=== PATIENT | male | born 1945 | race Caucasian/White ===

== ENCOUNTER → 2020-06-26 | Outpatient (CLI) | payer OTHER ==
--- NOTE | 2020-06-26 16:33 | CTL ---
EXAMINATION TYPE: CT Low Dose Lung DATE OF EXAM ORDERED: 06/26/2020 HISTORY: . Lung cancer screening CT DLP: 92.[address] CTDI: 2.7 mGy Automated exposure control for dose reduction was used. SCREENING VISIT: Initial COMPARISON: None TECHNIQUE: Low dose computed tomography scan was performed through the chest at 1 mm thick sections a nd reconstructed images in the coronal plane at [address] DIAGNOSTIC QUALITY: Satisfactory FINDINGS: LUNG NODULES: None. LUNGS: COPD: Severity: Moderately advanced Fibrosis: Severity: Mild Lymph nodes: Scattered small pretracheal lymph nodes Other findings: None RIGHT PLEURAL SPACE: Effusion: None Calcification: None Thickening: None Pneumothorax: None LEFT PLEURAL SPACE: Effusion: None Calcification: None Thickening: None Pneumothorax: None HEART: Heart Size: Normal Coronary calcification: Mild Pericardial effusion: None OTHER FINDINGS: Upper abdomen: Normal Bony thorax: Normal Supraclavicular region: Normal Other: Ascending thoracic aorta at the level the main pulmonary artery measures 3.4 cm. The main pul monary artery at the bifurcation measures 2.3 cm. IMPRESSION: 1. No suspicious changes to suggest neoplasm 2. COPD FOLLOW UP CT CHEST RECOMMENDATION: Follow-up low-dose CT chest one year CT LUNG RAD: 1
== END ==
LOC: RADCTMAIN 07:07
DX: Z12.2 Encounter for screening for malignant neoplasm of respiratory organs (principal); J44.9 Chronic obstructive pulmonary disease, unspecified
CPT/HCPCS: 71271

== ENCOUNTER 2022-07-02 10:08 | Emergency (ER) | payer MEDICARE, OTHER ==
[2022-07-02 10:24] VITALS: RESP 20
--- NOTE | 2022-07-02 11:33 | XR ---
EXAMINATION TYPE: XR chest 2V DATE OF EXAM: 07/02/2022 COMPARISON: None INDICATION: Dysrhythmia cough short of breath TECHNIQUE: Frontal and lateral views of the chest are obtained. FINDINGS: The heart size is normal. The pulmonary vasculature is normal. The lungs are clear. There is hyperinflation and flattening the diaphragms compatible with COPD. IMPRESSION: 1. No acute pulmonary process. 2. Clinical correlation recommended for COPD.
[2022-07-02 11:37] LABS: Partial Thromboplastin Time 24.8 sec (22.0-30.0); Prothrombin Time 10.7 sec (9.0-12.0)
[2022-07-02 11:39] LABS: Basophils % (A) 0 %; Eosinophils # (A) 0.1 k/uL (0-0.7); Eosinophils % (A) 1 %; HCT 45.8 % (39.0-53.0); HGB 15.3 gm/dL (13.0-17.5); Lymphocytes # (A) 0.9 k/uL (1.0-4.8); Lymphocytes % (A) 15 %; MCH 31.7 pg (25.0-35.0); MCHC 33.4 g/dL (31.0-37.0); MCV 95.1 fL (80.0-100.0); Monocytes # (A) 0.8 k/uL (0-1.0); Monocytes % (A) 13 %; Neutrophils # (A) 4.1 k/uL (1.3-7.7); Neutrophils % (A) 68 %; Platelet Count 107 k/uL (150-450); RBC 4.82 m/uL (4.30-5.90); RDW 13.6 % (11.5-15.5)
[2022-07-02 12:10] LABS: ALT 33 U/L (4-49); African American GFR (CKD) 77 (>60 ml/min/1.73 sqM); Anion Gap 8 mmol/L; Blood Urea Nitrogen 19 mg/dL (9-20); Calcium 8.4 mg/dL (8.4-10.2); Carbon Dioxide 26 mmol/L (22-30); Chloride 104 mmol/L (98-107); Glucose 97 mg/dL (74-99); Non-African American GFR(CKD) 67 (>60 ml/min/1.73 sqM); Potassium 4.6 mmol/L (3.5-5.1); Sodium 138 mmol/L (137-145); Total Bilirubin 0.8 mg/dL (0.2-1.3); Total Protein 6.6 g/dL (6.3-8.2)
[2022-07-02 12:11] LABS: AST 36 U/L (17-59); Alkaline Phosphatase 32 U/L (38-126)
--- NOTE | 2022-07-02 13:16 | ED ---
Arrhythmia/Palpitations HPI - General Chief Complaint: Arrhythmia/Palpitations Stated Complaint: Covid+,Bradycardia Time Seen by Provider: 07/02/22 10:15 Source: patient, EMS Mode of arrival: EMS Limitations: no limitations - History of Present Illness Initial Comments: 77-year-old male presents to the emergency department from [facility] urgent care. States that he went into the urgent care because he has been having cold- like symptoms for the past 2 days. Admits to a cough, nasal congestion, body aches. At the facility they did check his pulse and it was noted to be low. They swabbed him for Covid which was positive. Due to his bradycardia they recommended transfer over to the hospital for further evaluation. Patient admits that he has previously seen cardiology. He had a heart monitor for 2 years for abnormal heart rhythm however as he did not have any symptoms during the 2 years they removed it. He does not follow up with a clinical mental health counselor any longer. He denies any chest pain. No shortness of breath. Admits to some nausea with diarrhea. No other alleviating, precipitating or modifying factors - Related Data Previous Rx's Medication Instructions Recorded Nirmatrelvir/Ritonavir [Paxlovid 1 each PO BID #1 pack 07/02/22 2X150 mg-100 mg (Eua)] Allergies Allergy/AdvReac Type Severity Reaction Status Date / Time No Known Allergies Allergy Verified 07/02/22 10:28 Review of Systems ROS Statement: Those systems with pertinent positive or pertinent negative responses have been documented in the HPI. ROS Other: All systems not noted in ROS Statement are negative. Past Medical History Past Medical History: Hyperlipidemia, Prostate Disorder Past Surgical History: Hernia Repair, Orthopedic Surgery Past Psychological History: No Psychological Hx Reported Smoking Status: Former smoker Past Alcohol Use History: None Reported Past Drug Use History: None Reported General Exam Limitations: no limitations General appearance: alert, in no apparent distress Head exam: Present: atraumatic, normocephalic, normal inspection Eye exam: Present: normal appearance, PERRL, EOMI. Absent: scleral icterus, conjunctival injection, periorbital swelling ENT exam: Present: normal exam, mucous membranes moist Neck exam: Present: normal inspection. Absent: tenderness, meningismus, lymphadenopathy Respiratory exam: Present: normal lung sounds bilaterally. Absent: respiratory distress, wheezes, rales, rhonchi, stridor Cardiovascular Exam: Present: regular rate, normal rhythm, normal heart sounds. Absent: systolic murmur, diastolic murmur, rubs, gallop, clicks GI/Abdominal exam: Present: soft, normal bowel sounds. Absent: distended, tenderness, guarding, rebound, rigid Extremities exam: Present: normal inspection, full ROM, normal capillary refill. Absent: tenderness, pedal edema, joint swelling, calf tenderness Back exam: Present: normal inspection Neurological exam: Present: alert, oriented X3, CN II-XII intact Psychiatric exam: Present: normal affect, normal mood Skin exam: Present: warm, dry, intact, normal color. Absent: rash Course Vital Signs 07/02/22 07/02/22 07/02/22 10:11 10:32 11:21 Temperature 97.9 F Pulse Rate 61 62 Respiratory 20 20 20 Rate Blood Pressure 124/92 128/88 O2 Sat by Pulse 96 95 Oximetry 07/02/22 13:26 Temperature 98.2 F Pulse Rate 63 Respiratory 20 Rate Blood Pressure 110/55 O2 Sat by Pulse 98 Oximetry EKG Findings - EKG Comments: EKG Findings:: EKG demonstrates sinus rhythm with frequent PVCs. Rate of 60. MT interval 182. QRS 112. QTC of 424. No acute ST segment elevations or depressions. No signs of high degree block. Every third beat is a PVC Medical Decision Making - Medical Decision Making Was pt. sent in by a medical professional or institution (JESSICA Moss, BROADCAST SYSTEMS ENGINEER, urgent care, hospital, or shelter...) When possible be specific @ -Urgent care Did you speak to anyone other than the patient for history (EMS, parent, family, police, friend...)? What history was obtained from this source @ -EMS Did you review nursing and triage notes (agree or disagree)? Why? @ -I reviewed and agree with nursing and triage notes Were old charts reviewed (outside hosp., previous admission, EMS record, old EKG, old radiological studies, urgent care reports/EKG's, shelter records)? Report findings @ -No old charts were reviewed Differential Diagnosis (chest pain, altered mental status, abdominal pain women, abdominal pain men, vaginal bleeding, weakness, fever, dyspnea, syncope, headache, dizziness, GI bleed, back pain, seizure, CVA, palpatations, mental health, musculoskeletal)? @ -bradycardia, heart block, sick sinus syndrome, pvc EKG interpreted by me (3pts min.). @ -As above X-rays interpreted by me (1pt min.). @ -Yes CT interpreted by me (1pt min.). @ -None done U/S interpreted by me (1pt. min.). @ -None done What testing was considered but not performed or refused? (CT, X-rays, U/S, labs)? Why? @ -None What meds were considered but not given or refused? Why? @ -None Did you discuss the management of the patient with other professionals (professionals i.e. , PA, BROADCAST SYSTEMS ENGINEER, lab, RT, psych nurse, social science instructor, central sterile technician, t eacher, school services officer, family caseworker)? Give summary @ -No Was smoking cessation discussed for >3mins.? @ -No Was critical care preformed (if so, how long)? @ -No Were there social determinants of health that impacted care today? How? (Homelessness, low income, unemployed, alcoholism, drug addiction, transportation, low edu. Level, literacy, decrease access to med. care, halfway, rehab)? @ -No Was there de-escalation of care discussed even if they declined (Discuss DNR or withdrawal of care, Hospice)? DNR status @ -No What co-morbidities impacted this encounter? (DM, HTN, Smoking, COPD, CAD, Cancer, CVA, ARF, Chemo, Hep., AIDS, mental health diagnosis, sleep apnea, morbid obesity)? @ -htn Was patient admitted / discharged? Hospital course, mention meds given and rou te, prescriptions, significant lab abnormalities, going to OR and other pertinent info. @ -Arrival patient placed into room 11. A thorough history and physical exam is performed. Palpable pulse is low however when the patient is hooked up to the monitor it demonstrates multiple PVCs. Laboratory studies are conducted. Patient remains relatively asymptomatic throughout his stay in the emergency department. I did discuss results with the patient. He will be placed on Paxlo vid. Instructed to stop his statin. He does take metoprolol. Instructed that he needs to follow up with cardiology to see if this should be decreased. He does maintain a heart rate of 60 or greater while in the ED. I did recommend that he follow-up with cardiology and return for any new or worsening symptoms. Patient agreeable to treatment plan is discharge home in stable condition Undiagnosed new problem with uncertain prognosis? @ -No Drug Therapy requiring intensive monitoring for toxicity (Heparin, Nitro, Insulin, Cardizem)? @ -No Were any procedures done? @ -No Diagnosis/symptom? @ -acute covid infection, pvcs Acute, or Chronic, or Acute on Chronic? @ -acute - covid, chronic - pvc Uncomplicated (without systemic symptoms) or Complicated (systemic symptoms)? @ -complicated Side effects of treatment? @ -No Exacerbation, Progression, or Severe Exacerbation? @ -No Poses a threat to life or bodily function? How? (Chest pain, [place], PR, pneumonia, PE, COPD, DKA, ARF, appy, cholecystitis, CVA, Diverticulitis, Homicidal, Suicidal, threat to staff... and all critical care pts) @ -yes - Lab Data Result diagrams: 07/02/22 11:11 07/02/22 11:40 Lab Results 07/02/22 07/02/22 07/02/22 Range/Units 11:11 11:11 11:40 WBC 6.0 (3.8-10.6) k/uL RBC 4.82 (4.30-5.90) m/uL Hgb 15.3 (13.0-17.5) gm/dL Hct 45.8 (39.0-53.0) % MCV 95.1 (80.0-100.0) fL MCH 31.7 (25.0-35.0) pg MCHC 33.4 (31.0-37.0) g/dL RDW 13.6 (11.5-15.5) % Plt Count 107 L (150-450) k/uL MPV 9.0 Neutrophils % 68 % Lymphocytes % 15 % Monocytes % 13 % Eosinophils % 1 % Basophils % 0 % Neutrophils # 4.1 (1.3-7.7) k/uL Lymphocytes # 0.9 L (1.0-4.8) k/uL Monocytes # 0.8 (0-1.0) k/uL Eosinophils # 0.1 (0-0.7) k/uL Basophils # 0.0 (0-0.2) k/uL PT 10.7 (9.0-12.0) sec INR 1.0 (<1.2) APTT 24.8 (22.0-30.0) sec Sodium (137-145) mmol/L Potassium (3.5-5.1) mmol/L Chloride (98-107) mmol/L Carbon Dioxide (22-30) mmol/L Anion Gap mmol/L BUN (9-20) mg/dL Creatinine (0.66-1.25) mg/dL Est GFR (CKD-EPI)AfAm (>60 ml/min/1.73 sqM) Est GFR (CKD-EPI)NonAf (>60 ml/min/1.73 sqM) Glucose (74-99) mg/dL Calcium (8.4-10.2) mg/dL Magnesium (1.6-2.3) mg/dL Total Bilirubin (0.2-1.3) mg/dL AST (17-59) U/L ALT (4-49) U/L Alkaline Phosphatase (38-126) U/L Troponin I <0.012 (0.000-0.034) ng/mL Total Protein (6.3-8.2) g/dL Albumin (3.5-5.0) g/dL TSH (0.465-4.680) mIU/L 07/02/22 Range/Units 11:40 WBC (3.8-10.6) k/uL RBC (4.30-5.90) m/uL Hgb (13.0-17.5) gm/dL Hct (39.0-53.0) % MCV (80.0-100.0) fL MCH (25.0-35.0) pg MCHC (31.0-37.0) g/dL RDW (11.5-15.5) % Plt Count (150-450) k/uL MPV Neutrophils % % Lymphocytes % % Monocytes % % Eosinophils % % Basophils % % Neutrophils # (1.3-7.7) k/uL Lymphocytes # (1.0-4.8) k/uL Monocytes # (0-1.0) k/uL Eosinophils # (0-0.7) k/uL Basophils # (0-0.2) k/uL PT (9.0-12.0) sec INR (<1.2) APTT (22.0-30.0) sec Sodium 138 (137-145) mmol/L Potassium 4.6 (3.5-5.1) mmol/L Chloride 104 (98-107) mmol/L Carbon Dioxide 26 (22-30) mmol/L Anion Gap 8 mmol/L BUN 19 (9-20) mg/dL Creatinine 1.08 (0.66-1.25) mg/dL Est GFR (CKD-EPI)AfAm 77 (>60 ml/min/1.73 sqM) Est GFR (CKD-EPI)NonAf 67 (>60 ml/min/1.73 sqM) Glucose 97 (74-99) mg/dL Calcium 8.4 (8.4-10.2) mg/dL Magnesium 2.0 (1.6-2.3) mg/dL Total Bilirubin 0.8 (0.2-1.3) mg/dL AST 36 (17-59) U/L ALT 33 (4-49) U/L Alkaline Phosphatase 32 L (38-126) U/L Troponin I (0.000-0.034) ng/mL Total Protein 6.6 (6.3-8.2) g/dL Albumin 4.0 (3.5-5.0) g/dL TSH 1.170 (0.465-4.680) mIU/L Disposition Clinical Impression: PVC (premature ventricular contraction), COVID-19 Disposition: HOME SELF-CARE Condition: Stable Instructions (If sedation given, give patient instructions): Coronavirus Disease 2019 (COVID-19) Additional Instructions: Stop taking the Rosuvastatin while you are on the Paxlovid. Take Motrin and Tylenol every 4 hours as needed for fever. Follow-up with the clinical mental health counselor in regards to your heart rate and return for any new or worsening symptoms Prescriptions: Nirmatrelvir/Ritonavir [Paxlovid 2X150 mg-100 mg (Eua)] 1 each PO BID #1 pack Is patient prescribed a controlled substance at d/c from ED?: No Referrals: [facility],Clinic [Primary Care Provider] - 1-2 days [facility] [Provider Group] - 1-2 days Time of Disposition: 13:16
[2022-07-02 13:27] VITALS: BP 110/55; PULSE 63; TEMP 98.2
== END 2022-07-02 13:27 | disposition home or self-care (01) ==
LOC: EC 10:08
DX: U07.1 COVID-19 (principal); I49.3 Ventricular premature depolarization; Z87.891 Personal history of nicotine dependence
CPT/HCPCS: 36415; 71046; 80053; 83735; 84443; 84484; 85025; 85610; 85730; 93005; 99285

== ENCOUNTER → 2022-08-04 | Outpatient (CLI) | payer MEDICARE ==
--- NOTE | 2022-08-05 06:56 | CTL ---
EXAMINATION TYPE: CT Low Dose Lung DATE OF EXAM ORDERED: 08/04/2022 HISTORY: Long-term tobacco use. Lung cancer screening CT DLP: 127.[address] CTDI: 3.3 mGy Automated exposure control for dose reduction was used. SCREENING VISIT: Second after baseline COMPARISON: Prior studies 2021 and 2020 TECHNIQUE: Low dose computed tomography scan was performed through the chest at 1 mm thick sections a nd reconstructed images in multiple planes at 1 mm and [address] DIAGNOSTIC QUALITY: Satisfactory FINDINGS: LUNG NODULES: None. LUNGS: COPD: Severity: Mild Fibrosis: Severity: Mild Lymph nodes: None Other findings: None RIGHT PLEURAL SPACE: Effusion: None Calcification: None Thickening: None Pneumothorax: None LEFT PLEURAL SPACE: Effusion: None Calcification: None Thickening: None Pneumothorax: None HEART: Heart Size: Normal Coronary Calcification: Mild to moderate Pericardial Effusion: None OTHER FINDINGS: Upper abdomen: None Bony thorax: None Supraclavicular region: Slight scoliotic curvature Other: None IMPRESSION: Mild emphysematous and pulmonary fibrotic change. No new or enlarging significant pulmona ry nodules. CT LUNG RAD AND CT CHEST RECOMMENDATION: Lung-Rad 1 Negative: Continue annual screening with LDCT in 12 months. S Modifier (other clinically significant findings): None
== END | disposition home or self-care (01) ==
LOC: RADCTMAIN 18:05
DX: Z12.2 Encounter for screening for malignant neoplasm of respiratory organs (principal); J43.9 Emphysema, unspecified; J84.10 Pulmonary fibrosis, unspecified; Z87.891 Personal history of nicotine dependence
CPT/HCPCS: 71271

== ENCOUNTER → 2022-10-20 | Day surgery (SDC) | payer MEDICARE, OTHER ==
[2022-10-18 09:26] VITALS: BMI 25.7
[~2022-10-20] MED LIST: ALPRAZolam 0.25 MG TAB PO PRN; ALPRAZolam 0.5 MG TAB PO PRN; ASPIRIN 325 MG TAB PO STA; NITROGLYCERIN SL TABS 0.4 MG TAB SUBLINGUAL PRN; SODIUM CHLORIDE 0.9% 1,000 ML in EMPTY BAG 1 BAG IV SCH
== END ==
LOC: CATHCVL 08:50
PROVIDERS: ATTEND Internal Medicine Cardiovascular Disease
DX: I34.0 Nonrheumatic mitral (valve) insufficiency (principal)

== ENCOUNTER 2022-11-28 07:11 | Day surgery (SDC) | payer OTHER ==
[~2022-11-28 07:11] MED LIST changes: +ASPIRIN 325 MG TAB PO ONE; -ASPIRIN 325 MG TAB PO STA; +ATORVASTATIN 80 MG TAB PO ONE; +HEPARIN SODIUM,PORCINE (1 ML) 2,500 UNIT in SODIUM CHLORIDE 0.9% 250 ML IRRIGATION PRN; +HEPARIN SODIUM,PORCINE 10,000 UNIT in SODIUM CHLORIDE 0.9% 1,000 ML IRRIGATION PRN
[2022-11-28 07:56] LABS: Basophils % (A) 0 %; Eosinophils # (A) 0.1 k/uL (0-0.7); Eosinophils % (A) 3 %; HCT 45.8 % (39.0-53.0); HGB 15.4 gm/dL (13.0-17.5); Lymphocytes # (A) 1.1 k/uL (1.0-4.8); Lymphocytes % (A) 24 %; MCHC 33.6 g/dL (31.0-37.0); MCV 95.2 fL (80.0-100.0); Mean Platelet Volume 7.8; Monocytes # (A) 0.4 k/uL (0-1.0); Monocytes % (A) 9 %; Neutrophils % (A) 62 %; Platelet Count 113 k/uL (150-450); RBC 4.82 m/uL (4.30-5.90); RDW 13.5 % (11.5-15.5); WBC 4.8 k/uL (3.8-10.6)
[2022-11-28 08:08] LABS: African American GFR (CKD) 82 (>60 ml/min/1.73 sqM); Blood Urea Nitrogen 19 mg/dL (9-20); Carbon Dioxide 26 mmol/L (22-30); Glucose 94 mg/dL (74-99); Non-African American GFR(CKD) 71 (>60 ml/min/1.73 sqM)
[2022-11-28 08:13] VITALS: TEMP 97.1
[2022-11-28 08:19] LABS: Anion Gap 4 mmol/L; Chloride 105 mmol/L (98-107); Potassium 4.2 mmol/L (3.5-5.1); Sodium 135 mmol/L (137-145)
[2022-11-28] MEDS ORDERED: IV FLUID CONTINUATION 1,000 ML IV ONE (08:29)
[2022-11-28] MEDS ORDERED: BENZOCAINE SPRAY 1 CAN MUCOUS MEM ONE (08:35)
[2022-11-28] MEDS ORDERED: HEPARIN SODIUM 1,000 UN/ML (10ML VL) ONE (08:36)
[2022-11-28] MEDS ORDERED: fentaNYL (PF) 50 MCG/ML 2 ML AMP ONE (08:37)
[2022-11-28] MEDS ORDERED: fentaNYL (PF) 50 MCG/ML 2 ML AMP IVP ONE (08:39)
[2022-11-28] MEDS ORDERED: MIDAZOLAM 2 MG/2 ML VIAL IVP ONE ×2 (08:39→08:42)
[2022-11-28] MEDS ORDERED: LIDOCAINE 2% (PF) 20 MG/ML 5 ML VIAL SQ ONE (08:52)
[2022-11-28] MEDS ORDERED: HEPARIN SODIUM 1,000 UN/ML (10ML VL) IV ONE (08:58)
[2022-11-28] MEDS ORDERED: IOPAMIDOL-370 100ML BTL INJ ONE (09:08)
--- NOTE | 2022-11-28 11:53 | CC ---
CARDIAC CATHETERIZATION REPORT INDICATION: Cardiomyopathy with moderate LV systolic dysfunction with evidence of prior inferior wall myocardial infarction. PROCEDURE NOTE: After obtaining informed consent, left heart catheterization and coronary angiogram were performed via the right radial artery using standard Brock catheters. The patient tolerated the procedure well without any obvious immediate complications. The patient received moderate conscious sedation. Total sedation time was 18 minutes. I obtained right radial artery access using Seldinger technique. A 6-Danish sheath was placed. Catheters and wires were floated into the ascending aorta under fluoroscopic guidance. The patient received verapamil and heparin per protocol. FINDINGS: HEMODYNAMICS: 1. Left ventricular end-diastolic pressure is 16 mm. There is no significant gradient across the aortic valve. 2. Left ventriculogram: Left ventriculogram is not performed. ANGIOGRAPHIC DATA: Left main coronary artery: Left main coronary artery is a normal-sized vessel and is free of stenosis. Divides into left anterior descending coronary artery and circumflex coronary artery. Circumflex coronary artery shows mild nonobstructive disease. LAD and its branches are free of significant disease. Right coronary artery is a large dominant vessel that shows mild nonobstructive disease involving the PDA. CONCLUSION: Mild nonobstructive coronary artery disease. PLAN: 1. I reviewed angiographic data with the patient and told him that his cardiomyopathy is nonischemic in etiology. 2. I could not perform a transesophageal echo on him because of difficulty in intubating him. I am going to bring him back and do the procedure with the help of anesthesia. 3. The patient has significant ventricular ectopy after we initially entered into his LV. I am going to add a beta-carissa to the aspirin, statin, and the losartan that he is currently on. MMODL / IJN: [id number] /
[2022-11-28 19:28] VITALS: PULSE 62
[2022-11-28 19:29] VITALS: BP 111/73; RESP 14
== END 2022-11-28 12:56 | disposition home or self-care (01) ==
LOC: CATHCVL 07:11
PROVIDERS: ATTEND Internal Medicine Cardiovascular Disease
DX: I25.10 Atherosclerotic heart disease of native coronary artery without angina pectoris (principal); I21.9 Acute myocardial infarction, unspecified; I42.9 Cardiomyopathy, unspecified; I49.3 Ventricular premature depolarization; E78.5 Hyperlipidemia, unspecified; F17.210 Nicotine dependence, cigarettes, uncomplicated; Z79.899 Other long term (current) drug therapy
CPT/HCPCS: 93458; 80048; 85025; C1769; C1894; J2250; J3010; J1644; Q9967; J2001

== ENCOUNTER 2022-12-27 08:55 | Day surgery (SDC) | payer OTHER ==
[2022-12-27] MEDS ORDERED: SODIUM CHLORIDE 0.9% 500 ML 500 ML IV ONE (09:19)
[2022-12-27 09:31] VITALS: RESP 16; TEMP 98
[2022-12-27] MEDS ORDERED: BENZOCAINE SPRAY 1 CAN TOPICAL ONE (12:15)
[2022-12-27] MEDS ORDERED: PROPOFOL 10 MG/ML 20 ML VIAL IV ONE (12:21)
[2022-12-27 18:10] VITALS: BP 119/67; PULSE 72
--- NOTE | 2022-12-27 22:31 | ECHOT ---
TRANSESOPHAGEAL ECHOCARDIOGRAM INDICATION: Mitral regurgitation. PROCEDURE NOTE: After obtaining informed consent, transesophageal echocardiogram was performed in left lateral position using an Omniplane probe. Local and IV sedation were obtained by the Care Worker. I could not do a NISA on him last time and so I have taken Anesthesia's help. FINDINGS: 1. Mitral valve appears thickened with partial flail of the posterior mitral leaflet with severe anteriorly directed mitral regurgitation. There is systolic flow reversal into the pulmonary vein. Left atrium appears moderately enlarged. Right atrium and right ventricle seen within normal limits. 2. Left ventricle has normal size and ejection fraction of 55% to 60%. 3. Aortic valve is a 3-leaflet valve. There is mild aortic regurgitation noted. Tricuspid valve shows mild to moderate tricuspid regurgitation. There are no intracardiac thrombus within the left atrium, right atrium, right ventricle, and left ventricle. 4. Aorta shows mild atherosclerotic changes. 5. Interatrial septum, there is no evidence of [id number] shunt by color-flow Doppler or [id number] shunt by agitated saline contrast study. CONCLUSION: 1. Severe anteriorly directed mitral regurgitation secondary to partial flail of the posterior mitral leaflet. 2. Ejection fraction 55% to 60%. PLAN: I am going to refer the patient to Dr. Wing, Cardiothoracic Surgeon for mitral valve repair. The patient already had a cardiac cath that did not reveal significant obstructive CAD. MMODL / IJN: [id number] /
--- NOTE | 2022-12-28 09:13 | LTR ---
Dear Isabela: I performed transesophageal echo on Manpreet Alexis. The detailed NISA report is enclosed for your records. In brief, his evaluation so far reveals severe mitral regurgitation without significant CAD. The patient will need and would benefit from mitral valve repair and I am referring him to Dr. Wing, Cardiothoracic Surgeon. Thank you for giving me the privilege to participate in the care of this pleasant gentleman. Sincerely, MICHELLE / IJN: [id number] /
== END 2022-12-27 14:02 | disposition home or self-care (01) ==
LOC: CATHCVL 08:55
PROVIDERS: ATTEND Internal Medicine Cardiovascular Disease
DX: I08.3 Combined rheumatic disorders of mitral, aortic and tricuspid valves (principal); E78.5 Hyperlipidemia, unspecified; F17.210 Nicotine dependence, cigarettes, uncomplicated; I25.5 Ischemic cardiomyopathy; Z79.899 Other long term (current) drug therapy
CPT/HCPCS: 93312; 93320; 93325; J2704

== ENCOUNTER → 2023-03-16 | Outpatient (CLI) | payer OTHER ==
[2023-03-16 10:03] LABS: Appearance,Urine Clear (Clear); Color,Urine Light Orange
[2023-03-16 10:05] LABS: Bilirubin,Urine Negative (Negative); Blood,Urine Negative (Negative); Glucose,Urine (UA) Negative (Negative); Ketones,Urine Negative (Negative); Leukocyte Esterase,Urine Negative (Negative); Nitrite,Urine Negative (Negative); PH, Urine 6.5 (5.0-8.0); Protein,Urine Negative (Negative); Specific Gravity,Urine 1.025 (1.001-1.035); Urobilinogen,Urine 0.2 mg/dL (<2.0)
[2023-03-16 10:06] LABS: Partial Thromboplastin Time 24.1 sec (22.0-30.0); Prothrombin Time 10.9 sec (10.0-12.5)
--- NOTE | 2023-03-16 10:39 | XR ---
EXAMINATION TYPE: XR chest 2V DATE OF EXAM: 03/16/2023 COMPARISON: 07/02/2022 HISTORY: Shortness of breath TECHNIQUE: Frontal and lateral views of the chest are obtained. FINDINGS: Scattered senescent parenchymal changes noted. Hyperinflation compatible with COPD. No evidence for infiltrate. No evidence for atelectasis. Heart size is stable. Mediastinal structures are stable and grossly unremarkable. No evidence for hilar prominence. Degenerative changes dorsal spine. IMPRESSION: 1. No evidence for acute pulmonary disease.
[2023-03-16 15:38] LABS: HCT 45.2 % (39.6-50.0); HGB 14.5 g/dL (13.0-17.0); MCH 31.2 pg (27.0-32.0); MCHC 32.1 g/dL (32.0-37.0); MCV 97.2 FL (80.0-97.0); Mean Platelet Volume 9.5 FL (9.5-12.2); NRBC Per 100 WBC 0 X 10*3/uL (0.00-0.01); Platelet Count 140 X 10*3/uL (140-440); RBC 4.65 X 10*6/uL (4.40-5.60); RDW 12.9 % (11.5-14.5); WBC 4.68 X 10*3/uL (4.50-10.00)
[2023-03-16 16:15] LABS: ALT 29 U/L (10-49); AST 22 U/L (14-35); Albumin 4.2 g/dL (3.8-4.9); Alkaline Phosphatase 48 U/L (41-126); BUN/Creat Ratio 15.36 Ratio (12.00-20.00); Blood Urea Nitrogen 16.9 mg/dL (9.0-27.0); Calcium 9.3 mg/dL (8.7-10.3); Carbon Dioxide 27.4 mmol/L (21.6-31.8); Chloride 105 mmol/L (96-109); Chol/HDL Ratio 4.16 Ratio; Glucose 102 mg/dL (70-110); Magnesium 1.9 mg/dL (1.5-2.4); Potassium 4.6 mmol/L (3.5-5.5); Sodium 142 mmol/L (135-145); Total Bilirubin 0.4 mg/dL (0.3-1.2); Total Protein 6.2 g/dL (6.2-8.2)
[2023-03-16 16:37] LABS: Hepatitis A Antibody IgM Nonreactive; Hepatitis B Core IgM Nonreactive; Hepatitis B Surface Antigen Nonreactive; Hepatitis C IgG Antibody Nonreactive
== END | disposition home or self-care (01) ==
LOC: LABWHC1 08:54
PROVIDERS: ATTEND Surgery
DX: Z01.818 Encounter for other preprocedural examination (principal); I45.10 Unspecified right bundle-branch block; I44.4 Left anterior fascicular block; R94.31 Abnormal electrocardiogram [ECG] [EKG]
CPT/HCPCS: 36415; 71046; 80053; 80061; 80074; 81003; 83036; 83735; 84443; 85027; 85610; 85730; 86850; 86900; 86901; 86920; 87070; 87086; 93005; 94150

== ENCOUNTER → 2023-04-06 | Outpatient (CLI) | payer OTHER, MEDICARE ==
[2023-04-06 09:23] LABS: Partial Thromboplastin Time 24.1 sec (22.0-30.0); Prothrombin Time 10.5 sec (10.0-12.5)
[2023-04-06 15:03] LABS: HCT 47.4 % (39.6-50.0); HGB 15.3 g/dL (13.0-17.0); MCH 30.8 pg (27.0-32.0); MCHC 32.3 g/dL (32.0-37.0); MCV 95.4 FL (80.0-97.0); Mean Platelet Volume 9.2 FL (9.5-12.2); NRBC Per 100 WBC 0 X 10*3/uL (0.00-0.01); Platelet Count 152 X 10*3/uL (140-440); RBC 4.97 X 10*6/uL (4.40-5.60); RDW 13.1 % (11.5-14.5); WBC 5.18 X 10*3/uL (4.50-10.00)
[2023-04-06 15:27] LABS: ALT 28 U/L (10-49); AST 19 U/L (14-35); Albumin 4.4 g/dL (3.8-4.9); Albumin/Globulin Ratio 1.91 Ratio (1.60-3.17); Alkaline Phosphatase 48 U/L (41-126); BUN/Creat Ratio 13.64 Ratio (12.00-20.00); Calcium 9.7 mg/dL (8.7-10.3); Carbon Dioxide 26.7 mmol/L (21.6-31.8); Chloride 102 mmol/L (96-109); Globulin 2.3 g/dL (1.6-3.3); Glucose 95 mg/dL (70-110); Potassium 4.8 mmol/L (3.5-5.5); Sodium 139 mmol/L (135-145); Total Bilirubin 0.4 mg/dL (0.3-1.2); Total Protein 6.7 g/dL (6.2-8.2)
== END | disposition home or self-care (01) ==
LOC: LABWHC1 07:52
PROVIDERS: ATTEND Surgery
DX: I34.0 Nonrheumatic mitral (valve) insufficiency (principal)
CPT/HCPCS: 36415; 80053; 85027; 85610; 85730; 86850; 86900; 86901; 86920

== ENCOUNTER 2023-04-14 08:00 | Inpatient (IN) | payer OTHER ==
[2023-04-17] MEDS ORDERED: MUPIROCIN 2% OINT 22 GM TUBE NASAL ONE (00:30)
[2023-04-17] MEDS ORDERED: NITROGLYCERIN-D5W PMX 25 MG/250 ML BTL IV ONE (05:00)
[2023-04-17] MEDS ORDERED: CALCIUM CHLORIDE 100 MG/ML 10 ML SYRINGE IV ONE (05:00)
[2023-04-17] MEDS ORDERED: PROTAMINE SULFATE 250 MG in EMPTY BAG 1 BAG IV ONE (05:00)
[2023-04-17] MEDS ORDERED: ALBUMIN HUMAN 5% 500 ML IVPB ONE (05:00)
[2023-04-17] MEDS ORDERED: ELECTROLYTE-A SOLUTION 1,000 ML with POTASSIUM CHLORIDE 40 MEQ, MAGNESIUM SULFATE 16 ME... IV ONE ×5 (05:00)
[2023-04-17] MEDS ORDERED: MAGNESIUM SULFATE 16.24 MEQ in EMPTY SYRINGE 1 SYR IV ONE (05:00)
[2023-04-17] MEDS ORDERED: CLEVIDIPINE BUTYRATE 25 MG in EMPTY BAG 1 BAG IV ONE (05:00)
[2023-04-17] MEDS ORDERED: INSULIN REGULAR 100 UNIT in SODIUM CHLORIDE 0.9% 100 ML IV ONE (05:00)
[2023-04-17] MEDS ORDERED: CHLORHEXIDINE GLUCONATE 15 ML CUP MUCOUS MEM ONE (05:00)
[2023-04-17] MEDS ORDERED: LACTATED RINGERS 1,000 ML IV ONE (05:00)
[2023-04-17] MEDS ORDERED: ELECTROLYTE-A SOLUTION 1,000 ML with POTASSIUM CHLORIDE 100 MEQ, MAGNESIUM SULFATE 16 M... IV ONE ×5 (05:00)
[2023-04-17] MEDS ORDERED: ceFAZolin 1,000 MG in SODIUM CHLORIDE 0.9% IRRIGATIO 1,000 ML IRRIGATION ONE (05:00)
[2023-04-17] MEDS ORDERED: NITROGLYCERIN SL TABS 0.4 MG TAB SUBLINGUAL ONE (05:00)
[2023-04-17] MEDS ORDERED: MANNITOL 25% 12.5 GM/50 ML VIAL IV ONE (05:00)
[2023-04-17] MEDS ORDERED: METOPROLOL TARTRATE 12.5 MG TAB PO ONE (05:00)
[2023-04-17] MEDS ORDERED: NITROGLYCERIN-D5W PMX 50 MG in DEXTROSE/WATER 1 250ML.BAG IV ONE (05:00)
[2023-04-17] MEDS ORDERED: NOREPINEPHRINE 4 MG in SODIUM CHLORIDE 0.9% 250 ML IV ONE (05:00)
[2023-04-17] MEDS ORDERED: ATORVASTATIN 10 MG TAB PO ONE (05:00)
[2023-04-17] MEDS ORDERED: ASPIRIN 325 MG TAB PO ONE (05:00)
[2023-04-17] MEDS ORDERED: ALBUMIN HUMAN 25% 50 ML IV ONE (05:00)
[2023-04-17] MEDS ORDERED: PHENYLEPHRINE 10 MG/ML VIAL IV ONE (05:00)
[2023-04-17] MEDS ORDERED: HEPARIN SODIUM,PORCINE (1 ML) 5,000 UNIT in SODIUM CHLORIDE 0.9% 500 ML 500 ML IV ONE (05:00)
[2023-04-17] MEDS ORDERED: HEPARIN SODIUM 1,000 UN/ML (10ML VL) IV ONE (05:00)
[2023-04-17] MEDS ORDERED: propofoL 1,000 MG/100 ML VIAL IV ONE (05:00)
[2023-04-17] MEDS ORDERED: TRANEXAMIC ACID 2,000 MG in SODIUM CHLORIDE 0.9% 80 ML IV ONE (05:00)
[2023-04-17] MEDS ORDERED: SODIUM CHLORIDE 0.9% 1,000 ML IV ONE (05:00)
[2023-04-17] MEDS ORDERED: PHENYLEPHRINE 40 MG in SODIUM CHLORIDE 0.9% 250 ML IV ONE (05:00)
[2023-04-17] MEDS ORDERED: PROTAMINE SULFATE 10 MG/ML 25 ML VIAL IV ONE ×2 (05:00→07:34)
[2023-04-17] MEDS ORDERED: SODIUM BICARB 8.4% 50 ML SYR (1 MEQ/ML) IV ONE (05:00)
[2023-04-17] MEDS ORDERED: LIDOCAINE 1% (10MG/ML) FOR IV START INTRADERMA PRN (05:46)
[2023-04-17] MEDS ORDERED: MIDAZOLAM 2 MG/2 ML VIAL IV PRN (05:46)
[2023-04-17] MEDS ORDERED: LACTATED RINGERS 1,000 ML IV SCH (05:46)
[2023-04-17] MEDS ORDERED: fentaNYL (PF) 50 MCG/ML 2 ML AMP IVP PRN (05:46)
[2023-04-17 06:29] LABS: Glucose,Whole Blood 93 mg/dL (70-110)
[2023-04-17] MEDS ORDERED: VECURONIUM 10 MG VIAL IV ONE (07:34)
[2023-04-17] MEDS ORDERED: TRANEXAMIC 1,000 MG/100ML-NACL PREMIX BAG ONE (07:34)
[2023-04-17] MEDS ORDERED: ePHEDrine 50 MG/ML 1 ML VIAL ONE (07:34)
[2023-04-17] MEDS ORDERED: HEPARIN SODIUM,PORCINE 5,000 UNIT/ML 1 ML VIAL ONE (07:34)
[2023-04-17] MEDS ORDERED: HEPARIN SODIUM,PORCINE 10,000 UNIT/ML 1 ML VIAL ONE (07:34)
[2023-04-17] MEDS ORDERED: SUCCINYLCHOLINE CHLORIDE 200 MG/10 ML VIAL IV ONE (07:34)
[2023-04-17] MEDS ORDERED: MIDAZOLAM HCL 10 MG/10 ML VIAL ONE (07:34)
[2023-04-17] MEDS ORDERED: fentaNYL (PF) 50 MCG/ML 50 ML VIAL ONE (07:34)
[2023-04-17 12:23] LABS: ABG Glucose Whole Blood 138 mg/dL (75-99); ABG HCO3 24 mmol/L (21-25); ABG Hematocrit 33 % (34.0-46.0); ABG Ionized Calcium 4.2 mg/dL (4.5-5.3); ABG Oxygen Saturation 99.9 % (94-97); ABG PCO2 46 mmHg (35-45); ABG PH 7.33 (7.35-7.45); ABG Potassium Whole Blood 4.2 mmol/L (3.4-4.5); ABG Sodium Whole Blood 141 mmol/L (135-146); ABG TCO2 26 mmol/L (19-24); Allen Test Performed? Yes
[2023-04-17 12:35] LABS: ABG Lactic Acid Whole Blood 2.3 mmol/L (0.5-1.6); ABG PO2 >420 mmHg (83-108)
[2023-04-17] MEDS ORDERED: CALCIUM GLUCONATE IN NACL 2 GM in SALINE 1 100ML.BAG IVPB PRN (12:52)
[2023-04-17] MEDS ORDERED: DEXTROSE 50% SYRINGE 50 ML IVP PRN ×2 (12:52)
[2023-04-17] MEDS ORDERED: BENZOCAINE/MENTHOL LOZENG 1 EACH LOZENGE MUCOUS MEM PRN (12:52)
[2023-04-17] MEDS ORDERED: DEXMEDETOMIDINE/0.9% NACL(PMX) 400 MCG in EMPTY BAG 1 BAG IV SCH (12:52)
[2023-04-17] MEDS ORDERED: Magnesium Replacement Protocol 1 EACH MISC MISCELLANE PRN (12:52)
[2023-04-17] MEDS ORDERED: ONDANSETRON 4 MG/2 ML VIAL IVP PRN (12:52)
[2023-04-17] MEDS ORDERED: DEXTROSE 5% IN WATER 100 ML with AMIODARONE 150 MG IV PRN (12:52)
[2023-04-17] MEDS ORDERED: AMIODARONE 450 MG in DEXTROSE 5% IN WATER 250 ML IV PRN ×2 (12:52)
[2023-04-17] MEDS ORDERED: IPRATROPIUM-ALBUTEROL 3 ML NEB INHALATION PRN (12:52)
[2023-04-17] MEDS ORDERED: Phosphorus Replacement Protoco 1 EACH MISC MISCELLANE PRN (12:52)
[2023-04-17] MEDS ORDERED: Potassium Replacement Protocol 1 EACH MISC MISCELLANE PRN (12:52)
[2023-04-17] MEDS ORDERED: AMIODARONE 360 MG in DEXTROSE 5% IN WATER 200 ML IV PRN ×2 (12:52)
[2023-04-17] MEDS: LACTATED RINGERS 1,000 ML IV SCH (13:10)
[2023-04-17 13:11] LABS: Glucose,Whole Blood 129 mg/dL (70-110)
[2023-04-17] MEDS ORDERED: INSULIN REGULAR 100 UNIT in SODIUM CHLORIDE 0.9% 100 ML IV SCH (13:15)
[2023-04-17] MEDS ORDERED: NOREPINEPHRINE 4 MG in SODIUM CHLORIDE 0.9% 250 ML IV SCH (13:15)
[2023-04-17 13:23] LABS: Basophils % (A) 0 %; Eosinophils % (A) 0 %; HCT 37.5 % (39.0-53.0); HGB 12.4 gm/dL (13.0-17.5); Lymphocytes # (A) 0.9 k/uL (1.0-4.8); Lymphocytes % (A) 7 %; MCH 31.8 pg (25.0-35.0); MCHC 33.2 g/dL (31.0-37.0); Mean Platelet Volume 8.1; Monocytes # (A) 0.7 k/uL (0-1.0); Monocytes % (A) 6 %; Neutrophils # (A) 10.5 k/uL (1.3-7.7); Neutrophils % (A) 86 %; Platelet Count 100 k/uL (150-450); RDW 13.4 % (11.5-15.5); WBC 12.3 k/uL (3.8-10.6)
[2023-04-17] MEDS: IPRATROPIUM-ALBUTEROL 3 ML NEB INHALATION SCH ×3 (13:28→20:16)
--- NOTE | 2023-04-17 13:32 | XR ---
EXAMINATION TYPE: XR chest 1V portable DATE OF EXAM: 04/17/2023 COMPARISON: 03/16/2023 INDICATION: Postcardiac surgery TECHNIQUE: Single frontal view of the chest is obtained. FINDINGS: The heart size is normal. The pulmonary vasculature is normal. Perihilar infiltrates are present more so on the left. Correlate for atelectasis. Endotracheal tube tip is 4.5 cm above the dennis. Nasogastric tube transverses the thorax tip in the proximal left upper quadrant of the abdomen. Left-sided chest tube is present. No new thorax is ident ified. Right-sided chest tube is present. Mediastinal tube is present. [place]-Aime catheter enters on t he right with the tip in the main pulmonary artery region. Correlate with wave forms. IMPRESSION: 1. Perihilar infiltrates likely atelectasis greater in the left hilum. Follow-up recommended. 2. Multiple lines and catheters discussed above.
[2023-04-17 13:33] LABS: Ionized Calcium 4.4 mg/dL (4.5-5.3)
[2023-04-17 13:40] LABS: INR 1.1 (<1.2); Partial Thromboplastin Time 27.3 sec (22.0-30.0); Prothrombin Time 12.2 sec (10.0-12.5)
[2023-04-17 13:41] LABS: ABG Base Excess -0.9 mmol/L; ABG HCO3 24 mmol/L (21-25); ABG Oxygen Saturation 99.8 % (94-97); ABG PCO2 42 mmHg (35-45); ABG PH 7.37 (7.35-7.45); ABG PO2 259 mmHg (83-108); ABG TCO2 26 mmol/L (19-24)
[2023-04-17 13:42] LABS: Allen Test Performed? no
[2023-04-17 13:49] LABS: ALT 20 U/L (4-49); AST 43 U/L (17-59); African American GFR (CKD) >90 (>60 ml/min/1.73 sqM); Albumin 3.3 g/dL (3.5-5.0); Alkaline Phosphatase 36 U/L (38-126); Anion Gap 9 mmol/L; Blood Urea Nitrogen 16 mg/dL (9-20); Calcium 7.4 mg/dL (8.4-10.2); Carbon Dioxide 22 mmol/L (22-30); Chloride 107 mmol/L (98-107); Glucose 134 mg/dL (74-99); Magnesium 2.5 mg/dL (1.6-2.3); Non-African American GFR(CKD) 84 (>60 ml/min/1.73 sqM); Potassium 4.5 mmol/L (3.5-5.1); Sodium 138 mmol/L (137-145); Total Bilirubin 0.8 mg/dL (0.2-1.3); Total Protein 5.3 g/dL (6.3-8.2)
[2023-04-17 14:12] LABS: Glucose,Whole Blood 144 mg/dL (70-110)
[2023-04-17] MEDS: ALBUMIN HUMAN 5% 250 ML in EMPTY BAG 1 BAG IVPB PRN ×2 (14:34→15:15)
[2023-04-17] MEDS: ACETAMINOPHEN IV (For NPO) 1,000 MG in EMPTY BAG 1 BAG IVPB SCH ×2 (14:54→20:17)
[2023-04-17 15:05] LABS: Glucose,Whole Blood 146 mg/dL (70-110)
--- NOTE | 2023-04-17 15:43 | P.CNPUL ---
History of Present Illness Consult date: 04/17/23 Requesting physician: Siddhartha Wing Reason for consult: other Chief complaint: Mitral Valve repair. History of present illness: Pulmonary consult dated 04/17/2023. 78-year-old male, seen in the intensive care unit, room 266. The patient is postop day #0, status post mitral valve for pain or, performed by Dr. Wing. The patient is on the mechanical ventilator, with settings of volume assist co ntrol, rate of 14, tidal volume 600, FiO2 50%, and PEEP of 5. Blood gases on 100% showed a pO2 of 259, pCO2 of 42, and pH is 7.37. The patient is currently on propofol at 35 mcg/kg/m, norepinephrine at 2 mcg/m, insulin at 1.5 units an hour, and lactated Ringer's at 50 mL an hour. The patient's cardiac output is 5.9, cardiac index 2.7. The patient had pre-surgical PFTs, showing a FEV1 that was 2.91 L, and an FVC that was 3.83 L. The MVV was 109 L/m. The patient was initially seen in consultation back in December 2022. The patient was found to have bradycardia, and irregular heartbeat. The patient had a transesophageal echocardiogram which revealed a severe mitral regurgitation, secondary to a flail leaflet. The patient was having mild shortness of breath at that time. Current labs include a white count of 12.3, hemoglobin 12.4, hematocrit 37.5, and a platelet count of 1000. Sodium 138, potassium 4.5, chlorides 107, CO2 22, BUN 16, creatinine 0.86. Glucose was 146. Albumin 3.3. The patient showed postsurgical changes, some diffuse infiltrates, and an endotracheal tube about 4 cm above the tracheal dennis. Review of Systems REVIEW OF SYSTEMS: CONSTITUTIONAL: [Negative.] NEUROLOGIC: [ Negative.] HEENT: [ Negative.] CARDIAC: [Negative.] PULMONARY: Shortness of breath. GI: [Negative.] : [Negative.] RHEUMATOLOGIC: [ Negative.] IMMUNOLOGIC: [ Negative.] ENDOCRINE: [Negative. ] DERMATOLOGIC: [Negative.] Past Medical History Past Medical History: Hyperlipidemia, Hypertension, Prostate Disorder Additional Past Medical History / Comment(s): COVID 06/2022, heart valve problem per pt., SOB w/exertion @times History of Any Multi-Drug Resistant Organisms: None Reported Past Surgical History: Heart Catheterization, Hernia Repair, Orthopedic Surgery Additional Past Surgical History / Comment(s): ORIF RT WRIST SX, COLONOSCOPY, BILAT CATARACTS REMOVED WITH LENS IMPLANTS Past Anesthesia/Blood Transfusion Reactions: No Reported Reaction Smoking Status: Former smoker - Past Family History Father Family Medical History: Cancer Medications and Allergies Home Medications Medication Instructions Recorded Confirmed Type Magnesium 500 mg PO DAILY 10/18/22 04/13/23 History [place]-3/Dha/Epa/Fish Oil [Fish Oil 1 each PO Q48H 10/18/22 04/13/23 History 1,000 mg Softgel] Rosuvastatin Calcium 10 mg PO HS 10/18/22 04/13/23 History Tamsulosin [Flomax] 0.4 mg PO HS 10/18/22 04/13/23 History Losartan [Cozaar] 25 mg PO HS 11/23/22 04/13/23 History Aspirin 81 mg PO DAILY 12/23/22 04/13/23 History Cholecalciferol (Vitamin D3) 125 mcg PO DAILY 03/16/23 04/13/23 History [Vitamin D3 (125 MCG = 5,000 IU)] Cyanocobalamin (Vitamin B-12) 1,000 mcg PO DAILY 03/16/23 04/13/23 History [Vitamin B-12] Cyclobenzaprine [Flexeril] 5 mg PO HS 03/16/23 04/13/23 History Sleep Aid 1 tab PO HS 03/16/23 04/13/23 History Allergies Allergy/AdvReac Type Severity Reaction Status Date / Time No Known Allergies Allergy Verified 04/17/23 05:59 Physical Exam Osteopathic Statement: *. No significant issues noted on an osteopathic structural exam other than those noted in the History and Physical/Consult. Vitals: Vital Signs Temp Pulse Pulse Resp BP BP Pulse Ox 04/17/23 15:00 97.3 F L 90 17 97 04/17/23 14:58 04/17/23 14:45 89 17 100 04/17/23 14:30 89 17 99 04/17/23 14:15 87 16 98 04/17/23 14:00 96.3 F L 85 15 97 04/17/23 13:45 82 14 97 04/17/23 13:43 04/17/23 13:30 83 14 98 04/17/23 13:15 95.7 F L 85 14 98 04/17/23 13:06 04/17/23 12:53 04/17/23 06:15 97.1 F L 73 16 144/90 162/94 98 FiO2 04/17/23 15:00 04/17/23 14:58 50 04/17/23 14:45 04/17/23 14:30 04/17/23 14:15 04/17/23 14:00 04/17/23 13:45 04/17/23 13:43 60 04/17/23 13:30 04/17/23 13:15 04/17/23 13:06 100 04/17/23 12:53 100 04/17/23 06:15 Intake and Output 04/17/23 04/17/23 04/17/23 06:59 14:59 22:59 Intake Total 100 367.754 158.3 Output Total 1290 135 Balance 100 -922.246 23.3 Intake: IV 100 51 Intake, IV Titration 316.754 158.3 Amount ACETAMINOPHEN IV (For NPO 100 ) 1,000 mg In Empty Bag 1 bag @ 400 mls/hr IVPB Q6H TARA Rx#:[id number] Albumin Human 5% 250 ml 250 In Empty Bag 1 bag @ 250 mls/hr IVPB Q1HR PRN Rx#: [id number] Insulin Regular 100 unit 1.5 In Sodium Chloride 0.9% 100 ml @ Per Protocol IV .Q0M TARA Rx#:[id number] Lactated Ringers 1,000 ml 50 50 @ 50 mls/hr IV .Q20H TARA Rx#:[id number] Norepinephrine 4 mg In 13.6 6.8 Sodium Chloride 0.9% 250 ml @ 0.02 MCG/KG/MIN 6. 866 mls/hr IV .Q24H TARA Rx#:[id number] propofoL 1,000 mg In 3.154 Empty Bag 1 bag @ Titrate IV .Q0M TARA Rx#: [id number] Output: Chest Tube Drainage 220 35 Mediastinal 140 20 Rt & LT Pleural CT 80 15 Urine 470 100 Estimated Blood Loss 600 Other: Weight 90.1 kg ABP, PAP, CO, CI - Last 8 Hours Arterial Blood Pressure 86/57 Arterial Blood Pressure 105/63 Arterial Blood Pressure 97/60 Arterial Blood Pressure 103/61 Arterial Blood Pressure 103/61 Arterial Blood Pressure 111/64 Arterial Blood Pressure 124/70 Arterial Blood Pressure 128/72 Pulmonary Artery Pressure 40/22 Pulmonary Artery Pressure 37/21 Pulmonary Artery Pressure 36/20 Pulmonary Artery Pressure 37/21 Pulmonary Artery Pressure 36/21 Pulmonary Artery Pressure 36/19 Pulmonary Artery Pressure 38/11 Pulmonary Artery Pressure 43/11 Cardiac Output 5.9 Cardiac Output 5.6 Cardiac Output 5.2 Cardiac Index 2.7 Cardiac Index 2.6 Cardiac Index 2.4 No acute distress, with an orally placed endotracheal tube and NG tube. HEENT examination is grossly unremarkable. Neck supple. Full range of motion. No adenopathy thyromegaly or neck vein distention. Cardiovascular examination reveals regular rhythm rate. S1-S2 normal. No S3 or S4. No discernible murmur noted. Heart rate 90 bpm. Lungs reveal clear breath sounds. Breath sounds are equal bilaterally. No adventitious lung sounds including wheezes rhonchi or crackles. Saturations are 97%. Abdomen soft without bowel sounds. No masses or tenderness. Extremities are intact. No cyanosis clubbing or edema. Skin is without rash or lesion. Neurologic examination not be assessed at this time. Results - Laboratory Findings CBC and BMP: 04/17/23 13:11 04/17/23 13:11 ABG ABG pH 7.37 (7.35-7.45) 04/17/23 13:39 ABG pCO2 42 mmHg (35-45) 04/17/23 13:39 ABG pO2 259 mmHg (83-108) H 04/17/23 13:39 ABG O2 Saturation 99.8 % (94-97) H 04/17/23 13:39 PT/INR, D-dimer PT 12.2 sec (10.0-12.5) 04/17/23 13:11 INR 1.1 (<1.2) 04/17/23 13:11 Abnormal lab findings: Abnormal Labs 04/06/23 04/17/23 04/17/23 08:25 13:09 13:11 WBC 12.3 H RBC 3.90 L Hgb 12.4 L Hct 37.5 L Plt Count 100 L Neutrophils # 10.5 H Lymphocytes # 0.9 L ABG pO2 ABG Total CO2 ABG O2 Saturation Glucose POC Glucose (mg/dL) 129 H Calcium Ionized Calcium Karli Magnesium Alkaline Phosphatase Total Protein Albumin Crossmatch See Detail 04/17/23 04/17/23 04/17/23 13:11 13:39 14:10 WBC RBC Hgb Hct Plt Count Neutrophils # Lymphocytes # ABG pO2 259 H ABG Total CO2 26 H ABG O2 Saturation 99.8 H Glucose 134 H POC Glucose (mg/dL) 144 H Calcium 7.4 L Ionized Calcium Karli 4.4 L Magnesium 2.5 H Alkaline Phosphatase 36 L Total Protein 5.3 L Albumin 3.3 L Crossmatch 04/17/23 15:03 WBC RBC Hgb Hct Plt Count Neutrophils # Lymphocytes # ABG pO2 ABG Total CO2 ABG O2 Saturation Glucose POC Glucose (mg/dL) 146 H Calcium Ionized Calcium Karli Magnesium Alkaline Phosphatase Total Protein Albumin Crossmatch - Diagnostic Findings Chest x-ray: image reviewed Assessment and Plan Assessment: Postop day # 0, status post mitral valve repair, secondary to a flailed mitral valve leaflet. Routine postoperative ventilator management. History of hypertension. History of hyperlipidemia. History of BPH. Plan: Plan dated 04/17/2023. The patient is seen in the intensive care unit, room 266. He is currently on the ventilator. FiO2 has been weaned down to 50%. His initial blood gases are excellent with a pO2 of 259, pCO2 of 42, and pH is 7.37. The patient is currently on propofol at 35 mcg/kg/m, norepinephrine at 2 mcg/m, insulin at 1.5 units an hour, and lactated Ringer's at 50 mL an hour. The patient's cardiac output is 5.9 L/m. The index is 2.7. Labs, x-rays, and medications are reviewed. We will continue to follow, and hopefully get the patient quickly extubated. His presurgical PFTs were excellent. Time with Patient: Greater than 30
[2023-04-17 16:07] LABS: Glucose,Whole Blood 145 mg/dL (70-110)
[2023-04-17 16:17] LABS: Basophils % (A) 0 %; Eosinophils % (A) 0 %; HCT 35.3 % (39.0-53.0); HGB 11.8 gm/dL (13.0-17.5); Lymphocytes # (A) 0.5 k/uL (1.0-4.8); Lymphocytes % (A) 4 %; MCH 31.8 pg (25.0-35.0); MCHC 33.3 g/dL (31.0-37.0); MCV 95.6 fL (80.0-100.0); Mean Platelet Volume 8.4; Monocytes # (A) 0.8 k/uL (0-1.0); Monocytes % (A) 7 %; Neutrophils # (A) 9.7 k/uL (1.3-7.7); Neutrophils % (A) 88 %; Platelet Count 100 k/uL (150-450); RDW 13.4 % (11.5-15.5); WBC 11.1 k/uL (3.8-10.6)
[2023-04-17] MEDS ORDERED: CALCIUM GLUCONATE IN NACL 1 GM in SALINE 1 100ML.BAG IVPB ONE (16:47)
[2023-04-17 17:05] LABS: Glucose,Whole Blood 140 mg/dL (70-110)
[2023-04-17] MEDS: HEPARIN SODIUM,PORCINE 5,000 UNIT/ML 1 ML VIAL SQ SCH ×2 (17:27→23:20)
[2023-04-17 18:16] LABS: Glucose,Whole Blood 125 mg/dL (70-110)
[2023-04-17 19:03] LABS: Glucose,Whole Blood 128 mg/dL (70-110)
[2023-04-17 19:13] LABS: Basophils % (A) 0 %; Eosinophils % (A) 0 %; HCT 36.3 % (39.0-53.0); Lymphocytes # (A) 0.4 k/uL (1.0-4.8); Lymphocytes % (A) 4 %; MCH 31.5 pg (25.0-35.0); MCHC 32.9 g/dL (31.0-37.0); MCV 95.8 fL (80.0-100.0); Mean Platelet Volume 8.4; Monocytes # (A) 0.6 k/uL (0-1.0); Monocytes % (A) 6 %; Neutrophils # (A) 8.6 k/uL (1.3-7.7); Neutrophils % (A) 88 %; Platelet Count 101 k/uL (150-450); RBC 3.79 m/uL (4.30-5.90); RDW 13.4 % (11.5-15.5); WBC 9.8 k/uL (3.8-10.6)
[2023-04-17 20:07] LABS: Glucose,Whole Blood 145 mg/dL (70-110)
--- NOTE | 2023-04-17 20:32 | OP ---
OPERATIVE REPORT DATE OF SERVICE : 04/17/2023 PREOPERATIVE DIAGNOSIS: Severe mitral regurgitation. POSTOPERATIVE DIAGNOSIS: Severe mitral regurgitation. PROCEDURES: 1. Mitral valve repair using triangular resection of P2 leaflet and 36 mm AnnuloFlex ring annuloplasty. 2. Ligation of left atrial appendage using 35 mm AtriClip. 3. Transesophageal echocardiogram. 4. Epiaortic ultrasound. SURGEON: Siddhartha Wing M.D. ROR ENGINEER: 1. Anita Smith MD. 2. HECTOR Berry. ANESTHESIA: General. SPECIMEN: Mitral leaflet. COMPLICATIONS: None. INDICATIONS: The patient is a 78-year-old male with a past medical history significant for hypertension, hypercholesterolemia, and a remote history of tobacco use, who was found to have severe mitral regurgitation during workup for a bradycardic episode after COVID. This study suggested a flail P2 leaflet. His cardiac catheterization was normal. A mitral valve repair/possible replacement was recommended. The risks, benefits, and alternatives to this procedure were discussed with the patient. All of his questions were answered. Consent was obtained. FINDINGS: There was a ruptured cord resulting in flail P2 segment of the posterior leaflet of the mitral valve. DESCRIPTION OF PROCEDURE: The patient was taken to the operating room and placed supine on the operating table. After the induction of general anesthesia, he was prepped and draped in the usual sterile fashion. Preoperative transesophageal echocardiogram confirmed a flail leaflet involving the P2 segment of the mitral valve resulting in severe eccentric mitral regurgitation. There was also mild aortic insufficiency. His ejection fraction was preserved. He had trace to mild tricuspid regurgitation and his right atrial annulus measured 3.0 cm. A median sternotomy was performed. Both pleural spaces were opened. Intravenous heparin was administered. A pericardial cradle was created. The ascending aorta was palpated. There was no significant calcific plaque noted. Epiaortic ultrasound was then performed on the ascending aorta. Again, no calcific plaque or atheromatous disease was identified. An arterial cannula was placed in the distal ascending aorta. Bicaval venous cannulation was achieved. A right angled cannula was placed directly into the SVC. A straight cannula was placed via the right atrial appendage and directed into the IVC. Both antegrade and retrograde catheters were placed as well. The patient was then placed on cardiopulmonary bypass with good decompression of the heart. Umbilical tapes were passed around both the SVC and the IVC. The aortic cross-clamp was applied. Cold blood potassium cardioplegia was given in both antegrade and retrograde fashion to achieve arrest of the heart. Of note, cardioplegia was delivered every 15 to 20 minutes while the patient remained under crossclamp. I began by identifying the left atrial appendage. A 35 mm AtriClip was placed across its base to ensure ligation. CO2 was delivered across the operative field. Dissection was carried out along Sondergaard's groove. A left atriotomy was performed. Visualization was good. Upon initial inspection, both anterior and posterior leaflets were somewhat thickened. There was a torn chord resulting in a flail P2 segment of the posterior leaflet. Both P1 and P3 appeared to be intact. The anterior leaflet and corresponding subvalvular apparatus were also inspected and appeared to be normal. Interrupted sutures were placed from trigone to trigone along the posterior annulus. A triangular was resection was then performed involving the P2 segment of the posterior leaflet, encompassing the torn cord and accompanying flail mitral leaflet. The 2 edges were then reapproximated using a running 5-0 Prolene suture in 2 layers. A 36 mm Annuloflex annuloplasty ring was chosen. The sutures were passed through the sewing ring. The ring was lowered into position. The sutures were tied using Cor knots. The ring appeared to seat nicely. The atriotomy was then closed in 2 layers using a running 4-0 Prolene suture. One liter of warm blood was delivered in retrograde fashion. Both lidocaine and magnesium were administered as well. Standard de-airing maneuvers were performed. The aortic cross-clamp was removed. Temporary atrial and ventricular pacing wires were placed and brought through the skin. There was no evidence of intracardiac air. The patient was then weaned off cardiopulmonary bypass. He without difficulty. Followup transesophageal echocardiogram revealed no evidence of mitral regurgitation. There was no evidence of LEBRON either. Protamine was administered. There were no adverse reactions. The remaining cannulas were removed. The mediastinum was copiously irrigated with warm saline solution. Again, all surgical sites were inspected and appeared to be hemostatic. Soft tissue was reapproximated over the ascending aorta. Trevor drains were placed in both the left and right pleural spaces. A chest tube was placed into the mediastinum. These were all secured to the skin using sutures. The sternum was then reapproximated using the [place] cable system. The cables were placed in a [id number] fashion. At the completion of the closure, the sternum was well aligned. The remainder of the wound was closed in layers. A sterile dressing was applied. The patient appeared to tolerate the procedure well. There were no immediate complications. He was in sinus rhythm. He did not receive any blood products. He returned to the ICU in critical, but stable condition. MMODL / IJN: [id number] / [id number]
[2023-04-17 21:14] LABS: Glucose,Whole Blood 308 mg/dL (70-110)
[2023-04-17 21:14] LABS: Glucose,Whole Blood 149 mg/dL (70-110)
[2023-04-17 21:59] LABS: Glucose,Whole Blood 146 mg/dL (70-110)
[2023-04-17 22:58] LABS: Glucose,Whole Blood 129 mg/dL (70-110)
[2023-04-17 23:11] LABS: Ionized Calcium 4.6 mg/dL (4.5-5.3)
[2023-04-17 23:19] LABS: African American GFR (CKD) >90 (>60 ml/min/1.73 sqM); Anion Gap 11 mmol/L; Blood Urea Nitrogen 17 mg/dL (9-20); Calcium 8.1 mg/dL (8.4-10.2); Carbon Dioxide 22 mmol/L (22-30); Chloride 104 mmol/L (98-107); Glucose 128 mg/dL (74-99); Magnesium 2.1 mg/dL (1.6-2.3); Non-African American GFR(CKD) 86 (>60 ml/min/1.73 sqM); Potassium 4.3 mmol/L (3.5-5.1); Sodium 137 mmol/L (137-145)
[2023-04-17] MEDS: KETOROLAC 15 MG/ML 1 ML VIAL IVP SCH (23:20)
[2023-04-18 00:03] LABS: Glucose,Whole Blood 131 mg/dL (70-110)
[2023-04-18 01:17] LABS: Glucose,Whole Blood 139 mg/dL (70-110)
[2023-04-18] MEDS: ALBUMIN HUMAN 5% 250 ML in EMPTY BAG 1 BAG IVPB ONE ×2 (01:49→02:08)
[2023-04-18 01:59] LABS: Glucose,Whole Blood 130 mg/dL (70-110)
[2023-04-18 03:56] LABS: Glucose,Whole Blood 132 mg/dL (70-110)
[2023-04-18 05:08] LABS: Glucose,Whole Blood 139 mg/dL (70-110)
[2023-04-18 05:18] LABS: Ionized Calcium 4.6 mg/dL (4.5-5.3)
[2023-04-18 05:22] LABS: Basophils % (A) 0 %; Eosinophils % (A) 0 %; HCT 33.5 % (39.0-53.0); HGB 11.3 gm/dL (13.0-17.5); Lymphocytes # (A) 0.5 k/uL (1.0-4.8); Lymphocytes % (A) 5 %; MCH 32.2 pg (25.0-35.0); MCHC 33.8 g/dL (31.0-37.0); MCV 95.3 fL (80.0-100.0); Mean Platelet Volume 8.4; Monocytes # (A) 0.7 k/uL (0-1.0); Monocytes % (A) 7 %; Neutrophils # (A) 8.9 k/uL (1.3-7.7); Neutrophils % (A) 86 %; RBC 3.52 m/uL (4.30-5.90); RDW 13.9 % (11.5-15.5); WBC 10.4 k/uL (3.8-10.6)
[2023-04-18 05:26] LABS: ALT 18 U/L (4-49); AST 43 U/L (17-59); African American GFR (CKD) >90 (>60 ml/min/1.73 sqM); Albumin 3.4 g/dL (3.5-5.0); Alkaline Phosphatase 30 U/L (38-126); Anion Gap 7 mmol/L; Blood Urea Nitrogen 18 mg/dL (9-20); Carbon Dioxide 24 mmol/L (22-30); Chloride 104 mmol/L (98-107); Glucose 134 mg/dL (74-99); Magnesium 2.1 mg/dL (1.6-2.3); Non-African American GFR(CKD) 87 (>60 ml/min/1.73 sqM); Sodium 135 mmol/L (137-145); Total Bilirubin 0.9 mg/dL (0.2-1.3); Total Protein 5.3 g/dL (6.3-8.2)
[2023-04-18] MEDS: KETOROLAC 15 MG/ML 1 ML VIAL IVP SCH (05:53)
[2023-04-18 06:47] LABS: Glucose,Whole Blood 134 mg/dL (70-110)
[2023-04-18] MEDS: IPRATROPIUM-ALBUTEROL 3 ML NEB INHALATION SCH ×4 (07:51→20:53)
[2023-04-18] MEDS: PANTOPRAZOLE 40 MG/10 ML VIAL IVP SCH (08:04)
[2023-04-18] MEDS: ASPIRIN 325 MG TAB PO SCH (08:06)
[2023-04-18] MEDS: CLOPIDOGREL 75 MG TAB PO SCH (08:06)
[2023-04-18] MEDS: CYANOCOBALAMIN 500 MCG TAB PO SCH (08:06)
[2023-04-18] MEDS: CHOLECALCIFEROL 125 MCG (5000 IU) TABLET PO SCH (08:07)
[2023-04-18] MEDS: ATORVASTATIN 40 MG TAB PO SCH (08:07)
--- NOTE | 2023-04-18 08:07 | P.CRDCN ---
History of Present Illness Consult date: 04/18/23 Chief complaint: Status post mitral valve repair History of present illness: The patient is a pleasant 78-year-old gentleman who sees Dr. Land regular basis with a past medical history significant for cutf-ev-qtsljuxs nonobstructive coronary artery disease on recent heart catheterization was diagnosed with severe mitral regurgitation. He underwent yesterday successful mitral valve repair. This is postoperative patient day #1. Overall the patient seems to be stable hemodynamically and not any vasopressors or inotropic. He is maintaining normal sinus mechanism. The chest x-ray was reviewed as well as morning. His hemoglobin is stable. Platelet count still pending at this point. Urine output has been stable as well. The patient overall seems to be doing good from a cardiovascular standpoint of view. He is on dual antiplatelet therapy using aspirin and Plavix and also he is on statin. The examination is remarkable for stable vital signs as described above with distant heart sounds and diminished breathing sounds bilaterally. Assessment Status post mitral valve repair Dimv-ke-kxfaxpvl nonobstructive coronary artery disease Plan Continue the current medical regimen Continue monitor the patient's rhythm. He did have an episode of nonsustained V. tach yesterday Monitor the electrolytes Monitor the platelet Follow-up with the patient Past Medical History Past Medical History: Hyperlipidemia, Hypertension, Prostate Disorder Additional Past Medical History / Comment(s): COVID 06/2022, heart valve problem per pt., SOB w/exertion @times History of Any Multi-Drug Resistant Organisms: None Reported Past Surgical History: Heart Catheterization, Hernia Repair, Orthopedic Surgery Additional Past Surgical History / Comment(s): ORIF RT WRIST SX, COLONOSCOPY, BILAT CATARACTS REMOVED WITH LENS IMPLANTS Past Anesthesia/Blood Transfusion Reactions: No Reported Reaction Smoking Status: Former smoker - Past Family History Father Family Medical History: Cancer Medications and Allergies Home Medications Medication Instructions Recorded Confirmed Type Magnesium 500 mg PO DAILY 10/18/22 04/13/23 History [place]-3/Dha/Epa/Fish Oil [Fish Oil 1 each PO Q48H 10/18/22 04/13/23 History 1,000 mg Softgel] Rosuvastatin Calcium 10 mg PO HS 10/18/22 04/13/23 History Tamsulosin [Flomax] 0.4 mg PO HS 10/18/22 04/13/23 History Losartan [Cozaar] 25 mg PO HS 11/23/22 04/13/23 History Aspirin 81 mg PO DAILY 12/23/22 04/13/23 History Cholecalciferol (Vitamin D3) 125 mcg PO DAILY 03/16/23 04/13/23 History [Vitamin D3 (125 MCG = 5,000 IU)] Cyanocobalamin (Vitamin B-12) 1,000 mcg PO DAILY 03/16/23 04/13/23 History [Vitamin B-12] Cyclobenzaprine [Flexeril] 5 mg PO HS 03/16/23 04/13/23 History Sleep Aid 1 tab PO HS 03/16/23 04/13/23 History Allergies Allergy/AdvReac Type Severity Reaction Status Date / Time No Known Allergies Allergy Verified 04/17/23 05:59 Physical Exam Vitals: Vital Signs Temp Pulse Resp BP Pulse Ox FiO2 04/18/23 08:00 98.2 F 72 21 115/67 96 04/18/23 07:51 70 96 04/18/23 07:30 69 23 97 04/18/23 07:00 67 20 97 04/18/23 06:45 69 16 113/66 96 04/18/23 06:30 69 16 125/73 96 04/18/23 06:15 68 20 115/67 97 04/18/23 06:00 68 22 115/79 97 04/18/23 05:45 68 15 107/76 97 04/18/23 05:30 69 26 H 106/67 94 L 04/18/23 05:15 67 24 97 04/18/23 05:00 66 11 L 110/65 96 04/18/23 04:45 67 17 97 04/18/23 04:30 67 15 97 04/18/23 04:15 64 14 104/62 97 04/18/23 04:00 66 10 L 102/64 97 04/18/23 03:45 67 19 96 04/18/23 03:30 65 21 96 04/18/23 03:15 67 16 97 04/18/23 03:00 68 14 97 04/18/23 02:45 70 18 97 04/18/23 02:30 71 17 98 04/18/23 02:15 70 17 97 04/18/23 02:00 70 16 97 04/18/23 01:45 72 16 97 04/18/23 01:30 69 15 97 04/18/23 01:15 68 12 97 04/18/23 01:00 68 17 97 04/18/23 00:45 70 15 97 04/18/23 00:30 74 15 97 04/18/23 00:15 70 17 107/66 96 04/18/23 00:00 73 14 97 04/17/23 23:45 72 24 97 04/17/23 23:30 73 20 96 04/17/23 23:15 75 22 95 04/17/23 23:05 73 11 L 97 04/17/23 23:00 76 23 97 04/17/23 22:45 77 19 97 04/17/23 22:30 79 17 97 04/17/23 22:15 78 13 98 04/17/23 22:00 80 21 97 04/17/23 21:45 81 19 97 04/17/23 21:30 81 20 97 04/17/23 21:15 82 16 97 04/17/23 21:00 85 18 97 04/17/23 20:45 83 14 98 04/17/23 20:30 83 18 99 04/17/23 20:29 80 04/17/23 20:19 80 04/17/23 20:15 81 26 H 98 04/17/23 20:00 82 20 103/73 97 04/17/23 19:45 84 21 96 04/17/23 19:30 84 22 96 04/17/23 19:15 85 18 96 04/17/23 19:00 86 21 96 04/17/23 18:45 90 20 97 04/17/23 18:30 85 15 96 04/17/23 18:15 82 16 99 04/17/23 18:00 98.4 F 80 14 98 04/17/23 17:45 79 18 98 04/17/23 17:35 50 04/17/23 17:30 81 24 99 04/17/23 17:15 80 25 H 98 04/17/23 17:00 98.1 F 81 16 98 04/17/23 16:45 82 16 98 04/17/23 16:30 82 16 97 04/17/23 16:15 84 16 97 04/17/23 16:00 97.7 F 85 16 98 50 04/17/23 15:45 87 17 98 04/17/23 15:30 87 15 98 04/17/23 15:15 90 16 98 04/17/23 15:00 97.3 F L 90 17 97 04/17/23 14:58 50 04/17/23 14:45 89 17 100 04/17/23 14:30 89 17 99 04/17/23 14:15 87 16 98 04/17/23 14:00 96.3 F L 85 15 97 04/17/23 13:45 82 14 97 04/17/23 13:43 60 04/17/23 13:30 83 14 98 04/17/23 13:15 95.7 F L 85 14 98 04/17/23 13:06 100 04/17/23 12:53 100 Intake and Output 04/17/23 04/18/23 04/18/23 22:59 06:59 14:59 Intake Total 6239.968 5335 188 Output Total 795 905 255 Balance 405.456 317 -67 Intake: IV 283 972 188 ACETAMINOPHEN IV (For NPO 100 ) 1,000 mg In Empty Bag 1 bag @ 400 mls/hr IVPB Q6H [facility] Rx#:[id number] Albumin Human 5% 250 ml 250 In Empty Bag 1 bag @ 250 mls/hr IVPB ONCE ONE Rx#: [id number] Lactated Ringers 1,000 ml 500 100 @ 50 mls/hr IV .Q20H [facility]ARA Rx#:[id number] ceFAZolin 2 gm In Sodium 50 50 Chloride 0.9% 50 ml @ 100 mls/hr IVPB Q8HR [facility] Rx# :[id number] ns for cardiac output 120 100 20 ns for pressure bags 63 72 18 Intake, IV Titration 917.456 Amount ACETAMINOPHEN IV (For NPO 100 ) 1,000 mg In Empty Bag 1 bag @ 400 mls/hr IVPB Q6H [facility]ARA Rx#:[id number] Albumin Human 5% 250 ml 250 In Empty Bag 1 bag @ 250 mls/hr IVPB Q1HR PRN Rx#: [id number] Calcium Gluconate in NaCl 100 1 gm In Saline 1 100ml. bag @ 100 mls/hr IVPB ONCE ONE Rx#:[id number] Dexmedetomidine/0.9% NaCl 23.614 (Pmx) 400 mcg In Empty Bag 1 bag @ Titrate IV . Q0M [facility]ARA Rx#:[id number] Insulin Regular 100 unit 18.032 In Sodium Chloride 0.9% 100 ml @ Per Protocol IV .Q0M TARA Rx#:[id number] Lactated Ringers 1,000 ml 250 @ 50 mls/hr IV .Q20H [facility]ARA Rx#:[id number] Norepinephrine 4 mg In 70.398 Sodium Chloride 0.9% 250 ml @ 0.02 MCG/KG/MIN 6. 866 mls/hr IV .Q24H TARA Rx#:[id number] ceFAZolin 2 gm In Sodium 50 Chloride 0.9% 50 ml @ 100 mls/hr IVPB Q8HR [facility] Rx# :[id number] propofoL 1,000 mg In 55.412 Empty Bag 1 bag @ Titrate IV .Q0M [facility]ARA Rx#: [id number] Oral 250 Output: Chest Tube Drainage 420 370 120 Mediastinal 330 210 40 Rt & LT Pleural CT 90 160 80 Urine 375 535 135 Other: Voiding Method Indwelling Catheter Indwelling Catheter Weight 92.5 kg ABP, PAP, CO, CI - Last 8 Hours Arterial Blood Pressure 119/53 Arterial Blood Pressure 104/44 Arterial Blood Pressure 106/46 Arterial Blood Pressure 95/45 Arterial Blood Pressure 109/41 Arterial Blood Pressure 94/41 Arterial Blood Pressure 109/54 Arterial Blood Pressure 104/47 Arterial Blood Pressure 103/49 Arterial Blood Pressure 111/44 Arterial Blood Pressure 104/48 Arterial Blood Pressure 99/42 Arterial Blood Pressure 105/46 Arterial Blood Pressure 102/40 Arterial Blood Pressure 101/46 Arterial Blood Pressure 104/44 Arterial Blood Pressure 106/41 Arterial Blood Pressure 104/46 Arterial Blood Pressure 107/47 Arterial Blood Pressure 101/44 Arterial Blood Pressure 112/50 Arterial Blood Pressure 102/47 Arterial Blood Pressure 103/49 Arterial Blood Pressure 107/49 Arterial Blood Pressure 109/51 Arterial Blood Pressure 107/51 Arterial Blood Pressure 108/49 Arterial Blood Pressure 100/47 Arterial Blood Pressure 104/43 Pulmonary Artery Pressure 27/11 Pulmonary Artery Pressure 19/4 Pulmonary Artery Pressure 25/5 Pulmonary Artery Pressure 28/8 Pulmonary Artery Pressure 25/7 Pulmonary Artery Pressure 25/5 Pulmonary Artery Pressure 29/13 Pulmonary Artery Pressure 39/15 Pulmonary Artery Pressure 44/19 Pulmonary Artery Pressure 29/9 Pulmonary Artery Pressure 28/9 Pulmonary Artery Pressure 25/8 Pulmonary Artery Pressure 29/8 Pulmonary Artery Pressure 25/7 Pulmonary Artery Pressure 27/6 Pulmonary Artery Pressure 25/6 Pulmonary Artery Pressure 28/6 Pulmonary Artery Pressure 28/6 Pulmonary Artery Pressure 30/6 Pulmonary Artery Pressure 30/8 Pulmonary Artery Pressure 31/8 Pulmonary Artery Pressure 28/9 Pulmonary Artery Pressure 24/9 Pulmonary Artery Pressure 28/8 Pulmonary Artery Pressure 28/7 Pulmonary Artery Pressure 27/7 Pulmonary Artery Pressure 30/9 Pulmonary Artery Pressure 28/9 Pulmonary Artery Pressure 28/9 Pulmonary Artery Pressure 28/8 Cardiac Output 4.9 Cardiac Output 4.7 Cardiac Output 4.7 Cardiac Output 5.7 Cardiac Output 5.7 Cardiac Output 5.7 Cardiac Index 2.3 Cardiac Index 2.2 Cardiac Index 2.2 Cardiac Index 2.6 Cardiac Index 2.6 Cardiac Index 2.6 Results 04/18/23 05:05 04/18/23 05:05 Cardiac Enzymes 04/17/23 04/18/23 Range/Units 13:11 05:05 AST 43 43 (17-59) U/L Coagulation 04/17/23 Range/Units 13:11 PT 12.2 (10.0-12.5) sec APTT 27.3 (22.0-30.0) sec CBC 04/17/23 04/17/23 04/17/23 Range/Units 13:11 16:01 19:00 WBC 12.3 H 11.1 H 9.8 (3.8-10.6) k/uL RBC 3.90 L 3.70 L 3.79 L (4.30-5.90) m/uL Hgb 12.4 L 11.8 L 12.0 L (13.0-17.5) gm/dL Hct 37.5 L 35.3 L 36.3 L (39.0-53.0) % Plt Count 100 L 100 L 101 L (150-450) k/uL 04/18/23 Range/Units 05:05 WBC 10.4 (3.8-10.6) k/uL RBC 3.52 L (4.30-5.90) m/uL Hgb 11.3 L (13.0-17.5) gm/dL Hct 33.5 L (39.0-53.0) % Plt Count (150-450) k/uL Comprehensive Metabolic Panel 04/17/23 04/17/23 04/18/23 Range/Units 13:11 22:54 05:05 Sodium 138 137 135 L (137-145) mmol/L Potassium 4.5 4.3 4.0 (3.5-5.1) mmol/L Chloride 107 104 104 (98-107) mmol/L Carbon Dioxide 22 22 24 (22-30) mmol/L BUN 16 17 18 (9-20) mg/dL Creatinine 0.86 0.81 0.80 (0.66-1.25) mg/dL Glucose 134 H 128 H 134 H (74-99) mg/dL Calcium 7.4 L 8.1 L 8.0 L (8.4-10.2) mg/dL AST 43 43 (17-59) U/L ALT 20 18 (4-49) U/L Alkaline Phosphatase 36 L 30 L (38-126) U/L Total Protein 5.3 L 5.3 L (6.3-8.2) g/dL Albumin 3.3 L 3.4 L (3.5-5.0) g/dL Current Medications Generic Name Dose Route Start Last Admin Trade Name Freq PRN Reason Stop Dose Admin Acetaminophen 1,000 mg 04/18/23 00:01 Acetaminophen Tab 500 Mg Tab PO Q6HR PRN Fever And/ Or Mild Pain (1-3) Albuterol/Ipratropium 3 ml 04/17/23 12:52 Ipratropium-Albuterol 3 Ml Neb INHALATION RT-Q2H PRN Shortness Of Breath Or Wheezing Albuterol/Ipratropium 3 ml 04/17/23 20:00 04/17/23 20:16 Ipratropium-Albuterol 3 Ml Neb INHALATION 3 ml RT-QID TARA Administration Aspirin 325 mg 04/18/23 09:00 Aspirin 325 Mg Tab PO DAILY [facility] Atorvastatin Calcium 40 mg 04/18/23 09:00 Atorvastatin 40 Mg Tab PO DAILY [facility] Benzocaine/Menthol 1 each 04/17/23 12:52 Benzocaine/Menthol Lozeng 1 Each Lozenge MUCOUS MEM Q2H PRN Sore Throat Bisacodyl 10 mg 04/18/23 09:00 Bisacodyl 10 Mg Supp RECTAL DAILY PRN Constipation Cholecalciferol 125 mcg 04/18/23 09:00 Cholecalciferol 125 Mcg (5000 Iu) Tablet PO DAILY [facility] Clopidogrel Bisulfate 75 mg 04/18/23 09:00 Clopidogrel 75 Mg Tab PO DAILY [facility] Cyanocobalamin 1,000 mcg 04/18/23 09:00 Cyanocobalamin 500 Mcg Tab PO DAILY [facility] Dextrose/Water 25 ml 04/17/23 12:52 Dextrose 50% Syringe 50 Ml IVP PER PROTOCOL PRN Hypoglycemia Protocol Dextrose/Water 50 ml 04/17/23 12:52 Dextrose 50% Syringe 50 Ml IVP PER PROTOCOL PRN Hypoglycemia Protocol Heparin Sodium (Porcine) 5,000 unit 04/17/23 16:00 04/17/23 23:20 Heparin Sodium,Porcine 5,000 Unit/Ml 1 Ml Vial SQ 5,000 unit Q8HR TARA Administration Norepinephrine Bitartrate 4 mg 254 mls @ 6.866 mls/hr 04/17/23 13:15 04/17/23 19:58 / Sodium Chloride IV 0 mcg/kg/min .Q24H TARA 0 mls/hr Titration Protocol 0.02 MCG/KG/MIN Albumin Human 250 ml/ IV 250 mls @ 250 mls/hr 04/17/23 12:52 04/17/23 15:15 Solution IVPB 04/19/23 12:53 250 mls/hr Q1HR PRN Administration For Volume Protocol Lactated Ringer's 1,000 mls @ 50 mls/hr 04/17/23 12:52 04/17/23 13:10 Lactated Ringers IV 50 mls/hr .Q20H TARA Administration Propofol 1,000 mg/ IV Solution 100 mls @ 0 mls/hr 04/17/23 12:52 04/17/23 17:11 IV 0 mcg/kg/min .Q0M TARA 0 mls/hr Titration Protocol Titrate Dexmedetomidine HCl 400 mcg/ 100 mls @ 0 mls/hr 04/17/23 12:52 04/17/23 18:10 IV Solution IV 04/18/23 12:53 0 mcg/kg/hr .Q0M TARA 0 mls/hr Titration Protocol Titrate Cefazolin Sodium 2 gm/ Sodium 50 mls @ 100 mls/hr 04/17/23 16:00 04/17/23 23:21 Chloride IVPB 04/18/23 08:29 100 mls/hr Q8HR TARA Administration Protocol Calcium Gluconate/Sodium 100 mls @ 100 mls/hr 04/17/23 12:52 Chloride 2 gm/ IV Solution IVPB 04/20/23 23:00 ONCE PRN Ionized Calcium less than 4.4 Amiodarone HCl 150 mg/ 103 mls @ 618 mls/hr 04/17/23 12:52 Dextrose/Water IV .Q10M PRN A.FIB/FLUTTER Protocol Amiodarone HCl 360 mg/ 207.2 mls @ 34.533 mls/hr 04/17/23 12:52 Dextrose/Water IV .Q6H PRN A.FIB/FLUTTER Protocol 1 MG/MIN Amiodarone HCl 450 mg/ 250 mls @ 16.667 mls/hr 04/17/23 12:52 Dextrose/Water IV .Q15H PRN A.FIB/FLUTTER Protocol 0.5 MG/MIN Insulin Human Regular 100 unit 101 mls @ 0 mls/hr 04/17/23 13:15 04/17/23 22:59 / Sodium Chloride IV 2 units/hr .Q0M TARA 2.02 mls/hr Titration Protocol Per Protocol Magnesium Hydroxide 2,400 mg 04/18/23 09:00 Magnesium Hydroxide 2,400 Mg/30 Ml Cup PO BID PRN Constipation Metoclopramide HCl 5 mg 04/17/23 12:52 Metoclopramide 5 Mg/Ml 2 Ml Vial IVP Q4H PRN Nausea And Vomiting Metoprolol Tartrate 12.5 mg 04/18/23 09:00 Metoprolol Tartrate 12.5 Mg Tab PO BID [facility] Miscellaneous Information 1 each 04/17/23 12:52 Potassium Replacement Protocol 1 Each Misc MISCELLANE DAILY PRN Per Protocol Protocol Miscellaneous Information 1 each 04/17/23 12:52 Magnesium Replacement Protocol 1 Each Misc MISCELLANE DAILY PRN Per Protocol Protocol Miscellaneous Information 1 each 04/17/23 12:52 Phosphorus Replacement Protoco 1 Each Misc MISCELLANE DAILY PRN Per Protocol Protocol Ondansetron HCl 4 mg 04/17/23 12:52 Ondansetron 4 Mg/2 Ml Vial IVP Q6HR PRN Nausea And Vomiting Oxycodone HCl 5 mg 04/17/23 23:38 04/18/23 04:15 Oxycodone Hcl 5 Mg Tab PO 5 mg Q6HR PRN Administration Moderate Pain (Scale 4 to 6) Oxycodone HCl 10 mg 04/17/23 12:52 04/17/23 17:14 Oxycodone Hcl 5 Mg Tab PO 10 mg Q4HR PRN Administration Severe Pain (Scale 7 to 10) Pantoprazole Sodium 40 mg 04/18/23 09:00 Pantoprazole 40 Mg/10 Ml Vial IVP DAILY [facility] Senna/Docusate Sodium 2 each 04/18/23 21:00 Sennosides-Docusate Sodium 1 Each Tab PO HS [facility] Sodium Chloride 10 ml 04/17/23 21:00 04/17/23 20:18 Sodium Chloride 0.9% Flush 10 Ml Syringe IV 10 ml BID TARA Administration Tamsulosin HCl 0.4 mg 04/18/23 21:00 Tamsulosin 0.4 Mg Cap.Er.24h PO HS [facility]ARA Intake and Output 04/17/23 04/18/23 04/18/23 22:59 06:59 14:59 Intake Total 0334.750 2827 188 Output Total 795 905 255 Balance 405.456 317 -67 Intake: IV 283 972 188 ACETAMINOPHEN IV (For NPO 100 ) 1,000 mg In Empty Bag 1 bag @ 400 mls/hr IVPB Q6H [facility] Rx#:[id number] Albumin Human 5% 250 ml 250 In Empty Bag 1 bag @ 250 mls/hr IVPB ONCE ONE Rx#: [id number] Lactated Ringers 1,000 ml 500 100 @ 50 mls/hr IV .Q20H [facility] Rx#:[id number] ceFAZolin 2 gm In Sodium 50 50 Chloride 0.9% 50 ml @ 100 mls/hr IVPB Q8HR [facility] Rx# :[id number] ns for cardiac output 120 100 20 ns for pressure bags 63 72 18 Intake, IV Titration 917.456 Amount ACETAMINOPHEN IV (For NPO 100 ) 1,000 mg In Empty Bag 1 bag @ 400 mls/hr IVPB Q6H [facility] Rx#:[id number] Albumin Human 5% 250 ml 250 In Empty Bag 1 bag @ 250 mls/hr IVPB Q1HR PRN Rx#: [id number] Calcium Gluconate in NaCl 100 1 gm In Saline 1 100ml. bag @ 100 mls/hr IVPB ONCE ONE Rx#:[id number] Dexmedetomidine/0.9% NaCl 23.614 (Pmx) 400 mcg In Empty Bag 1 bag @ Titrate IV . Q0M [facility]ARA Rx#:[id number] Insulin Regular 100 unit 18.032 In Sodium Chloride 0.9% 100 ml @ Per Protocol IV .Q0M [facility] Rx#:[id number] Lactated Ringers 1,000 ml 250 @ 50 mls/hr IV .Q20H [facility] Rx#:[id number] Norepinephrine 4 mg In 70.398 Sodium Chloride 0.9% 250 ml @ 0.02 MCG/KG/MIN 6. 866 mls/hr IV .Q24H [facility] Rx#:[id number] ceFAZolin 2 gm In Sodium 50 Chloride 0.9% 50 ml @ 100 mls/hr IVPB Q8HR [facility] Rx# :[id number] propofoL 1,000 mg In 55.412 Empty Bag 1 bag @ Titrate IV .Q0M [facility]ARA Rx#: [id number] Oral 250 Output: Chest Tube Drainage 420 370 120 Mediastinal 330 210 40 Rt & LT Pleural CT 90 160 80 Urine 375 535 135 Other: Voiding Method Indwelling Catheter Indwelling Catheter Weight 92.5 kg 04/18/23 05:05 04/18/23 05:05
[2023-04-18 08:30] LABS: Platelet Count 94 k/uL (150-450); RBC Morphology Normal
[2023-04-18 08:47] LABS: Glucose,Whole Blood 204 mg/dL (70-110)
--- NOTE | 2023-04-18 08:47 | P.PN ---
Subjective Progress Note Date: 04/18/23 Principal diagnosis: Severe mitral valve regurgitation. Past medical history significant for hypertension, hyperlipidemia, prostate disorder, COVID-19 infection in June 2022, and history of a right wrist injury approximately 14 years ago. POD #1 mitral valve repair using a triangular resection of P2 leaflet and a 36 mm Annuloflex ring annuloplasty, ligation of the left atrial appendage using a 35 mm Atriclip, epi-aortic ultrasound, intraoperative transesophageal echocardio gram completed by anesthesia Postoperative acute blood loss anemia and thrombocytopenia, expected given hemodilution and cardiopulmonary bypass. The patient was seen and examined in follow-up today 04/18/2023 at his bedside in the intensive care unit. He was successfully extubated at 6:36 PM last evening, is currently sitting up to the bedside chair, is awake, alert, oriented 3 and is in no acute distress. Oxygen saturations are 97% on 3 L nasal cannula and he is achieving 2000 mL on his incentive spirometry with encouragement. Right IJ cordis and Mojave-Aime cath remains in place with current hemodynamic showing a cardiac output 4.7, cardiac index 2.2, PA pressures 25/7 and a CVP of 4 mmHg. Bedside telemetry showing normal sinus rhythm heart rate 67 BPM. He remains hemodynamically stable and is currently on no inotropic or pressor support. Mediastinal, left and right pleural chest tubes remain in place to low continuous wall suction -20 cm H2O. No air leak is present. Mediastinal chest tube draining thin serosanguineous drainage with 170 mL output in the last 8 hours and 700 mL output since surgery. Right/left pleural chest tubes draining thin serosanguineous drainage with 90 mL output in the last 8 hours and 350 mL output since surgery. Atrial and ventricular epicardial pacemaker wires remain in place and connected to bedside backup pacemaker generator on a VVI of 50 BPM. Laboratory and chest x-ray results reviewed. Objective - Vital Signs Vital signs: Vital Signs Temp 98.2 F 04/18/23 08:00 Pulse 72 04/18/23 08:00 Resp 21 04/18/23 08:00 BP 115/67 04/18/23 08:00 Pulse Ox 96 04/18/23 08:00 FiO2 50 04/17/23 17:35 Intake & Output 04/17/23 04/18/23 04/18/23 18:59 06:59 18:59 Intake Total 2270.182 7096.867 188 Output Total 1665 1325 255 Balance -326.657 155.867 -67 Weight 92.5 kg Intake: IV 167 1168 188 ACETAMINOPHEN IV (For NPO 100 ) 1,000 mg In Empty Bag 1 bag @ 400 mls/hr IVPB Q6H [facility] Rx#:[id number] Albumin Human 5% 250 ml 250 In Empty Bag 1 bag @ 250 mls/hr IVPB ONCE ONE Rx#: [id number] Lactated Ringers 1,000 ml 500 100 @ 50 mls/hr IV .Q20H [facility]ARA Rx#:[id number] ceFAZolin 2 gm In Sodium 50 50 Chloride 0.9% 50 ml @ 100 mls/hr IVPB Q8HR [facility] Rx# :[id number] ns for cardiac output 80 160 20 ns for pressure bags 36 108 18 Intake, IV Titration 1171.343 62.867 Amount ACETAMINOPHEN IV (For NPO 100 ) 1,000 mg In Empty Bag 1 bag @ 400 mls/hr IVPB Q6H [facility]ARA Rx#:[id number] Albumin Human 5% 250 ml 500 In Empty Bag 1 bag @ 250 mls/hr IVPB Q1HR PRN Rx#: [id number] Calcium Gluconate in NaCl 100 1 gm In Saline 1 100ml. bag @ 100 mls/hr IVPB ONCE ONE Rx#:[id number] Dexmedetomidine/0.9% NaCl 23.614 (Pmx) 400 mcg In Empty Bag 1 bag @ Titrate IV . Q0M [facility] Rx#:[id number] Insulin Regular 100 unit 8.655 9.377 In Sodium Chloride 0.9% 100 ml @ Per Protocol IV .Q0M [facility] Rx#:[id number] Lactated Ringers 1,000 ml 250 50 @ 50 mls/hr IV .Q20H [facility] Rx#:[id number] Norepinephrine 4 mg In 80.508 3.49 Sodium Chloride 0.9% 250 ml @ 0.02 MCG/KG/MIN 6. 866 mls/hr IV .Q24H [facility]ARA Rx#:[id number] ceFAZolin 2 gm In Sodium 50 Chloride 0.9% 50 ml @ 100 mls/hr IVPB Q8HR [facility]ARA Rx# :[id number] propofoL 1,000 mg In 58.566 Empty Bag 1 bag @ Titrate IV .Q0M [facility] Rx#: [id number] Oral 250 Output: Chest Tube Drainage 390 620 120 Mediastinal 290 390 40 Rt & LT Pleural CT 100 230 80 Urine 675 705 135 Estimated Blood Loss 600 Other: Voiding Method Indwelling Catheter Indwelling Catheter Indwelling Catheter ABP, PAP, CO, CI - Last Documented Arterial Blood Pressure 119/53 Pulmonary Artery Pressure 27/11 Cardiac Output 4.9 Cardiac Index 2.3 - Exam CONSTITUTIONAL: Sitting up to the bedside chair in the intensive care unit, appears comfortable, cooperative, no apparent acute distress. HEENT: Neck is supple, no JVD, no lymphadenopathy. Right IJ Cordis and Mojave- Aime catheter in place and functioning. RESPIRATORY: Lungs sounds essentially clear throughout, diminished to his bilateral bases. Respirations are symmetrical and nonlabored. Currently on 3 L nasal cannula with oxygen saturations 97%. Able to achieve 2000 mL on his incentive spirometry. Strong cough. CARDIOVASCULAR: Regular rhythm and rate. S1 and S2 present, negative for S3, gallop or murmur. Sternum is stable. Palpable peripheral pulses bilaterally, trace edema to his bilateral lower extremities. No calf pain or tenderness noted. Heart hugger in place with patient demonstrating appropriate use. Knee- high ARTHUR hose and sequential compression devices in place to his bilateral lower extremities. GASTROINTESTINAL: Abdomen soft, nontender, nondistended. Hypoactive bowel sounds present 4 quadrants. Tolerating diet. Denies flatus. No guarding or rigidity. GENITOURINARY: Velez present draining clear, yellow urine. Urine output 465 mL in the last 8 hours. INTEGUMENTARY: Skin is warm and dry with no evidence of clubbing or cyanosis. Midline sternal incision clean dry and well approximated, covered with dry intact dressing. NEUROLOGIC: Cranial nerves II through XII intact. No focal deficits. MUSKULOSKELETAL: Able to move all extremities, strength equal bilaterally, generalized weakness. PSYCHIATRIC: Alert and oriented to person place and time, appropriate affect, intact judgment and insight. INVASIVE LINES AND TUBES: Mediastinal/left/right pleural chest tubes present and connected to low continuous wall suction, no air leaks present. Mediastinal tube with 170 mL of thin serosanguineous drainage overnight, 700 mL output in the last 24 hours. Left/right pleural chest tube with 90 mL of thin serosanguineous drainage overnight, 350 mL output in the last 24 hours. Atrial and ventricular epicardial pacemaker wires present, connected to generator, VVI backup rate 50 bpm. Right internal jugular Mojave/Cordis, right radial arterial line present. Last CO 4.7, CI 2.2, PA 25/7 and CVP 4 mmHg. - Allied health notes Allied health notes reviewed: nursing - Labs CBC & Chem 7: 04/18/23 05:05 04/18/23 05:05 Labs: Abnormal Lab Results - Last 24 Hours (Table) 04/06/23 04/17/23 04/17/23 Range/Units 08:25 08:30 13:09 WBC (3.8-10.6) k/uL RBC (4.30-5.90) m/uL Hgb (13.0-17.5) gm/dL Hct (39.0-53.0) % Plt Count (150-450) k/uL Neutrophils # (1.3-7.7) k/uL Lymphocytes # (1.0-4.8) k/uL ABG pH 7.33 L (7.35-7.45) ABG pCO2 46 H (35-45) mmHg ABG pO2 >420 H (83-108) mmHg ABG Total CO2 26 H (19-24) mmol/L ABG O2 Saturation 99.9 H (94-97) % ABG Hematocrit 33 L (34.0-46.0) % ABG Ionized Calcium 4.2 L (4.5-5.3) mg/dL ABG Glucose 138 H (75-99) mg/dL ABG Lactic Acid 2.3 H* (0.5-1.6) mmol/L Hemoglobin 10.8 L (13.0-17.5) gm/dL Sodium (137-145) mmol/L Glucose (74-99) mg/dL POC Glucose (mg/dL) 129 H (70-110) mg/dL Calcium (8.4-10.2) mg/dL Ionized Calcium Karli (4.5-5.3) mg/dL Magnesium (1.6-2.3) mg/dL Alkaline Phosphatase (38-126) U/L Total Protein (6.3-8.2) g/dL Albumin (3.5-5.0) g/dL Arterial Blood Glucose 138 H (75-99) mg/dL Crossmatch See Detail 04/17/23 04/17/23 04/17/23 Range/Units 13:11 13:11 13:39 WBC 12.3 H (3.8-10.6) k/uL RBC 3.90 L (4.30-5.90) m/uL Hgb 12.4 L (13.0-17.5) gm/dL Hct 37.5 L (39.0-53.0) % Plt Count 100 L (150-450) k/uL Neutrophils # 10.5 H (1.3-7.7) k/uL Lymphocytes # 0.9 L (1.0-4.8) k/uL ABG pH (7.35-7.45) ABG pCO2 (35-45) mmHg ABG pO2 259 H (83-108) mmHg ABG Total CO2 26 H (19-24) mmol/L ABG O2 Saturation 99.8 H (94-97) % ABG Hematocrit (34.0-46.0) % ABG Ionized Calcium (4.5-5.3) mg/dL ABG Glucose (75-99) mg/dL ABG Lactic Acid (0.5-1.6) mmol/L Hemoglobin (13.0-17.5) gm/dL Sodium (137-145) mmol/L Glucose 134 H (74-99) mg/dL POC Glucose (mg/dL) (70-110) mg/dL Calcium 7.4 L (8.4-10.2) mg/dL Ionized Calcium Karli 4.4 L (4.5-5.3) mg/dL Magnesium 2.5 H (1.6-2.3) mg/dL Alkaline Phosphatase 36 L (38-126) U/L Total Protein 5.3 L (6.3-8.2) g/dL Albumin 3.3 L (3.5-5.0) g/dL Arterial Blood Glucose (75-99) mg/dL Crossmatch 04/17/23 04/17/23 04/17/23 Range/Units 14:10 15:03 16:01 WBC 11.1 H (3.8-10.6) k/uL RBC 3.70 L (4.30-5.90) m/uL Hgb 11.8 L (13.0-17.5) gm/dL Hct 35.3 L (39.0-53.0) % Plt Count 100 L (150-450) k/uL Neutrophils # 9.7 H (1.3-7.7) k/uL Lymphocytes # 0.5 L (1.0-4.8) k/uL ABG pH (7.35-7.45) ABG pCO2 (35-45) mmHg ABG pO2 (83-108) mmHg ABG Total CO2 (19-24) mmol/L ABG O2 Saturation (94-97) % ABG Hematocrit (34.0-46.0) % ABG Ionized Calcium (4.5-5.3) mg/dL ABG Glucose (75-99) mg/dL ABG Lactic Acid (0.5-1.6) mmol/L Hemoglobin (13.0-17.5) gm/dL Sodium (137-145) mmol/L Glucose (74-99) mg/dL POC Glucose (mg/dL) 144 H 146 H (70-110) mg/dL Calcium (8.4-10.2) mg/dL Ionized Calcium Karli (4.5-5.3) mg/dL Magnesium (1.6-2.3) mg/dL Alkaline Phosphatase (38-126) U/L Total Protein (6.3-8.2) g/dL Albumin (3.5-5.0) g/dL Arterial Blood Glucose (75-99) mg/dL Crossmatch 04/17/23 04/17/23 04/17/23 Range/Units 16:06 17:03 18:14 WBC (3.8-10.6) k/uL RBC (4.30-5.90) m/uL Hgb (13.0-17.5) gm/dL Hct (39.0-53.0) % Plt Count (150-450) k/uL Neutrophils # (1.3-7.7) k/uL Lymphocytes # (1.0-4.8) k/uL ABG pH (7.35-7.45) ABG pCO2 (35-45) mmHg ABG pO2 (83-108) mmHg ABG Total CO2 (19-24) mmol/L ABG O2 Saturation (94-97) % ABG Hematocrit (34.0-46.0) % ABG Ionized Calcium (4.5-5.3) mg/dL ABG Glucose (75-99) mg/dL ABG Lactic Acid (0.5-1.6) mmol/L Hemoglobin (13.0-17.5) gm/dL Sodium (137-145) mmol/L Glucose (74-99) mg/dL POC Glucose (mg/dL) 145 H 140 H 125 H (70-110) mg/dL Calcium (8.4-10.2) mg/dL Ionized Calcium Karli (4.5-5.3) mg/dL Magnesium (1.6-2.3) mg/dL Alkaline Phosphatase (38-126) U/L Total Protein (6.3-8.2) g/dL Albumin (3.5-5.0) g/dL Arterial Blood Glucose (75-99) mg/dL Crossmatch 04/17/23 04/17/23 04/17/23 Range/Units 19:00 19:00 20:06 WBC (3.8-10.6) k/uL RBC 3.79 L (4.30-5.90) m/uL Hgb 12.0 L (13.0-17.5) gm/dL Hct 36.3 L (39.0-53.0) % Plt Count 101 L (150-450) k/uL Neutrophils # 8.6 H (1.3-7.7) k/uL Lymphocytes # 0.4 L (1.0-4.8) k/uL ABG pH (7.35-7.45) ABG pCO2 (35-45) mmHg ABG pO2 (83-108) mmHg ABG Total CO2 (19-24) mmol/L ABG O2 Saturation (94-97) % ABG Hematocrit (34.0-46.0) % ABG Ionized Calcium (4.5-5.3) mg/dL ABG Glucose (75-99) mg/dL ABG Lactic Acid (0.5-1.6) mmol/L Hemoglobin (13.0-17.5) gm/dL Sodium (137-145) mmol/L Glucose (74-99) mg/dL POC Glucose (mg/dL) 128 H 145 H (70-110) mg/dL Calcium (8.4-10.2) mg/dL Ionized Calcium Karli (4.5-5.3) mg/dL Magnesium (1.6-2.3) mg/dL Alkaline Phosphatase (38-126) U/L Total Protein (6.3-8.2) g/dL Albumin (3.5-5.0) g/dL Arterial Blood Glucose (75-99) mg/dL Crossmatch 04/17/23 04/17/23 04/17/23 Range/Units 21:12 21:13 21:59 WBC (3.8-10.6) k/uL RBC (4.30-5.90) m/uL Hgb (13.0-17.5) gm/dL Hct (39.0-53.0) % Plt Count (150-450) k/uL Neutrophils # (1.3-7.7) k/uL Lymphocytes # (1.0-4.8) k/uL ABG pH (7.35-7.45) ABG pCO2 (35-45) mmHg ABG pO2 (83-108) mmHg ABG Total CO2 (19-24) mmol/L ABG O2 Saturation (94-97) % ABG Hematocrit (34.0-46.0) % ABG Ionized Calcium (4.5-5.3) mg/dL ABG Glucose (75-99) mg/dL ABG Lactic Acid (0.5-1.6) mmol/L Hemoglobin (13.0-17.5) gm/dL Sodium (137-145) mmol/L Glucose (74-99) mg/dL POC Glucose (mg/dL) 308 H 149 H 146 H (70-110) mg/dL Calcium (8.4-10.2) mg/dL Ionized Calcium Karli (4.5-5.3) mg/dL Magnesium (1.6-2.3) mg/dL Alkaline Phosphatase (38-126) U/L Total Protein (6.3-8.2) g/dL Albumin (3.5-5.0) g/dL Arterial Blood Glucose (75-99) mg/dL Crossmatch 04/17/23 04/17/23 04/18/23 Range/Units 22:54 22:57 00:01 WBC (3.8-10.6) k/uL RBC (4.30-5.90) m/uL Hgb (13.0-17.5) gm/dL Hct (39.0-53.0) % Plt Count (150-450) k/uL Neutrophils # (1.3-7.7) k/uL Lymphocytes # (1.0-4.8) k/uL ABG pH (7.35-7.45) ABG pCO2 (35-45) mmHg ABG pO2 (83-108) mmHg ABG Total CO2 (19-24) mmol/L ABG O2 Saturation (94-97) % ABG Hematocrit (34.0-46.0) % ABG Ionized Calcium (4.5-5.3) mg/dL ABG Glucose (75-99) mg/dL ABG Lactic Acid (0.5-1.6) mmol/L Hemoglobin (13.0-17.5) gm/dL Sodium (137-145) mmol/L Glucose 128 H (74-99) mg/dL POC Glucose (mg/dL) 129 H 131 H (70-110) mg/dL Calcium 8.1 L (8.4-10.2) mg/dL Ionized Calcium Karli (4.5-5.3) mg/dL Magnesium (1.6-2.3) mg/dL Alkaline Phosphatase (38-126) U/L Total Protein (6.3-8.2) g/dL Albumin (3.5-5.0) g/dL Arterial Blood Glucose (75-99) mg/dL Crossmatch 04/18/23 04/18/23 04/18/23 Range/Units 01:15 01:58 03:54 WBC (3.8-10.6) k/uL RBC (4.30-5.90) m/uL Hgb (13.0-17.5) gm/dL Hct (39.0-53.0) % Plt Count (150-450) k/uL Neutrophils # (1.3-7.7) k/uL Lymphocytes # (1.0-4.8) k/uL ABG pH (7.35-7.45) ABG pCO2 (35-45) mmHg ABG pO2 (83-108) mmHg ABG Total CO2 (19-24) mmol/L ABG O2 Saturation (94-97) % ABG Hematocrit (34.0-46.0) % ABG Ionized Calcium (4.5-5.3) mg/dL ABG Glucose (75-99) mg/dL ABG Lactic Acid (0.5-1.6) mmol/L Hemoglobin (13.0-17.5) gm/dL Sodium (137-145) mmol/L Glucose (74-99) mg/dL POC Glucose (mg/dL) 139 H 130 H 132 H (70-110) mg/dL Calcium (8.4-10.2) mg/dL Ionized Calcium Karli (4.5-5.3) mg/dL Magnesium (1.6-2.3) mg/dL Alkaline Phosphatase (38-126) U/L Total Protein (6.3-8.2) g/dL Albumin (3.5-5.0) g/dL Arterial Blood Glucose (75-99) mg/dL Crossmatch 04/18/23 04/18/23 04/18/23 Range/Units 05:05 05:05 05:07 WBC (3.8-10.6) k/uL RBC 3.52 L (4.30-5.90) m/uL Hgb 11.3 L (13.0-17.5) gm/dL Hct 33.5 L (39.0-53.0) % Plt Count 94 L (150-450) k/uL Neutrophils # 8.9 H (1.3-7.7) k/uL Lymphocytes # 0.5 L (1.0-4.8) k/uL ABG pH (7.35-7.45) ABG pCO2 (35-45) mmHg ABG pO2 (83-108) mmHg ABG Total CO2 (19-24) mmol/L ABG O2 Saturation (94-97) % ABG Hematocrit (34.0-46.0) % ABG Ionized Calcium (4.5-5.3) mg/dL ABG Glucose (75-99) mg/dL ABG Lactic Acid (0.5-1.6) mmol/L Hemoglobin (13.0-17.5) gm/dL Sodium 135 L (137-145) mmol/L Glucose 134 H (74-99) mg/dL POC Glucose (mg/dL) 139 H (70-110) mg/dL Calcium 8.0 L (8.4-10.2) mg/dL Ionized Calcium Karli (4.5-5.3) mg/dL Magnesium (1.6-2.3) mg/dL Alkaline Phosphatase 30 L (38-126) U/L Total Protein 5.3 L (6.3-8.2) g/dL Albumin 3.4 L (3.5-5.0) g/dL Arterial Blood Glucose (75-99) mg/dL Crossmatch 04/18/23 Range/Units 06:46 WBC (3.8-10.6) k/uL RBC (4.30-5.90) m/uL Hgb (13.0-17.5) gm/dL Hct (39.0-53.0) % Plt Count (150-450) k/uL Neutrophils # (1.3-7.7) k/uL Lymphocytes # (1.0-4.8) k/uL ABG pH (7.35-7.45) ABG pCO2 (35-45) mmHg ABG pO2 (83-108) mmHg ABG Total CO2 (19-24) mmol/L ABG O2 Saturation (94-97) % ABG Hematocrit (34.0-46.0) % ABG Ionized Calcium (4.5-5.3) mg/dL ABG Glucose (75-99) mg/dL ABG Lactic Acid (0.5-1.6) mmol/L Hemoglobin (13.0-17.5) gm/dL Sodium (137-145) mmol/L Glucose (74-99) mg/dL POC Glucose (mg/dL) 134 H (70-110) mg/dL Calcium (8.4-10.2) mg/dL Ionized Calcium Karli (4.5-5.3) mg/dL Magnesium (1.6-2.3) mg/dL Alkaline Phosphatase (38-126) U/L Total Protein (6.3-8.2) g/dL Albumin (3.5-5.0) g/dL Arterial Blood Glucose (75-99) mg/dL Crossmatch - Imaging and Cardiology Chest x-ray: report reviewed, image reviewed Assessment and Plan Assessment: Severe mitral valve regurgitation, status post mitral valve repair using a triangular resection of P2 leaflet and a 36 mm Annuloflex ring annuloplasty Hypertension Hyperlipidemia Prostate disorder COVID-19 infection in June 2022 History of right wrist injury approximately 14 years ago Remote history of tobacco dependence with a preoperative FEV1 81% of predicted value the base volume of 2.91 Plan: Continue to maximize medical therapy with aspirin, statin, plavix, and beta carissa. Will increase metoprolol tartrate as tolerated. Encourage incentive spirometry use 10 times every hour while awake. Bronchodilators per pulmonology. Will monitor daily labs and chest x-rays, electrolyte replacement protocol. Increase activity as tolerated. PT/OT/cardiac rehab consulted. GI/DVT prophylaxis. Pain control with current medication regimen. Insulin management per internal medicine. Preoperative hemoglobin A1c 5.8%. Patient should remain on insulin drip for 48 hours, then may transition to sliding scale coverage per protocol. Discontinue Mojave. Connect Cordis to continuous CVP monitoring. Continue mediastinal/left/right pleural chest tubes for another 24 hours, monitor output. Continue velez catheter for another 24 hours, continue to record strict accurate intake and output. Daily weights. Discontinue heparin subcu, send HIT panel and start Arixtra 2.5 mg subcu daily. More recommendations to follow based on patient's clinical course. Time with Patient: Greater than 30
--- NOTE | 2023-04-18 08:53 | XR ---
EXAM: XR chest 1V portable CLINICAL INDICATION:Male, 78 years old with history of Post Operative Cardiac Surgery; [facility] COMPARISON: 04/17/2023 TECHNIQUE: Chest single view. FINDINGS: Lines/tubes/devices: ET tube and NG tube and been removed. Stable right IJ approach Tuthill-Aime cathete r with tip over the pulmonary outflow tract. Stable right chest tube, mediastinal drain. Left chest t ube slightly shifted in position with its tip now projected over the left upper heart. Left atrial oc clusion device and sternotomy wires appear grossly unchanged. Cardiomediastinum: Cardiac silhouette appears stable, mildly enlarged Stable mediastinal silhouette. Vasculature: No increased pulmonary vasculature. Lungs/pleura: Slight interval improvement of left perihilar infiltrate. Residual platelike atelectasis in the left mid to lower lung zone. Right costophrenic angle is sharp. Slight greater opacity in the left lung ba se with obscuration of the hemidiaphragm and mild blunting costophrenic angle. Bones/soft tissues: Bony thorax appears grossly intact as seen. Degenerative changes of the spine and shoulders. Regional soft tissues appear unremarkable. IMPRESSION: 1. ET tube and NG tube have been removed. Other lines and tubes appear in place as above. 2. No visualized pneumothorax. 3. Slightly improved aeration left perihilar infiltrate, with mild residual opacity and platelike at electasis in the left mid to lower lung zone. 4. Increased mild left basilar opacity likely small effusion with atelectasis/airspace disease.
[2023-04-18] MEDS ORDERED: MAGNESIUM HYDROXIDE 2,400 MG/30 ML CUP PO PRN (09:00)
[2023-04-18] MEDS ORDERED: bisacodyL 10 MG SUPP RECTAL PRN (09:00)
[2023-04-18] MEDS: FONDAPARINUX 2.5 MG/0.5 ML SYRINGE SQ SCH (09:13)
[2023-04-18] MEDS: METOPROLOL TARTRATE 12.5 MG TAB PO SCH ×2 (09:13→20:54)
[2023-04-18] MEDS: LACTATED RINGERS 1,000 ML IV SCH (09:18)
[2023-04-18 09:51] LABS: Glucose,Whole Blood 153 mg/dL (70-110)
[2023-04-18 11:01] VITALS: BMI 26.2
[2023-04-18] MEDS: METOCLOPRAMIDE 5 MG/ML 2 ML VIAL IVP PRN (11:10)
--- NOTE | 2023-04-18 11:12 | P.PN ---
Subjective Progress Note Date: 04/18/23 78-year-old male, seen in the intensive care unit, room 266. The patient is postop day #0, status post mitral valve for pain or, performed by Dr. Wing. The patient is on the mechanical ventilator, with settings of volume assist control, rate of 14, tidal volume 600, FiO2 50%, and PEEP of 5. Blood gases on 100% showed a pO2 of 259, pCO2 of 42, and pH is 7.37. The patient is currently on propofol at 35 mcg/kg/m, norepinephrine at 2 mcg/m, insulin at 1.5 units an hour, and lactated Ringer's at 50 mL an hour. The patient's cardiac output is 5.9, cardiac index 2.7. The patient had pre-surgical PFTs, showing a FEV1 that was 2.91 L, and an FVC that was 3.83 L. The MVV was 109 L/m. The patient was initially seen in consultation back in December 2022. The patient was found to have bradycardia, and irregular heartbeat. The patient had a transesophageal echocardiogram which revealed a severe mitral regurgitation, secondary to a flail leaflet. The patient was having mild shortness of breath at that time. Current labs include a white count of 12.3, hemoglobin 12.4, hematocrit 37.5, and a platelet count of 1000. Sodium 138, potassium 4.5, chlorides 107, CO2 22, BUN 16, creatinine 0.86. Glucose was 146. Albumin 3.3. The patient showed postsurgical changes, some diffuse infiltrates, and an endotracheal tube about 4 cm above the tracheal dennis. The patient is seen today 04/18/2023 in follow-up in the intensive care unit. He is currently sitting up in a chair at the bedside. Awake and alert in no acute distress. Postoperative day #1. He is maintaining good O2 saturations in the mid 90s on 2 L/m per nasal cannula. He's been afebrile. Hemodynamically stable. His x-ray reveals improved aeration of left perihilar infiltrate. Increased mild left basilar opacity likely effusion versus atelectasis. Mediastinal and right/left pleural chest tubes remain in place. Epicardial pacer wires remain in place with backup pacing of 50 bpm. Most recent cardiac output 4.7. Cardiac index 2.2. PA pressure 25/7 with a CVP of 4. Count 10.4. Hemoglobin 11.3. Platelets 94,000. Sodium 135. Potassium 4.0. Bicarb 24. BUN 18. Creatinine 0.80. He continues working well with the incentive spirometer. Remains on bronchodilators. Anticoagulated with Arixtra. Remains on an insulin drip at 5 units per hour. Lactated Ringer's at 20 ML's per hour. Objective - Vital Signs Vital signs: Vital Signs Temp 98.2 F 04/18/23 08:00 Pulse 72 04/18/23 10:00 Resp 29 H 04/18/23 10:00 BP 115/67 04/18/23 08:00 Pulse Ox 96 04/18/23 10:00 FiO2 50 04/17/23 17:35 Intake & Output 04/17/23 04/18/23 04/18/23 18:59 06:59 18:59 Intake Total 6064.924 0803.867 598.183 Output Total 1665 1325 360 Balance -326.657 155.867 238.183 Weight 92.5 kg 92.5 kg Intake: IV 167 1168 273 ACETAMINOPHEN IV (For NPO 100 ) 1,000 mg In Empty Bag 1 bag @ 400 mls/hr IVPB Q6H [facility] Rx#:[id number] Albumin Human 5% 250 ml 250 In Empty Bag 1 bag @ 250 mls/hr IVPB ONCE ONE Rx#: [id number] Lactated Ringers 1,000 ml 500 170 @ 20 mls/hr IV .Q24H [facility] Rx#:[id number] ceFAZolin 2 gm In Sodium 50 50 Chloride 0.9% 50 ml @ 100 mls/hr IVPB Q8HR [facility] Rx# :[id number] ns for cardiac output 80 160 20 ns for pressure bags 36 108 33 Intake, IV Titration 1171.343 62.867 25.183 Amount ACETAMINOPHEN IV (For NPO 100 ) 1,000 mg In Empty Bag 1 bag @ 400 mls/hr IVPB Q6H [facility] Rx#:[id number] Albumin Human 5% 250 ml 500 In Empty Bag 1 bag @ 250 mls/hr IVPB Q1HR PRN Rx#: [id number] Calcium Gluconate in NaCl 100 1 gm In Saline 1 100ml. bag @ 100 mls/hr IVPB ONCE ONE Rx#:[id number] Dexmedetomidine/0.9% NaCl 23.614 (Pmx) 400 mcg In Empty Bag 1 bag @ Titrate IV . Q0M [facility] Rx#:[id number] Insulin Regular 100 unit 8.655 9.377 25.183 In Sodium Chloride 0.9% 100 ml @ Per Protocol IV .Q0M [facility] Rx#:[id number] Lactated Ringers 1,000 ml 250 50 @ 20 mls/hr IV .Q24H [facility] Rx#:[id number] Norepinephrine 4 mg In 80.508 3.49 Sodium Chloride 0.9% 250 ml @ 0.02 MCG/KG/MIN 6. 866 mls/hr IV .Q24H [facility] Rx#:[id number] ceFAZolin 2 gm In Sodium 50 Chloride 0.9% 50 ml @ 100 mls/hr IVPB Q8HR [facility] Rx# :[id number] propofoL 1,000 mg In 58.566 Empty Bag 1 bag @ Titrate IV .Q0M [facility] Rx#: [id number] Oral 250 300 Output: Chest Tube Drainage 390 620 160 Mediastinal 290 390 60 Rt & LT Pleural CT 100 230 100 Urine 675 705 200 Estimated Blood Loss 600 Other: Voiding Method Indwelling Catheter Indwelling Catheter Indwelling Catheter ABP, PAP, CO, CI - Last Documented Arterial Blood Pressure 114/45 Pulmonary Artery Pressure 25/6 Cardiac Output 4.9 Cardiac Index 2.3 - Exam GENERAL EXAM: Alert, pleasant 78-year-old male, up in a chair, on 2 L nasal cannula, fairly, comfortable in no apparent distress. HEAD: Normocephalic. EYES: Normal reaction of pupils, equal size. NOSE: Clear with pink turbinates. THROAT: No erythema or exudates. NECK: Right IJ Moorpark-Aime catheter in place. No masses, no JVD. CHEST: Gen. dressing dry and intact. Heart Hugger in place. Mediastinal and right/left chest tubes in place. Pacer wires in place. LUNGS: Equal air entry with crackles in the left base. CVS: S1 and S2 normal with no audible murmur, regular rhythm. ABDOMEN: No hepatosplenomegaly, hypoactive bowel sounds, no guarding or rigi dity. SPINE: No scoliosis or deformity SKIN: No rashes CENTRAL NERVOUS SYSTEM: No focal deficits, tone is normal in all 4 extremities. EXTREMITIES: ARTHUR hose, SCDs in place. There is no peripheral edema. No clubbing, no cyanosis. Peripheral pulses are intact. - Labs CBC & Chem 7: 04/18/23 05:05 04/18/23 05:05 Labs: Abnormal Lab Results - Last 24 Hours (Table) 04/06/23 04/17/23 04/17/23 Range/Units 08:25 08:30 13:09 WBC (3.8-10.6) k/uL RBC (4.30-5.90) m/uL Hgb (13.0-17.5) gm/dL Hct (39.0-53.0) % Plt Count (150-450) k/uL Neutrophils # (1.3-7.7) k/uL Lymphocytes # (1.0-4.8) k/uL ABG pH 7.33 L (7.35-7.45) ABG pCO2 46 H (35-45) mmHg ABG pO2 >420 H (83-108) mmHg ABG Total CO2 26 H (19-24) mmol/L ABG O2 Saturation 99.9 H (94-97) % ABG Hematocrit 33 L (34.0-46.0) % ABG Ionized Calcium 4.2 L (4.5-5.3) mg/dL ABG Glucose 138 H (75-99) mg/dL ABG Lactic Acid 2.3 H* (0.5-1.6) mmol/L Hemoglobin 10.8 L (13.0-17.5) gm/dL Sodium (137-145) mmol/L Glucose (74-99) mg/dL POC Glucose (mg/dL) 129 H (70-110) mg/dL Calcium (8.4-10.2) mg/dL Ionized Calcium Karli (4.5-5.3) mg/dL Magnesium (1.6-2.3) mg/dL Alkaline Phosphatase (38-126) U/L Total Protein (6.3-8.2) g/dL Albumin (3.5-5.0) g/dL Arterial Blood Glucose 138 H (75-99) mg/dL Crossmatch See Detail 04/17/23 04/17/23 04/17/23 Range/Units 13:11 13:11 13:39 WBC 12.3 H (3.8-10.6) k/uL RBC 3.90 L (4.30-5.90) m/uL Hgb 12.4 L (13.0-17.5) gm/dL Hct 37.5 L (39.0-53.0) % Plt Count 100 L (150-450) k/uL Neutrophils # 10.5 H (1.3-7.7) k/uL Lymphocytes # 0.9 L (1.0-4.8) k/uL ABG pH (7.35-7.45) ABG pCO2 (35-45) mmHg ABG pO2 259 H (83-108) mmHg ABG Total CO2 26 H (19-24) mmol/L ABG O2 Saturation 99.8 H (94-97) % ABG Hematocrit (34.0-46.0) % ABG Ionized Calcium (4.5-5.3) mg/dL ABG Glucose (75-99) mg/dL ABG Lactic Acid (0.5-1.6) mmol/L Hemoglobin (13.0-17.5) gm/dL Sodium (137-145) mmol/L Glucose 134 H (74-99) mg/dL POC Glucose (mg/dL) (70-110) mg/dL Calcium 7.4 L (8.4-10.2) mg/dL Ionized Calcium Karli 4.4 L (4.5-5.3) mg/dL Magnesium 2.5 H (1.6-2.3) mg/dL Alkaline Phosphatase 36 L (38-126) U/L Total Protein 5.3 L (6.3-8.2) g/dL Albumin 3.3 L (3.5-5.0) g/dL Arterial Blood Glucose (75-99) mg/dL Crossmatch 04/17/23 04/17/23 04/17/23 Range/Units 14:10 15:03 16:01 WBC 11.1 H (3.8-10.6) k/uL RBC 3.70 L (4.30-5.90) m/uL Hgb 11.8 L (13.0-17.5) gm/dL Hct 35.3 L (39.0-53.0) % Plt Count 100 L (150-450) k/uL Neutrophils # 9.7 H (1.3-7.7) k/uL Lymphocytes # 0.5 L (1.0-4.8) k/uL ABG pH (7.35-7.45) ABG pCO2 (35-45) mmHg ABG pO2 (83-108) mmHg ABG Total CO2 (19-24) mmol/L ABG O2 Saturation (94-97) % ABG Hematocrit (34.0-46.0) % ABG Ionized Calcium (4.5-5.3) mg/dL ABG Glucose (75-99) mg/dL ABG Lactic Acid (0.5-1.6) mmol/L Hemoglobin (13.0-17.5) gm/dL Sodium (137-145) mmol/L Glucose (74-99) mg/dL POC Glucose (mg/dL) 144 H 146 H (70-110) mg/dL Calcium (8.4-10.2) mg/dL Ionized Calcium Karli (4.5-5.3) mg/dL Magnesium (1.6-2.3) mg/dL Alkaline Phosphatase (38-126) U/L Total Protein (6.3-8.2) g/dL Albumin (3.5-5.0) g/dL Arterial Blood Glucose (75-99) mg/dL Crossmatch 04/17/23 04/17/23 04/17/23 Range/Units 16:06 17:03 18:14 WBC (3.8-10.6) k/uL RBC (4.30-5.90) m/uL Hgb (13.0-17.5) gm/dL Hct (39.0-53.0) % Plt Count (150-450) k/uL Neutrophils # (1.3-7.7) k/uL Lymphocytes # (1.0-4.8) k/uL ABG pH (7.35-7.45) ABG pCO2 (35-45) mmHg ABG pO2 (83-108) mmHg ABG Total CO2 (19-24) mmol/L ABG O2 Saturation (94-97) % ABG Hematocrit (34.0-46.0) % ABG Ionized Calcium (4.5-5.3) mg/dL ABG Glucose (75-99) mg/dL ABG Lactic Acid (0.5-1.6) mmol/L Hemoglobin (13.0-17.5) gm/dL Sodium (137-145) mmol/L Glucose (74-99) mg/dL POC Glucose (mg/dL) 145 H 140 H 125 H (70-110) mg/dL Calcium (8.4-10.2) mg/dL Ionized Calcium Karli (4.5-5.3) mg/dL Magnesium (1.6-2.3) mg/dL Alkaline Phosphatase (38-126) U/L Total Protein (6.3-8.2) g/dL Albumin (3.5-5.0) g/dL Arterial Blood Glucose (75-99) mg/dL Crossmatch 04/17/23 04/17/23 04/17/23 Range/Units 19:00 19:00 20:06 WBC (3.8-10.6) k/uL RBC 3.79 L (4.30-5.90) m/uL Hgb 12.0 L (13.0-17.5) gm/dL Hct 36.3 L (39.0-53.0) % Plt Count 101 L (150-450) k/uL Neutrophils # 8.6 H (1.3-7.7) k/uL Lymphocytes # 0.4 L (1.0-4.8) k/uL ABG pH (7.35-7.45) ABG pCO2 (35-45) mmHg ABG pO2 (83-108) mmHg ABG Total CO2 (19-24) mmol/L ABG O2 Saturation (94-97) % ABG Hematocrit (34.0-46.0) % ABG Ionized Calcium (4.5-5.3) mg/dL ABG Glucose (75-99) mg/dL ABG Lactic Acid (0.5-1.6) mmol/L Hemoglobin (13.0-17.5) gm/dL Sodium (137-145) mmol/L Glucose (74-99) mg/dL POC Glucose (mg/dL) 128 H 145 H (70-110) mg/dL Calcium (8.4-10.2) mg/dL Ionized Calcium Karli (4.5-5.3) mg/dL Magnesium (1.6-2.3) mg/dL Alkaline Phosphatase (38-126) U/L Total Protein (6.3-8.2) g/dL Albumin (3.5-5.0) g/dL Arterial Blood Glucose (75-99) mg/dL Crossmatch 04/17/23 04/17/23 04/17/23 Range/Units 21:12 21:13 21:59 WBC (3.8-10.6) k/uL RBC (4.30-5.90) m/uL Hgb (13.0-17.5) gm/dL Hct (39.0-53.0) % Plt Count (150-450) k/uL Neutrophils # (1.3-7.7) k/uL Lymphocytes # (1.0-4.8) k/uL ABG pH (7.35-7.45) ABG pCO2 (35-45) mmHg ABG pO2 (83-108) mmHg ABG Total CO2 (19-24) mmol/L ABG O2 Saturation (94-97) % ABG Hematocrit (34.0-46.0) % ABG Ionized Calcium (4.5-5.3) mg/dL ABG Glucose (75-99) mg/dL ABG Lactic Acid (0.5-1.6) mmol/L Hemoglobin (13.0-17.5) gm/dL Sodium (137-145) mmol/L Glucose (74-99) mg/dL POC Glucose (mg/dL) 308 H 149 H 146 H (70-110) mg/dL Calcium (8.4-10.2) mg/dL Ionized Calcium Karli (4.5-5.3) mg/dL Magnesium (1.6-2.3) mg/dL Alkaline Phosphatase (38-126) U/L Total Protein (6.3-8.2) g/dL Albumin (3.5-5.0) g/dL Arterial Blood Glucose (75-99) mg/dL Crossmatch 04/17/23 04/17/23 04/18/23 Range/Units 22:54 22:57 00:01 WBC (3.8-10.6) k/uL RBC (4.30-5.90) m/uL Hgb (13.0-17.5) gm/dL Hct (39.0-53.0) % Plt Count (150-450) k/uL Neutrophils # (1.3-7.7) k/uL Lymphocytes # (1.0-4.8) k/uL ABG pH (7.35-7.45) ABG pCO2 (35-45) mmHg ABG pO2 (83-108) mmHg ABG Total CO2 (19-24) mmol/L ABG O2 Saturation (94-97) % ABG Hematocrit (34.0-46.0) % ABG Ionized Calcium (4.5-5.3) mg/dL ABG Glucose (75-99) mg/dL ABG Lactic Acid (0.5-1.6) mmol/L Hemoglobin (13.0-17.5) gm/dL Sodium (137-145) mmol/L Glucose 128 H (74-99) mg/dL POC Glucose (mg/dL) 129 H 131 H (70-110) mg/dL Calcium 8.1 L (8.4-10.2) mg/dL Ionized Calcium Karli (4.5-5.3) mg/dL Magnesium (1.6-2.3) mg/dL Alkaline Phosphatase (38-126) U/L Total Protein (6.3-8.2) g/dL Albumin (3.5-5.0) g/dL Arterial Blood Glucose (75-99) mg/dL Crossmatch 04/18/23 04/18/23 04/18/23 Range/Units 01:15 01:58 03:54 WBC (3.8-10.6) k/uL RBC (4.30-5.90) m/uL Hgb (13.0-17.5) gm/dL Hct (39.0-53.0) % Plt Count (150-450) k/uL Neutrophils # (1.3-7.7) k/uL Lymphocytes # (1.0-4.8) k/uL ABG pH (7.35-7.45) ABG pCO2 (35-45) mmHg ABG pO2 (83-108) mmHg ABG Total CO2 (19-24) mmol/L ABG O2 Saturation (94-97) % ABG Hematocrit (34.0-46.0) % ABG Ionized Calcium (4.5-5.3) mg/dL ABG Glucose (75-99) mg/dL ABG Lactic Acid (0.5-1.6) mmol/L Hemoglobin (13.0-17.5) gm/dL Sodium (137-145) mmol/L Glucose (74-99) mg/dL POC Glucose (mg/dL) 139 H 130 H 132 H (70-110) mg/dL Calcium (8.4-10.2) mg/dL Ionized Calcium Karli (4.5-5.3) mg/dL Magnesium (1.6-2.3) mg/dL Alkaline Phosphatase (38-126) U/L Total Protein (6.3-8.2) g/dL Albumin (3.5-5.0) g/dL Arterial Blood Glucose (75-99) mg/dL Crossmatch 04/18/23 04/18/23 04/18/23 Range/Units 05:05 05:05 05:07 WBC (3.8-10.6) k/uL RBC 3.52 L (4.30-5.90) m/uL Hgb 11.3 L (13.0-17.5) gm/dL Hct 33.5 L (39.0-53.0) % Plt Count 94 L (150-450) k/uL Neutrophils # 8.9 H (1.3-7.7) k/uL Lymphocytes # 0.5 L (1.0-4.8) k/uL ABG pH (7.35-7.45) ABG pCO2 (35-45) mmHg ABG pO2 (83-108) mmHg ABG Total CO2 (19-24) mmol/L ABG O2 Saturation (94-97) % ABG Hematocrit (34.0-46.0) % ABG Ionized Calcium (4.5-5.3) mg/dL ABG Glucose (75-99) mg/dL ABG Lactic Acid (0.5-1.6) mmol/L Hemoglobin (13.0-17.5) gm/dL Sodium 135 L (137-145) mmol/L Glucose 134 H (74-99) mg/dL POC Glucose (mg/dL) 139 H (70-110) mg/dL Calcium 8.0 L (8.4-10.2) mg/dL Ionized Calcium Karli (4.5-5.3) mg/dL Magnesium (1.6-2.3) mg/dL Alkaline Phosphatase 30 L (38-126) U/L Total Protein 5.3 L (6.3-8.2) g/dL Albumin 3.4 L (3.5-5.0) g/dL Arterial Blood Glucose (75-99) mg/dL Crossmatch 04/18/23 04/18/23 04/18/23 Range/Units 06:46 08:46 09:49 WBC (3.8-10.6) k/uL RBC (4.30-5.90) m/uL Hgb (13.0-17.5) gm/dL Hct (39.0-53.0) % Plt Count (150-450) k/uL Neutrophils # (1.3-7.7) k/uL Lymphocytes # (1.0-4.8) k/uL ABG pH (7.35-7.45) ABG pCO2 (35-45) mmHg ABG pO2 (83-108) mmHg ABG Total CO2 (19-24) mmol/L ABG O2 Saturation (94-97) % ABG Hematocrit (34.0-46.0) % ABG Ionized Calcium (4.5-5.3) mg/dL ABG Glucose (75-99) mg/dL ABG Lactic Acid (0.5-1.6) mmol/L Hemoglobin (13.0-17.5) gm/dL Sodium (137-145) mmol/L Glucose (74-99) mg/dL POC Glucose (mg/dL) 134 H 204 H 153 H (70-110) mg/dL Calcium (8.4-10.2) mg/dL Ionized Calcium Karli (4.5-5.3) mg/dL Magnesium (1.6-2.3) mg/dL Alkaline Phosphatase (38-126) U/L Total Protein (6.3-8.2) g/dL Albumin (3.5-5.0) g/dL Arterial Blood Glucose (75-99) mg/dL Crossmatch Assessment and Plan Assessment: Postop day # 1, status post mitral valve repair, secondary to a flailed mitral valve leaflet Routine postoperative ventilator management, resolved and on 2 L nasal cannula History of hypertension History of hyperlipidemia History of BPH. Plan: The patient was seen and evaluated Chest x-ray, labs and medications reviewed Currently stable and on 2 L nasal cannula Continue to work with the incentive spirometer Increase his activity as tolerated We will continue to follow I have personally seen and examined the patient, performed the documentation and the assessment and plan as written. Number of minutes spent on the visit: 10.
--- NOTE | 2023-04-18 11:13 | P.CONS ---
History of Present Illness - Reason for Consult Consult date: 04/18/23 BPH Requesting physician: Siddhartha Wing - Chief Complaint shortness of breath - History of Present Illness Patient is a 78-year-old male tension, dyslipidemia, and BPH who presented for mitral valve repair. He did well without any immediate postoperative complications, he was extubated later that evening after the procedure. Patient seen and examined at bedside. He has having some chest discomfort that is worse with deep inspiration. He denies any nausea or vomiting. He had has no lightheaded or dizziness. He has not been sick or ill recently. Case discussed with nursing and Dr. Schroeder at bedside. Patient is requiring 5 units of insulin Vital signs reviewed General: Appearing, no distress, appears at stated age Derm: warm, dry Eyes: EOMI, no lid lag, anicteric sclera ENT: Nose and ears atraumatic, no thrush, no pharyngeal erythema Cardiovascular: S1S2 reg, no murmur, positive posterior tibial pulse bilateral, remedy edema, Sara hugger in place, chest tubes in place Lungs: Decreased breath sounds bilateral, no rhonchi, no rales, no wheeze, no accessory muscle use Abdominal: soft, nontender to palpation, no guarding, no appreciable organomegaly, normal bowel sounds Ext: no gross muscle atrophy, and all 4 extremities independently Neuro: CN II-XII grossly intact, no focal neurodeficits Psych: Alert, oriented, appropriate affect Assessment/Plan: 78-year-old male status post mitral valve repair Hyperglycemia -Anticipated outcome of surgery. -Preop A1c 5.8 in March 2023 And continue with insulin drip at 5 units/h for additional 24 hours. Then will consider transition to sliding scale. BPH -Continue with Flomax 0.5 mg at night Anemia with thrombocytopenia -Anticipate outcome of surgery -No indication for transfusion at this time -Repeat CBC in a.m. Dyslipidemia -Patient is on Lipitor 40 mg daily Hypertension, controlled -Lopressor 12.5 mg twice daily -Patient is on Cozaar at home which is currently being held -Follow blood pressures Imaging: Chest x-ray as reviewed by myself shows lines and tubes in appropriate position. Large gastric bubble with possible small left-sided pleural effusion. Data Review: Labs reviewed from today include CBC and complete metabolic profile which are remarkable for hemoglobin 11.3, platelets 94, sodium 135, glucose 153 DVT prophylaxis: Arixtra Thank you for allowing us to participate in the care of this pleasant patient. Do not hesitate to contact us with questions. Someone can be reached from the [facility] [place] hospitalist group all hours of the day at [phone] or via [employer]. This dictation was prepared using [employer] (ML4[employer]) voice recognition software. Though every attempt is made to correct errors during dictation some may still exist. Past Medical History Past Medical History: Hyperlipidemia, Hypertension, Prostate Disorder Additional Past Medical History / Comment(s): COVID 06/2022, heart valve problem per pt., SOB w/exertion @times History of Any Multi-Drug Resistant Organisms: None Reported Past Surgical History: Heart Catheterization, Hernia Repair, Orthopedic Surgery Additional Past Surgical History / Comment(s): ORIF RT WRIST SX, COLONOSCOPY, BILAT CATARACTS REMOVED WITH LENS IMPLANTS Past Anesthesia/Blood Transfusion Reactions: No Reported Reaction Smoking Status: Former smoker - Past Family History Father Family Medical History: Cancer Medications and Allergies Home Medications Medication Instructions Recorded Confirmed Type Magnesium 500 mg PO DAILY 10/18/22 04/13/23 History [place]-3/Dha/Epa/Fish Oil [Fish Oil 1 each PO Q48H 10/18/22 04/13/23 History 1,000 mg Softgel] Rosuvastatin Calcium 10 mg PO HS 10/18/22 04/13/23 History Tamsulosin [Flomax] 0.4 mg PO HS 10/18/22 04/13/23 History Losartan [Cozaar] 25 mg PO HS 11/23/22 04/13/23 History Aspirin 81 mg PO DAILY 12/23/22 04/13/23 History Cholecalciferol (Vitamin D3) 125 mcg PO DAILY 03/16/23 04/13/23 History [Vitamin D3 (125 MCG = 5,000 IU)] Cyanocobalamin (Vitamin B-12) 1,000 mcg PO DAILY 03/16/23 04/13/23 History [Vitamin B-12] Cyclobenzaprine [Flexeril] 5 mg PO HS 03/16/23 04/13/23 History Sleep Aid 1 tab PO HS 03/16/23 04/13/23 History Allergies Allergy/AdvReac Type Severity Reaction Status Date / Time No Known Allergies Allergy Verified 04/17/23 05:59 Physical Exam Osteopathic Statement: *. No significant issues noted on an osteopathic structural exam other than those noted in the History and Physical/Consult. Vitals: Vital Signs Temp Pulse Resp BP Pulse Ox FiO2 04/18/23 10:00 72 29 H 96 04/18/23 09:00 75 18 96 04/18/23 08:30 74 16 96 04/18/23 08:00 98.2 F 72 21 115/67 96 04/18/23 07:51 70 96 04/18/23 07:30 69 23 97 04/18/23 07:00 67 20 97 04/18/23 06:45 69 16 113/66 96 04/18/23 06:30 69 16 125/73 96 04/18/23 06:15 68 20 115/67 97 04/18/23 06:00 68 22 115/79 97 04/18/23 05:45 68 15 107/76 97 04/18/23 05:30 69 26 H 106/67 94 L 04/18/23 05:15 67 24 97 04/18/23 05:00 66 11 L 110/65 96 04/18/23 04:45 67 17 97 04/18/23 04:30 67 15 97 04/18/23 04:15 64 14 104/62 97 04/18/23 04:00 66 10 L 102/64 97 04/18/23 03:45 67 19 96 04/18/23 03:30 65 21 96 04/18/23 03:15 67 16 97 04/18/23 03:00 68 14 97 04/18/23 02:45 70 18 97 04/18/23 02:30 71 17 98 04/18/23 02:15 70 17 97 04/18/23 02:00 70 16 97 04/18/23 01:45 72 16 97 04/18/23 01:30 69 15 97 04/18/23 01:15 68 12 97 04/18/23 01:00 68 17 97 04/18/23 00:45 70 15 97 04/18/23 00:30 74 15 97 04/18/23 00:15 70 17 107/66 96 04/18/23 00:00 73 14 97 04/17/23 23:45 72 24 97 04/17/23 23:30 73 20 96 04/17/23 23:15 75 22 95 04/17/23 23:05 73 11 L 97 04/17/23 23:00 76 23 97 04/17/23 22:45 77 19 97 04/17/23 22:30 79 17 97 04/17/23 22:15 78 13 98 04/17/23 22:00 80 21 97 04/17/23 21:45 81 19 97 04/17/23 21:30 81 20 97 04/17/23 21:15 82 16 97 04/17/23 21:00 85 18 97 04/17/23 20:45 83 14 98 04/17/23 20:30 83 18 99 04/17/23 20:29 80 04/17/23 20:19 80 04/17/23 20:15 81 26 H 98 04/17/23 20:00 82 20 103/73 97 04/17/23 19:45 84 21 96 04/17/23 19:30 84 22 96 04/17/23 19:15 85 18 96 04/17/23 19:00 86 21 96 04/17/23 18:45 90 20 97 04/17/23 18:30 85 15 96 04/17/23 18:15 82 16 99 04/17/23 18:00 98.4 F 80 14 98 04/17/23 17:45 79 18 98 04/17/23 17:35 50 04/17/23 17:30 81 24 99 04/17/23 17:15 80 25 H 98 04/17/23 17:00 98.1 F 81 16 98 04/17/23 16:45 82 16 98 04/17/23 16:30 82 16 97 04/17/23 16:15 84 16 97 04/17/23 16:00 97.7 F 85 16 98 50 04/17/23 15:45 87 17 98 04/17/23 15:30 87 15 98 04/17/23 15:15 90 16 98 04/17/23 15:00 97.3 F L 90 17 97 04/17/23 14:58 50 04/17/23 14:45 89 17 100 04/17/23 14:30 89 17 99 04/17/23 14:15 87 16 98 04/17/23 14:00 96.3 F L 85 15 97 04/17/23 13:45 82 14 97 04/17/23 13:43 60 04/17/23 13:30 83 14 98 04/17/23 13:15 95.7 F L 85 14 98 04/17/23 13:06 100 04/17/23 12:53 100 Intake and Output 04/17/23 04/18/23 04/18/23 22:59 06:59 14:59 Intake Total 1192.736 1043 598.183 Output Total 795 905 360 Balance 405.456 317 238.183 Intake: IV 283 972 273 ACETAMINOPHEN IV (For NPO 100 ) 1,000 mg In Empty Bag 1 bag @ 400 mls/hr IVPB Q6H [facility]ARA Rx#:[id number] Albumin Human 5% 250 ml 250 In Empty Bag 1 bag @ 250 mls/hr IVPB ONCE ONE Rx#: [id number] Lactated Ringers 1,000 ml 500 170 @ 20 mls/hr IV .Q24H [facility]ARA Rx#:[id number] ceFAZolin 2 gm In Sodium 50 50 Chloride 0.9% 50 ml @ 100 mls/hr IVPB Q8HR TARA Rx# :[id number] ns for cardiac output 120 100 20 ns for pressure bags 63 72 33 Intake, IV Titration 917.456 25.183 Amount ACETAMINOPHEN IV (For NPO 100 ) 1,000 mg In Empty Bag 1 bag @ 400 mls/hr IVPB Q6H TARA Rx#:[id number] Albumin Human 5% 250 ml 250 In Empty Bag 1 bag @ 250 mls/hr IVPB Q1HR PRN Rx#: [id number] Calcium Gluconate in NaCl 100 1 gm In Saline 1 100ml. bag @ 100 mls/hr IVPB ONCE ONE Rx#:[id number] Dexmedetomidine/0.9% NaCl 23.614 (Pmx) 400 mcg In Empty Bag 1 bag @ Titrate IV . Q0M [facility]ARA Rx#:[id number] Insulin Regular 100 unit 18.032 25.183 In Sodium Chloride 0.9% 100 ml @ Per Protocol IV .Q0M [facility]ARA Rx#:[id number] Lactated Ringers 1,000 ml 250 @ 20 mls/hr IV .Q24H [facility]ARA Rx#:[id number] Norepinephrine 4 mg In 70.398 Sodium Chloride 0.9% 250 ml @ 0.02 MCG/KG/MIN 6. 866 mls/hr IV .Q24H [facility]ARA Rx#:[id number] ceFAZolin 2 gm In Sodium 50 Chloride 0.9% 50 ml @ 100 mls/hr IVPB Q8HR [facility]ARA Rx# :[id number] propofoL 1,000 mg In 55.412 Empty Bag 1 bag @ Titrate IV .Q0M [facility] Rx#: [id number] Oral 250 300 Output: Chest Tube Drainage 420 370 160 Mediastinal 330 210 60 Rt & LT Pleural CT 90 160 100 Urine 375 535 200 Other: Voiding Method Indwelling Catheter Indwelling Catheter Indwelling Catheter Weight 92.5 kg 92.5 kg ABP, PAP, CO, CI - Last 8 Hours Arterial Blood Pressure 114/45 Arterial Blood Pressure 119/44 Arterial Blood Pressure 118/44 Arterial Blood Pressure 119/53 Arterial Blood Pressure 104/44 Arterial Blood Pressure 106/46 Arterial Blood Pressure 95/45 Arterial Blood Pressure 109/41 Arterial Blood Pressure 94/41 Arterial Blood Pressure 109/54 Arterial Blood Pressure 104/47 Arterial Blood Pressure 103/49 Arterial Blood Pressure 111/44 Arterial Blood Pressure 104/48 Arterial Blood Pressure 99/42 Arterial Blood Pressure 105/46 Arterial Blood Pressure 102/40 Arterial Blood Pressure 101/46 Arterial Blood Pressure 104/44 Arterial Blood Pressure 106/41 Arterial Blood Pressure 104/46 Pulmonary Artery Pressure 25/6 Pulmonary Artery Pressure 27/11 Pulmonary Artery Pressure 19/4 Pulmonary Artery Pressure 25/5 Pulmonary Artery Pressure 28/8 Pulmonary Artery Pressure 25/7 Pulmonary Artery Pressure 25/5 Pulmonary Artery Pressure 29/13 Pulmonary Artery Pressure 39/15 Pulmonary Artery Pressure 44/19 Pulmonary Artery Pressure 29/9 Pulmonary Artery Pressure 28/9 Pulmonary Artery Pressure 25/8 Pulmonary Artery Pressure 29/8 Pulmonary Artery Pressure 25/7 Pulmonary Artery Pressure 27/6 Pulmonary Artery Pressure 25/6 Pulmonary Artery Pressure 28/6 Pulmonary Artery Pressure 28/6 Cardiac Output 4.9 Cardiac Output 4.7 Cardiac Output 4.7 Cardiac Index 2.3 Cardiac Index 2.2 Cardiac Index 2.2 Results CBC & Chem 7: 04/18/23 05:05 04/18/23 05:05 Labs: Abnormal Lab Results - Last 24 Hours (Table) 04/06/23 04/17/23 04/17/23 Range/Units 08:25 08:30 13:09 WBC (3.8-10.6) k/uL RBC (4.30-5.90) m/uL Hgb (13.0-17.5) gm/dL Hct (39.0-53.0) % Plt Count (150-450) k/uL Neutrophils # (1.3-7.7) k/uL Lymphocytes # (1.0-4.8) k/uL ABG pH 7.33 L (7.35-7.45) ABG pCO2 46 H (35-45) mmHg ABG pO2 >420 H (83-108) mmHg ABG Total CO2 26 H (19-24) mmol/L ABG O2 Saturation 99.9 H (94-97) % ABG Hematocrit 33 L (34.0-46.0) % ABG Ionized Calcium 4.2 L (4.5-5.3) mg/dL ABG Glucose 138 H (75-99) mg/dL ABG Lactic Acid 2.3 H* (0.5-1.6) mmol/L Hemoglobin 10.8 L (13.0-17.5) gm/dL Sodium (137-145) mmol/L Glucose (74-99) mg/dL POC Glucose (mg/dL) 129 H (70-110) mg/dL Calcium (8.4-10.2) mg/dL Ionized Calcium Karli (4.5-5.3) mg/dL Magnesium (1.6-2.3) mg/dL Alkaline Phosphatase (38-126) U/L Total Protein (6.3-8.2) g/dL Albumin (3.5-5.0) g/dL Arterial Blood Glucose 138 H (75-99) mg/dL Crossmatch See Detail 04/17/23 04/17/23 04/17/23 Range/Units 13:11 13:11 13:39 WBC 12.3 H (3.8-10.6) k/uL RBC 3.90 L (4.30-5.90) m/uL Hgb 12.4 L (13.0-17.5) gm/dL Hct 37.5 L (39.0-53.0) % Plt Count 100 L (150-450) k/uL Neutrophils # 10.5 H (1.3-7.7) k/uL Lymphocytes # 0.9 L (1.0-4.8) k/uL ABG pH (7.35-7.45) ABG pCO2 (35-45) mmHg ABG pO2 259 H (83-108) mmHg ABG Total CO2 26 H (19-24) mmol/L ABG O2 Saturation 99.8 H (94-97) % ABG Hematocrit (34.0-46.0) % ABG Ionized Calcium (4.5-5.3) mg/dL ABG Glucose (75-99) mg/dL ABG Lactic Acid (0.5-1.6) mmol/L Hemoglobin (13.0-17.5) gm/dL Sodium (137-145) mmol/L Glucose 134 H (74-99) mg/dL POC Glucose (mg/dL) (70-110) mg/dL Calcium 7.4 L (8.4-10.2) mg/dL Ionized Calcium Karli 4.4 L (4.5-5.3) mg/dL Magnesium 2.5 H (1.6-2.3) mg/dL Alkaline Phosphatase 36 L (38-126) U/L Total Protein 5.3 L (6.3-8.2) g/dL Albumin 3.3 L (3.5-5.0) g/dL Arterial Blood Glucose (75-99) mg/dL Crossmatch 04/17/23 04/17/23 04/17/23 Range/Units 14:10 15:03 16:01 WBC 11.1 H (3.8-10.6) k/uL RBC 3.70 L (4.30-5.90) m/uL Hgb 11.8 L (13.0-17.5) gm/dL Hct 35.3 L (39.0-53.0) % Plt Count 100 L (150-450) k/uL Neutrophils # 9.7 H (1.3-7.7) k/uL Lymphocytes # 0.5 L (1.0-4.8) k/uL ABG pH (7.35-7.45) ABG pCO2 (35-45) mmHg ABG pO2 (83-108) mmHg ABG Total CO2 (19-24) mmol/L ABG O2 Saturation (94-97) % ABG Hematocrit (34.0-46.0) % ABG Ionized Calcium (4.5-5.3) mg/dL ABG Glucose (75-99) mg/dL ABG Lactic Acid (0.5-1.6) mmol/L Hemoglobin (13.0-17.5) gm/dL Sodium (137-145) mmol/L Glucose (74-99) mg/dL POC Glucose (mg/dL) 144 H 146 H (70-110) mg/dL Calcium (8.4-10.2) mg/dL Ionized Calcium Karli (4.5-5.3) mg/dL Magnesium (1.6-2.3) mg/dL Alkaline Phosphatase (38-126) U/L Total Protein (6.3-8.2) g/dL Albumin (3.5-5.0) g/dL Arterial Blood Glucose (75-99) mg/dL Crossmatch 04/17/23 04/17/23 04/17/23 Range/Units 16:06 17:03 18:14 WBC (3.8-10.6) k/uL RBC (4.30-5.90) m/uL Hgb (13.0-17.5) gm/dL Hct (39.0-53.0) % Plt Count (150-450) k/uL Neutrophils # (1.3-7.7) k/uL Lymphocytes # (1.0-4.8) k/uL ABG pH (7.35-7.45) ABG pCO2 (35-45) mmHg ABG pO2 (83-108) mmHg ABG Total CO2 (19-24) mmol/L ABG O2 Saturation (94-97) % ABG Hematocrit (34.0-46.0) % ABG Ionized Calcium (4.5-5.3) mg/dL ABG Glucose (75-99) mg/dL ABG Lactic Acid (0.5-1.6) mmol/L Hemoglobin (13.0-17.5) gm/dL Sodium (137-145) mmol/L Glucose (74-99) mg/dL POC Glucose (mg/dL) 145 H 140 H 125 H (70-110) mg/dL Calcium (8.4-10.2) mg/dL Ionized Calcium Karli (4.5-5.3) mg/dL Magnesium (1.6-2.3) mg/dL Alkaline Phosphatase (38-126) U/L Total Protein (6.3-8.2) g/dL Albumin (3.5-5.0) g/dL Arterial Blood Glucose (75-99) mg/dL Crossmatch 04/17/23 04/17/23 04/17/23 Range/Units 19:00 19:00 20:06 WBC (3.8-10.6) k/uL RBC 3.79 L (4.30-5.90) m/uL Hgb 12.0 L (13.0-17.5) gm/dL Hct 36.3 L (39.0-53.0) % Plt Count 101 L (150-450) k/uL Neutrophils # 8.6 H (1.3-7.7) k/uL Lymphocytes # 0.4 L (1.0-4.8) k/uL ABG pH (7.35-7.45) ABG pCO2 (35-45) mmHg ABG pO2 (83-108) mmHg ABG Total CO2 (19-24) mmol/L ABG O2 Saturation (94-97) % ABG Hematocrit (34.0-46.0) % ABG Ionized Calcium (4.5-5.3) mg/dL ABG Glucose (75-99) mg/dL ABG Lactic Acid (0.5-1.6) mmol/L Hemoglobin (13.0-17.5) gm/dL Sodium (137-145) mmol/L Glucose (74-99) mg/dL POC Glucose (mg/dL) 128 H 145 H (70-110) mg/dL Calcium (8.4-10.2) mg/dL Ionized Calcium Karli (4.5-5.3) mg/dL Magnesium (1.6-2.3) mg/dL Alkaline Phosphatase (38-126) U/L Total Protein (6.3-8.2) g/dL Albumin (3.5-5.0) g/dL Arterial Blood Glucose (75-99) mg/dL Crossmatch 04/17/23 04/17/23 04/17/23 Range/Units 21:12 21:13 21:59 WBC (3.8-10.6) k/uL RBC (4.30-5.90) m/uL Hgb (13.0-17.5) gm/dL Hct (39.0-53.0) % Plt Count (150-450) k/uL Neutrophils # (1.3-7.7) k/uL Lymphocytes # (1.0-4.8) k/uL ABG pH (7.35-7.45) ABG pCO2 (35-45) mmHg ABG pO2 (83-108) mmHg ABG Total CO2 (19-24) mmol/L ABG O2 Saturation (94-97) % ABG Hematocrit (34.0-46.0) % ABG Ionized Calcium (4.5-5.3) mg/dL ABG Glucose (75-99) mg/dL ABG Lactic Acid (0.5-1.6) mmol/L Hemoglobin (13.0-17.5) gm/dL Sodium (137-145) mmol/L Glucose (74-99) mg/dL POC Glucose (mg/dL) 308 H 149 H 146 H (70-110) mg/dL Calcium (8.4-10.2) mg/dL Ionized Calcium Karli (4.5-5.3) mg/dL Magnesium (1.6-2.3) mg/dL Alkaline Phosphatase (38-126) U/L Total Protein (6.3-8.2) g/dL Albumin (3.5-5.0) g/dL Arterial Blood Glucose (75-99) mg/dL Crossmatch 04/17/23 04/17/23 04/18/23 Range/Units 22:54 22:57 00:01 WBC (3.8-10.6) k/uL RBC (4.30-5.90) m/uL Hgb (13.0-17.5) gm/dL Hct (39.0-53.0) % Plt Count (150-450) k/uL Neutrophils # (1.3-7.7) k/uL Lymphocytes # (1.0-4.8) k/uL ABG pH (7.35-7.45) ABG pCO2 (35-45) mmHg ABG pO2 (83-108) mmHg ABG Total CO2 (19-24) mmol/L ABG O2 Saturation (94-97) % ABG Hematocrit (34.0-46.0) % ABG Ionized Calcium (4.5-5.3) mg/dL ABG Glucose (75-99) mg/dL ABG Lactic Acid (0.5-1.6) mmol/L Hemoglobin (13.0-17.5) gm/dL Sodium (137-145) mmol/L Glucose 128 H (74-99) mg/dL POC Glucose (mg/dL) 129 H 131 H (70-110) mg/dL Calcium 8.1 L (8.4-10.2) mg/dL Ionized Calcium Karli (4.5-5.3) mg/dL Magnesium (1.6-2.3) mg/dL Alkaline Phosphatase (38-126) U/L Total Protein (6.3-8.2) g/dL Albumin (3.5-5.0) g/dL Arterial Blood Glucose (75-99) mg/dL Crossmatch 04/18/23 04/18/23 04/18/23 Range/Units 01:15 01:58 03:54 WBC (3.8-10.6) k/uL RBC (4.30-5.90) m/uL Hgb (13.0-17.5) gm/dL Hct (39.0-53.0) % Plt Count (150-450) k/uL Neutrophils # (1.3-7.7) k/uL Lymphocytes # (1.0-4.8) k/uL ABG pH (7.35-7.45) ABG pCO2 (35-45) mmHg ABG pO2 (83-108) mmHg ABG Total CO2 (19-24) mmol/L ABG O2 Saturation (94-97) % ABG Hematocrit (34.0-46.0) % ABG Ionized Calcium (4.5-5.3) mg/dL ABG Glucose (75-99) mg/dL ABG Lactic Acid (0.5-1.6) mmol/L Hemoglobin (13.0-17.5) gm/dL Sodium (137-145) mmol/L Glucose (74-99) mg/dL POC Glucose (mg/dL) 139 H 130 H 132 H (70-110) mg/dL Calcium (8.4-10.2) mg/dL Ionized Calcium Karli (4.5-5.3) mg/dL Magnesium (1.6-2.3) mg/dL Alkaline Phosphatase (38-126) U/L Total Protein (6.3-8.2) g/dL Albumin (3.5-5.0) g/dL Arterial Blood Glucose (75-99) mg/dL Crossmatch 04/18/23 04/18/23 04/18/23 Range/Units 05:05 05:05 05:07 WBC (3.8-10.6) k/uL RBC 3.52 L (4.30-5.90) m/uL Hgb 11.3 L (13.0-17.5) gm/dL Hct 33.5 L (39.0-53.0) % Plt Count 94 L (150-450) k/uL Neutrophils # 8.9 H (1.3-7.7) k/uL Lymphocytes # 0.5 L (1.0-4.8) k/uL ABG pH (7.35-7.45) ABG pCO2 (35-45) mmHg ABG pO2 (83-108) mmHg ABG Total CO2 (19-24) mmol/L ABG O2 Saturation (94-97) % ABG Hematocrit (34.0-46.0) % ABG Ionized Calcium (4.5-5.3) mg/dL ABG Glucose (75-99) mg/dL ABG Lactic Acid (0.5-1.6) mmol/L Hemoglobin (13.0-17.5) gm/dL Sodium 135 L (137-145) mmol/L Glucose 134 H (74-99) mg/dL POC Glucose (mg/dL) 139 H (70-110) mg/dL Calcium 8.0 L (8.4-10.2) mg/dL Ionized Calcium Karli (4.5-5.3) mg/dL Magnesium (1.6-2.3) mg/dL Alkaline Phosphatase 30 L (38-126) U/L Total Protein 5.3 L (6.3-8.2) g/dL Albumin 3.4 L (3.5-5.0) g/dL Arterial Blood Glucose (75-99) mg/dL Crossmatch 04/18/23 04/18/23 04/18/23 Range/Units 06:46 08:46 09:49 WBC (3.8-10.6) k/uL RBC (4.30-5.90) m/uL Hgb (13.0-17.5) gm/dL Hct (39.0-53.0) % Plt Count (150-450) k/uL Neutrophils # (1.3-7.7) k/uL Lymphocytes # (1.0-4.8) k/uL ABG pH (7.35-7.45) ABG pCO2 (35-45) mmHg ABG pO2 (83-108) mmHg ABG Total CO2 (19-24) mmol/L ABG O2 Saturation (94-97) % ABG Hematocrit (34.0-46.0) % ABG Ionized Calcium (4.5-5.3) mg/dL ABG Glucose (75-99) mg/dL ABG Lactic Acid (0.5-1.6) mmol/L Hemoglobin (13.0-17.5) gm/dL Sodium (137-145) mmol/L Glucose (74-99) mg/dL POC Glucose (mg/dL) 134 H 204 H 153 H (70-110) mg/dL Calcium (8.4-10.2) mg/dL Ionized Calcium Karli (4.5-5.3) mg/dL Magnesium (1.6-2.3) mg/dL Alkaline Phosphatase (38-126) U/L Total Protein (6.3-8.2) g/dL Albumin (3.5-5.0) g/dL Arterial Blood Glucose (75-99) mg/dL Crossmatch
[2023-04-18 11:19] LABS: Glucose,Whole Blood 132 mg/dL (70-110)
[2023-04-18 12:12] LABS: Glucose,Whole Blood 116 mg/dL (70-110)
[2023-04-18] MEDS: HYDROcodone/APAP 10-325MG 1 EACH TAB PO PRN ×2 (12:16→16:57)
[2023-04-18 13:34] LABS: Glucose,Whole Blood 147 mg/dL (70-110)
[2023-04-18 15:13] LABS: Glucose,Whole Blood 123 mg/dL (70-110)
[2023-04-18] MEDS ORDERED: KETOROLAC 15 MG/ML 1 ML VIAL IVP STA (16:04)
[2023-04-18 16:33] LABS: Glucose,Whole Blood 124 mg/dL (70-110)
[2023-04-18 18:04] LABS: Glucose,Whole Blood 127 mg/dL (70-110)
[2023-04-18 20:03] LABS: Glucose,Whole Blood 116 mg/dL (70-110)
[2023-04-18] MEDS: TAMSULOSIN 0.4 MG CAP.ER.24H PO SCH (20:17)
[2023-04-18] MEDS: SENNOSIDES-DOCUSATE SODIUM 1 EACH TAB PO SCH (20:17)
[2023-04-18 22:09] LABS: Glucose,Whole Blood 117 mg/dL (70-110)
[2023-04-19] MEDS ORDERED: HYDROcodone/APAP 5-325MG 1 EACH TAB PO PRN (00:08)
[2023-04-19 00:12] LABS: Glucose,Whole Blood 119 mg/dL (70-110)
[2023-04-19] MEDS: HYDROcodone/APAP 10-325MG 1 EACH TAB PO PRN ×3 (00:25→08:10)
[2023-04-19 02:23] LABS: Glucose,Whole Blood 122 mg/dL (70-110)
[2023-04-19 04:00] LABS: Glucose,Whole Blood 108 mg/dL (70-110)
[2023-04-19 04:10] LABS: Basophils % (A) 0 %; Eosinophils % (A) 0 %; HCT 31.5 % (39.0-53.0); HGB 10.4 gm/dL (13.0-17.5); Lymphocytes # (A) 0.9 k/uL (1.0-4.8); Lymphocytes % (A) 10 %; MCH 31.2 pg (25.0-35.0); MCHC 32.9 g/dL (31.0-37.0); Mean Platelet Volume 8.5; Monocytes # (A) 0.7 k/uL (0-1.0); Monocytes % (A) 8 %; Neutrophils # (A) 7.4 k/uL (1.3-7.7); Neutrophils % (A) 81 %; Platelet Count 87 k/uL (150-450); RBC 3.32 m/uL (4.30-5.90); RDW 13.6 % (11.5-15.5); WBC 9.1 k/uL (3.8-10.6)
[2023-04-19 04:47] LABS: Ionized Calcium 4.4 mg/dL (4.5-5.3)
[2023-04-19 04:59] LABS: ALT 16 U/L (4-49); AST 43 U/L (17-59); African American GFR (CKD) >90 (>60 ml/min/1.73 sqM); Albumin 2.8 g/dL (3.5-5.0); Alkaline Phosphatase 39 U/L (38-126); Anion Gap 7 mmol/L; Blood Urea Nitrogen 18 mg/dL (9-20); Calcium 8.1 mg/dL (8.4-10.2); Carbon Dioxide 23 mmol/L (22-30); Chloride 99 mmol/L (98-107); Glucose 106 mg/dL (74-99); Non-African American GFR(CKD) 86 (>60 ml/min/1.73 sqM); Sodium 129 mmol/L (137-145); Total Bilirubin 1.1 mg/dL (0.2-1.3); Total Protein 4.9 g/dL (6.3-8.2)
[2023-04-19 05:57] LABS: Glucose,Whole Blood 113 mg/dL (70-110)
[2023-04-19] MEDS: METOCLOPRAMIDE 5 MG/ML 2 ML VIAL IVP PRN (07:00)
--- NOTE | 2023-04-19 07:24 | P.PN ---
Subjective Progress Note Date: 04/19/23 Principal diagnosis: Status post mitral valve repair The patient is a pleasant 78-year-old gentleman who sees Dr. Land regular basis with a past medical history significant for [id number] nonobstructive coronary artery disease on recent heart catheterization was diagnosed with severe mitral regurgitation. He underwent yesterday successful mitral valve repair. This is postoperative patient day #1. Overall the patient seems to be stable hemodynamically and not any vasopressors or inotropic. He is maintaining normal sinus mechanism. The chest x-ray was reviewed as well as morning. His hemoglobin is stable. Platelet count still pending at this point. Urine output has been stable as well. The patient overall seems to be doing good from a cardiovascular standpoint of view. He is on dual antiplatelet therapy using aspirin and Plavix and also he is on statin. The examination is remarkable for stable vital signs as described above with distant heart sounds and diminished breathing sounds bilaterally. April 192023 The patient was seen and evaluated this morning. Overall he is doing better. He is stable. He is not on any vasopressors. He has been maintaining normal sinus mechanism. Urine output is adequate. Blood work is a stable as well. The chest x-ray also looks good. From the cardiovascular standpoint of view, we'll continue current medical regimen and follow-up with the patient. The examination is remarkable for stable vital signs was diminished breathing sounds bilaterally and distant heart sounds Assessment Status post mitral valve repair [id number] nonobstructive coronary artery disease Plan Continue the current medical regimen Continue monitor the patient's rhythm. He did have an episode of nonsustained V. tach yesterday Monitor the electrolytes Monitor the platelet Follow-up with the patient Objective - Vital Signs Vital signs: Vital Signs Temp 98.1 F 04/19/23 04:00 Pulse 78 04/19/23 07:00 Resp 20 04/19/23 07:00 BP 106/63 04/19/23 07:00 Pulse Ox 92 L 04/19/23 07:00 FiO2 50 04/17/23 17:35 Intake & Output 04/18/23 04/19/23 04/19/23 18:59 06:59 18:59 Intake Total 1362.242 988.185 26 Output Total 1110 680 30 Balance 252.242 308.185 -4 Weight 92.5 kg 94.4 kg Intake: IV 481 312 26 Lactated Ringers 1,000 ml 330 240 20 @ 20 mls/hr IV .Q24H [facility] Rx#:[id number] ceFAZolin 2 gm In Sodium 50 Chloride 0.9% 50 ml @ 100 mls/hr IVPB Q8HR [facility] Rx# :[id number] ns for cardiac output 20 ns for pressure bags 81 72 6 Intake, IV Titration 41.242 16.185 Amount Insulin Regular 100 unit 41.242 16.185 In Sodium Chloride 0.9% 100 ml @ Per Protocol IV .Q0M [facility] Rx#:[id number] Oral 840 660 Output: Chest Tube Drainage 575 200 Mediastinal 90 Rt & LT Pleural CT 280 lt pleural 45 130 rt pleural 160 70 Urine 535 480 30 Other: Voiding Method Indwelling Catheter Indwelling Catheter ABP, PAP, CO, CI - Last Documented Arterial Blood Pressure 113/54 Pulmonary Artery Pressure 25/6 Cardiac Output 4.9 Cardiac Index 2.3 - Labs CBC & Chem 7: 04/19/23 04:00 04/19/23 04:00 Labs: Abnormal Lab Results - Last 24 Hours (Table) 04/18/23 04/18/23 04/18/23 Range/Units 05:05 05:05 08:46 RBC (4.30-5.90) m/uL Hgb (13.0-17.5) gm/dL Hct (39.0-53.0) % Plt Count 94 L (150-450) k/uL Neutrophils # 8.9 H (1.3-7.7) k/uL Lymphocytes # 0.5 L (1.0-4.8) k/uL Sodium 135 L (137-145) mmol/L Glucose 134 H (74-99) mg/dL POC Glucose (mg/dL) 204 H (70-110) mg/dL Calcium 8.0 L (8.4-10.2) mg/dL Ionized Calcium Karli (4.5-5.3) mg/dL Alkaline Phosphatase 30 L (38-126) U/L Total Protein 5.3 L (6.3-8.2) g/dL Albumin 3.4 L (3.5-5.0) g/dL 04/18/23 04/18/23 04/18/23 Range/Units 09:49 11:17 12:11 RBC (4.30-5.90) m/uL Hgb (13.0-17.5) gm/dL Hct (39.0-53.0) % Plt Count (150-450) k/uL Neutrophils # (1.3-7.7) k/uL Lymphocytes # (1.0-4.8) k/uL Sodium (137-145) mmol/L Glucose (74-99) mg/dL POC Glucose (mg/dL) 153 H 132 H 116 H (70-110) mg/dL Calcium (8.4-10.2) mg/dL Ionized Calcium Karli (4.5-5.3) mg/dL Alkaline Phosphatase (38-126) U/L Total Protein (6.3-8.2) g/dL Albumin (3.5-5.0) g/dL 04/18/23 04/18/23 04/18/23 Range/Units 13:33 15:11 16:31 RBC (4.30-5.90) m/uL Hgb (13.0-17.5) gm/dL Hct (39.0-53.0) % Plt Count (150-450) k/uL Neutrophils # (1.3-7.7) k/uL Lymphocytes # (1.0-4.8) k/uL Sodium (137-145) mmol/L Glucose (74-99) mg/dL POC Glucose (mg/dL) 147 H 123 H 124 H (70-110) mg/dL Calcium (8.4-10.2) mg/dL Ionized Calcium Karli (4.5-5.3) mg/dL Alkaline Phosphatase (38-126) U/L Total Protein (6.3-8.2) g/dL Albumin (3.5-5.0) g/dL 04/18/23 04/18/23 04/18/23 Range/Units 18:02 20:02 22:07 RBC (4.30-5.90) m/uL Hgb (13.0-17.5) gm/dL Hct (39.0-53.0) % Plt Count (150-450) k/uL Neutrophils # (1.3-7.7) k/uL Lymphocytes # (1.0-4.8) k/uL Sodium (137-145) mmol/L Glucose (74-99) mg/dL POC Glucose (mg/dL) 127 H 116 H 117 H (70-110) mg/dL Calcium (8.4-10.2) mg/dL Ionized Calcium Karli (4.5-5.3) mg/dL Alkaline Phosphatase (38-126) U/L Total Protein (6.3-8.2) g/dL Albumin (3.5-5.0) g/dL 04/19/23 04/19/23 04/19/23 Range/Units 00:11 02:22 04:00 RBC 3.32 L (4.30-5.90) m/uL Hgb 10.4 L (13.0-17.5) gm/dL Hct 31.5 L (39.0-53.0) % Plt Count 87 L (150-450) k/uL Neutrophils # (1.3-7.7) k/uL Lymphocytes # 0.9 L (1.0-4.8) k/uL Sodium (137-145) mmol/L Glucose (74-99) mg/dL POC Glucose (mg/dL) 119 H 122 H (70-110) mg/dL Calcium (8.4-10.2) mg/dL Ionized Calcium Karli (4.5-5.3) mg/dL Alkaline Phosphatase (38-126) U/L Total Protein (6.3-8.2) g/dL Albumin (3.5-5.0) g/dL 04/19/23 04/19/23 Range/Units 04:00 05:56 RBC (4.30-5.90) m/uL Hgb (13.0-17.5) gm/dL Hct (39.0-53.0) % Plt Count (150-450) k/uL Neutrophils # (1.3-7.7) k/uL Lymphocytes # (1.0-4.8) k/uL Sodium 129 L (137-145) mmol/L Glucose 106 H (74-99) mg/dL POC Glucose (mg/dL) 113 H (70-110) mg/dL Calcium 8.1 L (8.4-10.2) mg/dL Ionized Calcium Karli 4.4 L (4.5-5.3) mg/dL Alkaline Phosphatase (38-126) U/L Total Protein 4.9 L (6.3-8.2) g/dL Albumin 2.8 L (3.5-5.0) g/dL
[2023-04-19] MEDS ORDERED: CALCIUM GLUCONATE IN NACL 1 GM in SALINE 1 100ML.BAG IVPB ONE (08:00)
[2023-04-19] MEDS ORDERED: DEXTROSE 50% SYRINGE 50 ML IVP PRN ×2 (08:07)
[2023-04-19] MEDS: ASPIRIN 325 MG TAB PO SCH (08:12)
[2023-04-19] MEDS: PANTOPRAZOLE 40 MG/10 ML VIAL IVP SCH (08:12)
[2023-04-19] MEDS: METOPROLOL TARTRATE 12.5 MG TAB PO SCH ×2 (08:12→21:10)
[2023-04-19] MEDS: CLOPIDOGREL 75 MG TAB PO SCH (08:12)
[2023-04-19] MEDS: CHOLECALCIFEROL 125 MCG (5000 IU) TABLET PO SCH (08:13)
[2023-04-19] MEDS: CYANOCOBALAMIN 500 MCG TAB PO SCH (08:13)
[2023-04-19] MEDS: ATORVASTATIN 40 MG TAB PO SCH (08:13)
[2023-04-19 08:19] LABS: Glucose,Whole Blood 125 mg/dL (70-110)
--- NOTE | 2023-04-19 08:31 | P.PN ---
Subjective Progress Note Date: 04/19/23 Principal diagnosis: Severe mitral valve regurgitation. Previous medical history of hypertension, hyperlipidemia, BPH, previous tobacco dependence, COVID-19 infection June 2022 POD #2 mitral valve repair using a triangular resection of P2 leaflet and a 36 mm Annuloflex ring annuloplasty, ligation of the left atrial appendage using a 35 mm Atriclip, epi-aortic ultrasound, intraoperative transesophageal echocardiogram completed by anesthesia Postoperative acute blood loss anemia and thrombocytopenia, expected given hemodilution and cardiopulmonary bypass. The patient was seen and examined this morning sitting up in a recliner in no acute distress in the intensive care unit. States pain is controlled on current medication regimen. Denies shortness of breath. Per nursing he has been up ambulating in the hallway without difficulty. Remains in sinus rhythm, hemody namically stable, currently on room air. Chest x-ray, lab work reviewed. Right and left pleural chest tubes, right internal jugular Cordis, Velez catheter, and A/V epicardial pacemakers all remaining present. No other new concerns. Objective - Vital Signs Vital signs: Vital Signs Temp 98.1 F 04/19/23 04:00 Pulse 78 04/19/23 07:00 Resp 20 04/19/23 07:00 BP 106/63 04/19/23 07:00 Pulse Ox 92 L 04/19/23 07:00 FiO2 50 04/17/23 17:35 Intake & Output 04/18/23 04/19/23 04/19/23 18:59 06:59 18:59 Intake Total 1362.242 988.185 26 Output Total 1110 680 30 Balance 252.242 308.185 -4 Weight 92.5 kg 94.4 kg Intake: IV 481 312 26 Lactated Ringers 1,000 ml 330 240 20 @ 20 mls/hr IV .Q24H [facility] Rx#:[id number] ceFAZolin 2 gm In Sodium 50 Chloride 0.9% 50 ml @ 100 mls/hr IVPB Q8HR [facility] Rx# :[id number] ns for cardiac output 20 ns for pressure bags 81 72 6 Intake, IV Titration 41.242 16.185 Amount Insulin Regular 100 unit 41.242 16.185 In Sodium Chloride 0.9% 100 ml @ Per Protocol IV .Q0M [facility] Rx#:[id number] Oral 840 660 Output: Chest Tube Drainage 575 200 Mediastinal 90 Rt & LT Pleural CT 280 lt pleural 45 130 rt pleural 160 70 Urine 535 480 30 Other: Voiding Method Indwelling Catheter Indwelling Catheter ABP, PAP, CO, CI - Last Documented Arterial Blood Pressure 113/54 Pulmonary Artery Pressure 25/6 Cardiac Output 4.9 Cardiac Index 2.3 - Exam CONSTITUTIONAL: Appears comfortable, cooperative, no acute distress RESPIRATORY: Lungs sounds diminished bilaterally. Respirations even, nonlabored. Currently on room air with oxygen saturation 92%. Able to achieve 1500 mL on incentive spirometry. Strong cough. CARDIOVASCULAR: S1, S2 present. Regular rate and rhythm, sinus rhythm on telemetry. Sternum stable. Palpable peripheral pulses bilaterally. No edema present. No calf pain or tenderness noted. Heart hugger in place with patient demonstrating appropriate use. Antiembolism stockings, SCDs present. GASTROINTESTINAL: Abdomen soft, nontender, nondistended. Active bowel sounds present 4 quadrants. Tolerating diet. Positive belching, denies flatus GENITOURINARY: Velez present draining clear, yellow urine. Output overnight 30-70 mL per hour, 1015 mL in the last 24 hours INTEGUMENTARY: Skin is warm and dry with evidence of good perfusion. Anterior chest incision well approximated and covered with dry intact dressing NEUROLOGIC: Cranial nerves II through XII intact MUSKULOSKELETAL: Able to move all extremities, strength equal bilaterally, gait normal PSYCHIATRIC: Alert and oriented to person place and time, appropriate affect, intact judgment and insight INVASIVE LINES AND TUBES: Left/right pleural chest tubes present and connected to wall suction, no air leaks present. Left pleural chest tube with 30 mL serosanguineous drainage overnight, 450 mL in the last 24 hours. Right pleural chest tube with 13 mL serosanguineous drainage overnight, 150 mL last 24 hours. A/V epicardial pacemaker wires present, grounded. Right internal jugular cordis, right radial arterial line present - Allied health notes Allied health notes reviewed: nursing - Labs CBC & Chem 7: 04/19/23 04:00 04/19/23 04:00 Labs: Abnormal Lab Results - Last 24 Hours (Table) 04/18/23 04/18/23 04/18/23 Range/Units 05:05 05:05 08:46 RBC (4.30-5.90) m/uL Hgb (13.0-17.5) gm/dL Hct (39.0-53.0) % Plt Count 94 L (150-450) k/uL Neutrophils # 8.9 H (1.3-7.7) k/uL Lymphocytes # 0.5 L (1.0-4.8) k/uL Sodium 135 L (137-145) mmol/L Glucose 134 H (74-99) mg/dL POC Glucose (mg/dL) 204 H (70-110) mg/dL Calcium 8.0 L (8.4-10.2) mg/dL Ionized Calcium Karli (4.5-5.3) mg/dL Alkaline Phosphatase 30 L (38-126) U/L Total Protein 5.3 L (6.3-8.2) g/dL Albumin 3.4 L (3.5-5.0) g/dL 04/18/23 04/18/23 04/18/23 Range/Units 09:49 11:17 12:11 RBC (4.30-5.90) m/uL Hgb (13.0-17.5) gm/dL Hct (39.0-53.0) % Plt Count (150-450) k/uL Neutrophils # (1.3-7.7) k/uL Lymphocytes # (1.0-4.8) k/uL Sodium (137-145) mmol/L Glucose (74-99) mg/dL POC Glucose (mg/dL) 153 H 132 H 116 H (70-110) mg/dL Calcium (8.4-10.2) mg/dL Ionized Calcium Karli (4.5-5.3) mg/dL Alkaline Phosphatase (38-126) U/L Total Protein (6.3-8.2) g/dL Albumin (3.5-5.0) g/dL 04/18/23 04/18/23 04/18/23 Range/Units 13:33 15:11 16:31 RBC (4.30-5.90) m/uL Hgb (13.0-17.5) gm/dL Hct (39.0-53.0) % Plt Count (150-450) k/uL Neutrophils # (1.3-7.7) k/uL Lymphocytes # (1.0-4.8) k/uL Sodium (137-145) mmol/L Glucose (74-99) mg/dL POC Glucose (mg/dL) 147 H 123 H 124 H (70-110) mg/dL Calcium (8.4-10.2) mg/dL Ionized Calcium Karli (4.5-5.3) mg/dL Alkaline Phosphatase (38-126) U/L Total Protein (6.3-8.2) g/dL Albumin (3.5-5.0) g/dL 04/18/23 04/18/23 04/18/23 Range/Units 18:02 20:02 22:07 RBC (4.30-5.90) m/uL Hgb (13.0-17.5) gm/dL Hct (39.0-53.0) % Plt Count (150-450) k/uL Neutrophils # (1.3-7.7) k/uL Lymphocytes # (1.0-4.8) k/uL Sodium (137-145) mmol/L Glucose (74-99) mg/dL POC Glucose (mg/dL) 127 H 116 H 117 H (70-110) mg/dL Calcium (8.4-10.2) mg/dL Ionized Calcium Karli (4.5-5.3) mg/dL Alkaline Phosphatase (38-126) U/L Total Protein (6.3-8.2) g/dL Albumin (3.5-5.0) g/dL 04/19/23 04/19/23 04/19/23 Range/Units 00:11 02:22 04:00 RBC 3.32 L (4.30-5.90) m/uL Hgb 10.4 L (13.0-17.5) gm/dL Hct 31.5 L (39.0-53.0) % Plt Count 87 L (150-450) k/uL Neutrophils # (1.3-7.7) k/uL Lymphocytes # 0.9 L (1.0-4.8) k/uL Sodium (137-145) mmol/L Glucose (74-99) mg/dL POC Glucose (mg/dL) 119 H 122 H (70-110) mg/dL Calcium (8.4-10.2) mg/dL Ionized Calcium Karli (4.5-5.3) mg/dL Alkaline Phosphatase (38-126) U/L Total Protein (6.3-8.2) g/dL Albumin (3.5-5.0) g/dL 04/19/23 04/19/23 Range/Units 04:00 05:56 RBC (4.30-5.90) m/uL Hgb (13.0-17.5) gm/dL Hct (39.0-53.0) % Plt Count (150-450) k/uL Neutrophils # (1.3-7.7) k/uL Lymphocytes # (1.0-4.8) k/uL Sodium 129 L (137-145) mmol/L Glucose 106 H (74-99) mg/dL POC Glucose (mg/dL) 113 H (70-110) mg/dL Calcium 8.1 L (8.4-10.2) mg/dL Ionized Calcium Karli 4.4 L (4.5-5.3) mg/dL Alkaline Phosphatase (38-126) U/L Total Protein 4.9 L (6.3-8.2) g/dL Albumin 2.8 L (3.5-5.0) g/dL - Imaging and Cardiology Chest x-ray: image reviewed Assessment and Plan Assessment: Severe mitral valve regurgitation, status post mitral valve repair History of hypertension Hyperlipidemia, treated, cholesterol 199, LDL 110, triglycerides 206 BPH Previous tobacco dependence, preoperative FEV1 81% of predicted COVID-19 infection June 2022 Postoperative acute blood loss anemia and thrombocytopenia, expected Plan: Continue to maximize medical therapy with aspirin, statin, plavix, and beta carissa. Will increase beta carissa as tolerated Encourage incentive spirometry use 10 times every hour while awake. Bronchodila tors per pulmonology. Will monitor daily labs and chest x-rays, electrolyte replacement protocol. Increase activity as tolerated. PT/OT/cardiac rehab consulted. GI/DVT prophylaxis. Pain control with current medication regimen. Insulin management per internal medicine. Preoperative hemoglobin A1c 5.8% Discontinue Cordis, arterial line Discontinue right pleural chest tube, continue left pleural chest tube for another 24 hours, monitor output. Discontinue velez catheter, may bladder scan and straight cath for >300 mL residual Continue to record strict accurate intake and output. Daily weights. Will place transfer orders for 3 S. cardiac stepdown unit. May transfer when bed available More recommendations to follow based on patient's clinical course.
--- NOTE | 2023-04-19 09:06 | XR ---
EXAMINATION TYPE: XR chest 1V portable DATE OF EXAM: 04/19/2023 COMPARISON: 04/18/2023 INDICATION: Postop cardiac surgery TECHNIQUE: Single frontal view of the chest is obtained. FINDINGS: The heart size is enlarged. The pulmonary vasculature is normal. Minimal linear opacities in the left midlung. This has improved from prior study. Resolving atelectas is may be present IMPRESSION: 1. Resolving atelectasis left midlung. Mild residual remains
[2023-04-19] MEDS: IPRATROPIUM-ALBUTEROL 3 ML NEB INHALATION SCH ×4 (09:11→20:41)
[2023-04-19] MEDS: FONDAPARINUX 2.5 MG/0.5 ML SYRINGE SQ SCH (09:40)
--- NOTE | 2023-04-19 10:16 | P.PN ---
Subjective Progress Note Date: 04/19/23 Patient is a 78-year-old male tension, dyslipidemia, and BPH who presented for mitral valve repair. He did well without any immediate postoperative complications, he was extubated later that evening after the procedure. Patient seen and examined at bedside. No complaints currently. Last night he was having significant pain but it is improved this morning. He is able to breathe well. Vital signs reviewed General: Nontoxic, no distress, appears at stated age Cardiovascular: S1S2 reg, no murmur, positive posterior tibial pulse bilateral, Lungs: Decreased bs bilateral, no rhonchi, no rales, no accessory muscle use Abdominal: Soft, nontender to palpation, no guarding, no appreciable organomega ly Ext: No gross muscle atrophy, no edema b/l lower extremities, no contractures Neuro: CN II-XI grossly intact, no focal neuro deficits Psych: Alert, oriented, appropriate affect Assessment/Plan: 78-year-old male status post mitral valve repair -Thoracic surgery note reviewed. Discontinue right pleural chest tube, continue with left pleural chest tube for another 24 hours. Discontinue Cordis and arterial line. CLeared for transfer to cardiac stepdown. Hyperglycemia, Resolved -Discontinue insulin drip -Sliding scale insulin, follow blood sugars 4 times daily -Preop A1c 5.8 in March 2023 Hyponatremia, likely multifactorial -Repeat this afternoon at 1500. If continues to be low recommend urine sodium and osmolality as patient appears slightly euvolemic to hypervolemic. BPH -Continue with Flomax 0.5 mg at night Anemia with thrombocytopenia -Anticipate outcome of surgery -No indication for transfusion at this time -Repeat CBC in a.m. Dyslipidemia -Patient is on Lipitor 40 mg daily Hypertension, controlled -Lopressor 12.5 mg twice daily -Patient is on Cozaar at home which is currently being held -Follow blood pressures Imaging: CXR- resolving atelectasis left midling Data Review: Labs reviewed from today include CBC and CMP which are remarkable for hemoglobin 10.4, platelets 87, sodium 129 DVT prophylaxis: Andrez Thank you for allowing us to participate in the care of this pleasant patient. Do not hesitate to contact us with questions. Someone can be reached from the [facility] hospitalist group all hours of the day at [phone] or via perfect serve. Objective - Vital Signs Vital signs: Vital Signs Temp 97.6 F 04/19/23 08:00 Pulse 78 04/19/23 09:20 Resp 21 04/19/23 08:00 BP 119/82 04/19/23 08:00 Pulse Ox 96 04/19/23 09:12 FiO2 50 04/17/23 17:35 Intake & Output 04/18/23 04/19/23 04/19/23 18:59 06:59 18:59 Intake Total 1362.242 988.185 152 Output Total 1110 680 60 Balance 252.242 308.185 92 Weight 92.5 kg 94.4 kg Intake: IV 481 312 52 Lactated Ringers 1,000 ml 330 240 40 @ 20 mls/hr IV .Q24H [facility] Rx#:[id number] ceFAZolin 2 gm In Sodium 50 Chloride 0.9% 50 ml @ 100 mls/hr IVPB Q8HR [facility] Rx# :[id number] ns for cardiac output 20 ns for pressure bags 81 72 12 Intake, IV Titration 41.242 16.185 100 Amount Calcium Gluconate in NaCl 100 1 gm In Saline 1 100ml. bag @ 100 mls/hr IVPB ONCE ONE Rx#:[id number] Insulin Regular 100 unit 41.242 16.185 In Sodium Chloride 0.9% 100 ml @ Per Protocol IV .Q0M [facility] Rx#:[id number] Oral 840 660 Output: Chest Tube Drainage 575 200 Mediastinal 90 Rt & LT Pleural CT 280 lt pleural 45 130 rt pleural 160 70 Urine 535 480 60 Other: Voiding Method Indwelling Catheter Indwelling Catheter ABP, PAP, CO, CI - Last Documented Arterial Blood Pressure 117/52 Pulmonary Artery Pressure 25/6 Cardiac Output 4.9 Cardiac Index 2.3 - Labs CBC & Chem 7: 04/19/23 04:00 04/19/23 04:00 Labs: Abnormal Lab Results - Last 24 Hours (Table) 04/18/23 04/18/23 04/18/23 Range/Units 11:17 12:11 13:33 RBC (4.30-5.90) m/uL Hgb (13.0-17.5) gm/dL Hct (39.0-53.0) % Plt Count (150-450) k/uL Lymphocytes # (1.0-4.8) k/uL Sodium (137-145) mmol/L Glucose (74-99) mg/dL POC Glucose (mg/dL) 132 H 116 H 147 H (70-110) mg/dL Calcium (8.4-10.2) mg/dL Ionized Calcium Karli (4.5-5.3) mg/dL Total Protein (6.3-8.2) g/dL Albumin (3.5-5.0) g/dL 04/18/23 04/18/23 04/18/23 Range/Units 15:11 16:31 18:02 RBC (4.30-5.90) m/uL Hgb (13.0-17.5) gm/dL Hct (39.0-53.0) % Plt Count (150-450) k/uL Lymphocytes # (1.0-4.8) k/uL Sodium (137-145) mmol/L Glucose (74-99) mg/dL POC Glucose (mg/dL) 123 H 124 H 127 H (70-110) mg/dL Calcium (8.4-10.2) mg/dL Ionized Calcium Karli (4.5-5.3) mg/dL Total Protein (6.3-8.2) g/dL Albumin (3.5-5.0) g/dL 04/18/23 04/18/23 04/19/23 Range/Units 20:02 22:07 00:11 RBC (4.30-5.90) m/uL Hgb (13.0-17.5) gm/dL Hct (39.0-53.0) % Plt Count (150-450) k/uL Lymphocytes # (1.0-4.8) k/uL Sodium (137-145) mmol/L Glucose (74-99) mg/dL POC Glucose (mg/dL) 116 H 117 H 119 H (70-110) mg/dL Calcium (8.4-10.2) mg/dL Ionized Calcium Karli (4.5-5.3) mg/dL Total Protein (6.3-8.2) g/dL Albumin (3.5-5.0) g/dL 04/19/23 04/19/23 04/19/23 Range/Units 02:22 04:00 04:00 RBC 3.32 L (4.30-5.90) m/uL Hgb 10.4 L (13.0-17.5) gm/dL Hct 31.5 L (39.0-53.0) % Plt Count 87 L (150-450) k/uL Lymphocytes # 0.9 L (1.0-4.8) k/uL Sodium 129 L (137-145) mmol/L Glucose 106 H (74-99) mg/dL POC Glucose (mg/dL) 122 H (70-110) mg/dL Calcium 8.1 L (8.4-10.2) mg/dL Ionized Calcium Karli 4.4 L (4.5-5.3) mg/dL Total Protein 4.9 L (6.3-8.2) g/dL Albumin 2.8 L (3.5-5.0) g/dL 04/19/23 04/19/23 Range/Units 05:56 08:18 RBC (4.30-5.90) m/uL Hgb (13.0-17.5) gm/dL Hct (39.0-53.0) % Plt Count (150-450) k/uL Lymphocytes # (1.0-4.8) k/uL Sodium (137-145) mmol/L Glucose (74-99) mg/dL POC Glucose (mg/dL) 113 H 125 H (70-110) mg/dL Calcium (8.4-10.2) mg/dL Ionized Calcium Karli (4.5-5.3) mg/dL Total Protein (6.3-8.2) g/dL Albumin (3.5-5.0) g/dL
[2023-04-19 11:36] LABS: Glucose,Whole Blood 129 mg/dL (70-110)
[2023-04-19] MEDS: INSULIN ASPART (NovoLOG) 100 UNIT/ML VIAL SQ SCH ×3 (12:25→21:11)
[2023-04-19] MEDS: HYDROcodone/APAP 5-325MG 1 EACH TAB PO PRN ×3 (13:05→21:10)
--- NOTE | 2023-04-19 13:49 | P.PN ---
Subjective Progress Note Date: 04/19/23 78-year-old male, seen in the intensive care unit, room 266. The patient is postop day #0, status post mitral valve for pain or, performed by Dr. Wing. The patient is on the mechanical ventilator, with settings of volume assist control, rate of 14, tidal volume 600, FiO2 50%, and PEEP of 5. Blood gases on 100% showed a pO2 of 259, pCO2 of 42, and pH is 7.37. The patient is currently on propofol at 35 mcg/kg/m, norepinephrine at 2 mcg/m, insulin at 1.5 units an hour, and lactated Ringer's at 50 mL an hour. The patient's cardiac output is 5.9, cardiac index 2.7. The patient had pre-surgical PFTs, showing a FEV1 that was 2.91 L, and an FVC that was 3.83 L. The MVV was 109 L/m. The patient was initially seen in consultation back in December 2022. The patient was found to have bradycardia, and irregular heartbeat. The patient had a transesophageal echocardiogram which revealed a severe mitral regurgitation, secondary to a flail leaflet. The patient was having mild shortness of breath at that time. Current labs include a white count of 12.3, hemoglobin 12.4, hematocrit 37.5, and a platelet count of 1000. Sodium 138, potassium 4.5, chlorides 107, CO2 22, BUN 16, creatinine 0.86. Glucose was 146. Albumin 3.3. The patient showed postsurgical changes, some diffuse infiltrates, and an endotracheal tube about 4 cm above the tracheal dennis. The patient is seen today 04/18/2023 in follow-up in the intensive care unit. He is currently sitting up in a chair at the bedside. Awake and alert in no acute distress. Postoperative day #1. He is maintaining good O2 saturations in the mid 90s on 2 L/m per nasal cannula. He's been afebrile. Hemodynamically stable. His x-ray reveals improved aeration of left perihilar infiltrate. Increased mild left basilar opacity likely effusion versus atelectasis. Mediastinal and right/left pleural chest tubes remain in place. Epicardial pacer wires remain in place with backup pacing of 50 bpm. Most recent cardiac output 4.7. Cardiac index 2.2. PA pressure 25/7 with a CVP of 4. Count 10.4. Hemoglobin 11.3. Platelets 94,000. Sodium 135. Potassium 4.0. Bicarb 24. BUN 18. Creatinine 0.80. He continues working well with the incentive spirometer. Remains on bronchodilators. Anticoagulated with Arixtra. Remains on an insulin drip at 5 units per hour. Lactated Ringer's at 20 ML's per hour. The patient is seen today 04/19/2023 in follow-up in the intensive care unit. He is awake and alert in no acute distress. Sitting up in a chair at the bedside. Postoperative day #2. He is maintaining good O2 saturation in the 90s on room air. He's been afebrile. Hemodynamically stable. Continues to work well with the incentive spirometer pulling [phone] ML's. He is lactated Ringer's at 20 ML's per hour. Chest x-ray shows some minimal atelectasis of the left base. Chest tubes remain in place. Right IJ cordis remains in place. Granados catheter in place. White count 9.1. Hemoglobin 10.4. Platelets 87,000. Sodium 129. Potassium 4.0. Bicarb 23. BUN 18. Creatinine 0.82. Glucose 106. He remains on bronchodilators. Anticoagulated with Arixtra. SCDs remain in place. Objective - Vital Signs Vital signs: Vital Signs Temp 97.6 F 04/19/23 08:00 Pulse 80 04/19/23 12:39 Resp 23 04/19/23 12:00 BP 112/63 04/19/23 12:00 Pulse Ox 93 L 04/19/23 12:00 FiO2 50 04/17/23 17:35 Intake & Output 04/18/23 04/19/23 04/19/23 18:59 06:59 18:59 Intake Total 1362.242 988.185 218 Output Total 4383 572 5247 Balance 252.242 308.185 -807 Weight 92.5 kg 94.4 kg Intake: IV 481 312 118 Lactated Ringers 1,000 ml 330 240 100 @ 20 mls/hr IV .Q24H [facility] Rx#:[id number] ceFAZolin 2 gm In Sodium 50 Chloride 0.9% 50 ml @ 100 mls/hr IVPB Q8HR [facility] Rx# :[id number] ns for cardiac output 20 ns for pressure bags 81 72 18 Intake, IV Titration 41.242 16.185 100 Amount Calcium Gluconate in NaCl 100 1 gm In Saline 1 100ml. bag @ 100 mls/hr IVPB ONCE ONE Rx#:[id number] Insulin Regular 100 unit 41.242 16.185 In Sodium Chloride 0.9% 100 ml @ Per Protocol IV .Q0M [facility] Rx#:[id number] Oral 840 660 Output: Chest Tube Drainage 575 200 140 Mediastinal 90 Rt & LT Pleural CT 280 lt pleural 45 130 120 rt pleural 160 70 20 Urine 535 480 885 Other: Voiding Method Indwelling Catheter Indwelling Catheter Indwelling Catheter ABP, PAP, CO, CI - Last Documented Arterial Blood Pressure 107/50 Pulmonary Artery Pressure 25/6 Cardiac Output 4.9 Cardiac Index 2.3 - Exam GENERAL EXAM: Alert, pleasant 78-year-old male, up in a chair, on room air, comfortable in no apparent distress. HEAD: Normocephalic. EYES: Normal reaction of pupils, equal size. NOSE: Clear with pink turbinates. THROAT: No erythema or exudates. NECK: Right IJ [place]-Aime catheter in place. No masses, no JVD. CHEST: Gen. dressing dry and intact. Heart Hugger in place. Chest tubes in place. Pacer wires in place. LUNGS: Equal air entry with crackles in the left base. CVS: S1 and S2 normal with no audible murmur, regular rhythm. ABDOMEN: No hepatosplenomegaly, hypoactive bowel sounds, no guarding or rigidity. SPINE: No scoliosis or deformity SKIN: No rashes CENTRAL NERVOUS SYSTEM: No focal deficits, tone is normal in all 4 extremities. EXTREMITIES: ARTHUR hose, SCDs in place. There is no peripheral edema. No clubbing, no cyanosis. Peripheral pulses are intact. - Labs CBC & Chem 7: 04/19/23 04:00 04/19/23 04:00 Labs: Abnormal Lab Results - Last 24 Hours (Table) 04/18/23 04/18/23 04/18/23 Range/Units 15:11 16:31 18:02 RBC (4.30-5.90) m/uL Hgb (13.0-17.5) gm/dL Hct (39.0-53.0) % Plt Count (150-450) k/uL Lymphocytes # (1.0-4.8) k/uL Sodium (137-145) mmol/L Glucose (74-99) mg/dL POC Glucose (mg/dL) 123 H 124 H 127 H (70-110) mg/dL Calcium (8.4-10.2) mg/dL Ionized Calcium Karli (4.5-5.3) mg/dL Total Protein (6.3-8.2) g/dL Albumin (3.5-5.0) g/dL 04/18/23 04/18/23 04/19/23 Range/Units 20:02 22:07 00:11 RBC (4.30-5.90) m/uL Hgb (13.0-17.5) gm/dL Hct (39.0-53.0) % Plt Count (150-450) k/uL Lymphocytes # (1.0-4.8) k/uL Sodium (137-145) mmol/L Glucose (74-99) mg/dL POC Glucose (mg/dL) 116 H 117 H 119 H (70-110) mg/dL Calcium (8.4-10.2) mg/dL Ionized Calcium Karli (4.5-5.3) mg/dL Total Protein (6.3-8.2) g/dL Albumin (3.5-5.0) g/dL 04/19/23 04/19/23 04/19/23 Range/Units 02:22 04:00 04:00 RBC 3.32 L (4.30-5.90) m/uL Hgb 10.4 L (13.0-17.5) gm/dL Hct 31.5 L (39.0-53.0) % Plt Count 87 L (150-450) k/uL Lymphocytes # 0.9 L (1.0-4.8) k/uL Sodium 129 L (137-145) mmol/L Glucose 106 H (74-99) mg/dL POC Glucose (mg/dL) 122 H (70-110) mg/dL Calcium 8.1 L (8.4-10.2) mg/dL Ionized Calcium Karli 4.4 L (4.5-5.3) mg/dL Total Protein 4.9 L (6.3-8.2) g/dL Albumin 2.8 L (3.5-5.0) g/dL 04/19/23 04/19/23 04/19/23 Range/Units 05:56 08:18 11:34 RBC (4.30-5.90) m/uL Hgb (13.0-17.5) gm/dL Hct (39.0-53.0) % Plt Count (150-450) k/uL Lymphocytes # (1.0-4.8) k/uL Sodium (137-145) mmol/L Glucose (74-99) mg/dL POC Glucose (mg/dL) 113 H 125 H 129 H (70-110) mg/dL Calcium (8.4-10.2) mg/dL Ionized Calcium Karli (4.5-5.3) mg/dL Total Protein (6.3-8.2) g/dL Albumin (3.5-5.0) g/dL Assessment and Plan Assessment: Postop day # 2, status post mitral valve repair, secondary to a flailed mitral valve leaflet Routine postoperative ventilator management, resolved and on room air History of hypertension History of hyperlipidemia History of BPH Plan: The patient was seen and evaluated Chest x-ray, labs and medications reviewed Currently stable and on room air Continues to work with the incentive spirometer Continued on bronchodilators Increase his activity as tolerated We will continue to follow I have personally seen and examined the patient, performed the documentation and the assessment and plan as written. Number of minutes spent on the visit: 10.
[2023-04-19 16:30] LABS: Glucose,Whole Blood 111 mg/dL (70-110)
[2023-04-19] MEDS: LACTATED RINGERS 1,000 ML IV SCH (18:57)
[2023-04-19] MEDS: HEPARIN SODIUM,PORCINE 5,000 UNIT/ML 1 ML VIAL SQ SCH (18:59)
[2023-04-19 20:12] LABS: Glucose,Whole Blood 135 mg/dL (70-110)
[2023-04-19] MEDS: TAMSULOSIN 0.4 MG CAP.ER.24H PO SCH (21:10)
[2023-04-19] MEDS: SENNOSIDES-DOCUSATE SODIUM 1 EACH TAB PO SCH (21:10)
[2023-04-19] MEDS: ACETAMINOPHEN TAB 500 MG TAB PO PRN (23:23)
[2023-04-20 06:31] LABS: Glucose,Whole Blood 114 mg/dL (70-110)
[2023-04-20] MEDS: INSULIN ASPART (NovoLOG) 100 UNIT/ML VIAL SQ SCH ×4 (06:50→20:40)
[2023-04-20] MEDS ORDERED: bisacodyL 10 MG SUPP RECTAL STA (06:56)
[2023-04-20] MEDS: HYDROcodone/APAP 5-325MG 1 EACH TAB PO PRN (06:56)
--- NOTE | 2023-04-20 07:22 | XR ---
EXAMINATION TYPE: XR chest 2V DATE OF EXAM: 04/20/2023 COMPARISON: 04/19/2023 INDICATION: Postcardiac surgery TECHNIQUE: Frontal and lateral views of the chest are obtained. FINDINGS: The heart size is prominent. The pulmonary vasculature is prominent. Linear opacity is in the lingula. This is increasing from comparison. There is blunting left costophr enic angle and minimal blunting on the right costophrenic angle. Small bilateral pleural effusions ar e present.. There is a left basilar chest tube. Small left apical pneumothorax developing. IMPRESSION: 1. Cardiomegaly with prominent pulmonary vascular markings and small bilateral pleural effusions. Cor relate for congestive heart failure. 2. Some increasing streaky atelectasis. 3. Small left apical pneumothorax.
[2023-04-20 07:45] LABS: Basophils % (A) 0 %; Eosinophils # (A) 0.1 k/uL (0-0.7); Eosinophils % (A) 1 %; HCT 32.7 % (39.0-53.0); HGB 10.9 gm/dL (13.0-17.5); Lymphocytes # (A) 0.8 k/uL (1.0-4.8); Lymphocytes % (A) 9 %; MCH 32.2 pg (25.0-35.0); MCHC 33.3 g/dL (31.0-37.0); MCV 96.7 fL (80.0-100.0); Mean Platelet Volume 7.9; Monocytes # (A) 0.5 k/uL (0-1.0); Monocytes % (A) 6 %; Neutrophils # (A) 7.6 k/uL (1.3-7.7); Neutrophils % (A) 83 %; Platelet Count 109 k/uL (150-450); RBC 3.39 m/uL (4.30-5.90); RDW 13.6 % (11.5-15.5); WBC 9.1 k/uL (3.8-10.6)
[2023-04-20 08:01] LABS: ALT 20 U/L (4-49); AST 45 U/L (17-59); African American GFR (CKD) >90 (>60 ml/min/1.73 sqM); Albumin 3.2 g/dL (3.5-5.0); Alkaline Phosphatase 51 U/L (38-126); Anion Gap 12 mmol/L; Blood Urea Nitrogen 16 mg/dL (9-20); Calcium 8.5 mg/dL (8.4-10.2); Carbon Dioxide 25 mmol/L (22-30); Chloride 97 mmol/L (98-107); Glucose 111 mg/dL (74-99); Non-African American GFR(CKD) 84 (>60 ml/min/1.73 sqM); Potassium 4.1 mmol/L (3.5-5.1); Sodium 134 mmol/L (137-145); Total Protein 5.5 g/dL (6.3-8.2)
[2023-04-20] MEDS: ASPIRIN 325 MG TAB PO SCH (08:35)
[2023-04-20] MEDS: METOPROLOL TARTRATE 12.5 MG TAB PO SCH ×2 (08:35→20:40)
[2023-04-20] MEDS: CLOPIDOGREL 75 MG TAB PO SCH (08:35)
[2023-04-20] MEDS: CHOLECALCIFEROL 125 MCG (5000 IU) TABLET PO SCH (08:35)
[2023-04-20] MEDS: PANTOPRAZOLE 40 MG/10 ML VIAL IVP SCH (08:35)
[2023-04-20] MEDS: CYANOCOBALAMIN 500 MCG TAB PO SCH (08:35)
[2023-04-20] MEDS: ATORVASTATIN 40 MG TAB PO SCH (08:35)
[2023-04-20] MEDS: FONDAPARINUX 2.5 MG/0.5 ML SYRINGE SQ SCH (08:35)
[2023-04-20] MEDS: IPRATROPIUM-ALBUTEROL 3 ML NEB INHALATION SCH ×4 (08:48→21:13)
--- NOTE | 2023-04-20 08:51 | P.PN ---
Subjective Progress Note Date: 04/20/23 Principal diagnosis: Severe mitral valve regurgitation. Previous medical history of hypertension, hyperlipidemia, BPH, previous tobacco dependence, COVID-19 infection June 2022 POD #3 mitral valve repair using a triangular resection of P2 leaflet and a 36 mm Annuloflex ring annuloplasty, ligation of the left atrial appendage using a 35 mm Atriclip, epi-aortic ultrasound, intraoperative transesophageal echocardiogram completed by anesthesia Postoperative acute blood loss anemia and thrombocytopenia, expected given hemodilution and cardiopulmonary bypass. The patient was seen and examined this morning sitting up in a recliner in no acute distress on the cardiac stepdown unit. States pain is controlled on current medication regimen. Denies shortness of breath. He has been up ambulating in the hallway without difficulty. Remains in sinus rhythm, hemodynamically stable, currently on room air. Chest x-ray, lab work reviewed. Left pleural chest tube remains present. No other new concerns. Objective - Vital Signs Vital signs: Vital Signs Temp 98.3 F 04/20/23 08:33 Pulse 80 04/20/23 08:33 Resp 16 04/20/23 08:33 BP 101/62 04/20/23 08:33 Pulse Ox 94 L 04/20/23 08:33 FiO2 50 04/17/23 17:35 Intake & Output 04/19/23 04/20/23 04/20/23 18:59 06:59 18:59 Intake Total 218 180 Output Total 2464 1870 Balance -2246 -1870 180 Weight 92.6 kg Intake: IV 118 Lactated Ringers 1,000 ml 100 @ 20 mls/hr IV .Q24H [facility] Rx#:[id number] ns for pressure bags 18 Intake, IV Titration 100 Amount Calcium Gluconate in NaCl 100 1 gm In Saline 1 100ml. bag @ 100 mls/hr IVPB ONCE ONE Rx#:[id number] Oral 180 Output: Chest Tube Drainage 140 50 lt pleural 120 50 rt pleural 20 Urine 1635 1820 Post Void Residual 689 Other: Voiding Method Urinal Urinal # Voids 1 ABP, PAP, CO, CI - Last Documented Arterial Blood Pressure 107/50 Pulmonary Artery Pressure 25/6 Cardiac Output 4.9 Cardiac Index 2.3 - Exam CONSTITUTIONAL: Appears comfortable, cooperative, no acute distress RESPIRATORY: Lungs sounds diminished bilaterally. Respirations even, nonlabored. Currently on room air with oxygen saturation 92%. Able to achieve 1500 mL on incentive spirometry. Strong cough. CARDIOVASCULAR: S1, S2 present. Regular rate and rhythm, sinus rhythm on telemetry. Sternum stable. Palpable peripheral pulses bilaterally. No edema present. No calf pain or tenderness noted. Heart hugger in place with patient demonstrating appropriate use. Antiembolism stockings, SCDs present. GASTROINTESTINAL: Abdomen soft, nontender, nondistended. Active bowel sounds present 4 quadrants. Tolerating diet. Positive flatus GENITOURINARY: Continues to void clear, yellow urine. Output 3455 mL in the last 24 hours INTEGUMENTARY: Skin is warm and dry with evidence of good perfusion. Anterior chest incision well approximated and covered with dry intact dressing NEUROLOGIC: Cranial nerves II through XII intact MUSKULOSKELETAL: Able to move all extremities, strength equal bilaterally, gait normal PSYCHIATRIC: Alert and oriented to person place and time, appropriate affect, intact judgment and insight INVASIVE LINES AND TUBES: Left pleural chest tube present and connected to wall suction, no air leaks present, 400 mL serosanguineous drainage in the last 24 hours - Allied health notes Allied health notes reviewed: nursing - Labs CBC & Chem 7: 04/20/23 06:47 04/20/23 06:47 Labs: Abnormal Lab Results - Last 24 Hours (Table) 04/19/23 04/19/23 04/19/23 Range/Units 11:34 16:29 20:11 RBC (4.30-5.90) m/uL Hgb (13.0-17.5) gm/dL Hct (39.0-53.0) % Plt Count (150-450) k/uL Lymphocytes # (1.0-4.8) k/uL Sodium (137-145) mmol/L Chloride (98-107) mmol/L Glucose (74-99) mg/dL POC Glucose (mg/dL) 129 H 111 H 135 H (70-110) mg/dL Total Protein (6.3-8.2) g/dL Albumin (3.5-5.0) g/dL 04/20/23 04/20/23 04/20/23 Range/Units 06:30 06:47 06:47 RBC 3.39 L (4.30-5.90) m/uL Hgb 10.9 L (13.0-17.5) gm/dL Hct 32.7 L (39.0-53.0) % Plt Count 109 L (150-450) k/uL Lymphocytes # 0.8 L (1.0-4.8) k/uL Sodium 134 L (137-145) mmol/L Chloride 97 L (98-107) mmol/L Glucose 111 H (74-99) mg/dL POC Glucose (mg/dL) 114 H (70-110) mg/dL Total Protein 5.5 L (6.3-8.2) g/dL Albumin 3.2 L (3.5-5.0) g/dL - Imaging and Cardiology Chest x-ray: report reviewed, image reviewed Assessment and Plan Assessment: Severe mitral valve regurgitation, status post mitral valve repair History of hypertension Hyperlipidemia, treated, cholesterol 199, LDL 110, triglycerides 206 BPH Previous tobacco dependence, preoperative FEV1 81% of predicted COVID-19 infection June 2022 Postoperative acute blood loss anemia and thrombocytopenia, expected Plan: Continue to maximize medical therapy with aspirin, statin, plavix, and beta carissa. Will increase beta carissa as tolerated Encourage incentive spirometry use 10 times every hour while awake. Bronchodilators per pulmonology. Will monitor daily labs and chest x-rays, electrolyte replacement protocol. Increase activity as tolerated. PT/OT/cardiac rehab consulted. GI/DVT prophylaxis. Pain control with current medication regimen. Insulin management per internal medicine. Preoperative hemoglobin A1c 5.8% Discontinue left pleural chest tube Continue to record strict accurate intake and output. Daily weights. Shower daily Discharge planning in progress, anticipate discharge to home with home care in the next 24-48 hours More recommendations to follow based on patient's clinical course.
[2023-04-20 11:42] LABS: Glucose,Whole Blood 136 mg/dL (70-110)
--- NOTE | 2023-04-20 14:03 | P.PN ---
Subjective HISTORY OF PRESENT ILLNESS: The patient is a pleasant 78-year-old gentleman who sees Dr. Land regular basis with a past medical history significant for [id number] nonobstructive coronary artery disease on recent heart catheterization was diagnosed with severe mitral regurgitation. He underwent yesterday successful mitral valve repair. This is postoperative patient day #1. Overall the patient seems to be stable hemodynamically and not any vasopressors or inotropic. He is maintaining normal sinus mechanism. The chest x-ray was reviewed as well as morning. His hemoglobin is stable. Platelet count still pending at this point. Urine output has been stable as well. The patient overall seems to be doing good from a cardiovascular standpoint of view. He is on dual antiplatelet therapy using aspirin and Plavix and also he is on statin. The examination is remarkable for stable vital signs as described above with distant heart sounds and diminished breathing sounds bilaterally. April 192023 The patient was seen and evaluated this morning. Overall he is doing better. He is stable. He is not on any vasopressors. He has been maintaining normal sinus mechanism. Urine output is adequate. Blood work is a stable as well. The chest x-ray also looks good. From the cardiovascular standpoint of view, we'll continue current medical regimen and follow-up with the patient. The examination is remarkable for stable vital signs was diminished breathing sounds bilaterally and distant heart sounds 04/20/2023 Patient examined this morning at the bedside. Patient denies chest pain or pressure. He denies shortness of breath. Patient had his chest tubes removed this morning per CT surgery. He has been up ambulating in the hallway without difficulty. Telemetry reveals sinus mechanism. Vital signs are stable. PHYSICAL EXAM: VITAL SIGNS: Reviewed. GENERAL: Well-developed in no acute distress. NECK: Supple. No JVD or thyromegaly LUNGS: Respirations even and unlabored. Lungs essentially clear to auscultation bilaterally. HEART: Regular rate and rhythm. S1 and S2 heard. EXTREMITIES: Normal range of motion. No clubbing or cyanosis. Peripheral pulses intact. No lower extremity edema ASSESSMENT: Severe mitral regurgitation, status post mitral valve repair [id number] nonobstructive coronary artery disease Nonsustained ventricular tachycardia Hypertension Hyperlipidemia Former nicotine dependence PLAN: Continue postoperative management per CT surgery Increase activity as tolerated Encourage use of incentive spirometer Continue current cardiac medications Continue telemetry monitoring Possible discharge home tomorrow. Will defer to CT surgery Further recommendations pending patient's course Patient follow-up post discharge with Dr. Land Nurse practitioner note has been reviewed by physician. Signing provider agrees with the documented findings, assessment, and plan of care. Objective - Vital Signs Vital signs: Vital Signs Temp 98.3 F 04/20/23 08:33 Pulse 79 04/20/23 11:28 Resp 17 04/20/23 11:28 BP 111/68 04/20/23 11:28 Pulse Ox 95 04/20/23 11:28 FiO2 50 04/17/23 17:35 Intake & Output 04/19/23 04/20/23 04/20/23 18:59 06:59 18:59 Intake Total 218 360 Output Total 2464 1870 630 Balance -2246 -1869 -270 Weight 92.6 kg Intake: IV 118 Lactated Ringers 1,000 ml 100 @ 20 mls/hr IV .Q24H [facility] Rx#:[id number] ns for pressure bags 18 Intake, IV Titration 100 Amount Calcium Gluconate in NaCl 100 1 gm In Saline 1 100ml. bag @ 100 mls/hr IVPB ONCE ONE Rx#:[id number] Oral 360 Output: Chest Tube Drainage 140 50 30 lt pleural 120 50 30 rt pleural 20 Urine 1635 1820 600 Post Void Residual 689 Other: Voiding Method Urinal Urinal Urinal # Voids 1 1 ABP, PAP, CO, CI - Last Documented Arterial Blood Pressure 107/50 Pulmonary Artery Pressure 25/6 Cardiac Output 4.9 Cardiac Index 2.3 - Labs CBC & Chem 7: 04/20/23 06:47 04/20/23 06:47 Labs: Abnormal Lab Results - Last 24 Hours (Table) 04/19/23 04/19/23 04/20/23 Range/Units 16:29 20:11 06:30 RBC (4.30-5.90) m/uL Hgb (13.0-17.5) gm/dL Hct (39.0-53.0) % Plt Count (150-450) k/uL Lymphocytes # (1.0-4.8) k/uL Sodium (137-145) mmol/L Chloride (98-107) mmol/L Glucose (74-99) mg/dL POC Glucose (mg/dL) 111 H 135 H 114 H (70-110) mg/dL Total Protein (6.3-8.2) g/dL Albumin (3.5-5.0) g/dL 04/20/23 04/20/23 04/20/23 Range/Units 06:47 06:47 11:39 RBC 3.39 L (4.30-5.90) m/uL Hgb 10.9 L (13.0-17.5) gm/dL Hct 32.7 L (39.0-53.0) % Plt Count 109 L (150-450) k/uL Lymphocytes # 0.8 L (1.0-4.8) k/uL Sodium 134 L (137-145) mmol/L Chloride 97 L (98-107) mmol/L Glucose 111 H (74-99) mg/dL POC Glucose (mg/dL) 136 H (70-110) mg/dL Total Protein 5.5 L (6.3-8.2) g/dL Albumin 3.2 L (3.5-5.0) g/dL
--- NOTE | 2023-04-20 14:11 | P.PN ---
Subjective Progress Note Date: 04/20/23 Principal diagnosis: Status post mitral valve repair. 78-year-old male, seen in the intensive care unit, room 266. The patient is postop day #0, status post mitral valve for pain or, performed by Dr. Wing. The patient is on the mechanical ventilator, with settings of volume assist control, rate of 14, tidal volume 600, FiO2 50%, and PEEP of 5. Blood gases on 100% showed a pO2 of 259, pCO2 of 42, and pH is 7.37. The patient is currently on propofol at 35 mcg/kg/m, norepinephrine at 2 mcg/m, insulin at 1.5 units an hour, and lactated Ringer's at 50 mL an hour. The patient's cardiac output is 5.9, cardiac index 2.7. The patient had pre-surgical PFTs, showing a FEV1 that was 2.91 L, and an FVC that was 3.83 L. The MVV was 109 L/m. The patient was initially seen in consultation back in December 2022. The patient was found to have bradycardia, and irregular heartbeat. The patient had a transesophageal echocardiogram which revealed a severe mitral regurgitation, secondary to a flail leaflet. The patient was having mild shortness of breath at that time. Current labs include a white count of 12.3, hemoglobin 12.4, hematocrit 37.5, and a platelet count of 1000. Sodium 138, potassium 4.5, chlorides 107, CO2 22, BUN 16, creatinine 0.86. Glucose was 146. Albumin 3.3. The patient showed postsurgical changes, some diffuse infiltrates, and an endotracheal tube about 4 cm above the tracheal dennis. The patient is seen today 04/18/2023 in follow-up in the intensive care unit. He is currently sitting up in a chair at the bedside. Awake and alert in no acute distress. Postoperative day #1. He is maintaining good O2 saturations in the mid 90s on 2 L/m per nasal cannula. He's been afebrile. Hemodynamically stable. His x-ray reveals improved aeration of left perihilar infiltrate. Increased mild left basilar opacity likely effusion versus atelectasis. Mediastinal and right/left pleural chest tubes remain in place. Epicardial pacer wires remain in place with backup pacing of 50 bpm. Most recent cardiac output 4.7. Cardiac index 2.2. PA pressure 25/7 with a CVP of 4. Count 10.4. Hemoglobin 11.3. Platelets 94,000. Sodium 135. Potassium 4.0. Bicarb 24. BUN 18. Creatinine 0.80. He continues working well with the incentive jose maria meter. Remains on bronchodilators. Anticoagulated with Arixtra. Remains on an insulin drip at 5 units per hour. Lactated Ringer's at 20 ML's per hour. The patient is seen today 04/19/2023 in follow-up in the intensive care unit. He is awake and alert in no acute distress. Sitting up in a chair at the bedside. Postoperative day #2. He is maintaining good O2 saturation in the 90s on room air. He's been afebrile. Hemodynamically stable. Continues to work well with the incentive spirometer pulling 2614-2322 ML's. He is lactated Ringer's at 20 ML's per hour. Chest x-ray shows some minimal atelectasis of the left base. Chest tubes remain in place. Right IJ cordis remains in place. Granados catheter in place. White count 9.1. Hemoglobin 10.4. Platelets 87,000. Sodium 129. Potassium 4.0. Bicarb 23. BUN 18. Creatinine 0.82. Glucose 106. He remains on bronchodilators. Anticoagulated with Arixtra. SCDs remain in place. Progress note dated 04/20/2023. This is a 78-year-old male who is postop day #3, status post mitral valve repair. He seen today in room 385. His is in the room with him. He is doing relatively well. He is on room air. He is not requiring any IV fluids. He doesn't really have any complaints. I did tell him to continue using the incentive spirometer, every hour while awake. Current labs include a white count 9.1, hemoglobin 10.9, hematocrit 32.7, and platelet count 109,000. Sodium 134, potassium 4.1, chlorides 97, CO2 25, BUN 16, creatinine 0.88. The patient's albumin is 3.2. Calcium is 8.5. Chest x-ray shows cardiomegaly, smal l left apical pneumothorax, and streaky atelectasis at the bases. Objective - Vital Signs Vital signs: Vital Signs Temp 98.3 F 04/20/23 08:33 Pulse 79 04/20/23 11:28 Resp 17 04/20/23 11:28 BP 111/68 04/20/23 11:28 Pulse Ox 95 04/20/23 11:28 FiO2 50 04/17/23 17:35 Intake & Output 04/19/23 04/20/23 04/20/23 18:59 06:59 18:59 Intake Total 218 360 Output Total 2464 1870 630 Balance -2246 -1869 -270 Weight 92.6 kg Intake: IV 118 Lactated Ringers 1,000 ml 100 @ 20 mls/hr IV .Q24H [facility] Rx#:[id number] ns for pressure bags 18 Intake, IV Titration 100 Amount Calcium Gluconate in NaCl 100 1 gm In Saline 1 100ml. bag @ 100 mls/hr IVPB ONCE ONE Rx#:[id number] Oral 360 Output: Chest Tube Drainage 140 50 30 lt pleural 120 50 30 rt pleural 20 Urine 1635 1820 600 Post Void Residual 689 Other: Voiding Method Urinal Urinal Urinal # Voids 1 1 ABP, PAP, CO, CI - Last Documented Arterial Blood Pressure 107/50 Pulmonary Artery Pressure 25/6 Cardiac Output 4.9 Cardiac Index 2.3 - Exam No acute distress, oriented 3. Currently on room air. No respiratory distress. Saturations are more than adequate. HEENT examination is grossly unremarkable. Mucous membranes are moist. No oral lesions. Neck supple. Full range of motion. No adenopathy thyromegaly or neck vein distention. Cardiovascular examination reveals regular rhythm rate. S1-S2 normal. No S3 or S4. No discernible murmur noted. Lungs reveal clear breath sounds. Breath sounds are equal bilaterally. No adventitious lung sounds including wheezes rhonchi or crackles. Room air saturation is 95%. Abdomen soft bowel sounds are heard. No masses or tenderness. Extremities are intact. No cyanosis clubbing or edema. Skin is without rash or lesion. Neurologic examination is brief but nonfocal. - Labs CBC & Chem 7: 04/20/23 06:47 04/20/23 06:47 Labs: Abnormal Lab Results - Last 24 Hours (Table) 04/19/23 04/19/23 04/20/23 Range/Units 16:29 20:11 06:30 RBC (4.30-5.90) m/uL Hgb (13.0-17.5) gm/dL Hct (39.0-53.0) % Plt Count (150-450) k/uL Lymphocytes # (1.0-4.8) k/uL Sodium (137-145) mmol/L Chloride (98-107) mmol/L Glucose (74-99) mg/dL POC Glucose (mg/dL) 111 H 135 H 114 H (70-110) mg/dL Total Protein (6.3-8.2) g/dL Albumin (3.5-5.0) g/dL 04/20/23 04/20/23 04/20/23 Range/Units 06:47 06:47 11:39 RBC 3.39 L (4.30-5.90) m/uL Hgb 10.9 L (13.0-17.5) gm/dL Hct 32.7 L (39.0-53.0) % Plt Count 109 L (150-450) k/uL Lymphocytes # 0.8 L (1.0-4.8) k/uL Sodium 134 L (137-145) mmol/L Chloride 97 L (98-107) mmol/L Glucose 111 H (74-99) mg/dL POC Glucose (mg/dL) 136 H (70-110) mg/dL Total Protein 5.5 L (6.3-8.2) g/dL Albumin 3.2 L (3.5-5.0) g/dL Assessment and Plan Assessment: Postop day # 3, status post mitral valve repair, secondary to a flailed mitral valve leaflet. Routine postoperative ventilator management. History of hypertension. History of hyperlipidemia. History of BPH. Plan: Plan dated 04/17/2023. The patient is seen in the intensive care unit, room 266. He is currently on the ventilator. FiO2 has been weaned down to 50%. His initial blood gases are excellent with a pO2 of 259, pCO2 of 42, and pH is 7.37. The patient is currently on propofol at 35 mcg/kg/m, norepinephrine at 2 mcg/m, insulin at 1.5 units an hour, and lactated Ringer's at 50 mL an hour. The patient's cardiac output is 5.9 L/m. The index is 2.7. Labs, x-rays, and medications are reviewed. We will continue to follow, and hopefully get the patient quickly extubated. His presurgical PFTs were excellent. Plan dated 04/20/2023. The patient's doing relatively well. He's postop day #3, status post mitral valve repair. The patient's doing relatively well. He seen today in room 385. She's currently not coughing any supplemental oxygen, or IV fluids. Labs, x- rays, and medications are all reviewed. His chest x-ray shows some mild fluid overload and some basilar atelectasis. The radiologist mentions a small left apical pneumothorax which I do not see. Additional recommendations and suggestions are forthcoming. Prognosis is guarded. We continue to recommend the hourly use of the incentive spirometer. Time with Patient: Less than 30
--- NOTE | 2023-04-20 15:27 | P.PN ---
Subjective Progress Note Date: 04/20/23 (delayed charting seen at 0915) Patient is a 78-year-old male tension, dyslipidemia, and BPH who presented for mitral valve repair. He did well without any immediate postoperative complications, he was extubated later that evening after the procedure. Patient seen and examined at bedside. Doing well, had a better nigh last night, looking forward to going home tomorrow. Vital signs reviewed General: Nontoxic, no distress, appears at stated age Cardiovascular: S1S2 reg, no murmur, positive posterior tibial pulse bilateral, Lungs: Decreased bs bilateral, no rhonchi, no rales, no accessory muscle use Abdominal: Soft, nontender to palpation, no guarding, no appreciable organomegaly Ext: No gross muscle atrophy, no edema b/l lower extremities, no contractures Neuro: CN II-XI grossly intact, no focal neuro deficits Psych: Alert, oriented, appropriate affect Assessment/Plan: 78-year-old male status post mitral valve repair -Per CT surgery likely home tomorrow, CT out today -Pulmonary note reviewed: Continue with IS -Cardiology note reviewed: Follow-up with Dr. Land post discharge. Hyperglycemia, Resolved -Sliding scale insulin, follow blood sugars 4 times daily -Preop A1c 5.8 in March 2023 Hyponatremia,improved BPH -Continue with Flomax 0.5 mg at night Anemia with thrombocytopenia, improving -Anticipate outcome of surgery -No indication for transfusion at this time - HIT negative Dyslipidemia -Patient is on Lipitor 40 mg daily Hypertension, controlled -Lopressor 12.5 mg twice daily -Patient is on Cozaar at home which is currently being held -Follow blood pressures Imaging: CXR- small apical PTX per rad report Data Review: Labs reviewed from today include CBC and CMP which are remarkable for hemoglobin 10.9, platelets 109, sodium 134 Blood sugars reviewed from the last 24 hours with max of 135. DVT prophylaxis: Arixt Thank you for allowing us to participate in the care of this pleasant patient. Do not hesitate to contact us with questions. Someone can be reached from the [facility] hospitalist group all hours of the day at [phone] or via perfect serve. Objective - Vital Signs Vital signs: Vital Signs Temp 98.3 F 04/20/23 08:33 Pulse 79 04/20/23 11:28 Resp 17 04/20/23 11:28 BP 111/68 04/20/23 11:28 Pulse Ox 95 04/20/23 11:28 FiO2 50 04/17/23 17:35 Intake & Output 04/19/23 04/20/23 04/20/23 18:59 06:59 18:59 Intake Total 218 360 Output Total 2464 1870 630 Balance -2246 -1870 -270 Weight 92.6 kg Intake: IV 118 Lactated Ringers 1,000 ml 100 @ 20 mls/hr IV .Q24H [facility] Rx#:[id number] ns for pressure bags 18 Intake, IV Titration 100 Amount Calcium Gluconate in NaCl 100 1 gm In Saline 1 100ml. bag @ 100 mls/hr IVPB ONCE ONE Rx#:[id number] Oral 360 Output: Chest Tube Drainage 140 50 30 lt pleural 120 50 30 rt pleural 20 Urine 1635 1820 600 Post Void Residual 689 Other: Voiding Method Urinal Urinal Urinal # Voids 1 1 ABP, PAP, CO, CI - Last Documented Arterial Blood Pressure 107/50 Pulmonary Artery Pressure 25/6 Cardiac Output 4.9 Cardiac Index 2.3 - Labs CBC & Chem 7: 04/20/23 06:47 04/20/23 06:47 Labs: Abnormal Lab Results - Last 24 Hours (Table) 04/19/23 04/19/23 04/20/23 Range/Units 16:29 20:11 06:30 RBC (4.30-5.90) m/uL Hgb (13.0-17.5) gm/dL Hct (39.0-53.0) % Plt Count (150-450) k/uL Lymphocytes # (1.0-4.8) k/uL Sodium (137-145) mmol/L Chloride (98-107) mmol/L Glucose (74-99) mg/dL POC Glucose (mg/dL) 111 H 135 H 114 H (70-110) mg/dL Total Protein (6.3-8.2) g/dL Albumin (3.5-5.0) g/dL 04/20/23 04/20/23 04/20/23 Range/Units 06:47 06:47 11:39 RBC 3.39 L (4.30-5.90) m/uL Hgb 10.9 L (13.0-17.5) gm/dL Hct 32.7 L (39.0-53.0) % Plt Count 109 L (150-450) k/uL Lymphocytes # 0.8 L (1.0-4.8) k/uL Sodium 134 L (137-145) mmol/L Chloride 97 L (98-107) mmol/L Glucose 111 H (74-99) mg/dL POC Glucose (mg/dL) 136 H (70-110) mg/dL Total Protein 5.5 L (6.3-8.2) g/dL Albumin 3.2 L (3.5-5.0) g/dL
[2023-04-20 16:53] LABS: Glucose,Whole Blood 109 mg/dL (70-110)
[2023-04-20] MEDS ORDERED: DEXTROSE 5% IN WATER 100 ML with AMIODARONE 150 MG IV ONE (18:55)
[2023-04-20] MEDS ORDERED: AMIODARONE 360 MG in DEXTROSE 5% IN WATER 200 ML IV ONE ×2 (18:55)
[2023-04-20] MEDS: ACETAMINOPHEN TAB 500 MG TAB PO PRN (19:00)
[2023-04-20 20:13] LABS: Glucose,Whole Blood 136 mg/dL (70-110)
[2023-04-20] MEDS: SENNOSIDES-DOCUSATE SODIUM 1 EACH TAB PO SCH (20:40)
[2023-04-20] MEDS: TAMSULOSIN 0.4 MG CAP.ER.24H PO SCH (20:40)
[2023-04-21] MEDS: AMIODARONE 450 MG in DEXTROSE 5% IN WATER 250 ML IV SCH ×4 (00:53→16:47)
[2023-04-21 06:25] LABS: Glucose,Whole Blood 122 mg/dL (70-110)
[2023-04-21] MEDS: ACETAMINOPHEN TAB 500 MG TAB PO PRN ×2 (06:32→21:43)
[2023-04-21] MEDS: INSULIN ASPART (NovoLOG) 100 UNIT/ML VIAL SQ SCH ×3 (06:37→21:42)
[2023-04-21] MEDS ORDERED: DEXTROSE 5% IN WATER 100 ML with AMIODARONE 150 MG IV ONE (06:56)
[2023-04-21 08:12] LABS: HCT 31.9 % (39.0-53.0); HGB 10.4 gm/dL (13.0-17.5); MCH 31.2 pg (25.0-35.0); MCHC 32.6 g/dL (31.0-37.0); MCV 95.9 fL (80.0-100.0); Mean Platelet Volume 8.6; Platelet Count 131 k/uL (150-450); RBC 3.33 m/uL (4.30-5.90); WBC 9.4 k/uL (3.8-10.6)
--- NOTE | 2023-04-21 08:14 | XR ---
EXAMINATION TYPE: XR chest 2V DATE OF EXAM: 04/21/2023 COMPARISON: 04/20/2023 INDICATION: Postcardiac surgery TECHNIQUE: Frontal and lateral views of the chest are obtained. FINDINGS: The heart size is normal. The pulmonary vasculature is normal. Minimal left pleural effusion is present. Some streak atelectasis is present. Findings are improved f rom comparison. A tiny left apical pneumothorax may be diminished from comparison. The left-sided chest tubes been re moved.. IMPRESSION: 1. Diminished left apical pneumothorax. 2. Mild improving left basilar atelectasis and effusion
[2023-04-21 08:25] LABS: African American GFR (CKD) >90 (>60 ml/min/1.73 sqM); Anion Gap 14 mmol/L; Blood Urea Nitrogen 19 mg/dL (9-20); Calcium 8.5 mg/dL (8.4-10.2); Carbon Dioxide 23 mmol/L (22-30); Chloride 96 mmol/L (98-107); Glucose 122 mg/dL (74-99); Non-African American GFR(CKD) 84 (>60 ml/min/1.73 sqM); Potassium 3.8 mmol/L (3.5-5.1); Sodium 133 mmol/L (137-145)
[2023-04-21] MEDS ORDERED: FUROSEMIDE 10 MG/ML 2 ML VIAL IV ONE (08:26)
[2023-04-21] MEDS: PANTOPRAZOLE 40 MG/10 ML VIAL IVP SCH (08:32)
[2023-04-21] MEDS: METOPROLOL TARTRATE 25 MG TAB PO SCH ×2 (08:33→21:41)
[2023-04-21] MEDS: ASPIRIN 325 MG TAB PO SCH (08:33)
[2023-04-21] MEDS: CLOPIDOGREL 75 MG TAB PO SCH (08:33)
[2023-04-21] MEDS: CHOLECALCIFEROL 125 MCG (5000 IU) TABLET PO SCH (08:33)
[2023-04-21] MEDS: ATORVASTATIN 40 MG TAB PO SCH (08:33)
[2023-04-21] MEDS: CYANOCOBALAMIN 500 MCG TAB PO SCH (08:35)
[2023-04-21] MEDS: IPRATROPIUM-ALBUTEROL 3 ML NEB INHALATION SCH ×4 (08:48→21:16)
[2023-04-21] MEDS ORDERED: POTASSIUM BICARBONATE/CIT AC 20 MEQ TABLET.EFF PO ONE ×2 (09:13→16:00)
--- NOTE | 2023-04-21 09:24 | P.PN ---
Subjective Progress Note Date: 04/21/23 Principal diagnosis: Severe mitral valve regurgitation. Previous medical history of hypertension, hyperlipidemia, BPH, previous tobacco dependence, COVID-19 infection June 2022 POD #4 mitral valve repair using a triangular resection of P2 leaflet and a 36 mm Annuloflex ring annuloplasty, ligation of the left atrial appendage using a 35 mm Atriclip, epi-aortic ultrasound, intraoperative transesophageal echocardiogram completed by anesthesia Postoperative acute blood loss anemia and thrombocytopenia, expected given hemodilution and cardiopulmonary bypass Paroxysmal atrial fibrillation, known common occurrence after open heart surgery, not a complication, treated with amiodarone The patient was seen and examined this morning sitting up in a recliner in no acute distress on the cardiac stepdown unit. States pain is controlled on current medication regimen. Denies shortness of breath. He has been up ambulating in the hallway without difficulty. Went into rapid atrial fibrillation yesterday and was started on IV amiodarone, currently in atrial fibrillation, hemodynamically stable, currently on room air. Chest x-ray, lab work reviewed. All lines and tubes have been discontinued. No other new concerns. Objective - Vital Signs Vital signs: Vital Signs Temp 97.6 F 04/21/23 08:00 Pulse 89 04/21/23 09:04 Resp 16 04/21/23 08:00 BP 94/60 04/21/23 08:00 Pulse Ox 100 04/21/23 08:00 FiO2 50 04/17/23 17:35 Intake & Output 04/20/23 04/21/23 04/21/23 18:59 06:59 18:59 Intake Total 600 240 Output Total 630 950 200 Balance -30 -710 -200 Weight 91.6 kg Intake: Oral 600 240 Output: Chest Tube Drainage 30 lt pleural 30 Urine 600 950 200 Other: Voiding Method Urinal Urinal # Voids 1 # Bowel Movements 1 ABP, PAP, CO, CI - Last Documented Arterial Blood Pressure 107/50 Pulmonary Artery Pressure 25/6 Cardiac Output 4.9 Cardiac Index 2.3 - Exam CONSTITUTIONAL: Appears comfortable, cooperative, no acute distress RESPIRATORY: Lungs sounds diminished bilaterally. Respirations even, nonlabored. Currently on room air with oxygen saturation 96%. Able to achieve 2000 mL on incentive spirometry. Strong cough. CARDIOVASCULAR: S1, S2 present. Irregular rate and rhythm, atrial fibrillation on telemetry. Sternum stable. Palpable peripheral pulses bilaterally. No edema present. No calf pain or tenderness noted. Heart hugger in place with patient demonstrating appropriate use. Antiembolism stockings, SCDs present. GASTROINTESTINAL: Abdomen soft, nontender, nondistended. Active bowel sounds present 4 quadrants. Tolerating diet. Positive movement yesterday per patient GENITOURINARY: Continues to void clear, yellow urine. Output 1550 mL in the last 24 hours INTEGUMENTARY: Skin is warm and dry with evidence of good perfusion. Anterior chest incision well approximated NEUROLOGIC: Cranial nerves II through XII intact MUSKULOSKELETAL: Able to move all extremities, strength equal bilaterally, gait normal PSYCHIATRIC: Alert and oriented to person place and time, appropriate affect, intact judgment and insight - Allied health notes Allied health notes reviewed: nursing - Labs CBC & Chem 7: 04/21/23 07:19 04/21/23 07:19 Labs: Abnormal Lab Results - Last 24 Hours (Table) 04/20/23 04/20/23 04/21/23 Range/Units 11:39 20:11 06:23 RBC (4.30-5.90) m/uL Hgb (13.0-17.5) gm/dL Hct (39.0-53.0) % Plt Count (150-450) k/uL Sodium (137-145) mmol/L Chloride (98-107) mmol/L Glucose (74-99) mg/dL POC Glucose (mg/dL) 136 H 136 H 122 H (70-110) mg/dL 04/21/23 04/21/23 Range/Units 07:19 07:19 RBC 3.33 L (4.30-5.90) m/uL Hgb 10.4 L (13.0-17.5) gm/dL Hct 31.9 L (39.0-53.0) % Plt Count 131 L (150-450) k/uL Sodium 133 L (137-145) mmol/L Chloride 96 L (98-107) mmol/L Glucose 122 H (74-99) mg/dL POC Glucose (mg/dL) (70-110) mg/dL - Imaging and Cardiology Chest x-ray: image reviewed Assessment and Plan Assessment: Severe mitral valve regurgitation, status post mitral valve repair History of hypertension Hyperlipidemia, treated, cholesterol 199, LDL 110, triglycerides 206 BPH Previous tobacco dependence, preoperative FEV1 81% of predicted COVID-19 infection June 2022 Postoperative acute blood loss anemia and thrombocytopenia, expected Paroxysmal atrial fibrillation Plan: Continue to maximize medical therapy with aspirin, statin, plavix, and beta carissa. Will increase beta carissa as tolerated, increased to 25 mg twice daily today Continue amiodarone, transition to oral, no anticoagulation necessary at this point Encourage incentive spirometry use 10 times every hour while awake. Bronchodilators per pulmonology. Will monitor daily labs and chest x-rays, electrolyte replacement protocol. Will give Lasix today Increase activity as tolerated. PT/OT/cardiac rehab consulted. GI/DVT prophylaxis. Pain control with current medication regimen. Insulin management per internal medicine. Preoperative hemoglobin A1c 5.8% Continue to record strict accurate intake and output. Daily weights. Shower daily Discharge planning in progress, anticipate discharge to home with home care in the next 24-48 hours More recommendations to follow based on patient's clinical course.
[2023-04-21] MEDS: AMIODARONE 200 MG TAB PO SCH ×2 (10:47→21:38)
[2023-04-21] MEDS: FONDAPARINUX 2.5 MG/0.5 ML SYRINGE SQ SCH (10:47)
[2023-04-21 11:23] LABS: Glucose,Whole Blood 119 mg/dL (70-110)
--- NOTE | 2023-04-21 11:32 | P.PN ---
Subjective Progress Note Date: 04/21/23 Patient is a 78-year-old male tension, dyslipidemia, and BPH who presented for mitral valve repair. He did well without any immediate postoperative complications, he was extubated later that evening after the procedure. On 04/20/2023 he did develop atrial fibrillation and was treated with amiodarone. Patient seen and examined at bedside. He is doing well. He did have some palpitations overnight. He is slightly winded when walking today, but he had already taken a shower and got to the bathroom. He finally had a bowel movement. Pain is much better after having chest tube removed yesterday. Vital signs reviewed General: Nontoxic, no distress, appears at stated age Cardiovascular: S1S2 reg, no murmur Lungs: Decreased bs bilateral, no rhonchi, no rales, no accessory muscle use Abdominal: Soft, nontender to palpation, no guarding, no appreciable organomegaly Ext: No gross muscle atrophy, no edema b/l lower extremities, no contractures Neuro: CN II-XI grossly intact, no focal neuro deficits Psych: Alert, oriented, appropriate affect Assessment/Plan: 78-year-old male status post mitral valve repair Paroxysmal Atrial fibrillation -CT surgery note reviewed: Continue with IV amiodarone and then transition to oral -Await further Pulmonary recs -Cardiology recs: Follow-up with Dr. Land post discharge. Hyperglycemia, Resolved -Sliding scale insulin, follow blood sugars 4 times daily -Preop A1c 5.8 in March 2023 Hyponatremia,improved BPH -Continue with Flomax 0.5 mg at night Anemia with thrombocytopenia, improving -Anticipate outcome of surgery -No indication for transfusion at this time - HIT negative Dyslipidemia -Patient is on Lipitor 40 mg daily Hypertension, controlled -Lopressor 25 mg twice daily -Patient is on Cozaar at home which is currently being held -Follow blood pressures Imaging: Chest x-ray reviewed from this morning shows slight apical pneumothorax on the left Data Review: Labs reviewed from today include CBC and basic metabolic profile which are remarkable for hemoglobin 10.4, platelet count 131, sodium 133, and glucose of 122. DVT prophylaxis: Andrez Thank you for allowing us to participate in the care of this pleasant patient. Do not hesitate to contact us with questions. Someone can be reached from the [facility] hospitalist group all hours of the day at [phone] or via perfect serve. Objective - Vital Signs Vital signs: Vital Signs Temp 97.6 F 04/21/23 08:00 Pulse 89 04/21/23 09:04 Resp 16 04/21/23 08:00 BP 94/60 04/21/23 08:00 Pulse Ox 100 04/21/23 08:00 FiO2 50 04/17/23 17:35 Intake & Output 04/20/23 04/21/23 04/21/23 18:59 06:59 18:59 Intake Total 600 240 225 Output Total 630 950 200 Balance -30 -710 25 Weight 91.6 kg Intake: Oral 600 240 225 Output: Chest Tube Drainage 30 lt pleural 30 Urine 600 950 200 Other: Voiding Method Urinal Urinal Urinal # Voids 1 # Bowel Movements 1 ABP, PAP, CO, CI - Last Documented Arterial Blood Pressure 107/50 Pulmonary Artery Pressure 25/6 Cardiac Output 4.9 Cardiac Index 2.3 - Labs CBC & Chem 7: 04/21/23 07:19 04/21/23 07:19 Labs: Abnormal Lab Results - Last 24 Hours (Table) 04/20/23 04/20/23 04/21/23 Range/Units 11:39 20:11 06:23 RBC (4.30-5.90) m/uL Hgb (13.0-17.5) gm/dL Hct (39.0-53.0) % Plt Count (150-450) k/uL Sodium (137-145) mmol/L Chloride (98-107) mmol/L Glucose (74-99) mg/dL POC Glucose (mg/dL) 136 H 136 H 122 H (70-110) mg/dL 04/21/23 04/21/23 04/21/23 Range/Units 07:19 07:19 11:19 RBC 3.33 L (4.30-5.90) m/uL Hgb 10.4 L (13.0-17.5) gm/dL Hct 31.9 L (39.0-53.0) % Plt Count 131 L (150-450) k/uL Sodium 133 L (137-145) mmol/L Chloride 96 L (98-107) mmol/L Glucose 122 H (74-99) mg/dL POC Glucose (mg/dL) 119 H (70-110) mg/dL
--- NOTE | 2023-04-21 12:18 | P.PN ---
Subjective HISTORY OF PRESENT ILLNESS: The patient is a pleasant 78-year-old gentleman who sees Dr. Land regular basis with a past medical history significant for [id number]-mk-[id number] nonobstructive coronary artery disease on recent heart catheterization was diagnosed with severe mitral regurgitation. He underwent yesterday successful mitral valve repair. This is postoperative patient day #1. Overall the patient seems to be stable hemodynamically and not any vasopressors or inotropic. He is maintaining normal sinus mechanism. The chest x-ray was reviewed as well as morning. His hemoglobin is stable. Platelet count still pending at this point. Urine output has been stable as well. The patient overall seems to be doing good from a cardiovascular standpoint of view. He is on dual antiplatelet therapy using aspirin and Plavix and also he is on statin. The examination is remarkable for stable vital signs as described above with distant heart sounds and diminished breathing sounds bilaterally. April 192023 The patient was seen and evaluated this morning. Overall he is doing better. He is stable. He is not on any vasopressors. He has been maintaining normal sinus mechanism. Urine output is adequate. Blood work is a stable as well. The chest x-ray also looks good. From the cardiovascular standpoint of view, we'll continue current medical regimen and follow-up with the patient. The examination is remarkable for stable vital signs was diminished breathing sounds bilaterally and distant heart sounds 04/20/2023 Patient examined this morning at the bedside. Patient denies chest pain or pressure. He denies shortness of breath. Patient had his chest tubes removed this morning per CT surgery. He has been up ambulating in the hallway without difficulty. Telemetry reveals sinus mechanism. Vital signs are stable. 04/21/2023 Patient examined this morning at bedside. Patient denies chest pain or pressure. He denies shortness of breath. Patient went into A. fib with RVR overnight. He is maintaining atrial fibrillation this morning with controlled ventricular rate. His beta carissa has been increased per CT surgery. PHYSICAL EXAM: VITAL SIGNS: Reviewed. GENERAL: Well-developed in no acute distress. NECK: Supple. No JVD or thyromegaly LUNGS: Respirations even and unlabored. Lungs essentially clear to auscultation bilaterally. HEART: Irregular rate and rhythm. S1 and S2 heard. EXTREMITIES: Normal range of motion. No clubbing or cyanosis. Peripheral pulses intact. No lower extremity edema ASSESSMENT: Severe mitral regurgitation, status post mitral valve repair [id number] nonobstructive coronary artery disease Nonsustained ventricular tachycardia Hypertension Hyperlipidemia Former nicotine dependence Postoperative atrial fibrillation with RVR PLAN: Continue postoperative management per CT surgery Beta carissa increased today per CT surgery Increase activity as tolerated Encourage use of incentive spirometer Continue current cardiac medications Continue telemetry monitoring Further recommendations pending patient's course Patient follow-up post discharge with Dr. Land Nurse practitioner note has been reviewed by physician. Signing provider agrees with the documented findings, assessment, and plan of care. Objective - Vital Signs Vital signs: Vital Signs Temp 97.6 F 04/21/23 08:00 Pulse 89 04/21/23 09:04 Resp 16 04/21/23 08:00 BP 94/60 04/21/23 08:00 Pulse Ox 100 04/21/23 08:00 FiO2 50 04/17/23 17:35 Intake & Output 04/20/23 04/21/23 04/21/23 18:59 06:59 18:59 Intake Total 600 240 225 Output Total 630 950 200 Balance -30 -710 25 Weight 91.6 kg Intake: Oral 600 240 225 Output: Chest Tube Drainage 30 lt pleural 30 Urine 600 950 200 Other: Voiding Method Urinal Urinal Urinal # Voids 1 # Bowel Movements 1 ABP, PAP, CO, CI - Last Documented Arterial Blood Pressure 107/50 Pulmonary Artery Pressure 25/6 Cardiac Output 4.9 Cardiac Index 2.3 - Labs CBC & Chem 7: 04/21/23 07:19 04/21/23 07:19 Labs: Abnormal Lab Results - Last 24 Hours (Table) 04/20/23 04/21/23 04/21/23 Range/Units 20:11 06:23 07:19 RBC 3.33 L (4.30-5.90) m/uL Hgb 10.4 L (13.0-17.5) gm/dL Hct 31.9 L (39.0-53.0) % Plt Count 131 L (150-450) k/uL Sodium (137-145) mmol/L Chloride (98-107) mmol/L Glucose (74-99) mg/dL POC Glucose (mg/dL) 136 H 122 H (70-110) mg/dL 04/21/23 04/21/23 Range/Units 07:19 11:19 RBC (4.30-5.90) m/uL Hgb (13.0-17.5) gm/dL Hct (39.0-53.0) % Plt Count (150-450) k/uL Sodium 133 L (137-145) mmol/L Chloride 96 L (98-107) mmol/L Glucose 122 H (74-99) mg/dL POC Glucose (mg/dL) 119 H (70-110) mg/dL
--- NOTE | 2023-04-21 14:21 | P.PN ---
Subjective Progress Note Date: 04/21/23 78-year-old male, seen in the intensive care unit, room 266. The patient is postop day #0, status post mitral valve for pain or, performed by Dr. Wing. The patient is on the mechanical ventilator, with settings of volume assist control, rate of 14, tidal volume 600, FiO2 50%, and PEEP of 5. Blood gases on 100% showed a pO2 of 259, pCO2 of 42, and pH is 7.37. The patient is currently on propofol at 35 mcg/kg/m, norepinephrine at 2 mcg/m, insulin at 1.5 units an hour, and lactated Ringer's at 50 mL an hour. The patient's cardiac output is 5.9, cardiac index 2.7. The patient had pre-surgical PFTs, showing a FEV1 that was 2.91 L, and an FVC that was 3.83 L. The MVV was 109 L/m. The patient was initially seen in consultation back in December 2022. The patient was found to have bradycardia, and irregular heartbeat. The patient had a transesophageal echocardiogram which revealed a severe mitral regurgitation, secondary to a flail leaflet. The patient was having mild shortness of breath at that time. Current labs include a white count of 12.3, hemoglobin 12.4, hematocrit 37.5, and a platelet count of 1000. Sodium 138, potassium 4.5, chlorides 107, CO2 22, BUN 16, creatinine 0.86. Glucose was 146. Albumin 3.3. The patient showed postsurgical changes, some diffuse infiltrates, and an endotracheal tube about 4 cm above the tracheal dennis. The patient is seen today 04/18/2023 in follow-up in the intensive care unit. He is currently sitting up in a chair at the bedside. Awake and alert in no acute distress. Postoperative day #1. He is maintaining good O2 saturations in the mid 90s on 2 L/m per nasal cannula. He's been afebrile. Hemodynamically stable. His x-ray reveals improved aeration of left perihilar infiltrate. Increased mild left basilar opacity likely effusion versus atelectasis. Mediastinal and right/left pleural chest tubes remain in place. Epicardial pacer wires remain in place with backup pacing of 50 bpm. Most recent cardiac output 4.7. Cardiac index 2.2. PA pressure 25/7 with a CVP of 4. Count 10.4. Hemoglobin 11.3. Platelets 94,000. Sodium 135. Potassium 4.0. Bicarb 24. BUN 18. Creatinine 0.80. He continues working well with the incentive spirometer. Remains on bronchodilators. Anticoagulated with Arixtra. Remains on an insulin drip at 5 units per hour. Lactated Ringer's at 20 ML's per hour. The patient is seen today 04/19/2023 in follow-up in the intensive care unit. He is awake and alert in no acute distress. Sitting up in a chair at the bedside. Postoperative day #2. He is maintaining good O2 saturation in the 90s on room air. He's been afebrile. Hemodynamically stable. Continues to work well with the incentive spirometer pulling [id number] ML's. He is lactated Ringer's at 20 ML's per hour. Chest x-ray shows some minimal atelectasis of the left base. Chest tubes remain in place. Right IJ cordis remains in place. Granados catheter in place. White count 9.1. Hemoglobin 10.4. Platelets 87,000. Sodium 129. Potassium 4.0. Bicarb 23. BUN 18. Creatinine 0.82. Glucose 106. He remains on bronchodilators. Anticoagulated with Arixtra. SCDs remain in place. The patient is seen today 04/21/2023 in follow-up on the selective care unit. He is currently sitting up in a chair at the bedside. Awake and alert in no acute distress. He is maintaining O2 saturations up to 100% on room air. Chest x-ray shows diminished left apical pneumothorax. Mildly improving left basilar atelectasis/effusion. White count 9.4. Hemoglobin 10.4. Platelets 131. Sodium 133. Potassium 3.8. Bicarb 23. BUN 19. Creatinine 0.86. Glucose 122. He did have episodes of atrial fibrillation with rapid ventricular response yesterday. He is currently on amiodarone at 0.5 mg/m. Anticoagulated with Arix tra. Objective - Vital Signs Vital signs: Vital Signs Temp 97.6 F 04/21/23 08:00 Pulse 80 04/21/23 12:57 Resp 16 04/21/23 08:00 BP 94/60 04/21/23 08:00 Pulse Ox 100 04/21/23 08:00 FiO2 50 01/08/24 17:35 Intake & Output 04/20/23 04/21/23 04/21/23 18:59 06:59 18:59 Intake Total 600 240 225 Output Total 630 950 200 Balance -30 -710 25 Weight 91.6 kg Intake: Oral 600 240 225 Output: Chest Tube Drainage 30 lt pleural 30 Urine 600 950 200 Other: Voiding Method Urinal Urinal Urinal # Voids 1 # Bowel Movements 1 ABP, PAP, CO, CI - Last Documented Arterial Blood Pressure 107/50 Pulmonary Artery Pressure 25/6 Cardiac Output 4.9 Cardiac Index 2.3 - Exam GENERAL EXAM: Alert, pleasant 78-year-old male, on room air, comfortable in no apparent distress. HEAD: Normocephalic. EYES: Normal reaction of pupils, equal size. NOSE: Clear with pink turbinates. THROAT: No erythema or exudates. NECK: No masses, no JVD. CHEST: Gen. dressing dry and intact. Heart Hugger in place. LUNGS: Equal air entry with crackles in the left base. CVS: S1 and S2 normal with no audible murmur, regular rhythm. ABDOMEN: No hepatosplenomegaly, hypoactive bowel sounds, no guarding or rigidity. SPINE: No scoliosis or deformity SKIN: No rashes CENTRAL NERVOUS SYSTEM: No focal deficits, tone is normal in all 4 extremities. EXTREMITIES: ARTHUR hose, SCDs in place. There is no peripheral edema. No c lubbing, no cyanosis. Peripheral pulses are intact. - Labs CBC & Chem 7: 04/21/23 07:19 04/21/23 07:19 Labs: Abnormal Lab Results - Last 24 Hours (Table) 04/20/23 04/21/23 04/21/23 Range/Units 20:11 06:23 07:19 RBC 3.33 L (4.30-5.90) m/uL Hgb 10.4 L (13.0-17.5) gm/dL Hct 31.9 L (39.0-53.0) % Plt Count 131 L (150-450) k/uL Sodium (137-145) mmol/L Chloride (98-107) mmol/L Glucose (74-99) mg/dL POC Glucose (mg/dL) 136 H 122 H (70-110) mg/dL 04/21/23 04/21/23 Range/Units 07:19 11:19 RBC (4.30-5.90) m/uL Hgb (13.0-17.5) gm/dL Hct (39.0-53.0) % Plt Count (150-450) k/uL Sodium 133 L (137-145) mmol/L Chloride 96 L (98-107) mmol/L Glucose 122 H (74-99) mg/dL POC Glucose (mg/dL) 119 H (70-110) mg/dL Assessment and Plan Assessment: Status post mitral valve repair, secondary to a flailed mitral valve leaflet. Post operative day #4 Routine postoperative ventilator management, resolved and on room air Atrial fibrillation, expected outcome of surgery History of hypertension History of hyperlipidemia History of BPH Plan: The patient was seen and evaluated Chest x-ray, labs and medications reviewed Currently stable and on room air Continues to work with the incentive spirometer Continued on bronchodilators Currently on an amiodarone drip Anticoagulated with Arixtra Home once cleared by CT services I have personally seen and examined the patient, performed the documentation and the assessment and plan as written. Number of minutes spent on the visit: 10.
[2023-04-21 16:21] LABS: Glucose,Whole Blood 140 mg/dL (70-110)
[2023-04-21] MEDS: TAMSULOSIN 0.4 MG CAP.ER.24H PO SCH (17:13)
[2023-04-21] MEDS ORDERED: LACTULOSE 20 GM/30 ML CUP PO PRN (17:31)
[2023-04-21] MEDS ORDERED: LACTULOSE 20 GM/30 ML CUP PO ONE (17:31)
[2023-04-21 20:10] LABS: Glucose,Whole Blood 208 mg/dL (70-110)
[2023-04-21] MEDS: SENNOSIDES-DOCUSATE SODIUM 1 EACH TAB PO SCH (21:52)
[2023-04-22] MEDS: ACETAMINOPHEN TAB 500 MG TAB PO PRN (04:46)
[2023-04-22 06:12] LABS: Glucose,Whole Blood 104 mg/dL (70-110)
[2023-04-22] MEDS: INSULIN ASPART (NovoLOG) 100 UNIT/ML VIAL SQ SCH (06:28)
[2023-04-22] MEDS ORDERED: PANTOPRAZOLE 40 MG TABLET PO SCH (07:30)
[2023-04-22] MEDS: METOPROLOL TARTRATE 25 MG TAB PO SCH (08:18)
[2023-04-22] MEDS: AMIODARONE 200 MG TAB PO SCH (08:18)
[2023-04-22] MEDS: ATORVASTATIN 40 MG TAB PO SCH (08:18)
[2023-04-22] MEDS: CHOLECALCIFEROL 125 MCG (5000 IU) TABLET PO SCH (08:18)
[2023-04-22] MEDS: ASPIRIN 325 MG TAB PO SCH (08:18)
[2023-04-22] MEDS: CYANOCOBALAMIN 500 MCG TAB PO SCH (08:18)
[2023-04-22] MEDS: CLOPIDOGREL 75 MG TAB PO SCH (08:18)
[2023-04-22] MEDS: FONDAPARINUX 2.5 MG/0.5 ML SYRINGE SQ SCH (08:20)
[2023-04-22 08:25] VITALS: BP 112/70; PULSE 82; RESP 18; TEMP 98
[2023-04-22] MEDS: IPRATROPIUM-ALBUTEROL 3 ML NEB INHALATION SCH (08:58)
--- NOTE | 2023-04-22 09:19 | XR ---
EXAMINATION TYPE: XR chest 2V DATE OF EXAM: 04/22/2023 COMPARISON: 04/21/2023 INDICATION: Status post cardiac surgery TECHNIQUE: Frontal and lateral views of the chest are obtained. FINDINGS: The heart size is normal. The pulmonary vasculature is normal. Minimal bilateral pleural effusions are present. 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 IMPRESSION: 1. Minimal bilateral pleural effusions
--- NOTE | 2023-04-22 09:51 | P.DS ---
Providers Date of admission: 04/17/23 05:40 Expected date of discharge: 04/22/23 Attending physician: Siddhartha Wing Consults: 04/17/23 12:52 Consult Physician Routine Consulting Provider: Kaden Schroeder Consult Reason/Comments: Rat Poisoner Consult: post cardiac surgery Do you want consulting provider notified?: Yes Consult Physician Routine Consulting Provider: Aparna Bui Consult Reason/Comments: Medical management Do you want consulting provider notified?: Yes Consult Physician Routine Consulting Provider: Milo Cross Consult Reason/Comments: Post op MVR Do you want consulting provider notified?: Yes Primary care physician: [facility] Hospital Course: FINAL DIAGNOSIS: Severe mitral valve regurgitation, status post mitral valve repair History of hypertension Hyperlipidemia, treated, cholesterol 199, LDL 110, triglycerides 206 BPH Previous tobacco dependence, preoperative FEV1 81% of predicted COVID-19 infection June 2022 Postoperative acute blood loss anemia and thrombocytopenia, expected Paroxysmal atrial fibrillation PRINCIPAL PROCEDURE: Mitral valve repair using a triangular resection of P2 leaflet and a 36 mm Annuloflex ring annuloplasty Ligation of the left atrial appendage using a 35 mm Atriclip Epi-aortic ultrasound Intraoperative transesophageal echocardiogram completed by anesthesia HISTORY OF PRESENT ILLNESS: This is a 78-year-old gentleman who follows outpatient with the [facility] for primary care and Dr. Land for cardiology. Early last year he had presented to an urgent care clinic with a bad cold and was found have covid. During the encounter he was noted to be bradycardic with an irregular heartbeat. Subsequently he followed up with Dr. Land who did a number of tests including transesophageal echocardiogram which revealed severe mitral regurgitation secondary to a flail leaflet. His only admitted symptoms were shortness of breath with prolonged activity. The patient was referred to Dr. Wing from cardiothoracic surgery. He was recommended to undergo mitral valve repair. The usual perioperative course was discussed in detail with the patient and his family, all risks and benefits were explained, all questions were answered. The patient wanted time to think about his options, but did eventually consent to proceed with surgery. The patient was scheduled at the earliest possible date after obtaining dental clearance. HOSPITAL COURSE: The patient was brought to the hospital on 04/17/23, taken to the preoperative area, prepared in the usual fashion, and subsequently taken to the operating room where Dr. Wing performed mitral valve repair. Upon completion of surgery the patient was transferred to the cardiovascular intensive care unit where he was recovered and monitored hemodynamically. He was extubated, all lines, tubes, and drips were discontinued when appropriate, and he was transferred to S cardiac stepdown unit for further monitoring and rehabilitation. He did experience brief paroxysmal atrial fibrillation which was treated with amiodarone. His oxygen was titrated down, he continued to work with physical and occupational therapy, he was tolerating oral diet, his pain was controlled, and he was ready to be discharged to home with [facility] on postoperative day #5. He received written and verbal instruction regarding his medications, activity restrictions, signs and symptoms requiring physician notification, and follow-up appointments. Patient Condition at Discharge: Stable Plan - Discharge Summary Discharge Rx Participant: No New Discharge Prescriptions: New Amiodarone [Cordarone] 400 mg PO BID #44 tab Metoprolol Tartrate [Lopressor] 25 mg PO BID #60 tab Potassium Citrate [Potassium Citrate ER] 10 meq PO DAILY #5 tab Pantoprazole [Protonix] 40 mg PO AC-BRKFST #30 tab Sennosides-Docusate Sodium [Senokot-S] 2 each PO HS PRN tab PRN Reason: Constipation Furosemide [Lasix] 20 mg PO DAILY #5 tab Clopidogrel [Plavix] 75 mg PO DAILY #30 tab Acetaminophen Tab [Tylenol] 1,000 mg PO Q6HR PRN tab PRN Reason: Fever And/ Or Mild Pain (1-3) Continue Tamsulosin [Flomax] 0.4 mg PO HS Rosuvastatin Calcium 10 mg PO HS Magnesium 500 mg PO DAILY Cholecalciferol (Vitamin D3) [Vitamin D3 (125 MCG = 5,000 IU)] 125 mcg PO DAILY Sleep Aid 1 tab PO HS [place]-3/Dha/Epa/Fish Oil [Fish Oil 1,000 mg Softgel] 1 each PO Q48H Aspirin 81 mg PO DAILY Cyclobenzaprine [Flexeril] 5 mg PO HS Cyanocobalamin (Vitamin B-12) [Vitamin B-12] 1,000 mcg PO DAILY Discontinued Losartan [Cozaar] 25 mg PO HS Discharge Medication List Magnesium 500 mg PO DAILY 10/18/22 [History] [place]-3/Dha/Epa/Fish Oil [Fish Oil 1,000 mg Softgel] 1 each PO Q48H 10/18/22 [History] Rosuvastatin Calcium 10 mg PO HS 10/18/22 [History] Tamsulosin [Flomax] 0.4 mg PO HS 10/18/22 [History] Aspirin 81 mg PO DAILY 12/23/22 [History] Cholecalciferol (Vitamin D3) [Vitamin D3 (125 MCG = 5,000 IU)] 125 mcg PO DAILY 03/16/23 [History] Cyanocobalamin (Vitamin B-12) [Vitamin B-12] 1,000 mcg PO DAILY 03/16/23 [History] Cyclobenzaprine [Flexeril] 5 mg PO HS 03/16/23 [History] Sleep Aid 1 tab PO HS 03/16/23 [History] Acetaminophen Tab [Tylenol] 1,000 mg PO Q6HR PRN tab 04/22/23 [Rx] Amiodarone [Cordarone] 400 mg PO BID #44 tab 04/22/23 [Rx] Clopidogrel [Plavix] 75 mg PO DAILY #30 tab 04/22/23 [Rx] Furosemide [Lasix] 20 mg PO DAILY #5 tab 04/22/23 [Rx] Metoprolol Tartrate [Lopressor] 25 mg PO BID #60 tab 04/22/23 [Rx] Pantoprazole [Protonix] 40 mg PO AC-BRKFST #30 tab 04/22/23 [Rx] Potassium Citrate [Potassium Citrate ER] 10 meq PO DAILY #5 tab 04/22/23 [Rx] Sennosides-Docusate Sodium [Senokot-S] 2 each PO HS PRN tab 04/22/23 [Rx] Follow up Appointment(s)/Referral(s): Rehab [facility],Cardiac [NON-STAFF] - 4 Weeks (You will receive a phone call in approximately 4-6 weeks for evaluation for cardiac rehab) John Schroeder NPC [Nurse Practitioner] - 04/28/23 10:30 am (You will be seen in the surgeon's office behind the hospital in [facility], [address] Office phone number is ) Kaden Schroeder DO [Doctor of Osteopathic Medicine] - 05/16/23 9:45 am Siddhartha Wing MD [STAFF PHYSICIAN] - 05/17/23 10:00 am [facility] [NON-STAFF] - 1-2 Days ([facility] will call you to arrange a visit) Antonio Land MD [STAFF PHYSICIAN] - 05/05/23 9:00 am [facility] [Primary Care Provider] - 05/04/23 2:30 pm Ambulatory/Diagnostic Orders: Complete Blood Count w/diff [LAB.AMB] Time Frame: 3 Days, Location: None Selected Comprehensive Metabolic Panel [LAB.AMB] Time Frame: 3 Days, Location: None Selected Activity/Diet/Wound Care/Special Instructions: DISCHARGE INSTRUCTIONS: 1. No driving for 4 weeks, or until physician gives their ok. 2. The patient should sleep in their own bed, no medical bed needed. 3. Stairs are not an issue. If the bedroom is upstairs, it is advised that the patient go up at night and down in the morning for the first week. Go slowly, using handrail and take 1 step at a time. 4. ARTHUR hose are to be worn for 30 days post surgery or until physician discontinues. 5. Heart hugger is to be worn 100% of the time until physician discontinues.(except when showering) 6. No lifting, pushing, or pulling more than 10 pounds for 12 weeks. The physician will advise of any restriction changes. 7. The patient is expected to continue the prescribed walking program. 8. Continue pain control per as needed orders. 9. Continue with incentive spirometry and splinting/heart hugger until otherwise directed by the physician. 10. Must shower daily using liquid antibacterial soap 11. Routine sternal incision care. No powders, lotions, ointments on incisions. No dressings are necessary on incisions unless they are draining. Dermabond tape is to remain on sternal incision until surgeon follow-up. 12. Please call surgeon/SET UP / OPERATOR for temp greater than 101 F or purulent drainage from incisions. 13. You should weigh yourself daily, record and bring log with you to follow up appointments. 14. All prescriptions given by surgeon for 30 days. Refills need to be filled through belt fixer/primary care physician. 15. A Red armband has been placed on the patient. It should be worn for 30 days post discharge from surgery and will be removed by the cardiac surgeons. If an ER visit is necessary, please make sure the number on the Red armband is called before going to ER. 16. You have been referred to and are expected to begin Cardiac Rehab in approximately 4-6 weeks. 17. Quitting smoking is the most important step you can take to improve your health. For additional information and assistance to quit smoking, please call the [place] tobacco quit line (0-839-UVEG-NOW/ ) or online: [email or web address] HEALTH SERVICES TO PROVIDE: RN SKILLED HOME CARE SERVICES FOR POST-OP SURGICAL PATIENTS WITH THE FOLLOWING: Coronary Artery Bypass Surgery (CABG), Mitral Valve Replacement/Repair ( MVR), Aortic Valve Replacement/Repair (AVR) RN TO CONTINUE EDUCATION FROM ``ROAD TO A HEALTH HEART PATIENT EDUCATION MANUAL (GIVEN TO PATIENT IN THE HOSPITAL) MEDICATION RECONCILIATION WITH EDUCATION NEEDED ON FIRST HOME VISIT EMPHASIZE IMPORTANCE OF WEARING BREAST SUPPORT/HEART HUGGER ENCOURAGE USE OF INCENTIVE SPIROMETER 10 X EVERY HOUR WHILE AWAKE ENCOURAGE UTILIZATION OF LOWER EXTREMITY COMPRESSION STOCKINGS/ARTHUR HOSE and ELEVATE LEGS ABOVE LEVEL OF HEART WHILE AT REST. ENCOURAGE AMBULATION 3-5x/day INCREASING TOLERATES, WHILE AVOIDING EXTREMES IN TEMPERATURE FREQUENCY: RN TO OPEN THE PATIENT WITHIN 24 HOURS OF DISCHARGE FROM THE HOSPITAL WITH [place]LEHEALTH [place] [facility] TO VISIT 2-3 X A WEEK FOR 4 WEEKS ESTABLISHED BY PATIENT NEEDS. LABORATORY: CBC, CMP TO BE DRAWN ON THE THIRD DAY HOME, (RAN STAT) FAX RESULTS TO [phone]. TELEHEALTH PARAMETERS: WEIGHT: NOTIFY MD OF WEIGHT GAIN OF 2 LBS IN 24 HOURS OR 5 LBS IN ONE WEEK HR: NOTIFY MD OF HR <55 BPM OR HR>100 BPM BP: NOTIFY MD IF BP <90/55 OR BP>140/100 O2 SAT: NOTIFY MD IF PO2<93% ON ROOM AIR SEND TELEHEALTH REPORT TO FUSING FURNACE LOADER AND CARDIOVASCULAR SURGEON THE FIRST WEEK OF CARE AND THEN BI-WEEKLY. PLEASE ADDITIONALLY COMMUNICATE ANY ABNORMALS AND NEW FINDINGS TO THE SURGEONS OFFICE. Discharge Disposition: HOME WITH HOME HEALTH SERVICES
--- NOTE | 2023-04-22 12:10 | P.PN ---
Subjective HISTORY OF PRESENT ILLNESS: The patient is a pleasant 78-year-old gentleman who sees Dr. Land regular basis with a past medical history significant for gajv-bu-iqhugcew nonobstructive coronary artery disease on recent heart catheterization was diagnosed with severe mitral regurgitation. He underwent yesterday successful mitral valve repair. This is postoperative patient day #1. Overall the patient seems to be stable hemodynamically and not any vasopressors or inotropic. He is maintaining normal sinus mechanism. The chest x-ray was reviewed as well as morning. His hemoglobin is stable. Platelet count still pending at this point. Urine output has been stable as well. The patient overall seems to be doing good from a cardiovascular standpoint of view. He is on dual antiplatelet therapy using aspirin and Plavix and also he is on statin. The examination is remarkable for stable vital signs as described above with distant heart sounds and diminished breathing sounds bilaterally. April 192023 The patient was seen and evaluated this morning. Overall he is doing better. He is stable. He is not on any vasopressors. He has been maintaining normal sinus mechanism. Urine output is adequate. Blood work is a stable as well. The chest x-ray also looks good. From the cardiovascular standpoint of view, we'll continue current medical regimen and follow-up with the patient. The examination is remarkable for stable vital signs was diminished breathing sounds bilaterally and distant heart sounds 04/20/2023 Patient examined this morning at the bedside. Patient denies chest pain or pressure. He denies shortness of breath. Patient had his chest tubes removed this morning per CT surgery. He has been up ambulating in the hallway without difficulty. Telemetry reveals sinus mechanism. Vital signs are stable. 04/21/2023 Patient examined this morning at bedside. Patient denies chest pain or pressure. He denies shortness of breath. Patient went into A. fib with RVR overnight. He is maintaining atrial fibrillation this morning with controlled ventricular rate. His beta carissa has been increased per CT surgery. 04/22/2023 Patient examined this morning. He is sitting up in a chair. He denies chest pain or pressure. He denies shortness of breath. He is maintaining sinus mechanism this morning. Blood pressure is stable. He is anticipating discharge home today. PHYSICAL EXAM: VITAL SIGNS: Reviewed. GENERAL: Well-developed in no acute distress. NECK: Supple. No JVD or thyromegaly LUNGS: Respirations even and unlabored. Lungs essentially clear to auscultation bilaterally. HEART: Irregular rate and rhythm. S1 and S2 heard. EXTREMITIES: Normal range of motion. No clubbing or cyanosis. Peripheral pulses intact. No lower extremity edema ASSESSMENT: Severe mitral regurgitation, status post mitral valve repair Ekrz-lf-omqjlaah nonobstructive coronary artery disease Nonsustained ventricular tachycardia Hypertension Hyperlipidemia Former nicotine dependence Postoperative atrial fibrillation with RVR PLAN: Continue postoperative management per CT surgery Increase activity as tolerated Encourage use of incentive spirometer Continue current cardiac medications Patient is stable for discharge home today from a cardiac standpoint Patient to follow-up post discharge with Dr. Land Nurse practitioner note has been reviewed by physician. Signing provider agrees with the documented findings, assessment, and plan of care. Objective - Vital Signs Vital signs: Vital Signs Temp 98.0 F 04/22/23 08:10 Pulse 82 04/22/23 08:10 Resp 18 04/22/23 08:10 BP 112/70 04/22/23 08:10 Pulse Ox 96 04/22/23 08:10 FiO2 50 04/17/23 17:35 Intake & Output 04/21/23 04/22/23 04/22/23 18:59 06:59 18:59 Intake Total 685 550 200 Output Total 850 1350 625 Balance -165 -800 -425 Weight 91.6 kg 90.4 kg Intake: IV 10 Invasive Line 4 10 Intake, IV Titration 350 Amount Amiodarone 450 mg In 250 Dextrose 5% in Water 250 ml @ 0.5 MG/MIN 16.667 mls/hr IV .Q15H [facility] Rx#: [id number] Dextrose 5% in Water 100 100 ml @ 618 mls/hr IV .Q10M ONE with Amiodarone 150 mg Rx#:[id number] Oral 335 540 200 Output: Urine 850 1350 625 Other: Voiding Method Urinal Urinal Urinal # Voids 3 # Bowel Movements 1 1 ABP, PAP, CO, CI - Last Documented Arterial Blood Pressure 107/50 Pulmonary Artery Pressure 25/6 Cardiac Output 4.9 Cardiac Index 2.3 - Labs CBC & Chem 7: 04/21/23 07:19 04/21/23 07:19 Labs: Abnormal Lab Results - Last 24 Hours (Table) 04/21/23 04/21/23 Range/Units 16:14 20:07 POC Glucose (mg/dL) 140 H 208 H (70-110) mg/dL
--- NOTE | 2023-04-22 13:15 | P.PN ---
Subjective Progress Note Date: 04/22/23 78-year-old male, seen in the intensive care unit, room 266. The patient is postop day #0, status post mitral valve for pain or, performed by Dr. Wing. The patient is on the mechanical ventilator, with settings of volume assist control, rate of 14, tidal volume 600, FiO2 50%, and PEEP of 5. Blood gases on 100% showed a pO2 of 259, pCO2 of 42, and pH is 7.37. The patient is currently on propofol at 35 mcg/kg/m, norepinephrine at 2 mcg/m, insulin at 1.5 units an hour, and lactated Ringer's at 50 mL an hour. The patient's cardiac output is 5.9, cardiac index 2.7. The patient had pre-surgical PFTs, showing a FEV1 that was 2.91 L, and an FVC that was 3.83 L. The MVV was 109 L/m. The patient was initially seen in consultation back in December 2022. The patient was found to have bradycardia, and irregular heartbeat. The patient had a transesophageal echocardiogram which revealed a severe mitral regurgitation, secondary to a flail leaflet. The patient was having mild shortness of breath at that time. Current labs include a white count of 12.3, hemoglobin 12.4, hematocrit 37.5, and a platelet count of 1000. Sodium 138, potassium 4.5, chlorides 107, CO2 22, BUN 16, creatinine 0.86. Glucose was 146. Albumin 3.3. The patient showed postsurgical changes, some diffuse infiltrates, and an endotracheal tube about 4 cm above the tracheal dennis. The patient is seen today 04/18/2023 in follow-up in the intensive care unit. He is currently sitting up in a chair at the bedside. Awake and alert in no acute distress. Postoperative day #1. He is maintaining good O2 saturations in the mid 90s on 2 L/m per nasal cannula. He's been afebrile. Hemodynamically stable. His x-ray reveals improved aeration of left perihilar infiltrate. Increased mild left basilar opacity likely effusion versus atelectasis. Mediastinal and right/left pleural chest tubes remain in place. Epicardial pacer wires remain in place with backup pacing of 50 bpm. Most recent cardiac output 4.7. Cardiac index 2.2. PA pressure 25/7 with a CVP of 4. Count 10.4. Hemoglobin 11.3. Platelets 94,000. Sodium 135. Potassium 4.0. Bicarb 24. BUN 18. Creatinine 0.80. He continues working well with the incentive spirometer. Remains on bronchodilators. Anticoagulated with Arixtra. Remains on an insulin drip at 5 units per hour. Lactated Ringer's at 20 ML's per hour. The patient is seen today 04/19/2023 in follow-up in the intensive care unit. He is awake and alert in no acute distress. Sitting up in a chair at the bedside. Postoperative day #2. He is maintaining good O2 saturation in the 90s on room air. He's been afebrile. Hemodynamically stable. Continues to work well with the incentive spirometer pulling [id number] ML's. He is lactated Ringer's at 20 ML's per hour. Chest x-ray shows some minimal atelectasis of the left base. Chest tubes remain in place. Right IJ cordis remains in place. Granados catheter in place. White count 9.1. Hemoglobin 10.4. Platelets 87,000. Sodium 129. Potassium 4.0. Bicarb 23. BUN 18. Creatinine 0.82. Glucose 106. He remains on bronchodilators. Anticoagulated with Arixtra. SCDs remain in place. The patient is seen today 04/21/2023 in follow-up on the selective care unit. He is currently sitting up in a chair at the bedside. Awake and alert in no acute distress. He is maintaining O2 saturations up to 100% on room air. Chest x-ray shows diminished left apical pneumothorax. Mildly improving left basilar atelectasis/effusion. White count 9.4. Hemoglobin 10.4. Platelets 131. Sodium 133. Potassium 3.8. Bicarb 23. BUN 19. Creatinine 0.86. Glucose 122. He did have episodes of atrial fibrillation with rapid ventricular response yesterday. He is currently on amiodarone at 0.5 mg/m. Anticoagulated with Arix tra. The patient is seen today 04/22/2019 for follow-up on the selective care unit. He is awake and alert in no acute distress. Sitting up in a chair at the bedside. Maintaining good O2 saturations in the 90s on room air. Continues to work well with the incentive spirometer. Chest x-ray revealed minimal bilateral pleural effusions. The patient is maintaining sinus rhythm. Blood sugar 104. He remains on oral diuretics. Currently in a negative balance. Objective - Vital Signs Vital signs: Vital Signs Temp 98.0 F 04/22/23 08:10 Pulse 82 04/22/23 08:10 Resp 18 04/22/23 08:10 BP 112/70 04/22/23 08:10 Pulse Ox 96 04/22/23 08:10 FiO2 50 04/17/23 17:35 Intake & Output 04/21/23 04/22/23 04/22/23 18:59 06:59 18:59 Intake Total 685 550 200 Output Total 850 1350 625 Balance -165 -800 -425 Weight 91.6 kg 90.4 kg Intake: IV 10 Invasive Line 4 10 Intake, IV Titration 350 Amount Amiodarone 450 mg In 250 Dextrose 5% in Water 250 ml @ 0.5 MG/MIN 16.667 mls/hr IV .Q15H [facility] Rx#: [id number] Dextrose 5% in Water 100 100 ml @ 618 mls/hr IV .Q10M ONE with Amiodarone 150 mg Rx#:[id number] Oral 335 540 200 Output: Urine 850 1350 625 Other: Voiding Method Urinal Urinal Urinal # Voids 3 # Bowel Movements 1 1 ABP, PAP, CO, CI - Last Documented Arterial Blood Pressure 107/50 Pulmonary Artery Pressure 25/6 Cardiac Output 4.9 Cardiac Index 2.3 - Exam GENERAL EXAM: Alert, 78-year-old male, on room air, up in a chair, comfortable in no apparent distress. HEAD: Normocephalic. EYES: Normal reaction of pupils, equal size. NOSE: Clear with pink turbinates. THROAT: No erythema or exudates. NECK: No masses, no JVD. CHEST: Gen. dressing dry and intact. Heart Hugger in place. LUNGS: Equal air entry with crackles in the left base. CVS: S1 and S2 normal with no audible murmur, regular rhythm. ABDOMEN: No hepatosplenomegaly, hypoactive bowel sounds, no guarding or rigidity. SPINE: No scoliosis or deformity SKIN: No rashes CENTRAL NERVOUS SYSTEM: No focal deficits, tone is normal in all 4 extremities. EXTREMITIES: ARTHUR hose, SCDs in place. There is no peripheral edema. No clubbing, no cyanosis. Peripheral pulses are intact. - Labs CBC & Chem 7: 04/21/23 07:19 04/21/23 07:19 Labs: Abnormal Lab Results - Last 24 Hours (Table) 04/21/23 04/21/23 Range/Units 16:14 20:07 POC Glucose (mg/dL) 140 H 208 H (70-110) mg/dL Assessment and Plan Assessment: Status post mitral valve repair, secondary to a flailed mitral valve leaflet. Post operative day #5 Routine postoperative ventilator management, resolved and on room air Atrial fibrillation, expected outcome of surgery History of hypertension History of hyperlipidemia History of BPH Plan: The patient was seen and evaluated Chest x-ray, labs and medications reviewed Currently stable and on room air Home once cleared by CT services I have personally seen and examined the patient, performed the documentation and the assessment and plan as written. Number of minutes spent on the visit: 10.
--- NOTE | 2023-04-22 14:35 | P.PN ---
Subjective Progress Note Date: 04/22/23 Hospital course: Patient is a very pleasant 78-year-old male with past medical history CAD, hypertension, hyperlipidemia, and BPH. He is currently admitted under cardiothoracic surgery team to the hospital for elective mitral valve repair and underwent surgical procedure on 04/17/[address] Wing. Patient initially did well without any immediate postoperative complications and was extubated on the evening of his procedure. On 04/20/23 patient developed new onset atrial fibrillation and was treated with amiodarone. We are following for medical management throughout patient's hospitalization, cardiology and pulmonology were also consulted also following patient during this hospitalization. Physical exam: Vital signs reviewed and stable. General: Nontoxic, no distress and appears stated age. Derm: Skin warm and dry, normal coloration for ethnicity. Head: Atraumatic, normocephalic and symmetric. Eyes: EOMs intact, no lid lag, and anicteric sclera Mouth: no lip lesions, mucus membranes moist Cardiovascular: regular rate and rhythm with normal S1S2, positive posterior tibial pulses bilaterally, and cap refill < [address] seconds[address]. Lungs: Respirations even, regular, and unlabored on room air. Lungs CTA bilaterally, no rhonchi, no rales, no wheezing, and no accessory muscle usage. Abdominal: soft, nontender to palpation, no guarding, no appreciable organomegaly Ext: Movement and sensation intact. No gross muscle atrophy, no edema, no contractures Neuro: Speech clear, face symmetrical and CN II-XII grossly intact with no noted focal neuro deficits Psych: Alert and oriented to person, place, time, and situation. Appropriate and pleasant affect. Assessment and Plan of Care: Severe mitral regurgitation status post mitral valve repair on 04/17/23 Paroxysmal atrial fibrillation, postoperative atrial fibrillation with RVR. Currently maintaining sinus mechanism. Nonsustained V. tach Coronary artery disease Hypertension Hyperlipidemia 78-year-old male status post mitral valve repair -Patient initially requiring amiodarone infusion and has been transitioned to oral amiodarone 400 mg twice daily -Continue telemetry monitoring. -Cardiology following, reviewed documentation in chart. -Patient admitted under cardiothoracic surgery team plans for discharge later today. -Pulmonology following and reviewed documentation in chart. Hyperglycemia, Resolved -Sliding scale insulin, follow blood sugars 4 times daily -Preop A1c 5.8 in March 2023. Recommend following a heart healthy and carb consistent diet upon discharge. Hyponatremia, improved. Sodium 133 BPH, Continue with Flomax 0.5 mg at night Bicytopenia with Anemia with Thrombocytopenia, stable. -Anticipated outcome of surgery -No indication for transfusion or further interventions at this time -HIT negative Dyslipidemia, continue daily medication regimen with Lipitor 40 mg daily Hypertension, controlled on current medication regimen. Patient to continue metoprolol 25 mg twice daily. Data and Imaging Reviewed: -Morning X-ray completed in radiology report reviewed showing minimal bilateral pleural effusions. -Vital signs reviewed and stable. Blood pressure 112/70, heart rate 82, respiratory rate 18, temp 98.0F, SpO2 of 96% on room air. DVT prophylaxis: Andrez Thank you for allowing us to participate in the care of this pleasant patient. Do not hesitate to contact us with questions. Someone can be reached from the [facility]– [place]Note 2[place] hospitalist group all hours of the day at [phone] or via 10X10 Room. Patient was seen independently by Nurse Pracitioner. This document was prepared using [employer] dictation software. Please allow for e rrors in corporation pilot, while rare they do occur. Finn Cazares NP rendered care for this patient independently, reviewed the findings and plan as documented in the note above. I did not physically speak with or examine the patient on this date. Objective - Vital Signs Vital signs: Vital Signs Temp 98.0 F 04/22/23 08:10 Pulse 82 04/22/23 08:10 Resp 18 04/22/23 08:10 BP 112/70 04/22/23 08:10 Pulse Ox 96 04/22/23 08:10 FiO2 50 04/17/23 17:35 Intake & Output 04/21/23 04/22/23 04/22/23 18:59 06:59 18:59 Intake Total 685 550 Output Total 850 1350 400 Balance -165 -800 -400 Weight 91.6 kg 90.4 kg Intake: IV 10 Invasive Line 4 10 Intake, IV Titration 350 Amount Amiodarone 450 mg In 250 Dextrose 5% in Water 250 ml @ 0.5 MG/MIN 16.667 mls/hr IV .Q15H [facility] Rx#: [id number] Dextrose 5% in Water 100 100 ml @ 618 mls/hr IV .Q10M ONE with Amiodarone 150 mg Rx#:[id number] Oral 335 540 Output: Urine 850 1350 400 Other: Voiding Method Urinal Urinal # Voids 3 # Bowel Movements 1 ABP, PAP, CO, CI - Last Documented Arterial Blood Pressure 107/50 Pulmonary Artery Pressure 25/6 Cardiac Output 4.9 Cardiac Index 2.3 - Labs CBC & Chem 7: 04/21/23 07:19 04/21/23 07:19 Labs: Abnormal Lab Results - Last 24 Hours (Table) 04/21/23 04/21/23 04/21/23 Range/Units 11:19 16:14 20:07 POC Glucose (mg/dL) 119 H 140 H 208 H (70-110) mg/dL
== END 2023-04-22 11:08 | disposition home health service (06) | DRG 219 ==
LOC: 2ORMAIN 04-17 05:40 → 2SICU 04-17 12:57 → 3SCARD 04-19 18:26
PROVIDERS: ADMIT Surgery; ATTEND Surgery
PROC: 02BG0ZZ Excision of Mitral Valve, Open Approach (ICD-10-PCS; 2023-04-17)
PROC: 02L70CK Occlusion of Left Atrial Appendage with Extraluminal Device, Open Approach (ICD-10-PCS; 2023-04-17)
PROC: B24BZZ4 Ultrasonography of Heart with Aorta, Transesophageal (ICD-10-PCS; 2023-04-17)
PROC: B24BZZZ Ultrasonography of Heart with Aorta (ICD-10-PCS; 2023-04-17)
PROC: 5A1221Z Performance of Cardiac Output, Continuous (ICD-10-PCS; 2023-04-17)
PROC: 3E033XZ Introduction of Vasopressor into Peripheral Vein, Percutaneous Approach (ICD-10-PCS; 2023-04-17)
PROC: 30233J1 Transfusion of Nonautologous Serum Albumin into Peripheral Vein, Percutaneous Approach (ICD-10-PCS; 2023-04-17)
PROC: 02UG0JZ Supplement Mitral Valve with Synthetic Substitute, Open Approach (ICD-10-PCS; principal; 2023-04-17 08:00)
DX: I34.0 Nonrheumatic mitral (valve) insufficiency (principal); I51.1 Rupture of chordae tendineae, not elsewhere classified; D62 Acute posthemorrhagic anemia; I47.20 Ventricular tachycardia, unspecified; E87.1 Hypo-osmolality and hyponatremia; J93.83 Other pneumothorax; D69.6 Thrombocytopenia, unspecified; I11.9 Hypertensive heart disease without heart failure; N40.0 Benign prostatic hyperplasia without lower urinary tract symptoms; I48.0 Paroxysmal atrial fibrillation; I25.10 Atherosclerotic heart disease of native coronary artery without angina pectoris; R73.9 Hyperglycemia, unspecified; E87.70 Fluid overload, unspecified; E78.00 Pure hypercholesterolemia, unspecified; Z87.891 Personal history of nicotine dependence; Z86.16 Personal history of COVID-19; Z79.82 Long term (current) use of aspirin; Z79.899 Other long term (current) drug therapy
CPT/HCPCS: 71045; 71046; 80048; 80053; 82330; 82805; 83735; 85025; 85027; 85610; 85730; 86022; 86850; 86891; 86900; 86901; 86920; 88305; 94002; 94640; 94760

== ENCOUNTER 2023-09-01 13:01 | Inpatient (IN) | payer OTHER, MEDICARE ==
--- NOTE | 2023-09-01 13:48 | ED ---
General Adult HPI - General Chief complaint: Abdominal Pain Stated complaint: Vomiting,weakness Time Seen by Provider: 09/01/23 13:33 Source: patient Mode of arrival: ambulatory Limitations: no limitations - History of Present Illness Initial comments: Dictation was produced using [employer] dictation software. please excuse any grammatical, word or spelling errors. Chief Complaint: 78-year-old male with dry heaving and right lower quadrant abdominal pain History of Present Illness: Patient is a 78-year-old male he has past medical history of high cholesterol and hypertension. Patient since 12 AM this evening has been having dry heaving. Denies any fever. Complains of pain in right lower quadrant. Patient denies any emesis. Patient had couple hard stools passed recently. No history of appendectomy or abdominal surgery. The ROS documented in this emergency department record has been reviewed and confirmed by me. Those systems with pertinent positive or negative responses have been documented in the HPI. All other systems are other negative and/or noncontributory. - Related Data Home Medications Medication Instructions Recorded Confirmed Wirtz-3/Dha/Epa/Fish Oil [Fish Oil 1 cap PO Q2D 10/18/22 09/01/23 1,000 mg Softgel] Tamsulosin [Flomax] 0.4 mg PO HS 10/18/22 09/01/23 Cholecalciferol (Vitamin D3) 125 mcg PO DAILY 03/16/23 09/01/23 [Vitamin D3 (125 MCG = 5,000 IU)] Cyanocobalamin (Vitamin B-12) 1,000 mcg PO DAILY 03/16/23 09/01/23 [Vitamin B-12] Potassium Gluconate 99 mg PO DAILY 09/01/23 09/01/23 Rosuvastatin [Crestor] 10 mg PO HS 09/01/23 09/01/23 diphenhydrAMINE [Benadryl] 25 mg PO HS 09/01/23 09/01/23 Allergies Allergy/AdvReac Type Severity Reaction Status Date / Time No Known Allergies Allergy Verified 09/01/23 14:50 Review of Systems ROS Statement: Those systems with pertinent positive or pertinent negative responses have been documented in the HPI. ROS Other: All systems not noted in ROS Statement are negative. Past Medical History Past Medical History: Hyperlipidemia, Hypertension, Prostate Disorder Additional Past Medical History / Comment(s): COVID 06/2022, heart valve problem per pt., SOB w/exertion @times History of Any Multi-Drug Resistant Organisms: None Reported Past Surgical History: Heart Catheterization, Hernia Repair, Orthopedic Surgery Additional Past Surgical History / Comment(s): ORIF RT WRIST SX, COLONOSCOPY, BILAT CATARACTS REMOVED WITH LENS IMPLANTS, open heart surgery Past Anesthesia/Blood Transfusion Reactions: No Reported Reaction Past Psychological History: No Psychological Hx Reported Smoking Status: Former smoker Past Alcohol Use History: None Reported Past Drug Use History: None Reported - Past Family History Father Family Medical History: Cancer General Exam - General Exam Comments Initial Comments: PHYSICAL EXAM: General Impression: Alert and oriented x3, not in acute distress HEENT: Normocephalic atraumatic, extra-ocular movements intact, pupils equal and reactive to light bilaterally, mucous membranes moist. Cardiovascular: Heart regular rate and rhythm Chest: Able to complete full sentences, no retractions, no tachypnea Abdomen: abdomen soft, n palpatory tenderness to the right lower quadrant, no rebound r, non-distended, no organomegaly Musculoskeletal: Pulses present and equal in all extremities, no peripheral edema Motor: no focal deficits noted Neurological: CN II-XII grossly intact, no focal motor or sensory deficits noted Skin: Intact with no visualized rashes Psych: Normal affect and mood Limitations: no limitations Course Vital Signs 09/01/23 09/01/23 09/01/23 13:25 13:40 13:58 Temperature 97.7 F 97.3 F L Pulse Rate 54 L 89 95 Respiratory 26 H 22 20 Rate Blood Pressure 142/71 129/115 104/84 O2 Sat by Pulse 98 100 95 Oximetry 09/01/23 15:31 Temperature Pulse Rate 73 Respiratory 20 Rate Blood Pressure 104/84 O2 Sat by Pulse 95 Oximetry EKG Findings - EKG Comments: EKG Findings:: My EKG interpretation: Ventricular rate 90, sinus rhythm,. 02 15, QRS 131, QTc 467. No [place] prolongation, no QTC prolongation, no ST or T-wave changes noted. EKG compared to September 23, 2023 showing no changes. Overall, this EKG is unremarkable Medical Decision Making - Medical Decision Making Was pt. sent in by a medical professional or institution (, PA, FLAMER SEALER, urgent care, hospital, or snf...) When possible be specific @ -No Did you speak to anyone other than the patient for history (EMS, parent, family, police, friend...)? What history was obtained from this source @ -No Did you review nursing and triage notes (agree or disagree)? Why? @ -I reviewed and agree with nursing and triage notes Were old charts reviewed (outside hosp., previous admission, EMS record, old EKG, old radiological studies, urgent care reports/EKG's, snf records)? Report findings @ -No old charts were reviewed Differential Diagnosis (chest pain, altered mental status, abdominal pain women, abdominal pain men, vaginal bleeding, musculoskeletal, weakness, fever, dyspnea, syncope, headache, dizziness, GI bleed, back pain, seizure, CVA, palpatations, mental health)? @ -Differential Abdominal Pain Men: Appendicitis, cholecystitis, diverticulosis, ischemic bowel, pancreatitis, hepatitis, UTI, gastroenteritis, AAA, incarcerated hernia, bowel obstruction, constipation, inflammatory bowel, hepatitis, peptic ulcer disease, splenic infarction, perforated viscus, testicular torsion, this is not meant to be an all-inclusive list EKG interpreted by me (3pts min.). @ -See above X-rays interpreted by me (1pt min.). @ -None done CT interpreted by me (1pt min.). @ -CT abdomen pelvis shows acute appendicitis U/S interpreted by me (1pt. min.). @ -None done What testing was considered but not performed or refused? (CT, X-rays, U/S, labs)? Why? @ -None What meds were considered but not given or refused? Why? @ -None Did you discuss the management of the patient with other professionals (professionals i.e. , PA, FLAMER SEALER, lab, RT, psych nurse, manager social media, development system efficiency manager, teacher, community reinvestment act officer, correctional case manager)? Give summary @ -Case discussed with on-call general surgery for admission Was smoking cessation discussed for >3mins.? @ -No Was critical care preformed (if so, how long)? @ -No Were there social determinants of health that impacted care today? How? (Homelessness, low income, unemployed, alcoholism, drug addiction, transportation, low edu. Level, literacy, decrease access to med. care, prison, rehab)? @ -No Was there de-escalation of care discussed even if they declined (Discuss DNR or withdrawal of care, Hospice)? DNR status @ -No What co-morbidities impacted this encounter? (DM, HTN, Smoking, COPD, CAD, C ancer, CVA, ARF, Chemo, Hep., AIDS, mental health diagnosis, sleep apnea, morbid obesity)? @ -None Was patient admitted / discharged? Hospital course, mention meds given and route, prescriptions, significant lab abnormalities, going to OR and other pertinent info. @ -78-year-old male with acute appendicitis. Vital signs stable. Laboratory evaluation shows leukocytosis 13.1. Rest of labs within acceptable limits. Patient given antibiotics to be admitted to general surgery. Plans for surgical intervention soon. Undiagnosed new problem with uncertain prognosis? @ -No Drug Therapy requiring intensive monitoring for toxicity (Heparin, Nitro, Insulin, Cardizem)? @ -No Were any procedures done? @ -No Diagnosis/symptom? Acute, or Chronic, or Acute on Chronic? Uncomplicated (without systemic symptoms) or Complicated (systemic symptoms)? @ -Acute appendicitis Side effects of treatment? @ -No Exacerbation, Progression, or Severe Exacerbation? @ -No Poses a threat to life or bodily function? How? (Chest pain, [place], NH, pneumonia, PE, COPD, DKA, ARF, appy, cholecystitis, CVA, Diverticulitis, Homicidal, Suicidal, threat to staff... and all critical care pts) @ -yes - Lab Data Result diagrams: 09/01/23 13:57 09/01/23 13:57 Lab Results 09/01/23 09/01/23 09/01/23 Range/Units 13:57 13:57 13:57 WBC 13.1 H (3.8-10.6) k/uL RBC 5.47 (4.30-5.90) m/uL Hgb 15.8 (13.0-17.5) gm/dL Hct 49.9 (39.0-53.0) % MCV 91.2 (80.0-100.0) fL MCH 28.8 (25.0-35.0) pg MCHC 31.6 (31.0-37.0) g/dL RDW 15.1 (11.5-15.5) % Plt Count 173 (150-450) k/uL MPV 7.3 Neutrophils % 89 % Lymphocytes % 4 % Monocytes % 5 % Eosinophils % 1 % Basophils % 0 % Neutrophils # 11.7 H (1.3-7.7) k/uL Lymphocytes # 0.5 L (1.0-4.8) k/uL Monocytes # 0.6 (0-1.0) k/uL Eosinophils # 0.2 (0-0.7) k/uL Basophils # 0.0 (0-0.2) k/uL Sodium 137 (137-145) mmol/L Potassium 4.9 (3.5-5.1) mmol/L Chloride 103 (98-107) mmol/L Carbon Dioxide 24 (22-30) mmol/L Anion Gap 10 mmol/L BUN 19 (9-20) mg/dL Creatinine 1.06 (0.66-1.25) mg/dL Est GFR (CKD-EPI)AfAm 79 (>60 ml/min/1.73 sqM) Est GFR (CKD-EPI)NonAf 68 (>60 ml/min/1.73 sqM) Glucose 129 H (74-99) mg/dL Lactic Ac Sepsis Rflx Plasma Lactic Acid Harinder 2.1 H* (0.7-2.0) mmol/L Calcium 10.2 (8.4-10.2) mg/dL Total Bilirubin 0.9 (0.2-1.3) mg/dL AST 28 (17-59) U/L ALT 24 (4-49) U/L Alkaline Phosphatase 66 (38-126) U/L Total Protein 7.3 (6.3-8.2) g/dL Albumin 4.5 (3.5-5.0) g/dL Lipase 65 (23-300) U/L 09/01/23 Range/Units 14:19 WBC (3.8-10.6) k/uL RBC (4.30-5.90) m/uL Hgb (13.0-17.5) gm/dL Hct (39.0-53.0) % MCV (80.0-100.0) fL MCH (25.0-35.0) pg MCHC (31.0-37.0) g/dL RDW (11.5-15.5) % Plt Count (150-450) k/uL MPV Neutrophils % % Lymphocytes % % Monocytes % % Eosinophils % % Basophils % % Neutrophils # (1.3-7.7) k/uL Lymphocytes # (1.0-4.8) k/uL Monocytes # (0-1.0) k/uL Eosinophils # (0-0.7) k/uL Basophils # (0-0.2) k/uL Sodium (137-145) mmol/L Potassium (3.5-5.1) mmol/L Chloride (98-107) mmol/L Carbon Dioxide (22-30) mmol/L Anion Gap mmol/L BUN (9-20) mg/dL Creatinine (0.66-1.25) mg/dL Est GFR (CKD-EPI)AfAm (>60 ml/min/1.73 sqM) Est GFR (CKD-EPI)NonAf (>60 ml/min/1.73 sqM) Glucose (74-99) mg/dL Lactic Ac Sepsis Rflx Y Plasma Lactic Acid Harinder (0.7-2.0) mmol/L Calcium (8.4-10.2) mg/dL Total Bilirubin (0.2-1.3) mg/dL AST (17-59) U/L ALT (4-49) U/L Alkaline Phosphatase (38-126) U/L Total Protein (6.3-8.2) g/dL Albumin (3.5-5.0) g/dL Lipase (23-300) U/L Disposition Clinical Impression: Acute appendicitis Disposition: ADMITTED IP TO THIS HOSP Condition: Fair Referrals: Sunshine Mckeon MD [Primary Care Provider] - 1-2 days Decision Time: 17:17
[2023-09-01 14:09] LABS: Basophils % (A) 0 %; Eosinophils # (A) 0.2 k/uL (0-0.7); Eosinophils % (A) 1 %; HCT 49.9 % (39.0-53.0); HGB 15.8 gm/dL (13.0-17.5); Lymphocytes # (A) 0.5 k/uL (1.0-4.8); Lymphocytes % (A) 4 %; MCH 28.8 pg (25.0-35.0); MCHC 31.6 g/dL (31.0-37.0); MCV 91.2 fL (80.0-100.0); Mean Platelet Volume 7.3; Monocytes # (A) 0.6 k/uL (0-1.0); Monocytes % (A) 5 %; Neutrophils # (A) 11.7 k/uL (1.3-7.7); Neutrophils % (A) 89 %; Platelet Count 173 k/uL (150-450); RBC 5.47 m/uL (4.30-5.90); RDW 15.1 % (11.5-15.5); WBC 13.1 k/uL (3.8-10.6)
[2023-09-01 14:19] LABS: ALT 24 U/L (4-49); AST 28 U/L (17-59); African American GFR (CKD) 79 (>60 ml/min/1.73 sqM); Albumin 4.5 g/dL (3.5-5.0); Alkaline Phosphatase 66 U/L (38-126); Anion Gap 10 mmol/L; Blood Urea Nitrogen 19 mg/dL (9-20); Calcium 10.2 mg/dL (8.4-10.2); Carbon Dioxide 24 mmol/L (22-30); Chloride 103 mmol/L (98-107); Glucose 129 mg/dL (74-99); Lipase 65 U/L (23-300); Non-African American GFR(CKD) 68 (>60 ml/min/1.73 sqM); Potassium 4.9 mmol/L (3.5-5.1); Sodium 137 mmol/L (137-145); Total Bilirubin 0.9 mg/dL (0.2-1.3); Total Protein 7.3 g/dL (6.3-8.2)
[2023-09-01] MEDS: SODIUM CHLORIDE 0.9% 1,000 ML IV STA (14:26)
[2023-09-01] MEDS: ONDANSETRON 4 MG/2 ML VIAL IVP ONE (14:27)
[2023-09-01] MEDS: MORPHINE SULFATE 4 MG/ML SYRINGE IM STA (14:27)
--- NOTE | 2023-09-01 16:36 | CT ---
EXAMINATION TYPE: CT abdomen pelvis w con CT DLP: 899.6 mGycm, Automated exposure control for dose reduction was used. DATE OF EXAM: 09/01/2023 2:52 PM COMPARISON: None. CLINICAL INDICATION:Male, 78 years old with history of RLQ pain; RLQ abdominal pain since midnight th is morning, n/v TECHNIQUE: Axial CT of the abdomen and pelvis. Sagittal and coronal reformats were created on a [employer] workstation. Contrast used:100 ml mL of Isovue 300 with IV Contrast, (none if empty) Oral contrast used: without Oral Contrast (none if empty) FINDINGS: LOWER CHEST: Mild bibasilar scarring and/or subsegmental atelectasis. Minimal emphysematous change. H eart size upper normal. Partially seen mitral valve prosthesis or calcification. Partially seen monk otomy defect and wire. ABDOMEN LIVER: Unremarkable GALLBLADDER AND BILE DUCTS: Gallbladder may contain some vague radiodense sludge. No focal calcified gallstones are seen. No signs of cholecystitis or biliary dilatation. PANCREAS: Unremarkable. SPLEEN: Unremarkable. ADRENAL GLANDS: Mildly thickened and small nodular appearance of the adrenals, could be due to hyperp lasia and/or adenomatoid changes. KIDNEYS AND URETERS: Kidneys enhance symmetrically. No evidence of hydronephrosis or visible renal ca lculus. The ureters are unremarkable. There is a 2.7 cm cyst left lower pole. PELVIS BLADDER: Mildly distended, with indentation along its base noted from the enlarged prostate. REPRODUCTIVE: Prostate appears enlarged, measuring up to 4.9 cm transverse. ABDOMEN & PELVIS STOMACH AND BOWEL: Stomach and small bowel show no evidence of obstruction. Some scattered fluid in n ondistended small bowel loops. Abnormal appearance of the cecum, with 6 mm and 7 mm calcifications se en which appear to be appendicoliths near the base of the appendix. Appendix appears dilated up to 12 mm diameter, with mild periappendiceal fat stranding. No focal fluid collection or extraluminal gas detected. PERITONEUM/RETROPERITONEUM: No evidence of pneumoperitoneum or free fluid. Minimal haziness of the abdominal mesentery. VASCULATURE: Mild atherosclerotic calcifications are present throughout the abdominal aorta and its b ranches. No evidence of aortic aneurysm. Portal veins are enhancing. Splenic vein is patent. SMV ap pears patent. No evidence of mesenteric or portal venous gas. LYMPH NODES: No enlarged nodes by CT size criteria. SOFT TISSUE/ABDOMINAL WALL: Unremarkable MUSCULOSKELETAL: No acute osseous abnormalities. Mild/moderate disc degeneration changes are present throughout the thoracolumbar spine. Heterogeneous changes in the anterior superior L4 vertebral body likely combination of limbus vertebra and Schmorl's node. Loss of disc height with vacuum disc L5-S1, disc osteophyte complex and mild facet arthrosis causes moderate canal and foraminal stenoses at thi s level. Similar slightly less severe stenoses at L4-L5. IMPRESSION: 1. Positive right lower quadrant findings consistent with acute uncomplicated appendicitis. A couple of appendicoliths are present. 2. Correlate with surgical pathology to ensure underlying neoplasm is not present.
[2023-09-01] MEDS ORDERED: NALOXONE 0.4 MG/ML 1 ML VIAL IV PRN (17:08)
[2023-09-01] MEDS ORDERED: MORPHINE SULFATE 4 MG/ML SYRINGE IV PRN (17:08)
[2023-09-01] MEDS: SODIUM CHLORIDE 0.9% 1,000 ML IV SCH (17:43)
--- NOTE | 2023-09-01 18:28 | P.GSHP ---
History of Present Illness H&P Date: 09/01/23 Chief Complaint: Acute appendicitis 78-year-old male comes to the hospital today with complaints of pain that began yesterday around 10 PM. Patient says he has had numerous episodes of dry heaves. No significant volume of emesis. Appetite is diminished. Overnight and again into this morning he started noticing more increasing right lower quadrant abdominal pain. That is still present. No fevers. No history of similar events. Denies any change in bowel habits recently. Denies rectal bleeding or melena. Patient had a CAT scan performed after white blood cell co unt was elevated as well as lactic acid. CAT scan reviewed. Patient has 2 separate appendicoliths with evidence of appendicitis. There is some thickening of the bowel wall at the base of the cecum possibly on the basis of neoplasm or inflammatory changes. No adenopathy seen. No distant metastasis noted. Patient's last colonoscopy he says was about 5 years ago. - Review of Systems Comment: The patient denies any acute changes in vision or hearing, no dysphagia or odynophagia, no chest pain or shortness of breath, no dysuria or hematuria, no headache, no runny nose, no rectal bleeding or melena, no unexplained weight loss Past Medical History Past Medical History: Hyperlipidemia, Hypertension, Prostate Disorder Additional Past Medical History / Comment(s): COVID 06/2022, heart valve problem per pt., SOB w/exertion @times History of Any Multi-Drug Resistant Organisms: None Reported Past Surgical History: Heart Catheterization, Hernia Repair, Orthopedic Surgery Additional Past Surgical History / Comment(s): ORIF RT WRIST SX, COLONOSCOPY, BILAT CATARACTS REMOVED WITH LENS IMPLANTS, open heart surgery Past Anesthesia/Blood Transfusion Reactions: No Reported Reaction Past Psychological History: No Psychological Hx Reported Smoking Status: Former smoker Past Alcohol Use History: None Reported Past Drug Use History: None Reported - Past Family History Father Family Medical History: Cancer Medications and Allergies Home Medications Medication Instructions Recorded Confirmed Type Jay Em-3/Dha/Epa/Fish Oil [Fish Oil 1 cap PO Q2D 10/18/22 09/01/23 History 1,000 mg Softgel] Tamsulosin [Flomax] 0.4 mg PO HS 10/18/22 09/01/23 History Cholecalciferol (Vitamin D3) 125 mcg PO DAILY 03/16/23 09/01/23 History [Vitamin D3 (125 MCG = 5,000 IU)] Cyanocobalamin (Vitamin B-12) 1,000 mcg PO DAILY 03/16/23 09/01/23 History [Vitamin B-12] Potassium Gluconate 99 mg PO DAILY 09/01/23 09/01/23 History Rosuvastatin [Crestor] 10 mg PO HS 09/01/23 09/01/23 History diphenhydrAMINE [Benadryl] 25 mg PO HS 09/01/23 09/01/23 History Allergies Allergy/AdvReac Type Severity Reaction Status Date / Time No Known Allergies Allergy Verified 09/01/23 14:50 Surgical - Exam Vital Signs Temp Pulse Resp BP Pulse Ox 97.7 F 54 L 26 H 142/71 98 09/01/23 13:25 09/01/23 13:25 09/01/23 13:25 09/01/23 13:25 09/01/23 13:25 Physical exam: General: Well-developed, well-nourished HEENT: Normocephalic, sclerae nonicteric Abdomen: Right lower quadrant tenderness nondistended Extremities: No edema Neuro: Alert and oriented Results - Labs 09/01/23 13:57 09/01/23 13:57 Abnormal Lab Results - Last 24 Hours (Table) 09/01/23 09/01/23 09/01/23 Range/Units 13:57 13:57 13:57 WBC 13.1 H (3.8-10.6) k/uL Neutrophils # 11.7 H (1.3-7.7) k/uL Lymphocytes # 0.5 L (1.0-4.8) k/uL Glucose 129 H (74-99) mg/dL Plasma Lactic Acid Harinder 2.1 H* (0.7-2.0) mmol/L Diabetes panel 09/01/23 Range/Units 13:57 Sodium 137 (137-145) mmol/L Potassium 4.9 (3.5-5.1) mmol/L Chloride 103 (98-107) mmol/L Carbon Dioxide 24 (22-30) mmol/L BUN 19 (9-20) mg/dL Creatinine 1.06 (0.66-1.25) mg/dL Glucose 129 H (74-99) mg/dL Calcium 10.2 (8.4-10.2) mg/dL AST 28 (17-59) U/L ALT 24 (4-49) U/L Alkaline Phosphatase 66 (38-126) U/L Total Protein 7.3 (6.3-8.2) g/dL Albumin 4.5 (3.5-5.0) g/dL Calcium panel 09/01/23 Range/Units 13:57 Calcium 10.2 (8.4-10.2) mg/dL Albumin 4.5 (3.5-5.0) g/dL Pituitary panel 09/01/23 Range/Units 13:57 Sodium 137 (137-145) mmol/L Potassium 4.9 (3.5-5.1) mmol/L Chloride 103 (98-107) mmol/L Carbon Dioxide 24 (22-30) mmol/L BUN 19 (9-20) mg/dL Creatinine 1.06 (0.66-1.25) mg/dL Glucose 129 H (74-99) mg/dL Calcium 10.2 (8.4-10.2) mg/dL Adrenal panel 09/01/23 Range/Units 13:57 Sodium 137 (137-145) mmol/L Potassium 4.9 (3.5-5.1) mmol/L Chloride 103 (98-107) mmol/L Carbon Dioxide 24 (22-30) mmol/L BUN 19 (9-20) mg/dL Creatinine 1.06 (0.66-1.25) mg/dL Glucose 129 H (74-99) mg/dL Calcium 10.2 (8.4-10.2) mg/dL Total Bilirubin 0.9 (0.2-1.3) mg/dL AST 28 (17-59) U/L ALT 24 (4-49) U/L Alkaline Phosphatase 66 (38-126) U/L Total Protein 7.3 (6.3-8.2) g/dL Albumin 4.5 (3.5-5.0) g/dL Assessment and Plan (1) Acute appendicitis Narrative/Plan: 78-year-old male with history suggestive of acute appendicitis. CAT scan also confirms appendicitis however thickening of the base of the cecum raises the possibility of neoplastic changes. He and I and his discussed the clinical scenario and CAT scan findings in detail. Will proceed with laparoscopic, possible open appendectomy, possible bowel resection with laparotomy. Risks of bleeding, infection, scarring, leak, abscess, conversion to an open procedure, possible findings of malignancy, peritonitis, sepsis, cardiac and respiratory complications. They understand and wish to proceed. Current Visit: Yes Status: Acute Code(s): K35.80 - UNSPECIFIED ACUTE APPENDICITIS SNOMED Code(s): 86142124
[2023-09-01] MEDS ORDERED: LIDOCAINE 1% INJ 10MG/ML (20 ML MDV) ONE (18:48)
[2023-09-01] MEDS ORDERED: PROPOFOL 10 MG/ML 20 ML VIAL IV ONE (18:48)
[2023-09-01] MEDS ORDERED: fentaNYL (PF) 50 MCG/ML 2 ML AMP ONE (18:48)
[2023-09-01] MEDS ORDERED: GLYCOPYRROLATE 0.2 MG/ML 2 ML VIAL ONE (18:48)
[2023-09-01] MEDS ORDERED: PHENYLEPHRINE-0.9% NACL SYG 1,000 MCG/10 ML SYRINGE ONE (18:48)
[2023-09-01] MEDS ORDERED: MIDAZOLAM 2 MG/2 ML VIAL ONE (18:48)
[2023-09-01] MEDS ORDERED: SUCCINYLCHOLINE CHLORIDE 200 MG/10 ML VIAL IV ONE (18:48)
[2023-09-01] MEDS ORDERED: KETOROLAC 15 MG/ML 1 ML VIAL ONE (18:48)
[2023-09-01] MEDS ORDERED: NEOSTIGMINE 1 MG/ML 10 ML VIAL ONE (18:48)
[2023-09-01] MEDS ORDERED: ROCURONIUM 10 MG/ML (5 ML VIAL) IV ONE (18:48)
[2023-09-01] MEDS: PIPERACILLIN-TAZOBACTAM 3.375 GM in SODIUM CHLORIDE 0.9% 100 ML IVPB SCH (18:52)
[2023-09-01] MEDS: SODIUM CHLORIDE 0.9% 1,000 ML IV ONE (18:52)
[2023-09-01] MEDS: BUPIVACAINE (PF) 0.25% 30 ML VIAL SQ ONE (19:19)
[2023-09-01] MEDS ORDERED: ACETAMINOPHEN TAB 325 MG TAB PO PRN (20:15)
[2023-09-01] MEDS ORDERED: HYDROmorphone 0.5 MG/0.5 ML SYRINGE IVP PRN (20:15)
[2023-09-01] MEDS ORDERED: traMADol 50 MG TAB PO PRN (20:15)
[2023-09-01] MEDS ORDERED: METOCLOPRAMIDE 5 MG/ML 2 ML VIAL IVP PRN (20:15)
--- NOTE | 2023-09-01 20:20 | P.OP ---
Date of Procedure: 09/01/23 Procedure(s) Performed: PREOPERATIVE DIAGNOSIS: Acute appendicitis POSTOPERATIVE DIAGNOSIS: Acute appendicitis with perforation and gangrenous changes PROCEDURE: Laparoscopic appendectomy SURGEON: Chidi EBL: 10 cc ANESTHESIA: General COMPLICATIONS: None OPERATIVE PROCEDURE: The patient was brought and placed on the operating table in the supine position. The patient was placed under general anesthesia. The abdomen was prepped and draped in the usual sterile fashion. A small vertical infraumbilical incision was made. The fascia was retracted anteriorly with [place] forceps. The Veress needle was advanced into the peritoneal cavity. The saline drop test was normal. Insufflation took place to 15 mmHg. A 5 mm trocar was then placed. An additional 5 mm suprapubic trocar was placed under direct visualization as well as a 12 mm left lower quadrant trocar under direct visualization. There was a small amount of purulent fluid in the right paracolic gutter. The patient's appendix was inflamed. There was an area of perforation proximally. The base of the appendix was thickened. This did not have a frankly malignant appearance. I suspect there was just inflammatory changes from the proximal impacted appendicolith. The cecum was mobilized more than usual both laterally and posteriorly. The mesoappendix was divided using both LigaSure and clips. I then removed the base of the appendix including the base of the cecum taking care not to impinge upon the ileocecal valve junction. 3 separate firings of the blue load [place] 45 was utilized. The staple line was inspected and appeared viable. There were no ischemic changes or gangrenous changes to the cecum. There was no bleeding along the staple line. Full irrigation took place. No further purulence or bleeding was seen. The appendix was brought out of the peritoneal cavity through the left lower quadrant trocar site with an Endo Catch bag. The fascia at the 12 mm site was closed using a Wili-Ken 0 Vicryl stitch. The skin at all 3 sites was closed using 4-0 Monocryl sutures. Skin glue was then applied. DISPOSITION: Stable to recovery room
[2023-09-01] MEDS: ACETAMINOPHEN IV (For NPO) 1,000 MG in EMPTY BAG 1 BAG IVPB ONE (22:31)
[2023-09-01] MEDS: metroNIDAZOLE-NS PMX 500 MG in SALINE 1 100ML.BAG IVPB SCH (23:44)
[2023-09-01] MEDS: HEPARIN SODIUM,PORCINE 5,000 UNIT/ML 1 ML VIAL SQ SCH (23:44)
[2023-09-01] MEDS: HYDROcodone/APAP 5-325MG 1 EACH TAB PO PRN (23:56)
[2023-09-02] MEDS: PANTOPRAZOLE 40 MG/10 ML VIAL IV SCH (08:18)
[2023-09-02 09:19] LABS: Basophils # (A) 0.02 X 10*3/uL (0.00-0.10); Basophils % (A) 0.2 %; Eosinophils # (A) 0.01 X 10*3/uL (0.04-0.35); Eosinophils % (A) 0.1 %; HCT 37.9 % (39.6-50.0); HGB 12.1 g/dL (13.0-17.0); Lymphocytes # (A) 0.69 X 10*3/uL (0.90-5.00); Lymphocytes % (A) 8.1 %; MCHC 31.9 g/dL (32.0-37.0); MCV 90.9 FL (80.0-97.0); Mean Platelet Volume 9.4 FL (9.5-12.2); Monocytes # (A) 0.73 X 10*3/uL (0.20-1.00); Monocytes % (A) 8.6 %; NRBC Per 100 WBC 0 X 10*3/uL (0.00-0.01); Neutrophils # (A) 7.05 X 10*3/uL (1.80-7.70); Neutrophils % (A) 82.8 %; Platelet Count 131 X 10*3/uL (140-440); RBC 4.17 X 10*6/uL (4.40-5.60); RDW 15.1 % (11.5-14.5); WBC 8.52 X 10*3/uL (4.50-10.00)
[2023-09-02 09:28] LABS: BUN/Creat Ratio 14.58 Ratio (12.00-20.00); Blood Urea Nitrogen 17.5 mg/dL (9.0-27.0); Carbon Dioxide 23.7 mmol/L (21.6-31.8); Chloride 105 mmol/L (96-109); Glucose 102 mg/dL (70-110); Potassium 3.9 mmol/L (3.5-5.5); Sodium 139 mmol/L (135-145)
[2023-09-02 09:29] LABS: Calcium 8.2 mg/dL (8.7-10.3)
[2023-09-02] MEDS: TAMSULOSIN 0.4 MG CAP.ER.24H PO SCH (10:06)
--- NOTE | 2023-09-02 12:08 | P.CONS ---
History of Present Illness - Reason for Consult Consult date: 09/02/23 - History of Present Illness Patient is a 78-year-old male with history of dyslipidemia, BPH, CAD status post recent CABG presenting with secondary to acute appendicitis. On arrival, CT showed positive right lower quadrant findings consistent with acute uncomplicated appendicitis patient was tachypneic up to 26, rest of the vital signs were within normal limits. WBC was 13.16. Patient was admitted under gen eral surgery, laparoscopic currently patient is complaining of some abdominal bloating, has not passed any flatus, denies any nausea, vomiting, chest pain, shortness of breath, abdominal pain or urinary complaints. He does have a Granados catheter in place. Most recent labs showed hemoglobin of 12.1, WBC 8.42, platelet 131, potassium 3.9, creatinine 1.2, lactate 0.9. Pertinent positives and negatives as discussed in HPI, a complete review of systems was performed and all other systems are negative. Patient seen and examined at bedside. Vital signs reviewed General: nontoxic, no distress, appears at stated age Derm: warm, dry, incision sites clean, dry, intact Head: atraumatic, normocephalic, symmetric Eyes: EOMI, no lid lag, anicteric sclera, pupils equal round reactive to light ENT: Nose and ears atraumatic Neck: No thyromegaly, supple Mouth: no lip lesion, mucus membranes moist Cardiovascular: S1S2 reg, no murmur, no edema Lungs: clear to auscultation bilateral, no rhonchi, no rales, no wheeze, no accessory muscle use, supplemental oxygen Abdominal: soft, distended abdomen, nontender to palpation, no guarding, no appreciable organomegaly Ext: no gross muscle atrophy, muscle strength muscle strength 5 out of 5 in all 4 extremities, no contractures Neuro: CN II-XII grossly intact Psych: Alert, oriented, appropriate affect Assessment/Plan: Active: Sepsis secondary to acute appendicitis Status post laparoscopic ectomy Bicytopenia, anticipated outcome of surgery and acute illness Lactic acidosis, resolved -Antibiotics switched to ceftriaxone 1 g IV every 24 hours, maintained on IV Flagyl every 8 hours -Blood cultures pending -Pain control with oral Tylenol as needed, tramadol as needed, oral [place] as needed, IV Dilaudid as needed, IV morphine as needed, monitor for sedation -Okay to continue normal saline at 65 cc an hour -Zofran 4 mg IV every 6 hours as needed for nausea vomiting -DVT prophylaxis subcu heparin -Repeat CBC tomorrow -Repeat BMP tomorrow given patient is on clear liquid diet -Incentive spirometer ordered -Continue IV Protonix 40 daily CAD status post recent CABG Dyslipidemia -Patient is not on any antiplatelet therapy -Continue atorvastatin 20 nightly Acute urinary retention Status post Granados catheter placement BPH -Consider voiding trial later in the afternoon -Restarted home Flomax 0.4 mg daily Thank you for allowing us to participate in the care of this pleasant patient. Do not hesitate to contact us with questions. Someone can be reached from the [facility] [place] [facility] [place] hospitalist group all hours of the day at [phone] or via Roombeats. Past Medical History Past Medical History: Hyperlipidemia, Hypertension, Prostate Disorder Additional Past Medical History / Comment(s): COVID 06/2022, heart valve problem per pt., SOB w/exertion @times History of Any Multi-Drug Resistant Organisms: None Reported Past Surgical History: Heart Catheterization, Hernia Repair, Orthopedic Surgery Additional Past Surgical History / Comment(s): ORIF RT WRIST SX, COLONOSCOPY, BILAT CATARACTS REMOVED WITH LENS IMPLANTS, open heart surgery Past Anesthesia/Blood Transfusion Reactions: No Reported Reaction Past Psychological History: No Psychological Hx Reported Smoking Status: Former smoker Past Alcohol Use History: None Reported Additional Past Alcohol Use History / Comment(s): QUIT SMOKING 2012, smoked on & off 18 yrs., 1ppd,. PAST ETOH ABUSE LAST DRINK 44 YEARS AGO Past Drug Use History: None Reported - Past Family History Father Family Medical History: Cancer Medications and Allergies Home Medications Medication Instructions Recorded Confirmed Type [place]-3/Dha/Epa/Fish Oil [Fish Oil 1 cap PO Q2D 10/18/22 09/01/23 History 1,000 mg Softgel] Tamsulosin [Flomax] 0.4 mg PO HS 10/18/22 09/01/23 History Cholecalciferol (Vitamin D3) 125 mcg PO DAILY 03/16/23 09/01/23 History [Vitamin D3 (125 MCG = 5,000 IU)] Cyanocobalamin (Vitamin B-12) 1,000 mcg PO DAILY 03/16/23 09/01/23 History [Vitamin B-12] Potassium Gluconate 99 mg PO DAILY 09/01/23 09/01/23 History Rosuvastatin [Crestor] 10 mg PO HS 09/01/23 09/01/23 History diphenhydrAMINE [Benadryl] 25 mg PO HS 09/01/23 09/01/23 History Allergies Allergy/AdvReac Type Severity Reaction Status Date / Time No Known Allergies Allergy Verified 09/01/23 14:50 Physical Exam Vitals: Vital Signs Temp Pulse Pulse Pulse Resp BP BP 09/02/23 10:20 09/02/23 07:47 98.2 F 78 19 09/02/23 02:55 98 F 74 16 110/67 09/01/23 23:30 79 109/68 09/01/23 23:15 76 103/61 09/01/23 23:00 75 102/66 09/01/23 22:45 77 113/68 09/01/23 22:30 68 106/62 09/01/23 22:15 76 116/68 09/01/23 22:00 75 105/69 09/01/23 21:45 78 112/71 09/01/23 21:31 98.1 F 79 16 110/69 09/01/23 21:00 82 16 118/63 09/01/23 20:45 80 16 117/67 09/01/23 20:30 83 16 124/67 09/01/23 20:23 98.2 F 86 14 133/68 09/01/23 17:44 81 16 126/73 09/01/23 17:32 60 18 104/84 09/01/23 15:31 73 20 104/84 09/01/23 13:58 97.3 F L 95 20 104/84 09/01/23 13:40 89 22 129/115 09/01/23 13:25 97.7 F 54 L 26 H 142/71 BP Pulse Ox 09/02/23 10:20 92 L 09/02/23 07:47 97/60 96 09/02/23 02:55 96 09/01/23 23:30 98 09/01/23 23:15 98 09/01/23 23:00 98 09/01/23 22:45 99 09/01/23 22:30 97 09/01/23 22:15 96 09/01/23 22:00 96 09/01/23 21:45 98 09/01/23 21:31 94 L 09/01/23 21:00 96 09/01/23 20:45 95 09/01/23 20:30 96 09/01/23 20:23 97 09/01/23 17:44 95 09/01/23 17:32 98 09/01/23 15:31 95 09/01/23 13:58 95 09/01/23 13:40 100 09/01/23 13:25 98 Intake and Output 09/01/23 09/02/23 09/02/23 22:59 06:59 14:59 Intake Total 700 Output Total 5 1110 420 Balance 695 -1110 -420 Intake: IV 700 Output: Urine 550 420 Straight 420 Uretheral (Granados) 550 Post Void Residual 560 Estimated Blood Loss 5 Other: Voiding Method Toilet Urinal # Voids 1 Weight 90.718 kg Results CBC & Chem 7: 09/02/23 06:11 09/02/23 06:11 Labs: Abnormal Lab Results - Last 24 Hours (Table) 09/01/23 09/01/23 09/01/23 Range/Units 13:57 13:57 13:57 WBC 13.1 H (3.8-10.6) k/uL RBC (4.40-5.60) X 10*6/uL Hgb (13.0-17.0) g/dL Hct (39.6-50.0) % MCHC (32.0-37.0) g/dL RDW (11.5-14.5) % Plt Count (140-440) X 10*3/uL MPV (9.5-12.2) FL Neutrophils # 11.7 H (1.3-7.7) k/uL Lymphocytes # 0.5 L (1.0-4.8) k/uL Eosinophils # (0.04-0.35) X 10*3/uL Glucose 129 H (74-99) mg/dL Plasma Lactic Acid [place] 2.1 H* (0.7-2.0) mmol/L Calcium (8.7-10.3) mg/dL 09/02/23 09/02/23 Range/Units 06:11 06:11 WBC (3.8-10.6) k/uL RBC 4.17 L (4.40-5.60) X 10*6/uL Hgb 12.1 L (13.0-17.0) g/dL Hct 37.9 L (39.6-50.0) % MCHC 31.9 L (32.0-37.0) g/dL RDW 15.1 H (11.5-14.5) % Plt Count 131 L (140-440) X 10*3/uL MPV 9.4 L (9.5-12.2) FL Neutrophils # (1.3-7.7) k/uL Lymphocytes # 0.69 L (1.0-4.8) k/uL Eosinophils # 0.01 L (0.04-0.35) X 10*3/uL Glucose (74-99) mg/dL Plasma Lactic Acid [place]inder (0.7-2.0) mmol/L Calcium 8.2 L (8.7-10.3) mg/dL
--- NOTE | 2023-09-02 16:36 | P.PN ---
Subjective patient seen and evaluated bedside. Patient complains of mild abdominal pain with no nausea or vomiting. Denies flatus. Objective - Vital Signs Vital signs: Vital Signs Temp 97.6 F 09/02/23 14:14 Pulse 80 09/02/23 14:14 Resp 17 09/02/23 14:14 BP 106/69 09/02/23 14:14 Pulse Ox 94 L 09/02/23 14:14 FiO2 Intake & Output 09/01/23 09/02/23 09/02/23 18:59 06:59 18:59 Intake Total 700 0 Output Total 1115 420 Balance 700 -1115 -420 Weight 90.718 kg 90.718 kg Intake: IV 700 0 Output: Urine 550 420 Straight 420 Uretheral (Granados) 550 Post Void Residual 560 Estimated Blood Loss 5 Other: Voiding Method Toilet Urinal # Voids 1 - Exam interim acute distress Cardiovascular regular rate rhythm Pulmonary 2 L O2, none distress Abdomen is soft, tender to palpation, surgical incisions clean dry and intact - Labs CBC & Chem 7: 09/02/23 06:11 09/02/23 06:11 Labs: Abnormal Lab Results - Last 24 Hours (Table) 09/02/23 09/02/23 Range/Units 06:11 06:11 RBC 4.17 L (4.40-5.60) X 10*6/uL Hgb 12.1 L (13.0-17.0) g/dL Hct 37.9 L (39.6-50.0) % MCHC 31.9 L (32.0-37.0) g/dL RDW 15.1 H (11.5-14.5) % Plt Count 131 L (140-440) X 10*3/uL MPV 9.4 L (9.5-12.2) FL Lymphocytes # 0.69 L (0.90-5.00) X 10*3/uL Eosinophils # 0.01 L (0.04-0.35) X 10*3/uL Calcium 8.2 L (8.7-10.3) mg/dL Assessment and Plan Assessment: 78-year-old male status post ileocecectomy secondary to appendicitis Continue a clear liquid diet for now, -Check labs encourage ambulation, sit up to chair Time with Patient: Greater than 30
[2023-09-02] MEDS: ATORVASTATIN 20 MG TAB PO SCH (20:37)
[2023-09-02] MEDS ORDERED: TAMSULOSIN 0.4 MG CAP.ER.24H PO SCH (21:00)
[2023-09-03] MEDS: ONDANSETRON 4 MG/2 ML VIAL IVP PRN (04:48)
[2023-09-03 07:17] LABS: Basophils % (A) 0 %; Eosinophils # (A) 0.1 k/uL (0-0.7); Eosinophils % (A) 1 %; HCT 40.2 % (39.0-53.0); Lymphocytes # (A) 0.6 k/uL (1.0-4.8); Lymphocytes % (A) 8 %; MCH 30.1 pg (25.0-35.0); MCHC 32.3 g/dL (31.0-37.0); MCV 93.1 fL (80.0-100.0); Mean Platelet Volume 7.4; Monocytes # (A) 0.5 k/uL (0-1.0); Monocytes % (A) 7 %; Neutrophils % (A) 82 %; Platelet Count 141 k/uL (150-450); RBC 4.31 m/uL (4.30-5.90); RDW 15.2 % (11.5-15.5); WBC 7.3 k/uL (3.8-10.6)
[2023-09-03 07:29] LABS: African American GFR (CKD) >90 (>60 ml/min/1.73 sqM); Anion Gap 5 mmol/L; Blood Urea Nitrogen 10 mg/dL (9-20); Calcium 8.4 mg/dL (8.4-10.2); Carbon Dioxide 23 mmol/L (22-30); Chloride 106 mmol/L (98-107); Glucose 92 mg/dL (74-99); Non-African American GFR(CKD) 84 (>60 ml/min/1.73 sqM); Potassium 4.1 mmol/L (3.5-5.1); Sodium 134 mmol/L (137-145)
--- NOTE | 2023-09-03 09:51 | XR ---
EXAMINATION TYPE: XR abdomen 1V DATE OF EXAM: 09/03/2023 COMPARISON: None INDICATION: Distention TECHNIQUE: Single view abdomen supine view FINDINGS: There is prominent air-filled colon within the abdomen. No dilated small bowel loops are evident. No mass effect is evident. Clips are within the right lower quadrant. There is a collection of air along the left lateral lower hemipelvis inferior to the descending colon . Location of this air is uncertain. Consider CT abdomen for additional evaluation. Psoas margins are not well visualized. No organomegaly is present. IMPRESSION: 1. Air in the left hemipelvis of uncertain location. Additional workup with CT is recommended. A Red level critical message alert has been initiated for Yaniv Murillo via the [employer] Results System on 09/03/2023 9:48 AM. This message alert has been sent to Yaniv Murillo via the preferences provided by the clinician for the receipt of Radiology Critical Findings. Message ID [id number].
[2023-09-03] MEDS: SIMETHICONE 40 MG/0.6 ML DROPS 2,000 MG/30 ML BOTTLE PO SCH (10:32)
[2023-09-03] MEDS: SODIUM CHLORIDE 0.9% 1,000 ML IV ONE (10:33)
--- NOTE | 2023-09-03 10:53 | P.PN ---
Subjective Progress Note Date: 09/03/23 Principal diagnosis: Acute appendicitis Patient complaining of abdominal bloating today. States he feels mildly short of breath. He had some orthostatic hypotension earlier. Abdominal x-rays were obtained showing some dilated bowel loops. Radiology sent in alert because of s ome left abdominal wall gas likely related to the insufflation. He went into urinary retention. Granados catheter was placed. He is on a liquid diet but not drinking much. No flatus. Mild nausea. Says his pain is slightly better than admission. No tachycardia. White blood cell count normal today. Objective - Vital Signs Vital signs: Vital Signs Temp 97.4 F L 09/03/23 06:59 Pulse 78 09/03/23 09:38 Resp 19 09/03/23 06:59 BP 131/88 09/03/23 09:38 Pulse Ox 94 L 09/03/23 09:33 FiO2 Intake & Output 09/02/23 09/03/23 09/03/23 18:59 06:59 18:59 Output Total 1290 1800 Balance -1290 -1800 Output: Urine 1290 1800 Straight 420 750 Other: Voiding Method Urinal Indwelling Catheter - Exam Abdomen: Soft, mild distention, tympanic, mild tenderness - Labs CBC & Chem 7: 09/03/23 06:15 09/03/23 06:15 Labs: Abnormal Lab Results - Last 24 Hours (Table) 09/03/23 09/03/23 Range/Units 06:15 06:15 Plt Count 141 L (150-450) k/uL Lymphocytes # 0.6 L (1.0-4.8) k/uL Sodium 134 L (137-145) mmol/L Microbiology - Last 24 Hours (Table) 09/01/23 17:09 Blood Culture - Preliminary Blood 09/01/23 17:01 Blood Culture - Preliminary Blood Assessment and Plan (1) Acute appendicitis Narrative/Plan: 78-year-old male post laparoscopic appendectomy with partial cecectomy for acute appendicitis. Patient's abdominal bloating likely related to postoperative ileus from the patient's perforated appendicitis. Low blood pressure earlier. Bolus was provided. Continue IV antibiotics. Increase activity as tolerated. Case discussed with hospitalist regarding the low blood pressure, mild hypoxia, and EKG findings. Current Visit: No Status: Inactive Code(s): K35.80 - UNSPECIFIED ACUTE APPENDICITIS SNOMED Code(s): 72836397
--- NOTE | 2023-09-03 11:42 | XR ---
EXAMINATION TYPE: XR chest 1V portable DATE OF EXAM: 09/03/2023 COMPARISON: 04/22/2023 INDICATION: Short of breath TECHNIQUE: Single frontal view of the chest is obtained. FINDINGS: The heart size is normal. The pulmonary vasculature is normal. The lungs are clear. IMPRESSION: 1. No acute pulmonary process.
--- NOTE | 2023-09-03 12:50 | P.PN ---
Subjective Progress Note Date: 09/03/23 Subjective: Patient seen and examined at bedside. While getting out of the bed, patient became lightheaded, was slightly hypotensive, blood pressure normalized when back in bed. Was given IV fluids by general surgery for orthostatic hypotension. Has not passed any flatus, continues to complain of abdominal bloating. Denies any chest pain or palpitations. Pertinent positives and negatives as discussed above, a complete review of systems was performed and all other systems are negative. Vitals Signs Reviewed. General: nontoxic, no distress, appears at stated age Derm: warm, dry, incision sites clean, dry, intact Head: atraumatic, normocephalic, symmetric Eyes: EOMI, no lid lag, anicteric sclera, pupils equal round reactive to light ENT: Nose and ears atraumatic Neck: No thyromegaly, supple Mouth: no lip lesion, mucus membranes moist Cardiovascular: S1S2 reg, no murmur, no edema Lungs: clear to auscultation bilateral, no rhonchi, no rales, no wheeze, no accessory muscle use, supplemental oxygen Abdominal: soft, distended abdomen, nontender to palpation, no guarding, no a ppreciable organomegaly Ext: no gross muscle atrophy, muscle strength muscle strength 5 out of 5 in all 4 extremities, no contractures Neuro: CN II-XII grossly intact Psych: Alert, oriented, appropriate affect Data Reviewed Today: Pertinent Labs: Hemoglobin 13, WBC 7.3, platelet 141, potassium 4.1, creatinine 0.86, lactate 0.7. Imaging: Chest x-ray independently interpreted, shows interstitial opacities without any acute process. Abdominal x-ray shows air in the left hemipelvis. EKG independently interpreted, shows trigeminy pattern otherwise sinus rhythm. Assessment and Plan: Active: Sepsis secondary to acute appendicitis Status post laparoscopic appendectomy Pneumoperitoneum, anticipated outcome of surgery Bicytopenia, anticipated outcome of surgery and acute illness, resolving Lactic acidosis, resolved Orthostatic hypotension -Continue ceftriaxone 1 g IV every 24 hours, maintained on IV Flagyl every 8 hours -Blood cultures negative growth to date -Pain control with oral Tylenol as needed, tramadol as needed, oral [place] as needed, IV Dilaudid as needed, IV morphine as needed, monitor for sedation -Was given normal saline bolus, now on normal saline 125 cc an hour -Zofran 4 mg IV every 6 hours as needed for nausea vomiting -DVT prophylaxis subcu heparin -Incentive spirometer -Continue IV Protonix 40 daily -Discussed management with general surgery, continue supportive care for now -Also added simethicone 20 mg 4 times daily Surgical mitral valve repair Dyslipidemia Trigeminy pattern on EKG -Continue atorvastatin 20 nightly -Patient maintained on telemetry Acute urinary retention Status post Granados catheter placement BPH -Had a voiding trial, and now retaining again. -Continue Flomax 0.4 mg daily Thank you for allowing us to participate in the care of this pleasant patient. Do not hesitate to contact us with questions. Someone can be reached from the [facility] hospitalist group all hours of the day at [phone] or via mDialog. Objective - Vital Signs Vital signs: Vital Signs Temp 97.4 F L 09/03/23 06:59 Pulse 78 09/03/23 09:38 Resp 19 09/03/23 06:59 BP 131/88 09/03/23 09:38 Pulse Ox 94 L 09/03/23 09:33 FiO2 Intake & Output 09/02/23 09/03/23 09/03/23 18:59 06:59 18:59 Output Total 1290 1800 Balance -1290 -1800 Output: Urine 1290 1800 Straight 420 750 Other: Voiding Method Urinal Indwelling Catheter - Labs CBC & Chem 7: 09/03/23 06:15 09/03/23 06:15 Labs: Abnormal Lab Results - Last 24 Hours (Table) 09/03/23 09/03/23 Range/Units 06:15 06:15 Plt Count 141 L (150-450) k/uL Lymphocytes # 0.6 L (1.0-4.8) k/uL Sodium 134 L (137-145) mmol/L Microbiology - Last 24 Hours (Table) 09/01/23 17:09 Blood Culture - Preliminary Blood 09/01/23 17:01 Blood Culture - Preliminary Blood
[2023-09-03] MEDS: HYDROmorphone 1 MG/ML 1 ML SYRINGE IVP PRN (13:35)
[2023-09-03] MEDS: bisacodyL 10 MG SUPP RECTAL SCH (13:38)
[2023-09-03] MEDS: SODIUM CHLORIDE 0.9% 500 ML 500 ML IV ONE (13:42)
[2023-09-03] MEDS: SODIUM CHLORIDE 0.9% 500 ML 1,000 ML IV ONE (13:42)
[2023-09-04 09:35] LABS: Basophils # (A) 0.01 X 10*3/uL (0.00-0.10); Basophils % (A) 0.2 %; Eosinophils # (A) 0.12 X 10*3/uL (0.04-0.35); HCT 37.8 % (39.6-50.0); HGB 11.9 g/dL (13.0-17.0); Lymphocytes # (A) 0.68 X 10*3/uL (0.90-5.00); Lymphocytes % (A) 11.3 %; MCH 29.5 pg (27.0-32.0); MCHC 31.5 g/dL (32.0-37.0); MCV 93.6 FL (80.0-97.0); Mean Platelet Volume 10.1 FL (9.5-12.2); Monocytes # (A) 0.56 X 10*3/uL (0.20-1.00); Monocytes % (A) 9.3 %; NRBC Per 100 WBC 0 X 10*3/uL (0.00-0.01); Neutrophils # (A) 4.63 X 10*3/uL (1.80-7.70); Neutrophils % (A) 76.9 %; Platelet Count 125 X 10*3/uL (140-440); RBC 4.04 X 10*6/uL (4.40-5.60); RDW 14.9 % (11.5-14.5); WBC 6.02 X 10*3/uL (4.50-10.00)
--- NOTE | 2023-09-04 09:42 | P.PN ---
Subjective Progress Note Date: 09/04/23 Principal diagnosis: Acute appendicitis Patient doing much better today. Slept well through the night. Minimal pain. Much less bloating. Had flatus and bowel activity. No nausea or vomiting. Objective - Vital Signs Vital signs: Vital Signs Temp 98.8 F 09/04/23 07:43 Pulse 70 09/04/23 07:43 Resp 16 09/04/23 07:43 BP 124/67 09/04/23 07:43 Pulse Ox 90 L 09/04/23 07:43 FiO2 Intake & Output 09/03/23 09/04/23 09/04/23 18:59 06:59 18:59 Output Total 500 700 900 Balance -500 -700 -900 Output: Urine 500 700 900 Other: Voiding Method Indwelling Catheter Indwelling Catheter # Bowel Movements 1 - Exam Abdomen: Soft, mild distention, minimal tenderness, incisions clean and dry - Labs CBC & Chem 7: 09/04/23 05:17 09/03/23 06:15 Labs: Abnormal Lab Results - Last 24 Hours (Table) 09/04/23 Range/Units 05:17 RBC 4.04 L (4.40-5.60) X 10*6/uL Hgb 11.9 L (13.0-17.0) g/dL Hct 37.8 L (39.6-50.0) % MCHC 31.5 L (32.0-37.0) g/dL RDW 14.9 H (11.5-14.5) % Plt Count 125 L (140-440) X 10*3/uL Lymphocytes # 0.68 L (0.90-5.00) X 10*3/uL Microbiology - Last 24 Hours (Table) 09/01/23 17:09 Blood Culture - Preliminary Blood 09/01/23 17:01 Blood Culture - Preliminary Blood Assessment and Plan (1) Acute appendicitis Narrative/Plan: Patient doing a lot better today. Continue IV antibiotics. Advance to liquid diet. Remove Granados catheter. Current Visit: No Status: Inactive Code(s): K35.80 - UNSPECIFIED ACUTE APPENDICITIS SNOMED Code(s): 06793788
[2023-09-04 10:06] LABS: ALT 13 U/L (10-49); AST 19 U/L (14-35); Albumin 3.2 g/dL (3.8-4.9); Albumin/Globulin Ratio 1.88 Ratio (1.60-3.17); Alkaline Phosphatase 39 U/L (41-126); BUN/Creat Ratio 12.33 Ratio (12.00-20.00); Blood Urea Nitrogen 11.1 mg/dL (9.0-27.0); Calcium 8.2 mg/dL (8.7-10.3); Carbon Dioxide 21.1 mmol/L (21.6-31.8); Chloride 107 mmol/L (96-109); Globulin 1.7 g/dL (1.6-3.3); Glucose 84 mg/dL (70-110); Potassium 3.9 mmol/L (3.5-5.5); Sodium 140 mmol/L (135-145); Total Bilirubin 0.3 mg/dL (0.3-1.2); Total Protein 4.9 g/dL (6.2-8.2)
--- NOTE | 2023-09-04 11:22 | P.PN ---
Subjective Progress Note Date: 09/04/23 Subjective: Patient seen and examined at bedside. No acute events overnight. Feeling a lot better today. Bloating has resolved. Had small bowel movement. Granados catheter in place. Pertinent positives and negatives as discussed above, a complete review of systems was performed and all other systems are negative. Vitals Signs Reviewed. General: nontoxic, no distress, appears at stated age Derm: warm, dry, incision sites clean, dry, intact Head: atraumatic, normocephalic, symmetric Eyes: EOMI, no lid lag, anicteric sclera, pupils equal round reactive to light ENT: Nose and ears atraumatic Neck: No thyromegaly, supple Mouth: no lip lesion, mucus membranes moist Cardiovascular: S1S2 reg, no murmur, no edema Lungs: clear to auscultation bilateral, no rhonchi, no rales, no wheeze, no accessory muscle use, supplemental oxygen Abdominal: soft, distended abdomen, nontender to palpation, no guarding, no appreciable organomegaly Ext: no gross muscle atrophy, muscle strength muscle strength 5 out of 5 in all 4 extremities, no contractures Neuro: CN II-XII grossly intact Psych: Alert, oriented, appropriate affect Data Reviewed Today: Pertinent Labs: WBC 6.02, hemoglobin 11.9, platelet 125, creatinine 0.9 Imaging: No new imaging Assessment and Plan: Active: Sepsis secondary to acute appendicitis Status post laparoscopic appendectomy Pneumoperitoneum, anticipated outcome of surgery Bicytopenia, anticipated outcome of surgery and acute illness, resolving Lactic acidosis, resolved Orthostatic hypotension -Continue ceftriaxone 1 g IV every 24 hours, maintained on IV Flagyl every 8 hours -Blood cultures negative growth to date -Pain control with oral Tylenol as needed, tramadol as needed, oral [place] as needed, IV Dilaudid as needed, IV morphine as needed, monitor for sedation -Continue normal saline 125 cc an hour -Zofran 4 mg IV every 6 hours as needed for nausea vomiting -DVT prophylaxis subcu heparin -Incentive spirometer -Continue IV Protonix 40 daily -General surgery note reviewed, started on clear liquid diet -Continue simethicone 20 mg 4 times daily Surgical mitral valve repair Dyslipidemia Trigeminy pattern on EKG -Continue atorvastatin 20 nightly -Patient maintained on telemetry Acute urinary retention Status post Granados catheter placement BPH -Voiding trial today -Continue Flomax 0.4 mg daily Thank you for allowing us to participate in the care of this pleasant patient. Do not hesitate to contact us with questions. Someone can be reached from the [facility] [place] hospitalist group all hours of the day at [phone] or via perfect serve. Objective - Vital Signs Vital signs: Vital Signs Temp 98.8 F 09/04/23 07:43 Pulse 70 09/04/23 07:43 Resp 16 09/04/23 07:43 BP 124/67 09/04/23 07:43 Pulse Ox 90 L 09/04/23 07:43 FiO2 Intake & Output 09/03/23 09/04/23 09/04/23 18:59 06:59 18:59 Output Total 500 700 900 Balance -500 -700 -900 Output: Urine 500 700 900 Other: Voiding Method Indwelling Catheter Indwelling Catheter # Bowel Movements 1 - Labs CBC & Chem 7: 09/04/23 05:17 09/04/23 05:17 Labs: Abnormal Lab Results - Last 24 Hours (Table) 09/04/23 09/04/23 Range/Units 05:17 05:17 RBC 4.04 L (4.40-5.60) X 10*6/uL Hgb 11.9 L (13.0-17.0) g/dL Hct 37.8 L (39.6-50.0) % MCHC 31.5 L (32.0-37.0) g/dL RDW 14.9 H (11.5-14.5) % Plt Count 125 L (140-440) X 10*3/uL Lymphocytes # 0.68 L (0.90-5.00) X 10*3/uL Carbon Dioxide 21.1 L (21.6-31.8) mmol/L Calcium 8.2 L (8.7-10.3) mg/dL Alkaline Phosphatase 39 L (41-126) U/L Total Protein 4.9 L (6.2-8.2) g/dL Albumin 3.2 L (3.8-4.9) g/dL Microbiology - Last 24 Hours (Table) 09/01/23 17:09 Blood Culture - Preliminary Blood 09/01/23 17:01 Blood Culture - Preliminary Blood
--- NOTE | 2023-09-05 12:41 | P.PN ---
Subjective Progress Note Date: 09/05/23 Subjective: Patient seen and examined at bedside. No acute events overnight. Feeling a lot better today. Bloating has resolved. Having small bowel movements. Granados catheter discontinued. Pertinent positives and negatives as discussed above, a complete review of systems was performed and all other systems are negative. Vitals Signs Reviewed. General: nontoxic, no distress, appears at stated age Derm: warm, dry, incision sites clean, dry, intact Head: atraumatic, normocephalic, symmetric Eyes: EOMI, no lid lag, anicteric sclera, pupils equal round reactive to light ENT: Nose and ears atraumatic Neck: No thyromegaly, supple Mouth: no lip lesion, mucus membranes moist Cardiovascular: S1S2 reg, no murmur, no edema Lungs: clear to auscultation bilateral, no rhonchi, no rales, no wheeze, no accessory muscle use, supplemental oxygen Abdominal: soft, nontender to palpation, no guarding, no appreciable organomegaly Ext: no gross muscle atrophy, muscle strength muscle strength 5 out of 5 in all 4 extremities, no contractures Neuro: CN II-XII grossly intact Psych: Alert, oriented, appropriate affect Data Reviewed Today: Pertinent Labs: no new labs Imaging: No new imaging Assessment and Plan: Active: Sepsis secondary to acute appendicitis Status post laparoscopic appendectomy Pneumoperitoneum, anticipated outcome of surgery Bicytopenia, anticipated outcome of surgery and acute illness, resolving Lactic acidosis, resolved Orthostatic hypotension, resolved -Continue ceftriaxone 1 g IV every 24 hours, maintained on IV Flagyl every 8 hours while inpatient -Blood cultures negative growth to date -Pain control with oral Tylenol as needed, tramadol as needed, oral [place] as needed, IV Dilaudid as needed, IV morphine as needed, monitor for sedation -Continue normal saline 125 cc an hour -Zofran 4 mg IV every 6 hours as needed for nausea vomiting -DVT prophylaxis subcu heparin -Incentive spirometer -Continue IV Protonix 40 daily -Discussed management with general surgery, okay to be discharged from internal medicine standpoint, would recommend 5 days of oral cefdinir and Flagyl, on full liquid diet now -Continue simethicone 20 mg 4 times daily Surgical mitral valve repair Dyslipidemia Trigeminy pattern on EKG -Continue atorvastatin 20 nightly -Patient maintained on telemetry Acute urinary retention, resolved BPH -Continue Flomax 0.4 mg daily Patient is medically optimized for discharge home. Thank you for allowing us to participate in the care of this pleasant patient. Do not hesitate to contact us with questions. Someone can be reached from the [facility] hospitalist group all hours of the day at [phone] or via perfect serve. Objective - Vital Signs Vital signs: Vital Signs Temp 97.4 F L 09/05/23 08:00 Pulse 75 09/05/23 08:00 Resp 16 09/05/23 08:00 BP 132/81 09/05/23 08:00 Pulse Ox 95 09/05/23 09:49 FiO2 Intake & Output 09/04/23 09/05/23 09/05/23 18:59 06:59 18:59 Output Total 1575 700 Balance -1575 -700 Output: Urine 1575 700 Other: Voiding Method Toilet Toilet # Voids 4 # Bowel Movements 1 - Labs CBC & Chem 7: 09/04/23 05:17 09/04/23 05:17 Labs: Microbiology - Last 24 Hours (Table) 09/01/23 17:09 Blood Culture - Preliminary Blood 09/01/23 17:01 Blood Culture - Preliminary Blood
--- NOTE | 2023-09-05 13:52 | CDI ---
Documentation Clarification Form Date: 09/05/2023 01:27:51 PM From: Bing Franklin RN CCDS Phone: [phone] Admit Date: 09/01/2023 05:10:00 PM Patient Name: Manpreet Alexis Visit Number: [id number] Discharge Date: ATTENTION: The Clinical Documentation Specialists (CDI) and [facility] Coding Staff appreciate your assistance in clarifying documentation. Please respond to the clarification below the line at the bottom and electronically sign. The CDI & [facility] Coding staff will review the response and follow-up if needed. Please note: Queries are made part of the Legal Health Record. If you have any questions, please contact the author of this message via ITS. Dr. Yaniv Murillo There is documentation of Sepsis, H&P, 08/31. Additional clarification is requested. History/Risk Factors: 78-year-old male presents to the ED s/p recent CABG with acute abdominal pain. Medical History: CAD, BPH, HLD and HTN. 09/01, Medicine consult. Clinical Indicators: LABS, 08/31: Wbc 13.1, Neutrophils 11.7, Lactic acid 2.1 VSS, 08/31: B/P 142/71; HR 54; Temp 97.7 F Oral; RR 26, SpO2 98% room air CT ABD, 08/31: Positive right lower quadrant findings consistent with acute uncomplicated appendicitis. A couple of appendicoliths are present. Medicine consult, 09/01: Sepsis secondary to acute appendicitis XRAY ABD, 09/02: Air in the hemipelvis of uncertain location. H&P, 08/31: Possible findings of malignancy, peritonitis, sepsis, cardiac and respiratory complications. Surgical note, 08/31: Postoperative diagnosis Acute appendicitis with perforation and gangrenous changes. Treatment: 08/31 Acetaminophen 1,000mg IV x 1; 09/01 Ceftriaxone 1gm IVPB Q24H; 09/01 Metronidazole 500mg IVPB Q8H; 08/31 09/01 Zosyn 3.375gm IVPB Q8H Fluids: 08/31 0.9NS 1L IV Bolus x 1; 09/02 0.9NS 1L IV Bolus x 1 Please clarify if the Sepsis is: [X ] Sepsis POA confirmed, remains under treatment [ ] Sepsis POA confirmed, resolved [ ] Sepsis ruled out [ ] Other condition, please specify [ ] Unable to determine (Template Last Revised: June 2020) MTDD
[2023-09-05 14:43] VITALS: BP 134/75; PULSE 91; RESP 17; TEMP 97.6
--- NOTE | 2023-09-05 14:47 | P.DS ---
Providers Date of admission: 09/01/23 17:10 Expected date of discharge: 09/05/23 Attending physician: Yaniv Murillo Consults: 09/01/23 20:15 Consult Physician Routine Consulting Provider: Ivon Amaral Consult Reason/Comments: Medical management Do you want consulting provider notified?: Yes Primary care physician: [facility] Hospital Course: Discharge diagnosis 1. Acute appendicitis with perforation and gangrenous changes status post laparoscopic appendectomy 2. Sepsis secondary to acute appendicitis present on admission now resolved Hospital course This is a 78-year-old male who presented with right lower quadrant abdominal pain with dry heaves. CT scan abdomen pelvis had shown evidence of acute appendicitis. Patient is status post laparoscopic appendectomy for acute appendicitis with perforation and gangrenous changes. Patient tolerated surgery well. His pain is controlled. He is having bowel movements and flatus. He has been up and ambulating. He is tolerating diet. He is afebrile. Denies any difficulty urinating. Incision sites clean dry and intact. He is stable for discharge. Patient will be discharged with oral antibiotics. Please refer to chart for any further details. Physician Associate Media Director note has been reviewed by physician. Signing provider agrees with the documented findings, assessment, and plan of care. Patient Condition at Discharge: Stable Plan - Discharge Summary New Discharge Prescriptions: New cefUROXime axetiL [Ceftin] 500 mg PO BID 5 Days #10 tab metroNIDAZOLE [Flagyl] 500 mg PO TID 5 Days #15 tab Acetaminophen Tab [Tylenol] 1,000 mg PO Q6HR PRN #30 tablet PRN Reason: Pain Continue Tamsulosin [Flomax] 0.4 mg PO HS Cholecalciferol (Vitamin D3) [Vitamin D3 (125 MCG = 5,000 IU)] 125 mcg PO DAILY [place]-3/Dha/Epa/Fish Oil [Fish Oil 1,000 mg Softgel] 1 cap PO Q2D Cyanocobalamin (Vitamin B-12) [Vitamin B-12] 1,000 mcg PO DAILY Rosuvastatin [Crestor] 10 mg PO HS diphenhydrAMINE [Benadryl] 25 mg PO HS Potassium Gluconate 99 mg PO DAILY Discharge Medication List [place]-3/Dha/Epa/Fish Oil [Fish Oil 1,000 mg Softgel] 1 cap PO Q2D 10/18/22 [History] Tamsulosin [Flomax] 0.4 mg PO HS 10/18/22 [History] Cholecalciferol (Vitamin D3) [Vitamin D3 (125 MCG = 5,000 IU)] 125 mcg PO DAILY 03/16/23 [History] Cyanocobalamin (Vitamin B-12) [Vitamin B-12] 1,000 mcg PO DAILY 03/16/23 [History] Potassium Gluconate 99 mg PO DAILY 09/01/23 [History] Rosuvastatin [Crestor] 10 mg PO HS 09/01/23 [History] diphenhydrAMINE [Benadryl] 25 mg PO HS 09/01/23 [History] Acetaminophen Tab [Tylenol] 1,000 mg PO Q6HR PRN #30 tablet 09/05/23 [Rx] cefUROXime axetiL [Ceftin] 500 mg PO BID 5 Days #10 tab 09/05/23 [Rx] metroNIDAZOLE [Flagyl] 500 mg PO TID 5 Days #15 tab 09/05/23 [Rx] Follow up Appointment(s)/Referral(s): Yaniv Murillo MD [Medical Doctor] - 1 Week [facility] [Primary Care Provider] - 1 Week Activity/Diet/Wound Care/Special Instructions: No lifting over 10 pounds You may shower. No soaking or tub baths for 2 weeks Very light activity until you are reevaluated at your follow up appointment with your surgeon Continue a full liquid diet for the next 2 days and then advance as tolerated to regular diet Discharge Disposition: HOME SELF-CARE
== END 2023-09-05 16:20 | disposition home or self-care (01) | DRG 853 ==
LOC: SUPCPDRO 13:01 → EC 13:01 → 4SSUR 17:10
PROVIDERS: ADMIT Surgery; ATTEND Surgery
PROC: 0DTJ4ZZ Resection of Appendix, Percutaneous Endoscopic Approach (ICD-10-PCS; principal; 2023-09-01 17:45)
DX: A41.9 Sepsis, unspecified organism (principal); K35.32 Acute appendicitis with perforation, localized peritonitis, and gangrene, without abscess; E87.20 Acidosis, unspecified; D61.818 Other pancytopenia; K56.7 Ileus, unspecified; R53.1 Weakness; N40.0 Benign prostatic hyperplasia without lower urinary tract symptoms; I95.1 Orthostatic hypotension; K66.8 Other specified disorders of peritoneum; N40.1 Benign prostatic hyperplasia with lower urinary tract symptoms; R33.8 Other retention of urine; Z98.49 Cataract extraction status, unspecified eye; Z87.19 Personal history of other diseases of the digestive system; Z86.73 Personal history of transient ischemic attack (TIA), and cerebral infarction without residual deficits; E78.00 Pure hypercholesterolemia, unspecified; I10 Essential (primary) hypertension; I25.10 Atherosclerotic heart disease of native coronary artery without angina pectoris; Z86.16 Personal history of COVID-19; Z79.899 Other long term (current) drug therapy; Z87.891 Personal history of nicotine dependence; Z95.1 Presence of aortocoronary bypass graft
CPT/HCPCS: 36415; 71045; 74018; 74177; 80048; 80053; 83605; 83690; 85025; 87040; 88304; 93005; 96372; 96374; 99285

== ENCOUNTER → 2023-09-22 | Outpatient (CLI) | payer OTHER ==
--- NOTE | 2023-09-25 16:20 | CTL ---
EXAMINATION TYPE: CT Low Dose Lung DATE OF EXAM ORDERED: 09/22/2023 HISTORY: Personal history of nicotine dependence. 25 pack-year history, quit smoking in 2013. Lung ca ncer screening CT DLP: [address] CTDI: 1.91 mGy Automated exposure control for dose reduction was used. SCREENING VISIT: Third after baseline COMPARISON: CT Low Dose Lung screening 08/04/2022, 07/16/2021, 06/26/2020 TECHNIQUE: Low dose computed tomography scan was performed through the chest at 1 mm thick sections a nd reconstructed images in multiple planes at 1 mm and [address] DIAGNOSTIC QUALITY: Satisfactory FINDINGS: Nodules: No clinically significant pulmonary nodules identified. LUNGS: COPD: Severity: Mild Fibrosis: Severity: Mild Lymph nodes: None measuring greater than 1 cm short axis. Other findings: Linear scarring within the lingula. Minimal biapical pleural-parenchymal scarring. RIGHT PLEURAL SPACE: Effusion: None Calcification: None Thickening: None Pneumothorax: None LEFT PLEURAL SPACE: Effusion: None Calcification: Minimal apical pleural calcification redemonstrated Thickening: None Pneumothorax: None HEART: Heart Size: Normal Coronary Calcification: Mild to moderate Pericardial Effusion: None OTHER FINDINGS: Upper abdomen: Stable right hepatic lobe calcification. Bony thorax: No acute process. Median sternotomy wires. Supraclavicular region: None Other: None IMPRESSION: No clinically significant pulmonary nodules. No new or enlarging pulmonary nodule. Simila r mild emphysematous and pulmonary fibrotic changes. CT LUNG RAD AND CT CHEST RECOMMENDATION: Lung-Rad 1 Negative: Continue annual screening with LDCT in 12 months. S Modifier (other clinically significant findings): None
== END | disposition home or self-care (01) ==
LOC: RADCTMAIN 06:18
PROVIDERS: ATTEND Internal Medicine Pulmonary Disease
DX: Z12.2 Encounter for screening for malignant neoplasm of respiratory organs (principal); J84.10 Pulmonary fibrosis, unspecified; J43.9 Emphysema, unspecified; Z87.891 Personal history of nicotine dependence
CPT/HCPCS: 71271

== ENCOUNTER 2023-10-08 07:01 | Inpatient (IN) | payer OTHER, MEDICARE ==
--- NOTE | 2023-10-08 07:38 | ED ---
Neuro HPI - General Chief Complaint: Neuro Symptoms/Deficit Stated Complaint: Possible stroke Time Seen by Provider: 10/08/23 07:05 Source: patient, family Mode of arrival: wheelchair - History of Present Illness Is the patient presenting with stroke symptoms?: Yes Last Known Well Date: 10/08/23 Last Known Well Time: 02:30 Initial Comments: 78-year-old male with past medical history of valvular disease who presents emergency department with left-sided facial droop and left sided weakness. He states that he woke up at 230 this morning and walked his dog. Patient was feeling fine. He then went back to bed and when he woke up at 6:00 he had difficulty using the restroom. He noted that he had decreased use of his left arm. He felt as if his arm was hanging limp and he had no control over it. He also had some weakness in his left leg. Patient was slurring his speech. immediately brought him up to the hospital. He does not take any blood thinners. He has no history of stroke. No history of A-fib. He denies any visual changes. No chest pain. No other alleviating, precipitating or modifying factors - Related Data Home Medications: Home Medications Medication Instructions Recorded Confirmed [place]-3/Dha/Epa/Fish Oil [Fish Oil 1 cap PO Q2D 10/18/22 10/08/23 1,000 mg Softgel] Tamsulosin [Flomax] 0.4 mg PO HS 10/18/22 10/08/23 Cyanocobalamin (Vitamin B-12) 1,000 mcg PO DAILY 03/16/23 10/08/23 [Vitamin B-12] Magnesium(Unknown Dose) 1 tab PO DAILY 10/08/23 10/08/23 Previous Rx's Medication Instructions Recorded Aspirin 81 mg PO DAILY #90 tab 10/10/23 Atorvastatin [Lipitor] 40 mg PO DAILY #90 tab 10/10/23 Clopidogrel [Plavix] 75 mg PO DAILY #18 tab 10/10/23 Metoprolol Succinate (ER) [Toprol 25 mg PO DAILY #90 tab 10/10/23 XL] lisinopriL [Zestril] 10 mg PO DAILY #90 tab 10/10/23 Allergies/Adverse Reactions: Allergies Allergy/AdvReac Type Severity Reaction Status Date / Time No Known Allergies Allergy Verified 06/30/24 08:32 Review of Systems ROS Statement: Those systems with pertinent positive or pertinent negative responses have been documented in the HPI. ROS Other: All systems not noted in ROS Statement are negative. General Exam General appearance: alert, in no apparent distress Head exam: Present: atraumatic, other (Left facial droop) Eye exam: Present: normal appearance, PERRL, EOMI. Absent: scleral icterus, conjunctival injection, periorbital swelling ENT exam: Present: normal exam, mucous membranes moist Neck exam: Present: normal inspection. Absent: tenderness, meningismus, lymphadenopathy Respiratory exam: Present: normal lung sounds bilaterally. Absent: respiratory distress, wheezes, rales, rhonchi, stridor Cardiovascular Exam: Present: regular rate, normal rhythm, normal heart sounds. Absent: systolic murmur, diastolic murmur, rubs, gallop, clicks GI/Abdominal exam: Present: soft, normal bowel sounds. Absent: distended, tenderness, guarding, rebound, rigid Extremities exam: Present: full ROM, normal capillary refill, other (Decreased trade analyst strength left hand). Absent: tenderness, pedal edema, joint swelling, calf tenderness Back exam: Present: normal inspection Neurological exam: Present: alert, oriented X3, CN II-XII intact Psychiatric exam: Present: normal affect, normal mood Skin exam: Present: warm, dry, intact, normal color. Absent: rash Stroke MDM - Lab Data Result diagrams: 10/10/23 10:59 10/10/23 10:59 Lab Results 10/08/23 10/08/23 10/08/23 Range/Units 07:22 07:22 07:22 WBC 5.6 (3.8-10.6) k/uL RBC 4.91 (4.30-5.90) m/uL Hgb 14.7 (13.0-17.5) gm/dL Hct 46.8 (39.0-53.0) % MCV 95.3 (80.0-100.0) fL MCH 30.0 (25.0-35.0) pg MCHC 31.5 (31.0-37.0) g/dL RDW 15.2 (11.5-15.5) % Plt Count 141 L (150-450) k/uL MPV 7.3 Neutrophils % 64 % Lymphocytes % 20 % Monocytes % 9 % Eosinophils % 3 % Basophils % 1 % Neutrophils # 3.6 (1.3-7.7) k/uL Lymphocytes # 1.1 (1.0-4.8) k/uL Monocytes # 0.5 (0-1.0) k/uL Eosinophils # 0.2 (0-0.7) k/uL Basophils # 0.0 (0-0.2) k/uL PT 10.9 (10.0-12.5) sec INR 1.0 (<1.2) APTT 23.2 (22.0-30.0) sec Sodium 137 (137-145) mmol/L Potassium 4.2 (3.5-5.1) mmol/L Chloride 108 H (98-107) mmol/L Carbon Dioxide 22 (22-30) mmol/L Anion Gap 7 mmol/L BUN 18 (9-20) mg/dL Creatinine 0.97 (0.66-1.25) mg/dL Est GFR (CKD-EPI)AfAm 88 (>60 ml/min/1.73 sqM) Est GFR (CKD-EPI)NonAf 76 (>60 ml/min/1.73 sqM) Glucose 103 H (74-99) mg/dL Calcium 9.2 (8.4-10.2) mg/dL Total Bilirubin 0.5 (0.2-1.3) mg/dL AST 29 (17-59) U/L ALT 27 (4-49) U/L Alkaline Phosphatase 41 (38-126) U/L Creatine Kinase 140 (55-170) U/L Troponin I (0.000-0.034) ng/mL Total Protein 6.5 (6.3-8.2) g/dL Albumin 4.1 (3.5-5.0) g/dL 10/08/23 Range/Units 07:22 WBC (3.8-10.6) k/uL RBC (4.30-5.90) m/uL Hgb (13.0-17.5) gm/dL Hct (39.0-53.0) % MCV (80.0-100.0) fL MCH (25.0-35.0) pg MCHC (31.0-37.0) g/dL RDW (11.5-15.5) % Plt Count (150-450) k/uL MPV Neutrophils % % Lymphocytes % % Monocytes % % Eosinophils % % Basophils % % Neutrophils # (1.3-7.7) k/uL Lymphocytes # (1.0-4.8) k/uL Monocytes # (0-1.0) k/uL Eosinophils # (0-0.7) k/uL Basophils # (0-0.2) k/uL PT (10.0-12.5) sec INR (<1.2) APTT (22.0-30.0) sec Sodium (137-145) mmol/L Potassium (3.5-5.1) mmol/L Chloride (98-107) mmol/L Carbon Dioxide (22-30) mmol/L Anion Gap mmol/L BUN (9-20) mg/dL Creatinine (0.66-1.25) mg/dL Est GFR (CKD-EPI)AfAm (>60 ml/min/1.73 sqM) Est GFR (CKD-EPI)NonAf (>60 ml/min/1.73 sqM) Glucose (74-99) mg/dL Calcium (8.4-10.2) mg/dL Total Bilirubin (0.2-1.3) mg/dL AST (17-59) U/L ALT (4-49) U/L Alkaline Phosphatase (38-126) U/L Creatine Kinase (55-170) U/L Troponin I 0.016 (0.000-0.034) ng/mL Total Protein (6.3-8.2) g/dL Albumin (3.5-5.0) g/dL - Medical Decision Making Was pt. sent in by a medical professional or institution (, PA, RESEARCH HOME ECONOMIST, urgent care, hospital, or group home...) When possible be specific @ -No Did you speak to anyone other than the patient for history (EMS, parent, family, police, friend...)? What history was obtained from this source @ -I spoke with patient's for history Did you review nursing and triage notes (agree or disagree)? Why? @ -I reviewed and agree with nursing and triage notes Were old charts reviewed (outside hosp., previous admission, EMS record, old EKG, old radiological studies, urgent care reports/EKG's, group home records)? Report findings @ -No old charts were reviewed Differential Diagnosis (chest pain, altered mental status, abdominal pain women, abdominal pain men, vaginal bleeding, weakness, fever, dyspnea, syncope, headache, dizziness, GI bleed, back pain, seizure, CVA, palpatations, mental health, musculoskeletal)? @ -Differential CVA Ischemic stroke, hemorrhagic stroke, brain tumor, atypical migraine, Wernicke's encephalopathy, seizure, multiple sclerosis, meningitis, encephalitis, hypoglycemia, Guillain-Franklin, electrolytes disturbance, myasthenia gravis.... This is not meant to be an all-inclusive list EKG interpreted by me (3pts min.). @ -Yes and demonstrates sinus rhythm with frequent PVCs. Rate of 84. FL interval 180. QRS 134. QTc of 442. No acute ST segment elevations or depressions X-rays interpreted by me (1pt min.). @ -None done CT interpreted by me (1pt min.). @ -Yes and demonstrates no findings U/S interpreted by me (1pt. min.). @ -None done What testing was considered but not performed or refused? (CT, X-rays, U/S, labs)? Why? @ -None What meds were considered but not given or refused? Why? @ -None Did you discuss the management of the patient with other professionals (professionals i.e. , PA, RESEARCH HOME ECONOMIST, lab, RT, psych nurse, social insurance adviser, study manager, teacher, seismology technical officer, director case management)? Give summary @ -Spoke with neurointensivist, Dr. maciel. Patient is outside tPA window Was smoking cessation discussed for >3mins.? @ -No Was critical care preformed (if so, how long)? @ -Yes, 35 minutes for stroke activation Were there social determinants of health that impacted care today? How? (Homelessness, low income, unemployed, alcoholism, drug addiction, transportation, low edu. Level, literacy, decrease access to med. care, mcc, rehab)? @ -No Was there de-escalation of care discussed even if they declined (Discuss DNR or withdrawal of care, Hospice)? DNR status @ -No What co-morbidities impacted this encounter? (DM, HTN, Smoking, COPD, CAD, Cancer, CVA, ARF, Chemo, Hep., AIDS, mental health diagnosis, sleep apnea, morbid obesity)? @ -None Was patient admitted / discharged? Hospital course, mention meds given and route, prescriptions, significant lab abnormalities, going to OR and other pertinent info. @ -Upon arrival patient seen and evaluated in room 1. Thorough history and physical exam was performed. Patient does have visible stroke symptoms. Code stroke was activated. Last known well was greater than 4.5 hours ago. Patient does go for CT. Spoke with the neurointensivist. Patient will be medically managed. He is given an aspirin and a statin. Patient will be admitted for neurology consultation. Spoke with Dr. Kearns for admission Undiagnosed new problem with uncertain prognosis? @ -No Drug Therapy requiring intensive monitoring for toxicity (Heparin, Nitro, Insulin, Cardizem)? @ -No Were any procedures done? @ -No Diagnosis/symptom? @ -Acute left-sided weakness, acute CVA Acute, or Chronic, or Acute on Chronic? @ -Acute Uncomplicated (without systemic symptoms) or Complicated (systemic symptoms)? @ -Complicated Side effects of treatment? @ -No Exacerbation, Progression, or Severe Exacerbation? @ -No Poses a threat to life or bodily function? How? (Chest pain, [place], [place], pneumonia, PE, COPD, DKA, ARF, appy, cholecystitis, CVA, Diverticulitis, Homicidal, Suicidal, threat to staff... and all critical care pts) @ -Yes as patient presents with strokelike symptoms Past Medical History Past Medical History: Hyperlipidemia, Hypertension, Prostate Disorder Additional Past Medical History / Comment(s): COVID 06/2022, heart valve problem per pt., SOB w/exertion @times History of Any Multi-Drug Resistant Organisms: None Reported Past Surgical History: Heart Catheterization, Hernia Repair, Orthopedic Surgery Additional Past Surgical History / Comment(s): ORIF RT WRIST SX, COLONOSCOPY, BILAT CATARACTS REMOVED WITH LENS IMPLANTS, open heart surgery Past Anesthesia/Blood Transfusion Reactions: No Reported Reaction Past Psychological History: No Psychological Hx Reported Smoking Status: Former smoker Past Alcohol Use History: None Reported Past Drug Use History: None Reported - Past Family History Father Family Medical History: Cancer Course Vital Signs 10/08/23 10/08/23 10/08/23 07:02 07:06 07:22 Temperature 97.3 F L Pulse Rate 52 L 88 80 Respiratory 18 16 16 Rate Blood Pressure 130/70 140/86 115/97 O2 Sat by Pulse 96 98 97 Oximetry 10/08/23 10/08/23 10/08/23 07:37 08:06 08:54 Temperature Pulse Rate 80 80 75 Respiratory 20 20 16 Rate Blood Pressure 115/97 104/72 117/75 O2 Sat by Pulse 96 97 99 Oximetry 10/08/23 09:26 Temperature Pulse Rate 75 Respiratory 20 Rate Blood Pressure 105/68 O2 Sat by Pulse 98 Oximetry Disposition Clinical Impression: Cerebrovascular accident (CVA) Disposition: ADMITTED IP TO THIS [facility] Condition: Stable Is patient prescribed a controlled substance at d/c from ED?: No Time of Disposition: 09:23 Decision to Admit Reason: Admit from EC Decision Date: 10/08/23 Decision Time: 08:40
--- NOTE | 2023-10-08 07:38 | CT ---
EXAMINATION TYPE: CODE STROKE: CT brain wo contr CT DLP: 1157.6 mGycm, Automated exposure control for dose reduction was used. DATE OF EXAM: 10/08/2023 7:30 AM COMPARISON: None.. CLINICAL INDICATION:Male, 78 years old with history of Neuro deficit, acute, stroke suspected, code s troke TECHNIQUE: Brain: Axial CT images of the brain were obtained with coronal and sagittal reformats created and rev iewed. Contrast used: None. Oral contrast used: None. FINDINGS: Extra-axial spaces: No abnormal extra-axial fluid collections. Basilar cisterns are patent. Ventricular system: Ventricles appear dilated in proportion to the degree of cerebral atrophy. Cerebral parenchyma: No increased attenuation to suggest acute intraparenchymal hemorrhage. The gra y-white matter interface appears maintained. Mild generalized brain atrophy. White matter unremarka ble by CT. Cerebellum: No acute abnormality. Mass effect: No evidence of mass effect or midline shift. Intracranial vasculature: Atherosclerotic calcifications of the larger arteries near the skull base. Soft tissues: No acute or concerning abnormality. Visualized orbits: Orbital contents appear grossly intact. There has likely been previous lens surg jesus. Calvarium/osseous structures: No evidence of calvarial fracture. Paranasal sinuses and mastoid air cells: Scattered paranasal sinus mucosal thickening, greatest in th e left maxillary. Nasal septal deviation noted, towards the right anteriorly and towards the left pos teriorly. Mastoid air cells are clear. MRI is more sensitive for detecting acute processes such as infarct, and may be considered if clinica lly warranted. IMPRESSION: No acute intracranial CT abnormality.
[2023-10-08 07:39] LABS: Basophils % (A) 1 %; Eosinophils # (A) 0.2 k/uL (0-0.7); Eosinophils % (A) 3 %; HCT 46.8 % (39.0-53.0); HGB 14.7 gm/dL (13.0-17.5); Lymphocytes # (A) 1.1 k/uL (1.0-4.8); Lymphocytes % (A) 20 %; MCHC 31.5 g/dL (31.0-37.0); MCV 95.3 fL (80.0-100.0); Mean Platelet Volume 7.3; Monocytes # (A) 0.5 k/uL (0-1.0); Monocytes % (A) 9 %; Neutrophils # (A) 3.6 k/uL (1.3-7.7); Neutrophils % (A) 64 %; Platelet Count 141 k/uL (150-450); RBC 4.91 m/uL (4.30-5.90); RDW 15.2 % (11.5-15.5); WBC 5.6 k/uL (3.8-10.6)
[2023-10-08 07:46] LABS: ALT 27 U/L (4-49); AST 29 U/L (17-59); African American GFR (CKD) 88 (>60 ml/min/1.73 sqM); Albumin 4.1 g/dL (3.5-5.0); Alkaline Phosphatase 41 U/L (38-126); Anion Gap 7 mmol/L; Blood Urea Nitrogen 18 mg/dL (9-20); Calcium 9.2 mg/dL (8.4-10.2); Carbon Dioxide 22 mmol/L (22-30); Chloride 108 mmol/L (98-107); Creatine Kinase 140 U/L (55-170); Glucose 103 mg/dL (74-99); Non-African American GFR(CKD) 76 (>60 ml/min/1.73 sqM); Potassium 4.2 mmol/L (3.5-5.1); Sodium 137 mmol/L (137-145); Total Bilirubin 0.5 mg/dL (0.2-1.3); Total Protein 6.5 g/dL (6.3-8.2)
[2023-10-08 07:51] LABS: Partial Thromboplastin Time 23.2 sec (22.0-30.0); Prothrombin Time 10.9 sec (10.0-12.5)
--- NOTE | 2023-10-08 08:30 | CT ---
EXAMINATION TYPE: CT angio head neck DATE OF EXAM: 10/08/2023 7:41 AM COMPARISON: Same day CT head.. CLINICAL INDICATION:Male, 78 years old with history of Neuro deficit, acute, stroke suspected; PHH, l eft sided weakness TECHNIQUE: Axially acquired helical CT angiogram of the head and neck was obtained with contrast. Axi al images are supplemented with 3D reconstructions which were [facility] NASCET criteria used. Contrast used: 65 mL of Isovue 370 with IV Contrast, Oral contrast used: None. CT DLP: 446.3 mGycm, Automated exposure control for dose reduction was used. FINDINGS: CTA Neck: Partially seen aortic arch with mild atherosclerosis. Branch vessels are patent. Right carotid system: The common carotid is patent. Mild mixed atherosclerotic disease at the bifurca tion without significant stenosis. Left carotid system: The common carotid is patent. Mild/moderate mixed atherosclerotic disease the bi furcation without hemodynamically significant diameter stenosis. Vertebral arteries: There is no significant atherosclerotic plaque at the origin of the right vertebr al artery. There is some calcific plaque at the origin of the left vertebral artery. The vertebrals a re patent to the skull base. The left vertebral artery is dominant. Other: Visualized neck soft tissues show no concerning abnormality. Cervical spine shows mild to mode rate degenerative changes without acute pathology. Imaged portions of the lung apices show mild emphy sematous changes and scarring. No acute infiltrate or pneumothorax. CTA Head: There are some calcifications of the cavernous portions of the ICAs without significant stenosis. Carotid termini are normal. Patent bilateral ACAs. Anterior communicating is not clearly seen. No ane urysm identified. Both MCAs appear to be patent no large vessel occlusion, dissection, significant st enosis, or aneurysm detected in the limits of CTA. No sizable posterior communicating arteries are se en. The intracranial vertebral arteries enhance normally. Left vertebral is dominant. Basilar is patent. Normal basilar bifurcation without evidence of aneurysm. Visualized proximal anti air warfare operations officer are patent. No sizable posterior communicating arteries are identified. No intracranial large vessel occlusion, hemodynamically significant stenosis, aneurysm, dissection, o r arteriovenous malformation is shown. The dural venous sinuses appear grossly patent without evidence of thrombosis. Other: Please refer to same-day CT head report.. IMPRESSION: CTA neck: 1. Patent CTA neck. 2. Mild/moderate atherosclerotic plaque at the carotid bifurcations, left more than right, without h emodynamically significant diameter stenosis. No dissection or pseudoaneurysm. CTA head: 1. Patent CTA head. 2. No intracranial large vessel occlusion, significant stenosis, or sizable aneurysm detected in the limits of CTA.
[2023-10-08] MEDS: SODIUM CHLORIDE 0.9% 1,000 ML IV ONE (08:53)
[2023-10-08] MEDS: PRAVASTATIN SODIUM 40 MG TAB PO STA (09:20)
[2023-10-08] MEDS: SODIUM CHLORIDE 0.9% 1,000 ML IV SCH (09:21)
[2023-10-08] MEDS: ASPIRIN 325 MG TAB PO STA (09:21)
--- NOTE | 2023-10-08 10:11 | XR ---
EXAMINATION TYPE: XR chest 2V DATE OF EXAM: 10/08/2023 8:38 AM CLINICAL INDICATION:Male, 78 years old with history of altered mental status; [facility] COMPARISON: 09/03/2023 TECHNIQUE: XR chest 2V. Frontal and lateral views of the chest.. FINDINGS: Heart appears mildly enlarged. There is a left atrial appendage occlusion device. Sternotomy wires. Lungs appear hyperinflated with coarsening of the interstitium suggesting a background of COPD. No fo sherlyn consolidation, sizable pleural effusion, or visible pneumothorax. No acute osseous abnormality. Mild degenerative changes. IMPRESSION: 1. Mild cardiomegaly with postoperative changes. 2. No evidence of acute cardiopulmonary disease.
--- NOTE | 2023-10-08 12:16 | P.HPIM ---
History of Present Illness H&P Date: 10/08/23 78 year old M with PMH of dyslipidemia, BPH, h/o mitral valve repair in 04/2023 presents to the ED. Patient reports waking up at 2AM to walk his dog and felt fine at that time. He reports waking up around 6AM and starting a pot of coffee. He then went to the washroom and while attempting to pull his pants up he noted weakness and clumsiness in the left arm and left leg. He notes a facial droop while looking in the mirror and immediately came to the ED for evaluation. He also reports speech difficulties searching for words. In the ED he was noted to have NIHSS of 5. Neurointerventionist was contacted and decision was made not to give tPA due to his low NIHSS and rapidly improving symptoms. During my evaluation he reports significant improvement in his OPAL and LLE weakness. 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 Workup in the ED consisted of the following. BP 130/80, T 97.3F, HR 52, RR 18, 96% on RA. CBC, Coag panel, CMP performed significant for Plt 141, Cl 108, glu 103. Troponin 0.016. CPK 140. CT brain negative. CTA neck mild-moderate atherosclerotic plaque at the carotid bifurcations, L > R. CXR cardiomegaly with no acute findings. EKG sinus rhythm with frequent PVCs and findings consistent with LVH. General: no distress, appears at stated age Derm: warm, dry Head: atraumatic, normocephalic, symmetric Eyes: EOMI, no lid lag, anicteric sclera Mouth: no lip lesion, mucus membranes moist Cardiovascular: S1S2 reg, no murmur, mid sternal surgical scar Lungs: CTA BS bilateral, no rhonchi, no rales , no accessory muscle use Ext: no gross muscle atrophy, no edema, no contractures Neuro: Left lower facial droop noted, CN II-XII grossly intact otherwise, strength 5/5 in all 4 extremities with sensation intact to touch Psych: Alert and oriented x 3 Acute CVA verses TIA: CT brain and CTA head and neck as above. ASA 325 mg PO QD. Continue Lipitor 40 mg PO QD. May benefit from Plavix will defer decision to Neurology. Obtain Echo, CUS, MRI brain, A1c, Lipid panel. Advanced neurochecks. Telemetry monitoring. Neurology consulted. PT/OT/ST consulted. Carotid stenosis: As seen on CTA neck. Obtain carotid duplex. Dyslipidemia: Lipitor as above. BPH: Flomax 0.4 mg PO QHS. h/o mitral valve repair in 04/2023 CODE STATUS: FULL CODE DVT Prophylaxis: Lovenox SQ GI Prophylaxis: Designated medical POA if patient is not able to make medical decisions for themselves: I have reviewed the following it sales consultant notes: ED note. I have reviewed the results of the following tests: As above. I have ordered the following tests: As above. I have discussed the care of this patient with the following independent historian: RN. and Daughter. I have independently interpreted the following test below: EKG. I have discussed the management of this patient with the following physician: Dr. Bailey Past Medical History Past Medical History: Hyperlipidemia, Hypertension, Prostate Disorder Additional Past Medical History / Comment(s): COVID 06/2022, heart valve problem per pt., SOB w/exertion @times History of Any Multi-Drug Resistant Organisms: None Reported Past Surgical History: Appendectomy, Heart Catheterization, Hernia Repair, Orthopedic Surgery Additional Past Surgical History / Comment(s): ORIF RT WRIST SX, COLONOSCOPY, BILAT CATARACTS REMOVED WITH LENS IMPLANTS, open heart surgery Past Anesthesia/Blood Transfusion Reactions: No Reported Reaction Past Psychological History: No Psychological Hx Reported Smoking Status: Former smoker Past Alcohol Use History: None Reported Additional Past Alcohol Use History / Comment(s): QUIT SMOKING 2012, smoked on & off 18 yrs., 1ppd,. PAST ETOH ABUSE LAST DRINK 44 YEARS AGO Past Drug Use History: None Reported - Past Family History Father Family Medical History: Cancer Medications and Allergies Home Medications Medication Instructions Recorded Confirmed Type [place]-3/Dha/Epa/Fish Oil [Fish Oil 1 cap PO Q2D 10/18/22 10/08/23 History 1,000 mg Softgel] Tamsulosin [Flomax] 0.4 mg PO HS 10/18/22 10/08/23 History Cyanocobalamin (Vitamin B-12) 1,000 mcg PO DAILY 03/16/23 10/08/23 History [Vitamin B-12] Rosuvastatin [Crestor] 10 mg PO HS 09/01/23 10/08/23 History Magnesium(Unknown Dose) 1 tab PO DAILY 10/08/23 10/08/23 History Allergies Allergy/AdvReac Type Severity Reaction Status Date / Time No Known Allergies Allergy Verified 10/08/23 08:32 Physical Exam Vitals: Vital Signs Temp Pulse Pulse Pulse Resp BP BP 10/08/23 10:07 98.0 F 76 76 76 16 118/78 118/78 10/08/23 09:26 75 20 105/68 10/08/23 08:54 75 16 117/75 10/08/23 08:06 80 20 104/72 10/08/23 07:37 80 20 115/97 10/08/23 07:22 80 16 115/97 10/08/23 07:06 88 16 140/86 10/08/23 07:02 97.3 F L 52 L 18 130/70 Pulse Ox 10/08/23 10:07 100 10/08/23 09:26 98 10/08/23 08:54 99 10/08/23 08:06 97 10/08/23 07:37 96 10/08/23 07:22 97 10/08/23 07:06 98 10/08/23 07:02 96 Intake and Output 10/07/23 10/08/23 10/08/23 22:59 06:59 14:59 Other: Weight 90.718 kg Results CBC & Chem 7: 10/08/23 07:22 10/08/23 07:22 Labs: Abnormal Lab Results - Last 24 Hours (Table) 10/08/23 10/08/23 Range/Units 07:22 07:22 Plt Count 141 L (150-450) k/uL Chloride 108 H (98-107) mmol/L Glucose 103 H (74-99) mg/dL Thrombosis Risk Factor Assmnt - Choose All That Apply Each Risk Factor Represents 2 Points: Age 61-74 years Each Risk Factor Represents 5 Points: Stroke (< 1 month) Thrombosis Risk Factor Assessment Total Risk Factor Score: 7 Thrombosis Risk Factor Assessment Level: High Risk
--- NOTE | 2023-10-08 12:18 | US ---
EXAMINATION TYPE: US carotid duplex BILAT DATE OF EXAM: 10/08/2023 COMPARISON: NONE CLINICAL INDICATION: Male, 78 years old with history of CVA; Facial Drooping TECHNIQUE: Carotid duplex ultrasound examination. Indirect Doppler criteria was utilized. FINDINGS: EXAM MEASUREMENTS: RIGHT: Peak Systolic Velocity (PSV) cm/sec ----- Right CCA: 76 ----- Right ICA: 53 ----- Right ECA: 92 ICA/CCA ratio: 0.66 RIGHT: End Diastole cm/sec ----- Right CCA: 27 ----- Right ICA: 25 ----- Right ECA: 26 LEFT: Peak Systolic Velocity (PSV) cm/sec ----- Left CCA: 86 ----- Left ICA: 74 ----- Left ECA: 92 ICA/CCA ratio: 0.86 LEFT: End Diastole cm/sec ----- Left CCA: 26 ----- Left ICA: 43 ----- Left ECA: 26 VERTEBRALS (direction of flow): Right Vertebral: Antegrade Left Vertebral: Antegrade Rhythm: Arrhythmia SCHOOL AGE PROGRAM TEACHER NOTES: Intimal thickening bilateral distal CCA, some calcified plaque noted, no elevated velocities seen. IMPRESSION: No hemodynamically significant internal carotid artery stenosis on either side. Criteria for Assigning % of Stenosis / Diameter reduction (Estimation based on the indirect measurements of the internal carotid artery velocities (ICA PSV). 1. Normal (no stenosis)=ICA PSV < 125 cm/s: ratio < 2.0: ICA EDV<40 cm/s. 2. Less than 50% stenosis=ICA PSV < 125 cm/s: ratio < 2.0: ICA EDV<40 cm/s. 3. 50 to 69% stenosis=ICA PSV of 125 to 230 cm/s: ration 2.0 ? 4.0: ICA EDV 40-100 cm/s. 4. Greater than 70% stenosis to near occlusion= ICA PSV > 230 cm/s: ratio > 4.0: ICA EDV > 100 cm/s. 5. Near occlusion= ICA PSV velocities may be low or undetectable: variable ratio and ICA EDV. 6. Total occlusion=unable to detect flow.
[2023-10-08] MEDS: CLOPIDOGREL 75 MG TAB PO SCH (15:46)
[2023-10-08] MEDS: TAMSULOSIN 0.4 MG CAP.ER.24H PO SCH (20:30)
[2023-10-08] MEDS: ATORVASTATIN 80 MG TAB PO SCH (20:30)
--- NOTE | 2023-10-09 00:53 | P.CNNES ---
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 Patient states that he woke up at 6 AM, dressed up, let his dog outside, put the vest maker on. Then he went to the restroom, had bowel movement, as per his norm. When he tried to pull the pants and tried to put the belt on, and noticed his left hand was dangling, couldn't put the belt together. He watched himself on the mirror, and protruded his tongue, and it was deviating to the left side. His came over, and noticed left facial droop. He was able to go up steps without problem, but coming down steps he noticed his left leg was "not there". He took extra time to go down steps. He was also having problem with speech, it was a struggle to talk, his daughter felt like he was "drunk". He states it was "had to think, and how to move his mouth" for him to talk. There was no dizziness or lightheadedness. His drove him to the hospital. Vital signs on arrival blood pressure 130/70, pulse rate 52 temperature 97.3. Blood test shows normal CBC PT PTT, normal CMP. Troponin negative CK normal. CT head showed no acute intracranial abnormality. Scattered paranasal sinus m ucosal thickening, greatest in the left maxillary. I personally reviewed CT head, agree with the findings. EKG showed sinus rhythm with frequent ventricular premature complexes. Chest x-ray showed mild cardiomegaly with postoperative changes. No evidence of acute cardiopulmonary disease. Patient was evaluated by ED staff. ED notes not complete, therefore unsure if any stroke code was activated. It was reported in the ED notes that patient woke up at 6 AM with stroke symptoms. Therefore he was probably not a candidate for TPA. Last known well was 2:30 AM according to their documentation. Patient states his symptoms lasted until around 11:30, and now has completely resolved. Earlier he had some shakiness of the legs when walking, but now it's gone. At present he has no symptoms. Patient denies any history of hypertension and diabetes. No history of coronary artery disease. Denies any history of strokes or TIA. Patient says that he fell off the tree 10 years ago, suffered from compound fracture of the right wrist region. Had surgery. He has some residual weakness of the fingers from the surgery. He had a valve repaired on 04/17/2023. Medications include Crestor 10 mg, B12, fish oil, Flomax and magnesium. Patient does not take any antiplatelet medication. Patient has smoked 1 pack per day for 15-20 years, quit 10 years ago. Denies any alcohol use for last 45 years. Review of Systems Constitutional: Denies chills, Denies fever Eyes: denies blurred vision, denies diplopia, denies pain, denies loss of vision Ears: deny: decreased hearing, ear discharge Ears, nose, mouth and throat: Denies headache, Denies sore throat, Denies vertigo Cardiovascular: Denies chest pain, Denies lightheadedness, Denies shortness of breath Respiratory: Denies cough, Denies excessive sputum Gastrointestinal: Denies abdominal pain, Denies diarrhea, Denies nausea, Denies vomiting Musculoskeletal: Denies low back pain, Denies myalgias, Denies neck pain Integumentary: Denies pruritus, Denies rash Neurological: Reports as per HPI Psychiatric: Denies anxiety, Denies depression Past Medical History Past Medical History: Hyperlipidemia, Hypertension, Prostate Disorder Additional Past Medical History / Comment(s): COVID 06/2022, heart valve problem per pt., SOB w/exertion @times History of Any Multi-Drug Resistant Organisms: None Reported Past Surgical History: Appendectomy, Heart Catheterization, Hernia Repair, Orthopedic Surgery Additional Past Surgical History / Comment(s): ORIF RT WRIST SX, COLONOSCOPY, BILAT CATARACTS REMOVED WITH LENS IMPLANTS, open heart surgery Past Anesthesia/Blood Transfusion Reactions: No Reported Reaction Past Psychological History: No Psychological Hx Reported Smoking Status: Former smoker Past Alcohol Use History: None Reported Additional Past Alcohol Use History / Comment(s): QUIT SMOKING 2012, smoked on & off 18 yrs., 1ppd,. PAST ETOH ABUSE LAST DRINK 44 YEARS AGO Past Drug Use History: None Reported - Past Family History Father Family Medical History: Cancer Medications and Allergies Home Medications Medication Instructions Recorded Confirmed Type [place]-3/Dha/Epa/Fish Oil [Fish Oil 1 cap PO Q2D 10/18/22 10/08/23 History 1,000 mg Softgel] Tamsulosin [Flomax] 0.4 mg PO HS 10/18/22 10/08/23 History Cyanocobalamin (Vitamin B-12) 1,000 mcg PO DAILY 03/16/23 10/08/23 History [Vitamin B-12] Rosuvastatin [Crestor] 10 mg PO HS 09/01/23 10/08/23 History Magnesium(Unknown Dose) 1 tab PO DAILY 10/08/23 10/08/23 History Allergies Allergy/AdvReac Type Severity Reaction Status Date / Time No Known Allergies Allergy Verified 10/08/23 08:32 Physical Examination - Vital Signs Vital Signs: Vital Signs Temp Pulse Pulse Pulse Resp BP BP 10/08/23 10:07 98.0 F 76 76 76 16 118/78 118/78 10/08/23 09:26 75 20 105/68 10/08/23 08:54 75 16 117/75 10/08/23 08:06 80 20 104/72 10/08/23 07:37 80 20 115/97 10/08/23 07:22 80 16 115/97 10/08/23 07:06 88 16 140/86 10/08/23 07:02 97.3 F L 52 L 18 130/70 Pulse Ox 10/08/23 10:07 100 10/08/23 09:26 98 10/08/23 08:54 99 10/08/23 08:06 97 10/08/23 07:37 96 10/08/23 07:22 97 10/08/23 07:06 98 10/08/23 07:02 96 Intake and Output 10/07/23 10/08/23 10/08/23 22:59 06:59 14:59 Other: Weight 90.718 kg Patient is an elderly male, very pleasant, in no acute distress. Patient is alert awake oriented to time place and person. Speech and language functions are normal. Patient can name and repeat very well. No aphasia or dysarthria. His speech is slightly slurred, but probably baseline. Family believes speech back to normal. Attention, concentration and fund of knowledge is adequate. On cranial nerve examination, pupils are equal, round and reacting to light, visual chavez are full on confrontation, with no neglect on double simultaneous stimulation. Extraocular muscles are intact with no nystagmus. Face is symmetric, tongue protrudes to the midline. Palatal elevation and sensation normal, hearing and shoulder shrug normal, facial sensation normal. On muscle strength testing, there is no pronator drift and the strength is normal in arms and legs distally and proximally. Patient's right hand is slightly claw from previous surgery. Deep tendon reflexes are symmetric and very hypoactive to absent and plantars downgoing. Sensory to touch is equal with no neglect on double simultaneous stimulation. Cerebellar function showed mild ataxia for [id number] testing only on the left side. No obvious ataxia for [id number] testing on either side, although both were mildly incoordinated. Tone and bulk of muscles normal. Gait deferred.. On general examination, there is no carotid bruit or murmur, S1-S2 audible. Chest is clear on consultation. Abdomen is soft nontender. No organomegaly, bowel sounds present. Peripheral pulses are present. No peripheral edema. Results - Laboratory Findings CBC and BMP: 10/08/23 07:22 10/08/23 07:22 Abnormal Lab Findings: Abnormal Labs 10/08/23 10/08/23 07:22 07:22 Plt Count 141 L Chloride 108 H Glucose 103 H Assessment and Plan Assessment: * Possible stroke/TIA manifesting with slurred speech, left facial droop, left arm and leg weakness. Symptoms have mostly resolved, except for mild incoordination for [id number] testing on the left. 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 * X tobacco use Plan: Patient had a possible stroke or TIA. Patient's NIH stroke scale is 1 at this time. MRI of the brain without contrast, evaluate for acute CVA 2-D echo with bubble study to rule out PFO CTA head and neck showed: No intracranial large vessel occlusion, significant stenosis or sizable aneurysm. CTA of the neck showed mild to moderate atherosclerotic plaque at the carotid bifurcation, left more than right, without hemodynamically significant diameter stenosis. No dissection or pseudoaneurysm. Carotid Doppler, revealed no hemodynamically significant stenosis of either ICA. Antegrade flow in both vertebral arteries. Fasting a.m. lipid panel. Patient taking Crestor 10 mg at night. Patient started on Lipitor 40 mg in the hospital. Hemoglobin A1c Permissive hypertension for next 24-48 hours Patient was not taking any antiplatelet medication at home. Patient started on aspirin 325 mg daily. Patient's ABCD2 score is 5, which is moderate risk. We will also add Plavix 75 mg daily for 21 days only. Neuro checks every 4 hours. Telemetry monitoring rule out any arrhythmia PT, OT, speech therapy DVT prophylaxis: Lovenox [address] Siddhartha Schroeder to resume neurology service in the morning. Thank you for the consult.
[2023-10-09 02:40] VITALS: RESP 16
[2023-10-09] MEDS: ASPIRIN 325 MG TAB PO SCH (09:36)
[2023-10-09] MEDS: ATORVASTATIN 40 MG TAB PO SCH (09:36)
[2023-10-09] MEDS: ENOXAPARIN 40 MG/0.4 ML SYRINGE SQ SCH (09:37)
[2023-10-09 10:33] LABS: Chol/HDL Ratio 2.84 Ratio; LDL Cholesterol,Calculated 67.5 mg/dL (0.0-131.0)
--- NOTE | 2023-10-09 10:49 | MR ---
EXAMINATION TYPE: MR brain wo con DATE OF EXAM: 10/09/2023 10:16 AM CLINICAL INDICATION:Male, 78 years old with history of CVA; PHH, Left side weakness, CVA COMPARISON: 10/08/2023. TECHNIQUE: Multi planar, multi sequence imaging was performed through the brain including: T1, T2, In version recovery, Diffusion weighted imaging, and gradient echo imaging. No gadolinium was given. FINDINGS: There is restricted diffusion within the right insular cortex and right temporal lobe. The ayala-white junctions, ventricular system, basal cisterns appear unremarkable. Scattered foci of high T2 signal intensity are seen within the periventricular white matter. Midline structures show n o abnormality. The susceptibility weighted images do not reveal any evidence for micro-hemorrhage. The bone marrow signal is within normal limits. Paranasal sinuses and mastoid air cells: Mild scattered paranasal sinus disease. Visualized orbits: Bilateral aphakia IMPRESSION: 1. Acute/subacute CVA involving the right MCA territory involving the insular cortex and temporal lob e 2. Nonspecific white matter changes, likely secondary to small vessel ischemic disease.
--- NOTE | 2023-10-09 11:52 | CA ---
Transthoracic Echo Report Name: Manpreet Alexis Age: 78 Gender: M : 1945 Exam Date: 10/09/2023 08:11 Exam Location: [facility] Ht (in): 74 Wt (lb): 200 Ordering Physician: Bianka Bailey DO Attending/Referring Phys: [id number], [employer] Specialist Deanne Dutta RDCS Procedure CPT: Indications: Thrombus Cardiac Hx: Technical Quality: Good Contrast 1: Definity Total Dose (mL): 2 Contrast 2: Total Dose (mL): MEASUREMENTS (Male / Female) Normal Values 2D ECHO LV Diastolic Diameter PLAX 7.4 cm 4.2 - 5.9 / 3.9 - 5.3 cm LV Systolic Diameter PLAX 6.6 cm IVS Diastolic Thickness 1.0 cm 0.6 - 1.0 / 0.6 - 0.9 cm LVPW Diastolic Thickness 1.0 cm 0.6 - 1.0 / 0.6 - 0.9 cm LV Relative Wall Thickness 0.3 RV Internal Dim ED PLAX 2.4 cm LA Systolic Diameter LX 4.7 cm 3.0 - 4.0 / 2.7 - 3.8 cm LV Diastolic Volume MOD BP 197.8 cm??? 67 - 155 / 56 - 104 cm??? LV Systolic Volume MOD BP 156.5 cm??? - 58 / 19 - 49 cm??? LV Ejection Fraction MOD BP 20.9 % >= 55 % LV Cardiac Index MOD BP 1533.5 cm???/min???m??? LV Diastolic Volume MOD 4C 214.7 cm??? LV Systolic Volume MOD 4C 176.5 cm??? LV Ejection Fraction MOD 4C 17.8 % LV Cardiac Index MOD 4C 1415.3 cm???/min???m??? LV Diastolic Length 4C 9.0 cm LV Systolic Length 4C 8.5 cm LV Diastolic Volume MOD 2C 179.4 cm??? LV Systolic Volume MOD 2C 135.9 cm??? LV Ejection Fraction MOD 2C 24.3 % LV Cardiac Index MOD 2C 1616.1 cm???/min???m??? LV Diastolic Length 2C 8.8 cm LV Systolic Length 2C 8.7 cm LA Volume 110.6 cm??? 18 - 58 / 22 - 52 cm??? LA Volume Index 50.6 cm???/m??? 16 - 28 cm???/m??? M-MODE Aortic Root Diameter MM 3.5 cm LA Systolic Diameter MM 3.9 cm LA Ao Ratio MM 1.1 AV Cusp Separation MM 2.2 cm DOPPLER AI Peak Velocity 310.5 cm/s AI Peak Gradient 38.6 mmHg AI Pressure Half Time 754.8 ms MV Peak Velocity 134.8 cm/s MV Peak Gradient 7.3 mmHg MV Mean Velocity 61.9 cm/s MV Mean Gradient 2.1 mmHg MV Velocity Time Integral 33.6 cm MV Area PHT 3.2 cm??? Mitral E Point Velocity 87.3 cm/s Mitral A Point Velocity 112.6 cm/s Mitral E to A Ratio 0.8 MV Deceleration Time 234.5 ms TR Peak Velocity 236.4 cm/s TR Peak Gradient 22.4 mmHg Right Ventricular Systolic Press 41.1 mmHg FINDINGS Left Ventricle Left ventricular ejection fraction is estimated at 10-15 %. Severely increased left ventricular diastolic diameter. Moderately increased left ventricular diastolic volume. Severely increased left ventricular systolic volume. Severely decreased left ventricular ejection fraction. Right Ventricle Mild right ventricular dilatation. Mild pulmonary hypertension. Right Atrium Moderate right atrial dilatation. Left Atrium Moderately increased left atrial diameter. Severely increased left atrial volume. Mildly increased left atrial area. Mitral Valve MV Repair noted. MV Peak gradient 7.3 mmHg, Mean gradient 2.1mmHg. Mild mitral regurgitation. Aortic Valve Trileaflet aortic valve. Mild aortic regurgitation. No aortic stenosis. Tricuspid Valve Structurally normal tricuspid valve. Mild tricuspid regurgitation. Pulmonic Valve Structurally normal pulmonic valve. Mild pulmonic regurgitation. Pericardium No pericardial or pleural effusion. Aorta Normal size aortic root and proximal ascending aorta. CONCLUSIONS Technically difficult study. Definity ECHO contrast used for improved visualization of the endocardial borders (inadequate visualization of two or more contiguous segments). Dilated left ventricle with severe global hypokinesis Mitral valve annuloplasty with mild mitral regurgitation Mild tricuspid regurgitation with mild pulmonary hypertension Previewed by: Dr. Karin Andrews MD (Electronically Signed) Final Date: 09 October 2023 11:50
--- NOTE | 2023-10-09 14:19 | P.PN ---
Subjective Progress Note Date: 10/09/23 Seeing the patient for the first time during this admission. Please refer to Dr. Levin's note for further details. Patient presents because of sided weakness including the face but he stated it was predominantly left upper extremity. Patient states symptoms has drastically improved since his presentation. Denies any new neurological issues. Denies being on any antiplatelet prior to this. Denies any history of A-fib or flutter prior to this. Objective - Vital Signs Vital signs: Vital Signs Temp 97.7 F 10/09/23 09:25 Pulse 92 10/09/23 11:07 Resp 16 10/09/23 11:07 BP 124/74 10/09/23 11:07 Pulse Ox 97 10/09/23 11:07 FiO2 Intake & Output 10/08/23 10/09/23 10/09/23 18:59 06:59 18:59 Intake Total 118 478 Balance 118 478 Weight 90.718 kg 86.8 kg Intake: Oral 118 478 Other: Voiding Method Toilet Toilet # Voids 4 3 2 - Exam GENERAL: The patient is sitting in a recliner chair having his lunch and is not in acute distress. NEUROLOGICAL: Higher mental function: The patient is awake, alert, oriented to self, place and time. Patient is following commands. No aphasia and no neglect. Cranial nerves: The pupils are round, equal and reactive to light and accommodation. Visual chavez are full to confrontation throughout. Extraocular movement is intact no nystagmus is noted. Facial sensation is normal to touch throughout. The facial strength is normal throughout. Tongue is midline and moved [id number] without any difficulty. No dysarthria is noted. Shoulder shrug is normal bilaterally. Motor: The strength is lifting all extremities above gravity and are symmetrical. Normal tone and bulk. Cerebellum: Normal finger to nose bilaterally. Sensation: Sensation is normal to touch throughout. - Labs CBC & Chem 7: 10/08/23 07:22 10/08/23 07:22 Assessment and Plan Assessment: * Acute right MCA stroke with symptoms of slurred speech, left facial droop, left arm and leg weakness. Symptoms have mostly resolved. Etiology at this time is crytogenic. Rule out cardioembolic. 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 * X tobacco use Plan: MRI of the brain without contrast: Acute/subacute CVA involving the right MCA territory involving the insular cortex and temporal lobe. I personally reviewed the MRI and agree there is acute ischemic stroke over the right MCA territory. 2-D echo with bubble study to rule out PFO: peinding. CTA head and neck showed: No intracranial large vessel occlusion, significant stenosis or sizable aneurysm. CTA of the neck showed mild to moderate atherosclerotic plaque at the carotid bifurcation, left more than right, without hemodynamically significant diameter stenosis. No dissection or pseudoaneurysm. Carotid Doppler, revealed no hemodynamically significant stenosis of either ICA. Antegrade flow in both vertebral arteries. Fasting a.m. lipid panel: Cholesterol is 126, cholesterol is 143, LDL is 67 and HDL is 50 Patient taking Crestor 10 mg at night. Patient started on Lipitor 40 mg in the hospital. Hemoglobin A1c: 8 Permissive hypertension for next 24 hours Patient was not taking any antiplatelet medication at home. Patient started on aspirin 325 mg daily. Patient's ABCD2 score is 5, which is moderate risk. Also added Plavix 75 mg daily for 21 days only. Recommend antiplatelet for 21 days and after 21 days stop Plavix but continue aspirin indefinitely Neuro checks every 4 hours. Telemetry monitoring rule out any arrhythmia. Recommend event monitor for 30- day PT, OT, speech therapy DVT prophylaxis: Lovenox 40 mg subcu daily. Upon discharge recommend the patient to follow-up with neurologist as an outpatient within 2 weeks. If 2D echo is negative and no worsening of his neurological condition. Then patient is clear from neurological perspective. The plan is discussed with patient and primary team. Time with Patient: Less than 30
[2023-10-09] MEDS: METOPROLOL SUCCINATE (ER) 25 MG TAB.ER.24H PO SCH (16:19)
[2023-10-09] MEDS: lisinopriL 5 MG TAB PO SCH (16:19)
--- NOTE | 2023-10-09 17:13 | P.PN ---
Subjective Progress Note Date: 10/09/23 Subjective: Patient seen and examined at bedside. No acute events overnight. Patient was able to get up multiple times to go to the bathroom last night. Patient was evaluated by physical therapy to assess ambulation for possible discharge. Patient scheduled for brain MRI and echocardiogram this morning. Pertinent positives and negatives as discussed above, a complete review of systems was performed and all other systems are negative. Vitals: Signs Reviewed Physical Exam: General: Well appearing, alert, interactive Derm: Warm, dry Head: atrumatic, noncephalic, symmetric Eyes: EOMI, no lid lag, anticteric sclera Cardiovascular: RRR, no murmurs, or gallops appreciated Lungs: clear to auscultation bilaterally Abdominal: nontender, nondistended, no rigidity, soft Extremities: no edema Neuro: Positive for slurred speech, left lower facial droop, 5/5 strength in all extremities. Psych: Alert, oriented, appropiate affect Data Received Today: Pertinent Labs: Total cholesterol 143, LDL cholesterol: 67.5, hemoglobin A1c: 5.8 Imaging: MRI brain: 1. Acute/subacute CVA involving the right MCA territory involving the insular cortex and temporal lobe Nonspecific white matter changes, likely secondary to small vessel ischemic disease. Echocardiogram Doppler: Left ventricular ejection fraction is estimated at 1015%. Inadequate visualization of 2 or more contiguous segments, definitive echo contrast was used to visualize endocardial borders Assessment and Plan: 78-year-old male with a past medical history of dyslipidemia, BPH, mitral valve repair presents to the ED with left sided weakness in the upper and lower extremities, and left-sided facial droop and slurred speech. Admitted for acute right MCA infarct. 1. Acute right MCA infarction with left sided facial, upper and lower extremity deficit: Embolic versus thrombotic Patient has history of mitral valve repair Echocardiogram did not show any PFO, no vegetations visualized, however due to newly reduced EF, possibility of LV thrombus, endocardial borders not adequately visualized Carotid ultrasound does not show any significant carotid artery stenosis * Discontinue aspirin 325mg and change to aspirin 81 mg PO daily. * Continue on Plavix 75mg PO daily PT/OT/speech therapy Discussed management with neurology, dual antiplatelet therapy for 21 days, then switch to aspirin alone indefinitely Continue atorvastatin 40 mg daily Event monitor at the time of discharge 2. New diagnosis of CHF with reduced ejection fraction, EF 10 to 15%: Will start on guideline directed medical therapy Started on lisinopril 5 mg daily, metoprolol succinate 12.5 mg daily, consider adding Aldactone if blood pressure can tolerate IV fluids has been discontinued Unclear if ischemic or nonischemic * Consult cardiology Consider NISA versus another limited echo if unable to completely visualize valves or LV 3. dyslipidemia * continue Lipitor 40 mg PO qd 4. BPH: * continue Flomax 0.4 mg PO qHS Prediabetes Outpatient follow-up Resolved Chronic F: fluids discontinued E: n/a N: heart healthy diet A: patient is able to ambulate down the hallway shows no signs of weakness per physical therapy DVT ppx: Lovenox 40 mg SQ daily Code status: FULL Anticipated discharge place: Home ANticipated discharge time: Pending clinical course, likely tomorrow I have seen and evaluated the patient today. Discussed with the resident and agree with the residents finding and plan as documented in the resident's note. Changes highlighted in blue font. Objective - Vital Signs Vital signs: Vital Signs Temp 97.7 F 10/09/23 09:25 Pulse 92 10/09/23 11:07 Resp 16 10/09/23 11:07 BP 124/74 10/09/23 11:07 Pulse Ox 97 10/09/23 11:07 FiO2 Intake & Output 10/08/23 10/09/23 10/09/23 18:59 06:59 18:59 Intake Total 118 478 Balance 118 478 Weight 90.718 kg 86.8 kg Intake: Oral 118 478 Other: Voiding Method Toilet Toilet # Voids 4 3 2 - Labs CBC & Chem 7: 10/08/23 07:22 10/08/23 07:22
[2023-10-10 04:56] VITALS: TEMP 97.5
[2023-10-10] MEDS: ASPIRIN 81 MG PO SCH (08:34)
--- NOTE | 2023-10-10 11:00 | P.CRDCN ---
History of Present Illness Consult date: 10/10/23 Reason for Consult (text): No heart failure reduced EF, acute stroke, mitral valve repair history History of present illness: This is a 78-year-old male patient of Dr. Brian Land with past medical history of nonobstructive coronary artery disease, severe mitral regurgitation status post mitral valve repair. We have been asked to evaluate the patient for new heart failure with reduced EF, acute stroke, mitral valve repair history. Patient pr esented to the emergency center on 10/07 with left-sided facial droop, slurred speech and left-sided weakness. He states that symptoms started about 6 am and resolved by 1 pm. Patient denies history of atrial fibrillation but has been told that he had a weak heart about 15 years ago which appears to have recovered. Regarding recent heart surgery, patient states that about 2 months after his surgery, he was feeling completely back to normal with no increased shortness of breath, no orthopnea. He states he is very active without symptoms of chest pain or pressure, shortness of breath, no lower extremity edema. Patient completed course of cardiac rehab. Patient quit smoking 12 years ago, no etoh for 40 years. History of recent appendicitis status post appendectomy on 08/31. Regarding statins, patient states he is unable to tolerate Lipitor in the past but able to tolerate Crestor. EKG: Sinus rhythm, mild IVCD, PVCs Echocardiogram reveals technically difficult study. Dilated left ventricle with severe global hypokinesis, mitral valve annuloplasty with mild mitral regurgitation. Mild tricuspid regurgitation with mild pulmonary hypertension. EF 10 to 15%. No thrombus. Chest x-ray: Mild cardiomegaly with postop changes. No evidence of acute cardiopulmonary disease. Laboratory studies: WBC 5.6, hemoglobin 14.7, platelet count 141. INR 1. Sodium 137, potassium 4.2, creatinine 0.97. Troponin negative x 1. Triglycerides 126, cholesterol 143, LDL 67 Home cardiac medications: Huntington-3 every 2 days, Crestor 10 mg at bedtime. Treadmill exercise stress test performed 05/19/2023 in the office revealed fair exercise tolerance. No symptoms typical of angina. Dysrhythmias in the form of occasional PVCs and premature ventricular triplets. Nondiagnostic electrocardiographic stress test secondary to baseline EKG abnormalities. Echocardiogram performed in the office on 10/13/2022 revealed EF 55%, borderline left ventricular hypertrophy. Mild aortic regurgitation, mitral valve prolapse with mild to moderate mitral regurgitation. Mild tricuspid regurgitation. Mitral valve repair performed on 04/17/[address] Wing. Cardiac catheterization performed 11/28/2022 revealed mild nonobstructive coronary artery disease Review Of Systems: At the time of my exam: CONSTITUTIONAL: Denies fever or chills. HEENT: Denies blurred vision, vision changes, or eye pain. Denies hemoptysis CARDIOVASCULAR: Denies chest pain. Denies orthopnea. Denies PND. Denies palpitations RESPIRATORY: Denies shortness of breath. GASTROINTESTINAL: Denies abdominal pain. Denies nausea or vomiting. HEMATOLOGIC: Denies bleeding disorders. GENITOURINARY: Denies any blood in urine. SKIN: Denies puritis. Denies rash. Physical examination: Gen: This is a 78-year-old male in no acute distress VS: reviewed HEENT: Head is atraumatic, normocephalic. Pupils equal, round. Sclerae is anicteric. NECK: Supple. No JVD. LUNGS: Clear to auscultation. No wheezes or rhonchi. No intercostal retractions. HEART: Regular rate and rhythm. No murmur. ABDOMEN: Soft No tenderness. EXTREMITIES: No pedal edema. No calf tenderness. NEUROLOGICAL: Patient is awake, alert and oriented x3. 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 Brian Land and 4 to 5 weeks Patient is cleared for discharge from cardiology once above is completed. Thank you kindly for this consultation. Nurse practitioner note has been reviewed, I agree with documented findings and plan of care. Patient was seen and examined. Past Medical History Past Medical History: Hyperlipidemia, Hypertension, Prostate Disorder Additional Past Medical History / Comment(s): COVID 06/2022, heart valve problem per pt., SOB w/exertion @times History of Any Multi-Drug Resistant Organisms: None Reported Past Surgical History: Appendectomy, Heart Catheterization, Hernia Repair, Orthopedic Surgery Additional Past Surgical History / Comment(s): ORIF RT WRIST SX, COLONOSCOPY, BILAT CATARACTS REMOVED WITH LENS IMPLANTS, open heart surgery Past Anesthesia/Blood Transfusion Reactions: No Reported Reaction Past Psychological History: No Psychological Hx Reported Smoking Status: Former smoker Past Alcohol Use History: None Reported Additional Past Alcohol Use History / Comment(s): QUIT SMOKING 2012, smoked on & off 18 yrs., 1ppd,. PAST ETOH ABUSE LAST DRINK 44 YEARS AGO Past Drug Use History: None Reported - Past Family History Father Family Medical History: Cancer Medications and Allergies Home Medications Medication Instructions Recorded Confirmed Type Huntington-3/Dha/Epa/Fish Oil [Fish Oil 1 cap PO Q2D 10/18/22 10/08/23 History 1,000 mg Softgel] Tamsulosin [Flomax] 0.4 mg PO HS 10/18/22 10/08/23 History Cyanocobalamin (Vitamin B-12) 1,000 mcg PO DAILY 03/16/23 10/08/23 History [Vitamin B-12] Magnesium(Unknown Dose) 1 tab PO DAILY 10/08/23 10/08/23 History Aspirin 81 mg PO DAILY #90 tab 10/10/23 Rx Atorvastatin [Lipitor] 40 mg PO DAILY #90 tab 10/10/23 Rx Clopidogrel [Plavix] 75 mg PO DAILY #18 tab 10/10/23 Rx Metoprolol Succinate (ER) [Toprol 25 mg PO DAILY #90 tab 10/10/23 Rx XL] lisinopriL [Zestril] 10 mg PO DAILY #90 tab 10/10/23 Rx Allergies Allergy/AdvReac Type Severity Reaction Status Date / Time No Known Allergies Allergy Verified 10/08/23 08:32 Physical Exam Vitals: Vital Signs Temp Pulse Pulse Resp BP Pulse Ox 10/10/23 04:00 97.5 F L 92 16 100/66 96 10/10/23 02:00 70 16 10/10/23 00:00 97.8 F 70 16 95/53 94 L 10/09/23 20:00 98.1 F 74 16 102/80 93 L 10/09/23 16:15 82 16 120/77 97 10/09/23 11:07 92 16 124/74 97 10/09/23 09:25 97.7 F 78 78 16 101/67 95 10/09/23 08:51 95 Intake and Output 10/09/23 10/10/23 10/10/23 22:59 06:59 14:59 Intake Total 240 Balance 240 Intake: Oral 240 Other: Voiding Method Toilet Toilet # Voids 1 2 Weight 75.6 kg Results 10/08/23 07:22 10/08/23 07:22 Lipids 10/09/23 Range/Units 06:25 Triglycerides 126.00 (0.00-149.00) mg/dL Cholesterol 143.00 (0.00-200.00) mg/dL HDL Cholesterol 50.30 (40.00-60.00) mg/dL Cholesterol/HDL Ratio 2.84 Ratio Current Medications Generic Name Dose Route Start Last Admin Trade Name Freq PRN Reason Stop Dose Admin Aspirin 81 mg 10/10/23 09:00 Aspirin 81 Mg PO DAILY COUNTS INCLUDE 234 BEDS AT THE [facility] Atorvastatin Calcium 40 mg 10/09/23 09:00 10/09/23 09:36 Atorvastatin 40 Mg Tab PO 40 mg DAILY TARA Administration Clopidogrel Bisulfate 75 mg 10/08/23 12:45 10/09/23 09:36 Clopidogrel 75 Mg Tab PO 75 mg DAILY TARA Administration Enoxaparin Sodium 40 mg 10/09/23 09:00 10/09/23 09:37 Enoxaparin 40 Mg/0.4 Ml Syringe SQ 40 mg DAILY TARA Administration Lisinopril 5 mg 10/09/23 13:15 10/09/23 16:19 Lisinopril 5 Mg Tab PO 5 mg DAILY TARA Administration Metoprolol Succinate 12.5 mg 10/09/23 13:15 10/09/23 16:19 Metoprolol Succinate (Er) 25 Mg Tab.Er.24h PO 12.5 mg DAILY TARA Administration Tamsulosin HCl 0.4 mg 10/08/23 21:00 10/09/23 20:47 Tamsulosin 0.4 Mg Cap.Er.24h PO 0.4 mg HS TARA Administration Intake and Output 10/09/23 10/10/23 10/10/23 22:59 06:59 14:59 Intake Total 240 Balance 240 Intake: Oral 240 Other: Voiding Method Toilet Toilet # Voids 1 2 Weight 75.6 kg 10/08/23 07:22 10/08/23 07:22
[2023-10-10] MEDS: METOPROLOL SUCCINATE (ER) 25 MG TAB.ER.24H PO SCH (11:33)
[2023-10-10] MEDS: METOPROLOL SUCCINATE (ER) 25 MG TAB.ER.24H PO STA (11:39)
[2023-10-10 11:51] LABS: HCT 46.9 % (39.0-53.0); HGB 13.9 gm/dL (13.0-17.5); Hypochromasia Slight; MCH 29.1 pg (25.0-35.0); MCHC 29.7 g/dL (31.0-37.0); MCV 97.9 fL (80.0-100.0); Mean Platelet Volume 7.5; Platelet Count 145 k/uL (150-450); RBC 4.79 m/uL (4.30-5.90); RDW 14.9 % (11.5-15.5)
[2023-10-10 12:00] LABS: Partial Thromboplastin Time 27.5 sec (22.0-30.0); Prothrombin Time 11.1 sec (10.0-12.5)
[2023-10-10 12:04] LABS: African American GFR (CKD) >90 (>60 ml/min/1.73 sqM); Anion Gap 6 mmol/L; Blood Urea Nitrogen 16 mg/dL (9-20); Calcium 9.3 mg/dL (8.4-10.2); Carbon Dioxide 26 mmol/L (22-30); Chloride 105 mmol/L (98-107); Glucose 113 mg/dL (74-99); Non-African American GFR(CKD) 84 (>60 ml/min/1.73 sqM); Potassium 4.5 mmol/L (3.5-5.1); Sodium 137 mmol/L (137-145)
--- NOTE | 2023-10-10 12:40 | P.DS ---
Providers Date of admission: 10/08/23 09:00 Expected date of discharge: 10/10/23 Attending physician: Nona Virgen MD Consults: 10/08/23 08:44 Consult Physician Urgent Consulting Provider: Marla Levin Consult Reason/Comments: cva Do you want consulting provider notified?: Yes 10/09/23 13:00 Consult Physician Urgent Consulting Provider: Milo Cross Consult Reason/Comments: new HFrEF, acute stroke, MV repair hx Do you want consulting provider notified?: Yes Primary care physician: [facility] Hospital Course: Discharge Diagnosis: 1. Acute right MCA infarction with left-sided upper and lower extremity deficit. 2. Newly discovered CHF with reduced ejection fraction, EF 10 to 15%. 3. Nonobstructive CAD 4. Dyslipidemia 5. BPH 6. History of mitral valve repair 7. Prediabetes Hospital Course: Patient is a 78-year-old male past medical history of dyslipidemia, BPH, mitral valve repair (05/03) presented to the ED with left-sided weakness in the upper and lower extremities, left-sided facial droop, and slurred speech. Vitals were stable in the ED. LABS UNREMARKABLE. MRI brain displayed acute/subacute CVA involving the right MCA territory involving the insular cortex and temporal lobe, and nonspecific white matter changes, likely secondary to the small vessel ischemic disease. Carotid ultrasound did not show any significant atherosclerotic disease. Evaluated by neurology. Upon further assessment patient was found to have CHF with reduced ejection fraction on echocardiogram. Ejection fraction was 10 to 15%. Patient is initiated on guideline directed medical therapy for heart failure. Will need further optimization and introduction of further medications outpatient. He was evaluated by cardiology, will be discharged with a LifeVest, outpatient stress test and will need an event monitor outpatient. Outpatient follow-up with cardiology. Over the course of the stay patient's left-sided weakness improved and was able to ambulate across the castro without any assistance. Being discharged on dual antiplatelet therapy for 21 days and statin. Patient seen and examined at bedside with no events occurring overnight. Patient denies chest pain, shortness of breath. Patient is euvolemic. Patient seen by vineyardist, and was advised for outpatient follow-up. Patient is to receive LifeVest prior to discharge. Vital signs reviewed and stable. Physical Exam: General non-toxic, no distress, appears appropriate age Derm warm, dry Head atruamatic, normocephalic, symmetric Eyes: EMOI, no lid lag Mouth: no lip lesion, mucus membranes moist Cardiovascular: S1S2 reg, no murmur Lungs: CTA bilateral, no rhonchi, no rales, no accessory muscle use Abdominal: soft, non-tender to palpation, no guarding, no appreciable organomegaly Ext: no gross muscle atrophy, no edema, no contractures Neuro: CN II-XI grossly intact, no focal neuro deficits Psych: alert, oriented, appropriate affect A total of 33 minutes of time were spent preparing this complex discharge summary. Patient was discharge on 10/10/2023 at 1055. I have seen and evaluated the patient today. Discussed with the resident and agree with the residents finding and plan as documented in the resident's note. Changes are highlighted in blue font. Patient Condition at Discharge: Stable Plan - Discharge Summary Discharge Rx Participant: Yes New Discharge Prescriptions: New Aspirin 81 mg PO DAILY #90 tab Atorvastatin [Lipitor] 40 mg PO DAILY #90 tab Clopidogrel [Plavix] 75 mg PO DAILY #18 tab lisinopriL [Zestril] 10 mg PO DAILY #90 tab Metoprolol Succinate (ER) [Toprol XL] 25 mg PO DAILY #90 tab Continue Tamsulosin [Flomax] 0.4 mg PO HS Magnesium(Unknown Dose) 1 tab PO DAILY [place]-3/Dha/Epa/Fish Oil [Fish Oil 1,000 mg Softgel] 1 cap PO Q2D Cyanocobalamin (Vitamin B-12) [Vitamin B-12] 1,000 mcg PO DAILY Discontinued Rosuvastatin [Crestor] 10 mg PO HS Discharge Medication List [place]-3/Dha/Epa/Fish Oil [Fish Oil 1,000 mg Softgel] 1 cap PO Q2D 10/18/22 [History] Tamsulosin [Flomax] 0.4 mg PO HS 10/18/22 [History] Cyanocobalamin (Vitamin B-12) [Vitamin B-12] 1,000 mcg PO DAILY 03/16/23 [History] Magnesium(Unknown Dose) 1 tab PO DAILY 10/08/23 [History] Aspirin 81 mg PO DAILY #90 tab 10/10/23 [Rx] Atorvastatin [Lipitor] 40 mg PO DAILY #90 tab 10/10/23 [Rx] Clopidogrel [Plavix] 75 mg PO DAILY #18 tab 10/10/23 [Rx] Metoprolol Succinate (ER) [Toprol XL] 25 mg PO DAILY #90 tab 10/10/23 [Rx] lisinopriL [Zestril] 10 mg PO DAILY #90 tab 10/10/23 [Rx] Follow up Appointment(s)/Referral(s): Wang Frausto MD [REFERRING] - 1 Week Antonio Land MD [STAFF PHYSICIAN] - 1 Week [facility] [Primary Care Provider] - 1-2 days Patient Instructions/Handouts: Heart Failure (DC), Ischemic Stroke (DC) Activity/Diet/Wound Care/Special Instructions: LifeVest has been ordered Patient to mixing picker tender event monitor in the office at [facility] please follow up with cardiology, neurology, and your PCP. Discharge Disposition: HOME SELF-CARE
[2023-10-10 15:14] VITALS: BP 102/65; PULSE 71
[2023-10-11] MEDS ORDERED: METOPROLOL SUCCINATE (ER) 25 MG TAB.ER.24H PO SCH (09:00)
[2023-10-11] MEDS ORDERED: lisinopriL 10 MG TAB PO SCH (09:00)
== END 2023-10-10 18:22 | disposition home or self-care (01) | DRG 65 ==
LOC: EC 07:01 → 3SCARD 09:00
PROVIDERS: ADMIT Family Medicine; ATTEND Family Medicine
DX: I63.511 Cerebral infarction due to unspecified occlusion or stenosis of right middle cerebral artery (principal); G81.94 Hemiplegia, unspecified affecting left nondominant side; I42.0 Dilated cardiomyopathy; I50.20 Unspecified systolic (congestive) heart failure; I27.20 Pulmonary hypertension, unspecified; I11.0 Hypertensive heart disease with heart failure; R47.01 Aphasia; F10.11 Alcohol abuse, in remission; Z95.3 Presence of xenogenic heart valve; I65.23 Occlusion and stenosis of bilateral carotid arteries; I08.3 Combined rheumatic disorders of mitral, aortic and tricuspid valves; R29.810 Facial weakness; E78.5 Hyperlipidemia, unspecified; N40.0 Benign prostatic hyperplasia without lower urinary tract symptoms; I25.10 Atherosclerotic heart disease of native coronary artery without angina pectoris; R73.03 Prediabetes; I49.3 Ventricular premature depolarization; R29.705 NIHSS score 5; N42.9 Disorder of prostate, unspecified; R48.8 Other symbolic dysfunctions; Z87.891 Personal history of nicotine dependence; Z86.16 Personal history of COVID-19; Z79.899 Other long term (current) drug therapy
CPT/HCPCS: 36415; 70450; 70496; 70498; 70551; 71046; 80048; 80053; 80061; 82550; 83036; 84484; 85025; 85027; 85610; 85730; 93005; 93306; 93880; 94760; 99291

== ENCOUNTER 2024-05-29 13:34 | Inpatient (IN) | payer OTHER, MEDICARE ==
--- NOTE | 2024-05-29 13:51 | ED ---
General Adult HPI - General Chief complaint: Arrhythmia/Palpitations Stated complaint: SOB, dizzy Time Seen by Provider: 05/29/24 13:47 Source: patient, family, RN notes reviewed, old records reviewed Mode of arrival: wheelchair Limitations: no limitations - History of Present Illness Initial comments: 79-year-old male presenting with increased dyspnea after pacemaker defibrillator placement approximately 2 weeks ago. Patient was seen at the floorwalker office, Dr. Land who sent him into the emergency department for evaluation. Patient denies cough or fever. He reports exertional dyspnea. Denies weight gain or lower extremity edema. Denies central chest pain. - Related Data Home Medications Medication Instructions Recorded Confirmed Tamsulosin [Flomax] 0.4 mg PO HS 10/18/22 05/29/24 Cyanocobalamin (Vitamin B-12) 1,000 mcg PO DAILY 03/16/23 05/29/24 [Vitamin B-12] Magnesium 400 mg PO HS #0 10/08/23 05/29/24 Rosuvastatin Calcium 20 mg PO DAILY 05/14/24 05/29/24 Losartan [Cozaar] 25 mg PO HS 05/29/24 05/29/24 Metoprolol Succinate (ER) [Toprol 25 mg PO HS 05/29/24 05/29/24 Xl] Spironolactone 25 mg PO HS 05/29/24 05/29/24 Previous Rx's Medication Instructions Recorded Aspirin 81 mg PO DAILY #90 tab 10/10/23 Allergies Allergy/AdvReac Type Severity Reaction Status Date / Time No Known Allergies Allergy Verified 05/29/24 14:15 Review of Systems ROS Statement: Those systems with pertinent positive or pertinent negative responses have been documented in the HPI. ROS Other: All systems not noted in ROS Statement are negative. 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,hx COVID 06/2022, heart valve problem per pt., SOB w/exertion @times,BPH History of Any Multi-Drug Resistant Organisms: None Reported Past Surgical History: Heart Catheterization, Hernia Repair, Orthopedic Surgery, Pacemaker Additional Past Surgical History / Comment(s): ORIF RT WRIST SX, COLONOSCOPY, BILAT CATARACTS REMOVED WITH LENS IMPLANTS, open heart surgery-mitral valve repair Past Anesthesia/Blood Transfusion Reactions: No Reported Reaction Additional Past Anesthesia/Blood Transfusion Reaction / Comment(s): no hx blood transfusion Past Psychological History: No Psychological Hx Reported Smoking Status: Former smoker Past Alcohol Use History: None Reported Past Drug Use History: None Reported - Past Family History Father Family Medical History: Cancer General Exam General appearance: alert, in no apparent distress Head exam: Present: atraumatic, normocephalic Eye exam: Present: normal appearance, PERRL ENT exam: Present: normal exam Neck exam: Present: normal inspection. Absent: tenderness, meningismus Respiratory exam: Present: rales. Absent: respiratory distress Cardiovascular Exam: Present: regular rate, normal rhythm GI/Abdominal exam: Present: soft. Absent: distended, tenderness, guarding Extremities exam: Present: normal inspection, normal capillary refill. Absent: calf tenderness Neurological exam: Present: alert, oriented X3, CN II-XII intact. Absent: motor sensory deficit Psychiatric exam: Present: normal affect, normal mood Skin exam: Present: warm, dry, intact. Absent: cyanosis, diaphoretic Course Vital Signs 05/29/24 05/29/24 13:39 13:56 Temperature 98.7 F Pulse Rate 38 L 71 Respiratory 25 H 20 Rate Blood Pressure 111/59 131/55 O2 Sat by Pulse 98 97 Oximetry Medical Decision Making - Medical Decision Making Was pt. sent in by a medical professional or institution (, PA, CHIEF NURSE ANESTHETIST, urgent care, hospital, or residential...) When possible be specific @Scented by Dr. Land Did you speak to anyone other than the patient for history (EMS, parent, family, police, friend...)? What history was obtained from this source @ -No Did you review nursing and triage notes (agree or disagree)? Why? @ -I reviewed and agree with nursing and triage notes Were old charts reviewed (outside hosp., previous admission, EMS record, old EKG, old radiological studies, urgent care reports/EKG's, residential records)? Report findings @ -No old charts were reviewed Differential Dyspnea: Coronary syndrome, arrhythmia, tamponade, asthma, COPD, pulmonary embolism, pneumonia, pneumothorax, pulmonary effusion, anaphylaxis, diabetic ketoacidosis, flailed chest, pulmonary contusion, diaphragmatic rupture, anemia, neuromuscular, this is not meant to be an all-inclusive list. EKG interpreted by me (3pts min.). @Sinus rhythm with first-degree AV block, frequent PVC, rate of 77, ME interval 213, QRS duration 137, QTc 465 Repeat EKG at 1359, paced rhythm rate of 104, ME interval 281, QRS duration 190 X-rays interpreted by me (1pt min.). @ -Chest x-ray negative for acute cardiopulmonary disease CT interpreted by me (1pt min.). @CT angiogram negative for pulmonary embolism U/S interpreted by me (1pt. min.). @ -None done What testing was considered but not performed or refused? (CT, X-rays, U/S, labs)? Why? @ -None What meds were considered but not given or refused? Why? @ -None Did you discuss the management of the patient with other professionals (professionals i.e. , PA, CHIEF NURSE ANESTHETIST, lab, RT, psych nurse, aids social worker, ostomy nurse, teacher, school resource officer, case advocate)? Give summary @Finn rangel for [facility], will admit Was smoking cessation discussed for >3mins.? @ -No Was critical care preformed (if so, how long)? @ -No Were there social determinants of health that impacted care today? How? (Homelessness, low income, unemployed, alcoholism, drug addiction, transportation, low edu. Level, literacy, decrease access to med. care, group home, rehab)? @ -No Was there de-escalation of care discussed even if they declined (Discuss DNR or withdrawal of care, Hospice)? DNR status @ -No What co-morbidities impacted this encounter? (DM, HTN, Smoking, COPD, CAD, Cancer, CVA, ARF, Chemo, Hep., AIDS, mental health diagnosis, sleep apnea, morbid obesity)? @ -Cardiomyopathy, low ejection fraction, recent pacemaker defibrillator Was patient admitted / discharged? Hospital course, mention meds given and route, prescriptions, significant lab abnormalities, going to OR and other pertinent info. @ -79-year-old male [facility] for evaluation of dyspnea, recent pacemaker defibrillator. And sinus patient is intermittently paced rhythm. No central chest pain. Patient has a normal labs with exception of positive D-dimer. This is evaluated with CT angiogram which is negative for PE. Patient will be observed on telemetry, echo has been ordered. Cardiology placed on consult. Undiagnosed new problem with uncertain prognosis? @ -No Drug Therapy requiring intensive monitoring for toxicity (Heparin, Nitro, Insulin, Cardizem)? @ -No Were any procedures done? @ -No Diagnosis/symptom? @Dyspnea, recent pacemaker defibrillator Acute, or Chronic, or Acute on Chronic? @Acute Uncomplicated (without systemic symptoms) or Complicated (systemic symptoms)? @ -Default Side effects of treatment? @ -No Exacerbation, Progression, or Severe Exacerbation? @ -No Poses a threat to life or bodily function? How? (Chest pain, [place], [place], pneumonia, PE, COPD, DKA, ARF, appy, cholecystitis, CVA, Diverticulitis, Homicidal, Suicidal, threat to staff... and all critical care pts) @Yes, CHF, arrhythmia - Lab Data Result diagrams: 05/29/24 14:09 05/29/24 14:09 Lab Results 05/29/24 05/29/24 05/29/24 Range/Units 14:09 14:09 14:09 WBC 6.3 (3.8-10.6) k/uL RBC 4.60 (4.30-5.90) m/uL Hgb 14.7 (13.0-17.5) gm/dL Hct 43.2 (39.0-53.0) % MCV 93.9 (80.0-100.0) fL MCH 32.0 (25.0-35.0) pg MCHC 34.0 (31.0-37.0) g/dL RDW 12.8 (11.5-15.5) % Plt Count 137 L (150-450) k/uL MPV 7.1 Neutrophils % 60 % Lymphocytes % 27 % Monocytes % 6 % Eosinophils % 4 % Basophils % 1 % Neutrophils # 3.8 (1.3-7.7) k/uL Lymphocytes # 1.7 (1.0-4.8) k/uL Monocytes # 0.4 (0-1.0) k/uL Eosinophils # 0.3 (0-0.7) k/uL Basophils # 0.0 (0-0.2) k/uL PT 11.0 (10.0-12.5) sec INR 1.0 (<1.2) APTT 23.2 (22.0-30.0) sec D-Dimer 2.19 H (<0.60) mg/L FEU Sodium 136 L (137-145) mmol/L Potassium 4.3 (3.5-5.1) mmol/L Chloride 103 (98-107) mmol/L Carbon Dioxide 23 (22-30) mmol/L Anion Gap 10 mmol/L BUN 26 H (9-20) mg/dL Creatinine 1.14 (0.66-1.25) mg/dL Est GFR (CKD-EPI)AfAm 72 (>60 ml/min/1.73 sqM) Est GFR (CKD-EPI)NonAf 62 (>60 ml/min/1.73 sqM) Glucose 128 H (74-99) mg/dL Calcium 9.2 (8.4-10.2) mg/dL Magnesium 2.0 (1.6-2.3) mg/dL Total Bilirubin 0.6 (0.2-1.3) mg/dL AST 24 (17-59) U/L ALT 27 (4-49) U/L Alkaline Phosphatase 48 (38-126) U/L Troponin I (0.000-0.034) ng/mL NT-Pro-B Natriuret Pep 772 pg/mL Total Protein 6.6 (6.3-8.2) g/dL Albumin 4.1 (3.5-5.0) g/dL 05/29/24 Range/Units 14:09 WBC (3.8-10.6) k/uL RBC (4.30-5.90) m/uL Hgb (13.0-17.5) gm/dL Hct (39.0-53.0) % MCV (80.0-100.0) fL MCH (25.0-35.0) pg MCHC (31.0-37.0) g/dL RDW (11.5-15.5) % Plt Count (150-450) k/uL MPV Neutrophils % % Lymphocytes % % Monocytes % % Eosinophils % % Basophils % % Neutrophils # (1.3-7.7) k/uL Lymphocytes # (1.0-4.8) k/uL Monocytes # (0-1.0) k/uL Eosinophils # (0-0.7) k/uL Basophils # (0-0.2) k/uL PT (10.0-12.5) sec INR (<1.2) APTT (22.0-30.0) sec D-Dimer (<0.60) mg/L FEU Sodium (137-145) mmol/L Potassium (3.5-5.1) mmol/L Chloride (98-107) mmol/L Carbon Dioxide (22-30) mmol/L Anion Gap mmol/L BUN (9-20) mg/dL Creatinine (0.66-1.25) mg/dL Est GFR (CKD-EPI)AfAm (>60 ml/min/1.73 sqM) Est GFR (CKD-EPI)NonAf (>60 ml/min/1.73 sqM) Glucose (74-99) mg/dL Calcium (8.4-10.2) mg/dL Magnesium (1.6-2.3) mg/dL Total Bilirubin (0.2-1.3) mg/dL AST (17-59) U/L ALT (4-49) U/L Alkaline Phosphatase (38-126) U/L Troponin I <0.012 (0.000-0.034) ng/mL NT-Pro-B Natriuret Pep pg/mL Total Protein (6.3-8.2) g/dL Albumin (3.5-5.0) g/dL Disposition Clinical Impression: Palpitations, Dyspnea Disposition: ADMITTED IP TO THIS HOSP Condition: Stable Is patient prescribed a controlled substance at d/c from ED?: No Referrals: Cam Sykes DO [Primary Care Provider] - 1-2 days Time of Disposition: 16:19
[2024-05-29 14:15] LABS: Basophils % (A) 1 %; Eosinophils # (A) 0.3 k/uL (0-0.7); Eosinophils % (A) 4 %; HCT 43.2 % (39.0-53.0); HGB 14.7 gm/dL (13.0-17.5); Lymphocytes # (A) 1.7 k/uL (1.0-4.8); Lymphocytes % (A) 27 %; MCV 93.9 fL (80.0-100.0); Mean Platelet Volume 7.1; Monocytes # (A) 0.4 k/uL (0-1.0); Monocytes % (A) 6 %; Neutrophils # (A) 3.8 k/uL (1.3-7.7); Neutrophils % (A) 60 %; Platelet Count 137 k/uL (150-450); RDW 12.8 % (11.5-15.5); WBC 6.3 k/uL (3.8-10.6)
[2024-05-29 14:28] LABS: ALT 27 U/L (4-49); AST 24 U/L (17-59); African American GFR (CKD) 72 (>60 ml/min/1.73 sqM); Albumin 4.1 g/dL (3.5-5.0); Alkaline Phosphatase 48 U/L (38-126); Anion Gap 10 mmol/L; Blood Urea Nitrogen 26 mg/dL (9-20); Calcium 9.2 mg/dL (8.4-10.2); Carbon Dioxide 23 mmol/L (22-30); Chloride 103 mmol/L (98-107); Glucose 128 mg/dL (74-99); Non-African American GFR(CKD) 62 (>60 ml/min/1.73 sqM); Potassium 4.3 mmol/L (3.5-5.1); Sodium 136 mmol/L (137-145); Total Bilirubin 0.6 mg/dL (0.2-1.3); Total Protein 6.6 g/dL (6.3-8.2)
[2024-05-29 14:29] LABS: Partial Thromboplastin Time 23.2 sec (22.0-30.0)
[2024-05-29 14:36] LABS: NT-Pro-B-Type Natriuretic Pept 772 pg/mL
--- NOTE | 2024-05-29 15:13 | XR ---
EXAMINATION TYPE: XR chest 2V DATE OF EXAM: 05/29/2024 3:04 PM COMPARISON: Chest radiographs from 05/17/2024 TECHNIQUE: XR chest 2V Frontal and lateral views of the chest. CLINICAL INDICATION:Male, 79 years old with history of dysrhythmia; FINDINGS: Lungs/Pleura: There is no evidence of pleural effusion, focal consolidation, or pneumothorax. Chroni c senescent parenchymal change. Pulmonary vascularity: Unremarkable. Heart/mediastinum: Cardiomediastinal silhouette is unremarkable. Two lead cardiac conduction device o verlying the left hemithorax with lead tips projecting over the right ventricle and right atrium. Lef t atrial appendage occlusion device. Musculoskeletal: No acute osseous pathology. Midline sternotomy wires are noted and stable. IMPRESSION: Chronic changes without acute pulmonary process. No significant change from prior. [facility], , 05/29/2024 3:11 PM
--- NOTE | 2024-05-29 15:34 | P.HPIM ---
History of Present Illness H&P Date: 05/29/24 History of Presenting Illness: Patient is a very pleasant 79-year-old male with a past medical history of nonischemic cardiomyopathy with a EF of 25% status post dual-chamber ICD implantation on 05/16/2024, mitral valve repair, severe cardiomyopathy, hypertension, hyperlipidemia, and BPH. Patient reports since implantation of pacemaker he has been experiencing episodes of palpitations and exertional dyspnea that have progressively worsened. He reports following up with his c ardiologist, Dr. Land and was sent from cardiology office to the emergency department for evaluation. Patient denies having any headache, lightheadedness, dizziness, fevers, chills, diaphoresis, chest pain or tightness, cough or congestion, nausea or vomiting, or experiencing any numbness/tingling /weakness/swelling in his extremities. Upon arrival to our facility, patient underwent evaluation in the emergency department. Vital signs upon arrival show blood pressure 111/59, heart rate 38, respiratory rate 25, temp 98.7 F, and SpO2 of 98% on room air. EKG was completed showing a ventricular paced rhythm at a 104 bpm. Repeat EKG completed showing sinus mechanism with frequent PVCs and T wave inversion in lateral leads I and aVL. Chest x-ray completed showing chronic changes without acute cardiopulmonary process. Labs completed and reviewed. CBC showing mild thrombocytopenia with platelet count of 137. Coagulation profile showing elevated D-dimer of 2.19. BMP showing prerenal a zotemia with BUN of 26 and blood glucose of 128. Magnesium normal findings at 2.0. Calcium normal findings at 9.2. Liver profile unremarkable. Troponin was negative at less than 0.012 and proBNP was 772. CTA chest was completed negative for pulmonary emboli showing no acute cardiopulmonary process but did reveal a 15 mm enlarged right hilar lymph node recommending follow-up CT thorax with contrast in 3 to 4 months to confirm stability. Patient admitted under our services with consultation to cardiology. Review of systems: Pertinent positives and negatives as discussed in HPI, a complete review of systems was performed and all other systems are negative. Physical exam: Vital signs reviewed and stable. General: Nontoxic, no distress and appears stated age. Derm: Skin warm and dry, normal coloration for ethnicity. Head: Atraumatic, normocephalic and symmetric. Eyes: EOM's intact, no lid lag, and anicteric sclera Mouth: no lip lesions, mucus membranes moist Cardiovascular: regular rate and rhythm with normal S1S2, soft systolic murmur, positive posterior tibial pulses bilaterally, and cap refill < 2 seconds. Lungs: Respirations even, regular, and unlabored on room air. Lungs CTA bilaterally, no rhonchi, no rales, no wheezing, and no accessory muscle usage. Abdominal: soft, nontender to palpation, no guarding, no appreciable organomegaly Ext: ROM intact. No gross muscle atrophy, no edema, no contractures Neuro: Speech clear, face symmetrical and CN II-XII grossly intact with no noted focal neuro deficits Psych: Alert and oriented to person, place, time, and situation. Appropriate and pleasant affect. Assessment and Plan of Care: Palpitations and exertional dyspnea Nonischemic cardiomyopathy with a EF of 25% status post dual-chamber ICD implantation 05/16/2024 History of mitral valve repair Hypertension Hyperlipidemia Chest pain, rule out acute coronary event -Cardiology consulted, appreciate recommendations -Telemetry monitoring -Trend troponins and order placed for TSH with reflex free T4 -Continue cardiac medication regimen with aspirin 81 mg daily, atorvastatin 40 mg daily, losartan 25 mg nightly, Aldactone 25 mg nightly and metoprolol 25 mg nightly. -Echocardiogram Elevated D-dimer -CTA negative for PE. Enlarged right hilar lymph node -CTA revealed 15 mm enlarged right hilar lymph node. Recommend outpatient follow-up CT thorax with contrast in 3 to 4 months to confirm stability. BPH -Continue Flomax 0.4 mg nightly. Data and imaging reviewed: As stated above in HPI CODE STATUS: Full code DVT prophylaxis: Lovenox Discussed with: Patient, patient's , and ED physician Anticipated discharge date: Pending clinical course, likely 24 to [address]: Home Patient was seen independently by Nurse Practitioner. This document was prepared using [email or web address] dictation software. Please allow for errors in picker/puller while rare they do occur. Finn Cazares NP rendered care for this patient independently, reviewed the findings and plan as documented in the note above and agree with plan. I did not physically speak with or examine the patient on this date. 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,hx COVID 06/2022, heart valve problem per pt., SOB w/exertion @times,BPH History of Any Multi-Drug Resistant Organisms: None Reported Past Surgical History: Heart Catheterization, Hernia Repair, Orthopedic Surgery, Pacemaker Additional Past Surgical History / Comment(s): ORIF RT WRIST SX, COLONOSCOPY, BILAT CATARACTS REMOVED WITH LENS IMPLANTS, open heart surgery-mitral valve repair Past Anesthesia/Blood Transfusion Reactions: No Reported Reaction Additional Past Anesthesia/Blood Transfusion Reaction / Comment(s): no hx blood transfusion Past Psychological History: No Psychological Hx Reported Smoking Status: Former smoker Past Alcohol Use History: None Reported Past Drug Use History: None Reported - Past Family History Father Family Medical History: Cancer Medications and Allergies Home Medications Medication Instructions Recorded Confirmed Type Tamsulosin [Flomax] 0.4 mg PO HS 10/18/22 05/29/24 History Cyanocobalamin (Vitamin B-12) 1,000 mcg PO DAILY 03/16/23 05/29/24 History [Vitamin B-12] Magnesium 400 mg PO HS #0 10/08/23 05/29/24 History Aspirin 81 mg PO DAILY #90 tab 10/10/23 05/29/24 Rx Rosuvastatin Calcium 20 mg PO DAILY 05/14/24 05/29/24 History Losartan [Cozaar] 25 mg PO HS 05/29/24 05/29/24 History Metoprolol Succinate (ER) [Toprol 25 mg PO HS 05/29/24 05/29/24 History Xl] Spironolactone 25 mg PO HS 05/29/24 05/29/24 History Allergies Allergy/AdvReac Type Severity Reaction Status Date / Time No Known Allergies Allergy Verified 05/29/24 14:15 Physical Exam Vitals: Vital Signs Temp Pulse Resp BP Pulse Ox 05/29/24 13:56 71 20 131/55 97 05/29/24 13:39 98.7 F 38 L 25 H 111/59 98 Intake and Output 05/29/24 05/29/24 05/29/24 06:59 14:59 22:59 Other: Weight 88.451 kg Results CBC & Chem 7: 05/29/24 14:09 05/29/24 14:09 Labs: Abnormal Lab Results - Last 24 Hours (Table) 02/19/25 02/19/25 02/19/25 Range/Units 14:09 14:09 14:09 Plt Count 137 L (150-450) k/uL D-Dimer 2.19 H (<0.60) mg/L FEU Sodium 136 L (137-145) mmol/L BUN 26 H (9-20) mg/dL Glucose 128 H (74-99) mg/dL
[2024-05-29] MEDS ORDERED: MELATONIN 3 MG TABLET PO PRN (15:36)
[2024-05-29] MEDS ORDERED: HYDROcodone/APAP 5-325MG 1 EACH TAB PO PRN (15:36)
[2024-05-29] MEDS ORDERED: ONDANSETRON 4 MG/2 ML VIAL IVP PRN (15:36)
[2024-05-29] MEDS ORDERED: ACETAMINOPHEN TAB 325 MG TAB PO PRN (15:36)
[2024-05-29] MEDS ORDERED: NALOXONE 0.4 MG/ML 1 ML VIAL IVP PRN (15:36)
--- NOTE | 2024-05-29 15:43 | CT ---
EXAMINATION TYPE: CT angio chest DATE OF EXAM: 05/29/2024 COMPARISON: Low-dose CT thorax dated 09/22/2023 CLINICAL INDICATION: Male, 79 years old with history of KAREN, pos dimer; PHH, KAREN, positive dimer. TECHNIQUE: CTA scan of the thorax is performed with IV Contrast, patient injected with 90 mL of Isovue 370, pulm onary embolism protocol. MIP images are created and reviewed. 3-D postprocessing was performed. CT DLP: 503.[address] CTDI: mGy Automated exposure control for dose reduction was used. FINDINGS: There are mild emphysematous changes. There is mild interstitial scarring in the lung bases posterior ly. There is no airspace consolidation No pleural effusion or pneumothorax. The great vessels the chest are normal in size. There are no filling defects within the pulmonary art erial circulation to suggest pulmonary embolism. There is a 15 mm enlarged right hilar lymph node. There is no mediastinal or axillary adenopathy. Limited scanning through the upper abdomen reveals no gross abnormality. No focal osseous lesions are seen. IMPRESSION: 1. No pulmonary embolism. 2. no acute cardiopulmonary disease. 3. 15 mm enlarged right hilar lymph node. Follow-up CT thorax with contrast in 3-4 months is recommen ded to confirm stability. [facility], , 05/29/2024 3:41 PM
[2024-05-29] MEDS: TAMSULOSIN 0.4 MG CAP.ER.24H PO SCH (20:48)
[2024-05-29] MEDS: LOSARTAN 25 MG TAB PO SCH (20:48)
[2024-05-29] MEDS: METOPROLOL SUCCINATE (ER) 25 MG TAB.ER.24H PO SCH (20:48)
[2024-05-29] MEDS: SPIRONOLACTONE 25 MG TAB PO SCH (20:48)
[2024-05-30] MEDS: ENOXAPARIN 40 MG/0.4 ML SYRINGE SQ SCH (08:09)
[2024-05-30] MEDS: ATORVASTATIN 40 MG TAB PO SCH (08:09)
[2024-05-30] MEDS: PANTOPRAZOLE 40 MG TABLET PO SCH (08:09)
[2024-05-30] MEDS: ASPIRIN 81 MG PO SCH (08:09)
--- NOTE | 2024-05-30 08:36 | P.CRDCN ---
History of Present Illness Consult date: 05/30/24 Reason for Consult (text): Palpitations and shortness of breath status post pacemaker placement History of present illness: This is a 79-year-old male patient of Dr. 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 We have been asked to evaluate the patient for palpitations and shortness of breath status post pacemaker placement. Patient underwent Patterson AICD placement on 05/16. Patient was seen in the office on 05/23 as a follow-up and was complaining of dizziness at that time and medications were adjusted. Patient presented again yesterday for follow-up and he was continuing to complain of dizziness and shortness of breath with activity and having intermittent episodes of palpitations. No chest pain. Patient was hypotensive with systolic blood pressure in the 90s. No respiratory distress. Patient was sent over to the emergency center for further evaluation and admission. Patient states that he has had multiple episodes where he is feeling dizzy with some shortness of breath feeling like he runs out of air. He can feel when the pacemaker kicks in and it last for about 10 to 20 seconds. He again states he has no chest pain. Blood pressure 109/71, heart rate 64, pulse ox 98% on room air. Patient is seen today in the emergency center waiting for a bed on the observation unit. -EKG: #1 ventricularly paced rhythm. #2 sinus rhythm with occasional PVC -Chest x-ray: Chronic changes without acute pulmonary process. -CTA of the chest: No PE. No acute cardiopulmonary disease. Right hilar lymph node 15 mm. -Laboratory studies: Platelet count 137, D-dimer 2.19. Sodium 136, BUN 26 creatinine 1.14. Troponin negative x 2. TSH 1.43. -Home cardiac medications: Aspirin 81 mg daily, losartan 25 mg at bedtime, magnesium 400 mg at bedtime, metoprolol succinate 25 mg at bedtime, rosuvastatin 20 mg daily, spironolactone 25 mg at bedtime. -Patterson dual-chamber ICD implantation 05/16/2024. -Echocardiogram performed 10/09/2023 revealed technically difficult study. Dilated left ventricle and severe global hypokinesis. Mitral valve annuloplasty with mild mitral regurgitation, mild tricuspid regurgitation with mild pulmonary hypertension. EF 10 to 15%. -Mitral valve repair performed 04/17/[address] Wing. -Cardiac catheterization performed 11/28/2022 revealed mild nonobstructive coronary artery disease. Review Of Systems: At the time of my exam: CONSTITUTIONAL: Denies fever or chills. HEENT: Denies blurred vision, vision changes, or eye pain. Denies hemoptysis CARDIOVASCULAR: Denies chest pain. Denies orthopnea. Denies PND. Denies palpitations RESPIRATORY: Denies shortness of breath. GASTROINTESTINAL: Denies abdominal pain. Denies nausea or vomiting. HEMATOLOGIC: Denies bleeding disorders. GENITOURINARY: Denies any blood in urine. SKIN: Denies puritis. Denies rash. Physical examination: Gen: This is a 79-year-old male in no acute distress. VS: reviewed HEENT: Head is atraumatic, normocephalic. Pupils equal, round. Sclerae is anicteric. NECK: Supple. No JVD. LUNGS: Clear to auscultation. No wheezes or rhonchi. No intercostal retractions. HEART: Regular rate and rhythm. No murmur. ABDOMEN: Soft No tenderness. EXTREMITIES: No pedal edema. No calf tenderness. NEUROLOGICAL: Patient is awake, alert and oriented x3. Assessment: Dizziness, dyspnea Palpitations from ICD ICD implantation on 05/16/2024 Coronary artery disease status post CABG Nonischemic cardiomyopathy, dilated Chronic systolic heart failure Severe mitral regurgitation status post mitral valve repair History of CVA Plan: Resume patient's home cardiac medications Interrogate ICD device, Patterson Obtain 2-D echocardiogram and Doppler study to assess cardiac structure and function Further recommendations to follow based upon clinical course Thank you kindly for this consultation. Nurse practitioner note has been reviewed, I agree with documented findings and plan of care. Patient was seen and examined. 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,hx COVID 06/2022, heart valve problem per pt., SOB w/exertion @times,BPH History of Any Multi-Drug Resistant Organisms: None Reported Past Surgical History: Heart Catheterization, Hernia Repair, Orthopedic Surgery, Pacemaker Additional Past Surgical History / Comment(s): ORIF RT WRIST SX, COLONOSCOPY, BILAT CATARACTS REMOVED WITH LENS IMPLANTS, open heart surgery-mitral valve repair Past Anesthesia/Blood Transfusion Reactions: No Reported Reaction Additional Past Anesthesia/Blood Transfusion Reaction / Comment(s): no hx blood transfusion Past Psychological History: No Psychological Hx Reported Smoking Status: Former smoker Past Alcohol Use History: None Reported Past Drug Use History: None Reported - Past Family History Father Family Medical History: Cancer Medications and Allergies Home Medications Medication Instructions Recorded Confirmed Type Tamsulosin [Flomax] 0.4 mg PO HS 10/18/22 05/29/24 History Cyanocobalamin (Vitamin B-12) 1,000 mcg PO DAILY 03/16/23 05/29/24 History [Vitamin B-12] Magnesium 400 mg PO HS #0 10/08/23 05/29/24 History Aspirin 81 mg PO DAILY #90 tab 10/10/23 05/29/24 Rx Rosuvastatin Calcium 20 mg PO DAILY 05/14/24 05/29/24 History Losartan [Cozaar] 25 mg PO HS 05/29/24 05/29/24 History Metoprolol Succinate (ER) [Toprol 25 mg PO HS 05/29/24 05/29/24 History Xl] Spironolactone 25 mg PO HS 05/29/24 05/29/24 History Allergies Allergy/AdvReac Type Severity Reaction Status Date / Time No Known Allergies Allergy Verified 05/29/24 14:15 Physical Exam Vitals: Vital Signs Temp Pulse Resp BP Pulse Ox 05/30/24 06:00 61 18 102/60 96 05/30/24 04:00 70 15 114/67 97 05/29/24 23:06 103 H 22 104/88 97 05/29/24 21:02 64 18 118/73 99 05/29/24 17:12 63 18 114/90 97 05/29/24 13:56 71 20 131/55 97 05/29/24 13:39 98.7 F 38 L 25 H 111/59 98 Results 05/29/24 14:09 05/29/24 14:09 Cardiac Enzymes 05/29/24 05/29/24 05/29/24 Range/Units 14:09 14:09 18:45 AST 24 (17-59) U/L Troponin I <0.012 <0.012 (0.000-0.034) ng/mL Coagulation 05/29/24 Range/Units 14:09 PT 11.0 (10.0-12.5) sec APTT 23.2 (22.0-30.0) sec CBC 05/29/24 Range/Units 14:09 WBC 6.3 (3.8-10.6) k/uL RBC 4.60 (4.30-5.90) m/uL Hgb 14.7 (13.0-17.5) gm/dL Hct 43.2 (39.0-53.0) % Plt Count 137 L (150-450) k/uL Comprehensive Metabolic Panel 05/29/24 Range/Units 14:09 Sodium 136 L (137-145) mmol/L Potassium 4.3 (3.5-5.1) mmol/L Chloride 103 (98-107) mmol/L Carbon Dioxide 23 (22-30) mmol/L BUN 26 H (9-20) mg/dL Creatinine 1.14 (0.66-1.25) mg/dL Glucose 128 H (74-99) mg/dL Calcium 9.2 (8.4-10.2) mg/dL AST 24 (17-59) U/L ALT 27 (4-49) U/L Alkaline Phosphatase 48 (38-126) U/L Total Protein 6.6 (6.3-8.2) g/dL Albumin 4.1 (3.5-5.0) g/dL Current Medications Generic Name Dose Route Start Last Admin Trade Name Freq PRN Reason Stop Dose Admin Acetaminophen 650 mg 05/29/24 15:36 Acetaminophen Tab 325 Mg Tab PO Q6HR PRN Mild Pain or Fever > 100.5 Hydrocodone Bitart/Acetaminophen 1 each 05/29/24 15:36 Hydrocodone/Apap 5-325mg 1 Each Tab PO Q4HR PRN Moderate Pain (Scale 4 to 6) Aspirin 81 mg 05/30/24 09:00 Aspirin 81 Mg PO DAILY [facility] Atorvastatin Calcium 40 mg 05/30/24 09:00 Atorvastatin 40 Mg Tab PO DAILY [facility] Enoxaparin Sodium 40 mg 05/30/24 09:00 Enoxaparin 40 Mg/0.4 Ml Syringe SQ DAILY [facility] Losartan Potassium 25 mg 05/29/24 21:00 05/29/24 20:48 Losartan 25 Mg Tab PO 25 mg HS TARA Administration Melatonin 3 mg 05/29/24 15:36 Melatonin 3 Mg Tablet PO HS PRN Insomnia Metoprolol Succinate 25 mg 05/29/24 21:00 05/29/24 20:48 Metoprolol Succinate (Er) 25 Mg Tab.Er.24h PO 25 mg HS TARA Administration Naloxone HCl 0.2 mg 05/29/24 15:36 Naloxone 0.4 Mg/Ml 1 Ml Vial IVP Q2M PRN Opioid Reversal Ondansetron HCl 4 mg 05/29/24 15:36 Ondansetron 4 Mg/2 Ml Vial IVP Q8HR PRN Nausea And Vomiting Pantoprazole Sodium 40 mg 05/30/24 07:30 Pantoprazole 40 Mg Tablet PO AC-BRKFST TARA Spironolactone 25 mg 05/29/24 21:00 05/29/24 20:48 Spironolactone 25 Mg Tab PO 25 mg HS TARA Administration Tamsulosin HCl 0.4 mg 05/29/24 21:00 05/29/24 20:48 Tamsulosin 0.4 Mg Cap.Er.24h PO 0.4 mg HS TARA Administration 05/29/24 14:09 05/29/24 14:09
--- NOTE | 2024-05-30 10:37 | CA ---
Transthoracic Echo Report Name: Manpreet Alexis Age: 79 Gender: M : 1945 Exam Date: 05/30/2024 08:54 Exam Location: [facility] Ht (in): 74 Wt (lb): 195 Ordering Physician: Kaden Nunez MD Attending/Referring Phys: [id number], Mayra Pathology Transcriptionist Tiffanie Catherine RDCS Procedure CPT: Indications: dyspnea Cardiac Hx: MV repair, AICD Technical Quality: Good Contrast 1: Total Dose (mL): Contrast 2: Total Dose (mL): MEASUREMENTS (Male / Female) Normal Values 2D ECHO LV Diastolic Diameter PLAX 6.9 cm 4.2 - 5.9 / 3.9 - 5.3 cm LV Systolic Diameter PLAX 6.4 cm IVS Diastolic Thickness 1.0 cm 0.6 - 1.0 / 0.6 - 0.9 cm LVPW Diastolic Thickness 1.1 cm 0.6 - 1.0 / 0.6 - 0.9 cm LV Relative Wall Thickness 0.3 RV Internal Dim ED PLAX 3.5 cm LA Systolic Diameter LX 4.1 cm 3.0 - 4.0 / 2.7 - 3.8 cm LV Diastolic Volume MOD BP 183.2 cm??? 67 - 155 / 56 - 104 cm??? LV Systolic Volume MOD BP 145.9 cm??? - 58 / 19 - 49 cm??? LV Ejection Fraction MOD BP 20.3 % >= 55 % LV Cardiac Index MOD BP 1383.1 cm???/min???m??? LV Diastolic Volume MOD 4C 218.4 cm??? LV Systolic Volume MOD 4C 157.0 cm??? LV Ejection Fraction MOD 4C 28.1 % LV Cardiac Index MOD 4C 2279.9 cm???/min???m??? LV Diastolic Length 4C 8.5 cm LV Systolic Length 4C 8.2 cm LV Diastolic Volume MOD 2C 149.3 cm??? LV Systolic Volume MOD 2C 130.1 cm??? LV Ejection Fraction MOD 2C 12.9 % LV Cardiac Index MOD 2C 713.8 cm???/min???m??? LV Diastolic Length 2C 8.8 cm LV Systolic Length 2C 7.7 cm LA Volume 84.3 cm??? 18 - 58 / 22 - 52 cm??? LA Volume Index 39.1 cm???/m??? 16 - 28 cm???/m??? M-MODE Aortic Root Diameter MM 3.5 cm DOPPLER AV Peak Velocity 147.7 cm/s AV Peak Gradient 8.7 mmHg AI Peak Velocity 315.8 cm/s AI Peak Gradient 39.9 mmHg AI Pressure Half Time 1743.9 ms MV Area PHT 1.4 cm??? Mitral E Point Velocity 77.9 cm/s Mitral A Point Velocity 100.7 cm/s Mitral E to A Ratio 0.8 MV Deceleration Time 534.9 ms TR Peak Velocity 260.2 cm/s TR Peak Gradient 27.1 mmHg Right Ventricular Systolic Press 31.3 mmHg FINDINGS Left Ventricle Left ventricular ejection fraction is estimated at 25-30 %. Moderately increased left ventricular diastolic diameter. Moderately increased left ventricular diastolic volume. Severely increased left ventricular systolic volume. Severely decreased left ventricular ejection fraction. Left ventricular wall thickness normal. Right Ventricle Moderate right ventricular dilatation. Right ventricular systolic pressure within normal limits. Right Atrium Normal right atrial size. No right atrial thrombus or mass seen. Left Atrium Mildly increased left atrial diameter. Moderately increased left atrial volume. Mildly increased left atrial area. Mitral Valve MV repair. Mild mitral annular calcification. No mitral stenosis, regurgitation or prolapse. Aortic Valve Trileaflet aortic valve. No aortic stenosis. Trace to mild aortic regurgitation. Tricuspid Valve Structurally normal tricuspid valve. Mild tricuspid regurgitation. Pulmonic Valve Pulmonic valve not well visualized. No pulmonic regurgitation. Pericardium No pericardial effusion. Aorta Normal size aortic root and proximal ascending aorta. CONCLUSIONS Dilated LV. Impaired LV function with EF between 25 to 30% Normal pulmonary artery systolic pressure Moderate RV enlargement No pericardial effusion Previewed by: Dr. Milo Cross MD (Electronically Signed) Final Date: 30 May 2024 10:36
--- NOTE | 2024-05-30 18:45 | P.PN ---
Subjective Progress Note Date: 05/30/24 Hospital course: Patient is a very pleasant 79-year-old male with a past medical history of nonischemic cardiomyopathy with a EF of 25% status post dual-chamber ICD implantation on 05/16/2024, mitral valve repair, severe cardiomyopathy, hypertension, hyperlipidemia, and BPH. Patient reports since implantation of pacemaker he has been experiencing episodes of palpitations and exertional dyspnea that have progressively worsened. He reports following up with his rib sawyer, Dr. Land and was sent from cardiology office to the emergency department for evaluation. Patient denies having any headache, lightheadedness, dizziness, fevers, chills, diaphoresis, chest pain or tightness, cough or congestion, nausea or vomiting, or experiencing any numbness/tingling/weakness/swelling in his extremities. Upon arrival to our facility, patient underwent evaluation in the emergency department. Vital signs upon arrival show blood pressure 111/59, heart rate 38, respiratory rate 25, te mp 98.7 F, and SpO2 of 98% on room air. EKG was completed showing a ventricular paced rhythm at a 104 bpm. Repeat EKG completed showing sinus mechanism with frequent PVCs and T wave inversion in lateral leads I and aVL. Chest x-ray completed showing chronic changes without acute cardiopulmonary process. Labs completed and reviewed. CBC showing mild thrombocytopenia with platelet count of 137. Coagulation profile showing elevated D-dimer of 2.19. BMP showing prerenal azotemia with BUN of 26 and blood glucose of 128. Magnesium normal findings at 2.0. Calcium normal findings at 9.2. Liver profile unremarkable. Troponin was negative at less than 0.012 and proBNP was 772. CTA chest was completed negative for pulmonary emboli showing no acute cardiopulmonary process but did reveal a 15 mm enlarged right hilar lymph node recommending follow-up CT thorax with contrast in 3 to 4 months to confirm stability. Patient admitted under our services with consultation to cardiology. Troponins were trended negative at less than 0.012 x 2 draws. TSH normal findings at 1.430. Echocardiogram completed showing impaired EF of 25 to 30% with moderate RV enlargement. Physical exam: Patient seen and fully evaluated at bedside reports he is feeling fine at rest but states he has not ambulated since arriving to the ER. He currently denies having any chest pain, palpitations, shortness of breath, dizziness, lightheadedness, or any other complaints at this time. Discussed with patient, patient's , and RN patient to be ambulated in the halls and orthostatic vitals to be obtained. Vital signs reviewed and stable. General: Nontoxic, no distress and appears stated age. Derm: Skin warm and dry, normal coloration for ethnicity. Head: Atraumatic, normocephalic and symmetric. Eyes: EOM's intact, no lid lag, and anicteric sclera Mouth: no lip lesions, mucus membranes moist Cardiovascular: regular rate and rhythm with normal S1S2, soft systolic murmur, positive posterior tibial pulses bilaterally, and cap refill < 2 seconds. Lungs: Respirations even, regular, and unlabored on room air. Lungs CTA bilaterally, no rhonchi, no rales, no wheezing, and no accessory muscle usage. Abdominal: soft, nontender to palpation, no guarding, no appreciable organomegaly Ext: ROM intact. No gross muscle atrophy, no edema, no contractures Neuro: Speech clear, face symmetrical and CN II-XII grossly intact with no noted focal neuro deficits Psych: Alert and oriented to person, place, time, and situation. Appropriate and pleasant affect. Assessment and Plan of Care: Palpitations and exertional dyspnea Nonischemic cardiomyopathy with a EF of 25% status post dual-chamber ICD imp lantation 05/16/2024 History of mitral valve repair Hypertension Hyperlipidemia Chest pain, rule out acute coronary event -Cardiology following, discussed plan of care with cardiac TECHNICAL SALES CONSULTANT. -Follow-up on pacemaker interrogation report -Encourage ambulation -Telemetry monitoring -Trend troponins and order placed for TSH with reflex free T4 -Continue cardiac medication regimen with aspirin 81 mg daily, atorvastatin 40 mg daily, losartan 25 mg nightly, Aldactone 25 mg nightly and metoprolol 25 mg nightly. - Echocardiogram completed showing impaired EF of 25 to 30% with moderate RV enlargement. Elevated D-dimer -CTA negative for PE. Enlarged right hilar lymph node -CTA revealed 15 mm enlarged right hilar lymph node. Recommend outpatient follow-up CT thorax with contrast in 3 to 4 months to confirm stability. BPH -Continue Flomax 0.4 mg nightly. Data and imaging reviewed: Troponins trended less than 0.012 x 2 draws and TSH 1.430. Echocardiogram completed showing impaired EF of 25 to 30% with moderate RV enlargement. CODE STATUS: Full code DVT prophylaxis: Lovenox Discussed with: Patient, patient's , RN, and cardiology TECHNICAL SALES CONSULTANT Anticipated discharge date: Pending clinical course, likely 24 to [address]: Home Patient was seen independently by Nurse Practitioner. This document was prepared using [employer]sec dictation software. Please allow for errors in milk tester while rare they do occur. Finn Cazares, TECHNICAL SALES CONSULTANT rendered care for this patient independently, reviewed the findings and plan as documented in the note above and agree with plan. I did not physically speak with or examine the patient on this date. Objective - Vital Signs Vital signs: Vital Signs Temp 98.7 F 05/29/24 13:39 Pulse 64 05/30/24 08:02 Resp 14 05/30/24 08:02 BP 109/71 05/30/24 08:02 Pulse Ox 98 05/30/24 08:02 FiO2 Intake & Output 05/29/24 05/30/24 05/30/24 18:59 06:59 18:59 Weight 88.451 kg - Labs CBC & Chem 7: 05/29/24 14:09 05/29/24 14:09 Labs: Abnormal Lab Results - Last 24 Hours (Table) 05/29/24 05/29/24 05/29/24 Range/Units 14:09 14:09 14:09 Plt Count 137 L (150-450) k/uL D-Dimer 2.19 H (<0.60) mg/L FEU Sodium 136 L (137-145) mmol/L BUN 26 H (9-20) mg/dL Glucose 128 H (74-99) mg/dL
[2024-05-31] MEDS: SODIUM CHLORIDE 0.9% 500 ML 250 ML IV ONE (07:23)
--- NOTE | 2024-05-31 13:20 | P.PN ---
Subjective Progress Note Date: 05/31/24 Reason for Consult (text): Palpitations and shortness of breath status post pacemaker placement History of present illness: This is a 79-year-old male patient of Dr. 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 We have been asked to evaluate the patient for palpitations and shortness of breath status post pacemaker placement. Patient underwent Patterson AICD placement on 05/16. Patient was seen in the office on 05/23 as a follow-up and was complaining of dizziness at that time and medications were adjusted. Patient presented again yesterday for follow-up and he was continuing to complain of dizziness and shortness of breath with activity and having intermittent episodes of palpitations. No chest pain. Patient was hypotensive with systolic blood pressure in the 90s. No respiratory distress. Patient was sent over to the emergency center for further evaluation and admission. Patient states that he has had multiple episodes where he is feeling dizzy with some shortness of breath feeling like he runs out of air. He can feel when the pacemaker kicks in and it last for about 10 to 20 seconds. He again states he has no chest pain. Blood pressure 109/71, heart rate 64, pulse ox 98% on room air. Patient is seen today in the emergency center waiting for a bed on the observation unit. -EKG: #1 ventricularly paced rhythm. #2 sinus rhythm with occasional PVC -Chest x-ray: Chronic changes without acute pulmonary process. -CTA of the chest: No PE. No acute cardiopulmonary disease. Right hilar lymph node 15 mm. -Laboratory studies: Platelet count 137, D-dimer 2.19. Sodium 136, BUN 26 creatinine 1.14. Troponin negative x 2. TSH 1.43. -Home cardiac medications: Aspirin 81 mg daily, losartan 25 mg at bedtime, magnesium 400 mg at bedtime, metoprolol succinate 25 mg at bedtime, rosuvastatin 20 mg daily, spironolactone 25 mg at bedtime. -Patterson dual-chamber ICD implantation 05/16/2024. -Echocardiogram performed 10/09/2023 revealed technically difficult study. Dilated left ventricle and severe global hypokinesis. Mitral valve annuloplasty with mild mitral regurgitation, mild tricuspid regurgitation with mild pulmonary hypertension. EF 10 to 15%. -Mitral valve repair performed 04/17/[address] Wing. -Cardiac catheterization performed 11/28/2022 revealed mild nonobstructive coronary artery disease. 05/31 Patient seen and examined. Patient states that he did well last night but this morning he was up in the bathroom brushing his teeth and felt dizzy, short of breath and his arms and legs were tingling. His blood pressure was 86/61. Patient was placed on oxygen at 2 L but is room air pulse ox was 96%. The oxygen did help his shortness of breath. He received IV fluid bolus of 250 cc. We have held losartan, metoprolol and Aldactone. Interrogation of his ICD was reviewed with no concerning events. Echocardiogram reveals EF of 25 to 30%, normal pulmonary artery systolic pressure, moderate RV enlargement, no pericardial effusion. Physical examination: Gen: This is a 79-year-old male in no acute distress. VS: reviewed HEENT: Head is atraumatic, normocephalic. Pupils equal, round. Sclerae is anicteric. NECK: Supple. No JVD. LUNGS: Clear to auscultation. No wheezes or rhonchi. No intercostal retractions. HEART: Regular rate and rhythm. No murmur. ABDOMEN: Soft No tenderness. EXTREMITIES: No pedal edema. No calf tenderness. NEUROLOGICAL: Patient is awake, alert and oriented x3. Assessment: Dizziness, dyspnea Palpitations from ICD ICD implantation on 05/16/2024 Coronary artery disease status post CABG Nonischemic cardiomyopathy, dilated Chronic systolic heart failure Severe mitral regurgitation status post mitral valve repair History of CVA Plan: Continue patient's home cardiac medications with the following changes: Discontinue losartan, metoprolol succinate, spironolactone Obtain orthostatic vital signs Device risk control field representative to evaluate and change threshold on ICD to 60 If patient is feeling well and blood pressure stable this afternoon, patient is cleared for discharge. Nurse practitioner note has been reviewed, I agree with documented findings and plan of care. Patient was seen and examined. Objective - Vital Signs Vital signs: Vital Signs Temp 97.5 F L 05/31/24 06:41 Pulse 55 L 05/31/24 07:04 Resp 22 05/31/24 07:04 BP 115/71 05/31/24 08:10 Pulse Ox 96 05/31/24 07:04 FiO2 Intake & Output 05/30/24 05/31/24 05/31/24 18:59 06:59 18:59 Intake Total 236 360 Balance 236 360 Weight 88.451 kg Intake: Oral 236 360 Other: Voiding Method Toilet Toilet # Voids 1 2 - Labs CBC & Chem 7: 05/29/24 14:09 05/29/24 14:09
--- NOTE | 2024-05-31 16:59 | P.PN ---
Subjective Progress Note Date: 05/31/24 Hospital course: Patient is a very pleasant 79-year-old male with a past medical history of nonischemic cardiomyopathy with a EF of 25% status post dual-chamber ICD implantation on 05/16/2024, mitral valve repair, severe cardiomyopathy, hypertension, hyperlipidemia, and BPH. Patient reports since implantation of pacemaker he has been experiencing episodes of palpitations and exertional dyspnea that have progressively worsened. He reports following up with his belt knife feeder, Dr. Land and was sent from cardiology office to the emergency department for evaluation. Patient denies having any headache, lightheadedness, dizziness, fevers, chills, diaphoresis, chest pain or tightness, cough or congestion, nausea or vomiting, or experiencing any numbness/tingli ng/weakness/swelling in his extremities. Upon arrival to our facility, patient underwent evaluation in the emergency department. Vital signs upon arrival show blood pressure 111/59, heart rate 38, respiratory rate 25, temp 98.7 F, and SpO2 of 98% on room air. EKG was completed showing a ventricular paced rhythm at a 104 bpm. Repeat EKG completed showing sinus mechanism with frequent PVCs and T wave inversion in lateral leads I and aVL. Chest x-ray completed showing chronic changes without acute cardiopulmonary process. Labs completed and reviewed. CBC showing mild thrombocytopenia with platelet count of 137. Coagulation profile showing elevated D-dimer of 2.19. BMP showing prerenal azotemia with BUN of 26 and blood glucose of 128. Magnesium normal findings at 2.0. Calcium normal findings at 9.2. Liver profile unremarkable. Troponin was negative at less than 0.012 and proBNP was 772. CTA chest was completed negative for pulmonary emboli showing no acute cardiopulmonary process but did reveal a 15 mm enlarged right hilar lymph node recommending follow-up CT thorax with contrast in 3 to 4 months to confirm stability. Patient admitted under our services with consultation to cardiology. Troponins were trended negative at less than 0.012 x 2 draws. TSH normal findings at 1.430. Echocardiogram completed showing impaired EF of 25 to 30% with moderate RV enlargement. Physical exam: Patient was seen and fully evaluated at bedside this morning. He has been hypotensive and bradycardic with heart rate decreasing in the 40s. Discussed in detail with cardiac CROSS COUNTRY/TRACK AND FIELD COACH, [employer] solar sales representative and assessor coming in to adjust/increase base rate of pacemaker. Patient reports dizziness and palpitations upon standing. Orthostatic vitals significantly positive. From lying to sitting patient's pressure drops to low 80s and he becomes diaphoretic and was not able to stand to get standing vitals. Patient reports feeling okay at rest and c ontinues to deny having any chest pain or discomfort. Vital signs reviewed General: Nontoxic, no distress and appears stated age. Derm: Skin warm and dry, normal coloration for ethnicity. Head: Atraumatic, normocephalic and symmetric. Eyes: EOM's intact, no lid lag, and anicteric sclera Mouth: no lip lesions, mucus membranes moist18 Cardiovascular: regular rate and rhythm with normal S1S2, soft systolic murmur, positive posterior tibial pulses bilaterally, and cap refill < 2 seconds. Lungs: Respirations even, regular, and unlabored on room air. Lungs CTA bilaterally, no rhonchi, no rales, no wheezing, and no accessory muscle usage. Abdominal: soft, nontender to palpation, no guarding, no appreciable organomegaly Ext: ROM intact. No gross muscle atrophy, no edema, no contractures Neuro: Speech clear, face symmetrical and CN II-XII grossly intact with no noted focal neuro deficits Psych: Alert and oriented to person, place, time, and situation. Appropriate and pleasant affect. Assessment and Plan of Care: Palpitations and exertional dyspnea Hypotension and bradycardia Nonischemic cardiomyopathy with a EF of 25% status post dual-chamber ICD implantation 05/16/2024 History of mitral valve repair Hypertension Hyperlipidemia -Cardiology following, discussed plan of care with cardiac CROSS COUNTRY/TRACK AND FIELD COACH. [employer] solar sales representative and assessor coming in to adjust/increase base rate of pacemaker -Losartan, Aldactone and metoprolol discontinued secondary to hypotension and bradycardia. -Telemetry monitoring -Continue cardiac medication regimen with aspirin 81 mg daily and atorvastatin 40 mg daily. - Echocardiogram completed showing impaired EF of 25 to 30% with moderate RV enlargement. Elevated D-dimer CTA negative for PE. Enlarged right hilar lymph node. CTA revealed 15 mm enlarged right hilar lymph node. Recommend outpatient follow-up CT thorax with contrast in 3 to 4 months to confirm stability. BPH. Continue Flomax 0.4 mg nightly. Data and imaging reviewed: Labs reviewed. Echocardiogram completed showing impaired EF of 25 to 30% with moderate RV enlargement. Vital signs reviewed. Blood pressure 86/61, heart rate 55, respiratory rate 22, and SpO2 of 96% on 2 L. CODE STATUS: Full code DVT prophylaxis: Lovenox Discussed with: Patient, RN, and cardiology CROSS COUNTRY/TRACK AND FIELD COACH Anticipated discharge date: Pending clinical course. Secondary to significant hypotension and bradycardia, multiple medication changes were made and patient requiring transfer from observation to inpatient admission at this time Anticipated discharge place: Home Patient was seen independently by Nurse Practitioner. This document was prepared using [employer] dictation software. Please allow for errors in cable puller while rare they do occur. Finn Cazares CROSS COUNTRY/TRACK AND FIELD COACH rendered care for this patient independently, reviewed the findings and plan as documented in the note above and agree with plan. I did not physically speak with or examine the patient on this date. Objective - Vital Signs Vital signs: Vital Signs Temp 97.5 F L 05/31/24 06:41 Pulse 55 L 05/31/24 07:04 Resp 22 05/31/24 07:04 BP 115/71 05/31/24 08:10 Pulse Ox 96 05/31/24 07:04 FiO2 Intake & Output 05/30/24 05/31/24 05/31/24 18:59 06:59 18:59 Intake Total 236 360 Balance 236 360 Weight 88.451 kg Intake: Oral 236 360 Other: Voiding Method Toilet Toilet # Voids 1 2 - Labs CBC & Chem 7: 05/29/24 14:09 05/29/24 14:09
[2024-06-01 10:04] LABS: HCT 45.7 % (39.6-50.0); HGB 15.5 g/dL (13.0-17.0); MCH 31.4 pg (27.0-32.0); MCHC 33.9 g/dL (32.0-37.0); MCV 92.5 FL (80.0-97.0); Mean Platelet Volume 9.4 FL (9.5-12.2); NRBC Per 100 WBC 0 X 10*3/uL (0.00-0.01); Platelet Count 137 X 10*3/uL (140-440); RBC 4.94 X 10*6/uL (4.40-5.60); RDW 12.9 % (11.5-14.5); WBC 6.15 X 10*3/uL (4.50-10.00)
[2024-06-01 10:18] LABS: ALT 27 U/L (10-49); AST 24 U/L (14-35); Albumin 4.1 g/dL (3.8-4.9); Albumin/Globulin Ratio 2.05 Ratio (1.60-3.17); Alkaline Phosphatase 49 U/L (41-126); BUN/Creat Ratio 16.36 Ratio (12.00-20.00); Calcium 9.1 mg/dL (8.7-10.3); Carbon Dioxide 22.1 mmol/L (21.6-31.8); Chloride 109 mmol/L (96-109); Glucose 102 mg/dL (70-110); Potassium 4.2 mmol/L (3.5-5.5); Sodium 144 mmol/L (135-145); Total Bilirubin 0.5 mg/dL (0.3-1.2); Total Protein 6.1 g/dL (6.2-8.2)
--- NOTE | 2024-06-01 14:24 | P.PN ---
Subjective Progress Note Date: 06/01/24 This is a 79-year-old male patient of Dr. 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 We have been asked to evaluate the patient for palpitations and shortness of breath status post pacemaker placement. Patient underwent Patterson AICD placement on 05/16. Patient was seen in the office on 05/23 as a follow-up and was complaining of dizziness at that time and medications were adjusted. Patient presented again yesterday for follow-up and he was continuing to complain of dizziness and shortness of breath with activity and having intermittent episodes of palpitations. No chest pain. Patient was hypotensive with systolic blood pressure in the 90s. No respiratory distress. Patient was sent over to the emergency center for further evaluation and admission. Patient states that he has had multiple episodes where he is feeling dizzy with some shortness of breath feeling like he runs out of air. He can feel when the pacemaker kicks in and it last for about 10 to 20 seconds. He again states he has no chest pain. -EKG: #1 ventricularly paced rhythm. #2 sinus rhythm with occasional PVC -Chest x-ray: Chronic changes without acute pulmonary process. -CTA of the chest: No PE. No acute cardiopulmonary disease. Right hilar lymph node 15 mm. -Laboratory studies: Platelet count 137, D-dimer 2.19. Sodium 136, BUN 26 creatinine 1.14. Troponin negative x 2. TSH 1.43. -Home cardiac medications: Aspirin 81 mg daily, losartan 25 mg at bedtime, magnesium 400 mg at bedtime, metoprolol succinate 25 mg at bedtime, rosuvastatin 20 mg daily, spironolactone 25 mg at bedtime. -Patterson dual-chamber ICD implantation 05/16/2024. -Echocardiogram performed this admission reveals EF of 25 to 30%, normal pulmonary artery systolic pressure, moderate RV enlargement, no pericardial effusion. -Mitral valve repair performed 04/17/[address] Wing. -Cardiac catheterization performed 11/28/2022 revealed mild nonobstructive co ronary artery disease. - ICD interrogation showed normal device function 06/01/2024 Patient has been feeling well. He has no further dizziness. All cardiac medications are currently on hold. Interrogation of the device yesterday showed normal function adjustments were made to hysteresis. Labs are stable. Physical examination: Gen: This is a 79-year-old male in no acute distress. VS: reviewed HEENT: Head is atraumatic, normocephalic. Pupils equal, round. Sclerae is anicteric. NECK: Supple. No JVD. LUNGS: Clear to auscultation. No wheezes or rhonchi. No intercostal retractions. HEART: Regular rate and rhythm. No murmur. LIC incision clean dry and intact with no ecchymosis or hematoma. ABDOMEN: Soft No tenderness. EXTREMITIES: No pedal edema. No calf tenderness. NEUROLOGICAL: Patient is awake, alert and oriented x3. Assessment: Dizziness, dyspnea, improved Palpitations from ICD ICD implantation on 05/16/2024 Coronary artery disease status post CABG Nonischemic cardiomyopathy, dilated Chronic systolic heart failure Severe mitral regurgitation status post mitral valve repair History of CVA Plan: From cardiology's perspective we will zoom metoprolol and add Farxiga. If patient is feeling well and blood pressure stable anticipate discharge tomorrow. Nurse practitioner note has been reviewed, I agree with documented findings and plan of care. Patient was seen and examined. Objective - Vital Signs Vital signs: Vital Signs Temp 97.8 F 06/01/24 07:00 Pulse 74 06/01/24 07:00 Resp 17 06/01/24 07:00 BP 115/76 06/01/24 07:00 Pulse Ox 95 06/01/24 07:00 FiO2 Intake & Output 05/31/24 06/01/24 06/01/24 18:59 06:59 18:59 Intake Total 950 354 Balance 950 354 Intake: Oral 950 354 Other: Voiding Method Toilet # Voids 2 1 - Labs CBC & Chem 7: 06/01/24 06:07 06/01/24 06:07 Labs: Abnormal Lab Results - Last 24 Hours (Table) 06/01/24 06/01/24 Range/Units 06:07 06:07 Plt Count 137 L (140-440) X 10*3/uL MPV 9.4 L (9.5-12.2) FL Anion Gap 12.90 H (4.00-12.00) mmol/L Total Protein 6.1 L (6.2-8.2) g/dL
[2024-06-01] MEDS: polyethylene glycoL 3350 17 GM POWD.PACK PO SCH (15:06)
[2024-06-01 15:15] VITALS: TEMP 97.7
--- NOTE | 2024-06-01 16:24 | P.PN ---
Subjective Progress Note Date: 06/01/24 Hospital course: Patient is a very pleasant 79-year-old male with a past medical history of nonischemic cardiomyopathy with a EF of 25% status post dual-chamber ICD implantation on 05/16/2024, mitral valve repair, severe cardiomyopathy, hypertension, hyperlipidemia, and BPH. Patient reports since implantation of pacemaker he has been experiencing episodes of palpitations and exertional dyspnea that have progressively worsened. 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 Land and was sent from cardiology office to the emergency department for evaluation. Patient denies having any headache, lightheadedness, dizziness, fevers, chills, diaphoresis, chest pain or tightness, cough or congestion, nausea or vomiting, or experiencing any numbness/tingli ng/weakness/swelling in his extremities. Upon arrival to our facility, patient underwent evaluation in the emergency department. Vital signs upon arrival show blood pressure 111/59, heart rate 38, respiratory rate 25, temp 98.7 F, and SpO2 of 98% on room air. EKG was completed showing a ventricular paced rhythm at a 104 bpm. Repeat EKG completed showing sinus mechanism with frequent PVCs and T wave inversion in lateral leads I and aVL. Chest x-ray completed showing chronic changes without acute cardiopulmonary process. Labs completed and reviewed. CBC showing mild thrombocytopenia with platelet count of 137. Coagulation profile showing elevated D-dimer of 2.19. BMP showing prerenal azotemia with BUN of 26 and blood glucose of 128. Magnesium normal findings at 2.0. Calcium normal findings at 9.2. Liver profile unremarkable. Troponin was negative at less than 0.012 and proBNP was 772. CTA chest was completed negative for pulmonary emboli showing no acute cardiopulmonary process but did reveal a 15 mm enlarged right hilar lymph node recommending follow-up CT thorax with contrast in 3 to 4 months to confirm stability. Patient admitted under our services with consultation to cardiology. Troponins were trended negative at less than 0.012 x 2 draws. TSH normal findings at 1.430. Echocardiogram completed showing impaired EF of 25 to 30% with moderate RV enlargement. [employer] student services representative adjusted based rate of pacemaker. Medication changes were made by cardiology. Physical exam: Patient was seen and fully evaluated this morning. He has been ambulating up and down the halls and appears to be doing well. Patient currently denies having any complaints. He denies having any dizziness or lightheadedness with ambulation and denies any further episodes of palpitations. Vital signs reviewed General: Nontoxic, no distress and appears stated age. Derm: Skin warm and dry, normal coloration for ethnicity. Head: Atraumatic, normocephalic and symmetric. Eyes: EOM's intact, no lid lag, and anicteric sclera Mouth: no lip lesions, mucus membranes moist18 Cardiovascular: regular rate and rhythm with normal S1S2, soft systolic murmur, positive posterior tibial pulses bilaterally, and cap refill < 2 seconds. Lungs: Respirations even, regular, and unlabored on room air. Lungs CTA bilaterally, no rhonchi, no rales, no wheezing, and no accessory muscle usage. Abdominal: soft, nontender to palpation, no guarding, no appreciable organomegaly Ext: ROM intact. No gross muscle atrophy, no edema, no contractures Neuro: Speech clear, face symmetrical and CN II-XII grossly intact with no noted focal neuro deficits Psych: Alert and oriented to person, place, time, and situation. Appropriate and pleasant affect. Assessment and Plan of Care: Palpitations and exertional dyspnea Hypotension and bradycardia Nonischemic cardiomyopathy with a EF of 25% status post dual-chamber ICD implantation 05/16/2024 History of mitral valve repair Hypertension Hyperlipidemia -Cardiology following, reviewed documentation in chart. -Losartan, Aldactone and metoprolol were discontinued secondary to hypotension and bradycardia. -Telemetry monitoring -Continue cardiac medication regimen with aspirin 81 mg daily and atorvastatin 40 mg daily. - Echocardiogram completed showing impaired EF of 25 to 30% with moderate RV enlargement. Elevated D-dimer CTA negative for PE. Enlarged right hilar lymph node. CTA revealed 15 mm enlarged right hilar lymph node. Recommend outpatient follow-up CT thorax with contrast in 3 to 4 months to confirm stability. BPH. Continue Flomax 0.4 mg nightly. Data and imaging reviewed: Labs reviewed. CBC showing mild thrombocytopenia with platelet count stable at 137. BMP unremarkable with exception of slightly elevated anion gap of 12.90 otherwise normal findings. Blood glucose 102. Magnesium 2.0. Liver profile unremarkable. Vital signs reviewed. Blood pressure 115/76, heart rate 74, respiratory rate 17, temp 97.8 F, and SpO2 of 95% on room air. CODE STATUS: Full code DVT prophylaxis: Lovenox Anticipated discharge date: Pending clinical course. Secondary to significant hypotension and bradycardia, multiple medication changes were made and patient requiring transfer from observation to inpatient admission at this time Anticipated discharge place: Home Patient was seen independently by Nurse Practitioner. This document was prepared using [employer] dictation software. Please allow for errors in manager editorial while rare they do occur. Finn Cazares MEDIA SERVICES SPECIALIST rendered care for this patient independently, reviewed the findings and plan as documented in the note above and agree with plan. I did not physically speak with or examine the patient on this date. Objective - Vital Signs Vital signs: Vital Signs Temp 97.8 F 06/01/24 07:00 Pulse 74 06/01/24 07:00 Resp 17 06/01/24 07:00 BP 115/76 06/01/24 07:00 Pulse Ox 95 06/01/24 07:00 FiO2 Intake & Output 05/31/24 06/01/24 06/01/24 18:59 06:59 18:59 Intake Total 950 354 Balance 950 354 Intake: Oral 950 354 Other: Voiding Method Toilet # Voids 2 1 - Labs CBC & Chem 7: 06/01/24 06:07 06/01/24 06:07
[2024-06-01] MEDS: METOPROLOL SUCCINATE (ER) 25 MG TAB.ER.24H PO SCH (16:56)
[2024-06-01] MEDS: DAPAGLIFLOZIN PROPANEDIOL 10 MG TABLET PO SCH (17:04)
[2024-06-02 08:44] VITALS: BP 106/76; PULSE 73; RESP 15
--- NOTE | 2024-06-02 12:22 | P.PN ---
Subjective Progress Note Date: 06/02/24 This is a 79-year-old male patient of Dr. 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 We have been asked to evaluate the patient for palpitations and shortness of breath status post pacemaker placement. Patient underwent Patterson AICD placement on 05/16. Patient was seen in the office on 05/23 as a follow-up and was complaining of dizziness at that time and medications were adjusted. Patient presented again yesterday for follow-up and he was continuing to complain of dizziness and shortness of breath with activity and having intermittent episodes of palpitations. No chest pain. Patient was hypotensive with systolic blood pressure in the 90s. No respiratory distress. Patient was sent over to the emergency center for further evaluation and admission. Patient states that he has had multiple episodes where he is feeling dizzy with some shortness of breath feeling like he runs out of air. He can feel when the pacemaker kicks in and it last for about 10 to 20 seconds. He again states he has no chest pain. -EKG: #1 ventricularly paced rhythm. #2 sinus rhythm with occasional PVC -Chest x-ray: Chronic changes without acute pulmonary process. -CTA of the chest: No PE. No acute cardiopulmonary disease. Right hilar lymph node 15 mm. -Laboratory studies: Platelet count 137, D-dimer 2.19. Sodium 136, BUN 26 creatinine 1.14. Troponin negative x 2. TSH 1.43. -Home cardiac medications: Aspirin 81 mg daily, losartan 25 mg at bedtime, magnesium 400 mg at bedtime, metoprolol succinate 25 mg at bedtime, rosuvastatin 20 mg daily, spironolactone 25 mg at bedtime. -Patterson dual-chamber ICD implantation 05/16/2024. -Echocardiogram performed this admission reveals EF of 25 to 30%, normal pulmonary artery systolic pressure, moderate RV enlargement, no pericardial effusion. -Mitral valve repair performed 04/17/[address] Wing. -Cardiac catheterization performed 11/28/2022 revealed mild nonobstructive co ronary artery disease. - ICD interrogation showed normal device function 06/01/2024 Patient has been feeling well. He has no further dizziness. All cardiac medications are currently on hold. Interrogation of the device yesterday showed normal function adjustments were made to hysteresis. Labs are stable. 06/02/24 Patient was seen and examined sitting up in a chair. Overall he is feeling well . He had 1 very brief mild episode of lightheadedness this morning when he got out of bed but has otherwise been up and about feeling well. He is back on the metoprolol succinate 25 mg p.o. daily and he has been started on Farxiga 10 mg p.o. daily. He is tolerating these well. He is concerned regarding the cost of Farxiga as his pharmacy called with the estimated cost of over $500 a month. He is also concerned about the metoprolol as he is got 50 mg tablets at home and does not wish to pay for 25 mg tablets. Physical examination: Gen: This is a 79-year-old male in no acute distress. VS: reviewed HEENT: Head is atraumatic, normocephalic. Pupils equal, round. Sclerae is anicteric. NECK: Supple. No JVD. LUNGS: Clear to auscultation. No wheezes or rhonchi. No intercostal retractions. HEART: Regular rate and rhythm. No murmur. LIC incision clean dry and intact with no ecchymosis or hematoma. ABDOMEN: Soft No tenderness. EXTREMITIES: No pedal edema. No calf tenderness. NEUROLOGICAL: Patient is awake, alert and oriented x3. Assessment: Dizziness, dyspnea, improved Palpitations from ICD ICD implantation on 05/16/2024 Coronary artery disease status post CABG Nonischemic cardiomyopathy, dilated Chronic systolic heart failure Severe mitral regurgitation status post mitral valve repair History of CVA Plan: From cardiology's perspective we will continue current medications. Patient was advised he may cut the metoprolol in half that he has at home. He will contact the office tomorrow and we will provide him with samples of either Farxiga or Jardiance. We will send a prescription at that time to the [facility]. He is stable for discharge home. He will follow-up in the office with Dr. Land in 1 to 2 weeks. Nurse practitioner note has been reviewed, I agree with documented findings and plan of care. Patient was seen and examined. Objective - Vital Signs Vital signs: Vital Signs Temp 97.7 F 06/01/24 19:22 Pulse 73 06/02/24 07:00 Resp 15 06/02/24 07:00 BP 106/76 06/02/24 07:00 Pulse Ox 98 06/02/24 07:00 FiO2 Intake & Output 06/01/24 06/02/24 06/02/24 18:59 06:59 18:59 Intake Total 590 Balance 590 Intake: Oral 590 Other: Voiding Method Toilet Toilet # Voids 6 2 - Labs CBC & Chem 7: 06/01/24 06:07 06/01/24 06:07
--- NOTE | 2024-06-02 13:02 | P.DS ---
Providers Date of admission: 05/29/24 16:17 Expected date of discharge: 06/02/24 Attending physician: Kenny Frias Consults: 05/29/24 15:36 Consult Physician Routine Consulting Provider: [facility] Consult Reason/Comments: palpiations & SOB s/p pacemaker placement 2 weeks ago Do you want consulting provider notified?: Yes [facility] Course: Discharge Diagnosis: Palpitations and exertional dyspnea Hypotension and bradycardia Nonischemic cardiomyopathy with a EF of 25% status post dual-chamber AICD implantation 05/16/2024 History of mitral valve repair Hypertension Hyperlipidemia Elevated D-dimer CTA negative for PE. Enlarged right hilar lymph node. CTA revealed 15 mm enlarged right hilar lymph node. Recommend outpatient follow-up CT thorax with contrast in 3 to 4 months to confirm stability. BPH. Continue Flomax 0.4 mg nightly. Hospital course: Patient is a very pleasant 79-year-old male with a past medical history of nonischemic cardiomyopathy with a EF of 25% status post dual-chamber ICD implantation on 05/16/2024, mitral valve repair, severe cardiomyopathy, hypertensi on, hyperlipidemia, and BPH. Patient reports since implantation of pacemaker he has been experiencing episodes of palpitations and exertional dyspnea that have progressively worsened. He reports following up with his microfilming document preparer, Dr. Land and was sent from cardiology office to the emergency department for evaluation. Upon arrival to our facility, patient underwent evaluation in the emergency department. Vital signs upon arrival show blood pressure 111/59, heart rate 38, respiratory rate 25, temp 98.7 F, and SpO2 of 98% on room air. EKG was completed showing a ventricular paced rhythm at a 104 bpm. Repeat EKG completed showing sinus mechanism with frequent PVCs and T wave inversion in lateral leads I and aVL. Chest x-ray completed showing chronic changes without acute cardiopulmonary process. Labs completed and reviewed. CBC showing mild thrombocytopenia with platelet count of 137. Coagulation profile showing elevated D-dimer of 2.19. BMP showing prerenal azotemia with BUN of 26 and blood glucose of 128. Magnesium normal findings at 2.0. Calcium normal findings at 9.2. Liver profile unremarkable. Troponin was negative at less than 0.012 and proBNP was 772. CTA chest was completed negative for pulmonary emboli showing no acute cardiopulmonary process but did reveal a 15 mm enlarged right hilar lymph node recommending follow-up CT thorax with contrast in 3 to 4 months to confirm stability. Patient admitted under our services with consultation to cardiology. Troponins were trended negative at less than 0.012 x 2 draws. TSH normal findings at 1.430. Echocardiogram completed showing impaired EF of 25 to 30% with moderate RV enlargement. [employer] patient representative adjusted based rate of pacemaker. Medication changes were made by cardiology. Patient cleared from cardiac perspective for discharge and is medically optimized for discharge at this time. Losartan and Aldactone were discontinued and no other medication changes were made during this admission. Patient to follow-up outpatient with PCP in 1 to 2 days and with microfilming document preparer in 1 week. Physical exam: Vital signs reviewed General: Nontoxic, no distress and appears stated age. Derm: Skin warm and dry, normal coloration for ethnicity. Head: Atraumatic, normocephalic and symmetric. Eyes: EOM's intact, no lid lag, and anicteric sclera Mouth: no lip lesions, mucus membranes moist18 Cardiovascular: regular rate and rhythm with normal S1S2, soft systolic murmur, positive posterior tibial pulses bilaterally, and cap refill < 2 seconds. Lungs: Respirations even, regular, and unlabored on room air. Lungs CTA bilaterally, no rhonchi, no rales, no wheezing, and no accessory muscle usage. Abdominal: soft, nontender to palpation, no guarding, no appreciable organomegaly Ext: ROM intact. No gross muscle atrophy, no edema, no contractures Neuro: Speech clear, face symmetrical and CN II-XII grossly intact with no noted focal neuro deficits Psych: Alert and oriented to person, place, time, and situation. Appropriate and pleasant affect. A total of 33 minutes of time were spent preparing this complex discharge summary. Pt was discharged on 06/02/2024 at 1:02 PM. Patient was seen independently by Nurse Practitioner. This document was prepared using [employer] dictation software. Please allow for errors in health services director while rare they do occur. Finn Cazares NP rendered care for this patient independently, reviewed the findings and plan as documented in the note above. I did not physically speak with or examine the patient on this date. Patient Condition at Discharge: Stable Plan - Discharge Summary Discharge Rx Participant: Yes New Discharge Prescriptions: Continue Tamsulosin [Flomax] 0.4 mg PO HS Magnesium 400 mg PO HS #0 Aspirin 81 mg PO DAILY #90 tab Rosuvastatin Calcium 20 mg PO DAILY Metoprolol Succinate (ER) [Toprol XL] 25 mg PO HS Cyanocobalamin (Vitamin B-12) [Vitamin B-12] 1,000 mcg PO DAILY Discontinued Losartan [Cozaar] 25 mg PO HS Spironolactone 25 mg PO HS Discharge Medication List Tamsulosin [Flomax] 0.4 mg PO HS 10/18/22 [History] Cyanocobalamin (Vitamin B-12) [Vitamin B-12] 1,000 mcg PO DAILY 03/16/23 [History] Magnesium 400 mg PO HS #0 10/08/23 [History] Aspirin 81 mg PO DAILY #90 tab 10/10/23 [Rx] Rosuvastatin Calcium 20 mg PO DAILY 05/14/24 [History] Metoprolol Succinate (ER) [Toprol XL] 25 mg PO HS 05/29/24 [History] Follow up Appointment(s)/Referral(s): Cam Sykes DO [Primary Care Provider] - 1-2 days Antonio Land MD [STAFF PHYSICIAN] - 1 Week (please call tomorrow for an ap pointment ) Patient Instructions/Handouts: Weakness (DC), Dyspnea (DC) Activity/Diet/Wound Care/Special Instructions: Activity: As tolerated. Take breaks as needed. Remember to change positions slowly from lying to sitting, sitting before standing, and upon standing before walking. Diet: Heart healthy and carb consistent diet. Avoid salts, or foods with hidden salts such as canned or boxed foods and frozen dinners. Extra salt makes your heart work harder and traps the fluid in your body for longer. Special Instructions: Take all of your medications as directed and remember to keep all of your doctor's appointments and follow-up as needed. Thank you for allowing us to participate in your care, it was truly a pleasure having you for our patient!!! Discharge Disposition: HOME SELF-CARE
== END 2024-06-02 14:36 | disposition home or self-care (01) | DRG 309 ==
LOC: EC 13:34 → 6NMEDSUR 16:16 → OBSVTOIN 16:17 → 6NMEDSUR 20:26
PROVIDERS: ADMIT Student in an Organized Health Care Education/Training Program; ATTEND Student in an Organized Health Care Education/Training Program
DX: R00.2 Palpitations (principal); I50.22 Chronic systolic (congestive) heart failure; D69.6 Thrombocytopenia, unspecified; I27.20 Pulmonary hypertension, unspecified; I11.0 Hypertensive heart disease with heart failure; Z95.2 Presence of prosthetic heart valve; I42.0 Dilated cardiomyopathy; I95.9 Hypotension, unspecified; R06.09 Other forms of dyspnea; R00.1 Bradycardia, unspecified; E78.5 Hyperlipidemia, unspecified; N40.0 Benign prostatic hyperplasia without lower urinary tract symptoms; I49.3 Ventricular premature depolarization; R42 Dizziness and giddiness; I25.10 Atherosclerotic heart disease of native coronary artery without angina pectoris; Z79.82 Long term (current) use of aspirin; Z87.891 Personal history of nicotine dependence; Z86.73 Personal history of transient ischemic attack (TIA), and cerebral infarction without residual deficits; Z79.899 Other long term (current) drug therapy; Z95.1 Presence of aortocoronary bypass graft; Z95.810 Presence of automatic (implantable) cardiac defibrillator
CPT/HCPCS: 36415; 71046; 71275; 80053; 83735; 83880; 84443; 84484; 85025; 85027; 85379; 85610; 85730; 93005; 93306; 96372; 99285

== ENCOUNTER 2024-06-13 09:59 | Emergency (ER) | payer OTHER, MEDICARE ==
--- NOTE | 2024-06-13 10:37 | ED ---
General Adult HPI - General Chief complaint: Dizziness Stated complaint: dizziness Time Seen by Provider: 06/13/24 10:07 Source: patient, RN notes reviewed, old records reviewed Mode of arrival: ambulatory Limitations: no limitations - History of Present Illness Initial comments: 79-year-old male with lightheadedness, exertional dyspnea. He is presenting from the primary care office. He states that after walking into the office he began to feel quite lightheaded and was short of breath. He does have history of CHF and pacemaker placement. He had a recent admission with similar symptoms. No central chest pain. - Related Data Home Medications Medication Instructions Recorded Confirmed Tamsulosin [Flomax] 0.4 mg PO HS 10/18/22 06/13/24 Cyanocobalamin (Vitamin B-12) 1,000 mcg PO DAILY 03/16/23 06/13/24 [Vitamin B-12] Magnesium 400 mg PO HS #0 10/08/23 06/13/24 Rosuvastatin Calcium 20 mg PO DAILY 05/14/24 06/13/24 Metoprolol Succinate (ER) [Toprol 25 mg PO HS 05/29/24 06/13/24 XL] Empagliflozin [Jardiance] 10 mg PO DAILY 06/13/24 06/13/24 Previous Rx's Medication Instructions Recorded Aspirin 81 mg PO DAILY #90 tab 10/10/23 Allergies Allergy/AdvReac Type Severity Reaction Status Date / Time No Known Allergies Allergy Verified 05/29/24 14:15 Review of Systems ROS Statement: Those systems with pertinent positive or pertinent negative responses have been documented in the HPI. ROS Other: All systems not noted in ROS Statement are negative. 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,hx COVID 06/2022, heart valve problem per pt., SOB w/exertion @times,BPH History of Any Multi-Drug Resistant Organisms: None Reported Past Surgical History: Heart Catheterization, Hernia Repair, Orthopedic Surgery, Pacemaker Additional Past Surgical History / Comment(s): ORIF RT WRIST SX, COLONOSCOPY, BILAT CATARACTS REMOVED WITH LENS IMPLANTS, open heart surgery-mitral valve repair Past Anesthesia/Blood Transfusion Reactions: No Reported Reaction Additional Past Anesthesia/Blood Transfusion Reaction / Comment(s): no hx blood transfusion Type of Cardiac Device: Permanent Pacemaker Device Placement Date:: 05/16/24 Past Psychological History: No Psychological Hx Reported Smoking Status: Former smoker Past Alcohol Use History: None Reported Past Drug Use History: None Reported - Past Family History Father Family Medical History: Cancer General Exam Limitations: no limitations General appearance: alert, in no apparent distress Head exam: Present: atraumatic, normocephalic Eye exam: Present: normal appearance, PERRL ENT exam: Present: normal exam Neck exam: Present: normal inspection. Absent: tenderness, meningismus Respiratory exam: Present: normal lung sounds bilaterally. Absent: respiratory distress, wheezes Cardiovascular Exam: Present: regular rate, irregular rhythm GI/Abdominal exam: Present: soft. Absent: distended, tenderness, guarding Extremities exam: Present: normal inspection, normal capillary refill. Absent: pedal edema Neurological exam: Present: alert, oriented X3, CN II-XII intact. Absent: motor sensory deficit Psychiatric exam: Present: normal affect, normal mood Skin exam: Present: warm, dry, intact. Absent: cyanosis, diaphoretic Course Vital Signs 06/13/24 06/13/24 06/13/24 10:00 10:20 11:05 Temperature 98.4 F Pulse Rate 40 L 79 64 Respiratory 20 20 18 Rate Blood Pressure 128/78 119/75 O2 Sat by Pulse 97 99 98 Oximetry Medical Decision Making - Medical Decision Making Was pt. sent in by a medical professional or institution (JESSICA Moss, SAFETY DEPOSIT SUPERVISOR, urgent care, hospital, or halfway...) When possible be specific @ -No Did you speak to anyone other than the patient for history (EMS, parent, family, police, friend...)? What history was obtained from this source @ -No Did you review nursing and triage notes (agree or disagree)? Why? @ -I reviewed and agree with nursing and triage notes Were old charts reviewed (outside hosp., previous admission, EMS record, old EKG, old radiological studies, urgent care reports/EKG's, halfway records)? Report findings @ -No old charts were reviewed Differential Diagnosis (chest pain, altered mental status, abdominal pain women, abdominal pain men, vaginal bleeding, weakness, fever, dyspnea, syncope, headache, dizziness, GI bleed, back pain, seizure, CVA, palpatations, mental health, musculoskeletal)? @ -Not applicable EKG interpreted by me (3pts min.). @ -EKG 1008 sinus rhythm with PVCs rate of 72 [place] interval 227, QRS duration 132, QTc 448 EKG at 1011, paced rhythm rate of 104, QRS duration 181, QTc 491 X-rays interpreted by me (1pt min.). @Chest x-ray negative for acute cardiopulmonary findings. CT interpreted by me (1pt min.). @ -None done U/S interpreted by me (1pt. min.). @ -None done What testing was considered but not performed or refused? (CT, X-rays, U/S, labs)? Why? @ -None What meds were considered but not given or refused? Why? @ -None Did you discuss the management of the patient with other professionals (professionals i.e. , PA, SAFETY DEPOSIT SUPERVISOR, lab, RT, psych nurse, social media intern, advisor consultant, teacher, supply requirements officer, case repairer)? Give summary @ -No Was smoking cessation discussed for >3mins.? @ -No Was critical care preformed (if so, how long)? @ -No Were there social determinants of health that impacted care today? How? (Homelessness, low income, unemployed, alcoholism, drug addiction, transporta tion, low edu. Level, literacy, decrease access to med. care, longterm, rehab)? @ -No Was there de-escalation of care discussed even if they declined (Discuss DNR or withdrawal of care, Hospice)? DNR status @ -No What co-morbidities impacted this encounter? (DM, HTN, Smoking, COPD, CAD, Cancer, CVA, ARF, Chemo, Hep., AIDS, mental health diagnosis, sleep apnea, morbid obesity)? @Recent pacemaker defibrillator Was patient admitted / discharged? Hospital course, mention meds given and route, prescriptions, significant lab abnormalities, going to OR and other pertinent info. @79-year-old male with lightheadedness, exertional dyspnea this is a recurrent symptom for this patient. Patient was initially in sinus rhythm with PVC followed by paced rhythm slightly tachycardic. Patient care was discussed with Dr. Xie, covering for EP. He was able to interrogate pacemaker defibrillator and make an adjustment he states that the issue was PMT. Patient's laboratory testing is unremarkable chest x-ray is clear. Stable for discharge at this time. Undiagnosed new problem with uncertain prognosis? @ -No Drug Therapy requiring intensive monitoring for toxicity (Heparin, Nitro, Insulin, Cardizem)? @ -No Were any procedures done? @ -No Diagnosis/symptom? @ -[Lightheadedness, PMT(pacemaker mediated tachycardia) Acute, or Chronic, or Acute on Chronic? @ -Acute Uncomplicated (without systemic symptoms) or Complicated (systemic symptoms)? @ -Default Side effects of treatment? @ -No Exacerbation, Progression, or Severe Exacerbation? @ -No Poses a threat to life or bodily function? How? (Chest pain, USA, MS, pneumonia, PE, COPD, DKA, ARF, appy, cholecystitis, CVA, Diverticulitis, Homicidal, Suicidal, threat to staff... and all critical care pts) @ -No - Lab Data Result diagrams: 06/13/24 10:17 06/13/24 10:17 Lab Results 06/13/24 06/13/24 06/13/24 Range/Units 10:17 10:17 10:17 WBC 6.0 (3.8-10.6) k/uL RBC 5.19 (4.30-5.90) m/uL Hgb 16.0 (13.0-17.5) gm/dL Hct 49.2 (39.0-53.0) % MCV 94.7 (80.0-100.0) fL MCH 30.8 (25.0-35.0) pg MCHC 32.5 (31.0-37.0) g/dL RDW 13.6 (11.5-15.5) % Plt Count 132 L (150-450) k/uL MPV 7.4 Neutrophils % 60 % Lymphocytes % 24 % Monocytes % 9 % Eosinophils % 3 % Basophils % 0 % Neutrophils # 3.6 (1.3-7.7) k/uL Lymphocytes # 1.5 (1.0-4.8) k/uL Monocytes # 0.6 (0-1.0) k/uL Eosinophils # 0.2 (0-0.7) k/uL Basophils # 0.0 (0-0.2) k/uL PT 11.2 (10.0-12.5) sec INR 1.0 (<1.2) APTT 23.5 (22.0-30.0) sec Sodium 136 L (137-145) mmol/L Potassium 4.6 (3.5-5.1) mmol/L Chloride 102 (98-107) mmol/L Carbon Dioxide 22 (22-30) mmol/L Anion Gap 12 mmol/L BUN 19 (9-20) mg/dL Creatinine 1.12 (0.66-1.25) mg/dL Est GFR (CKD-EPI)AfAm 73 (>60 ml/min/1.73 sqM) Est GFR (CKD-EPI)NonAf 63 (>60 ml/min/1.73 sqM) Glucose 110 H (74-99) mg/dL Calcium 9.3 (8.4-10.2) mg/dL Magnesium 2.3 (1.6-2.3) mg/dL Total Bilirubin 0.8 (0.2-1.3) mg/dL AST 28 (17-59) U/L ALT 33 (4-49) U/L Alkaline Phosphatase 42 (38-126) U/L Troponin I (0.000-0.034) ng/mL Total Protein 7.2 (6.3-8.2) g/dL Albumin 4.6 (3.5-5.0) g/dL 06/13/24 Range/Units 10:17 WBC (3.8-10.6) k/uL RBC (4.30-5.90) m/uL Hgb (13.0-17.5) gm/dL Hct (39.0-53.0) % MCV (80.0-100.0) fL MCH (25.0-35.0) pg MCHC (31.0-37.0) g/dL RDW (11.5-15.5) % Plt Count (150-450) k/uL MPV Neutrophils % % Lymphocytes % % Monocytes % % Eosinophils % % Basophils % % Neutrophils # (1.3-7.7) k/uL Lymphocytes # (1.0-4.8) k/uL Monocytes # (0-1.0) k/uL Eosinophils # (0-0.7) k/uL Basophils # (0-0.2) k/uL PT (10.0-12.5) sec INR (<1.2) APTT (22.0-30.0) sec Sodium (137-145) mmol/L Potassium (3.5-5.1) mmol/L Chloride (98-107) mmol/L Carbon Dioxide (22-30) mmol/L Anion Gap mmol/L BUN (9-20) mg/dL Creatinine (0.66-1.25) mg/dL Est GFR (CKD-EPI)AfAm (>60 ml/min/1.73 sqM) Est GFR (CKD-EPI)NonAf (>60 ml/min/1.73 sqM) Glucose (74-99) mg/dL Calcium (8.4-10.2) mg/dL Magnesium (1.6-2.3) mg/dL Total Bilirubin (0.2-1.3) mg/dL AST (17-59) U/L ALT (4-49) U/L Alkaline Phosphatase (38-126) U/L Troponin I <0.012 (0.000-0.034) ng/mL Total Protein (6.3-8.2) g/dL Albumin (3.5-5.0) g/dL Disposition Clinical Impression: Dyspnea, Dizziness, PMT (pacemaker-mediated tachycardia) Disposition: HOME SELF-CARE Condition: Fair Instructions (If sedation given, give patient instructions): Dizziness (ED) Is patient prescribed a controlled substance at d/c from ED?: No Referrals: Cam Sykes DO [Primary Care Provider] - 1-2 days Eduardo Xie MD [STAFF PHYSICIAN] - 1-2 days Time of Disposition: 12:11
[2024-06-13 10:38] LABS: Basophils % (A) 0 %; Eosinophils # (A) 0.2 k/uL (0-0.7); Eosinophils % (A) 3 %; HCT 49.2 % (39.0-53.0); Lymphocytes # (A) 1.5 k/uL (1.0-4.8); Lymphocytes % (A) 24 %; MCH 30.8 pg (25.0-35.0); MCHC 32.5 g/dL (31.0-37.0); MCV 94.7 fL (80.0-100.0); Mean Platelet Volume 7.4; Monocytes # (A) 0.6 k/uL (0-1.0); Monocytes % (A) 9 %; Neutrophils # (A) 3.6 k/uL (1.3-7.7); Neutrophils % (A) 60 %; Partial Thromboplastin Time 23.5 sec (22.0-30.0); Platelet Count 132 k/uL (150-450); Prothrombin Time 11.2 sec (10.0-12.5); RBC 5.19 m/uL (4.30-5.90); RDW 13.6 % (11.5-15.5)
[2024-06-13 10:42] LABS: ALT 33 U/L (4-49); AST 28 U/L (17-59); African American GFR (CKD) 73 (>60 ml/min/1.73 sqM); Albumin 4.6 g/dL (3.5-5.0); Alkaline Phosphatase 42 U/L (38-126); Anion Gap 12 mmol/L; Blood Urea Nitrogen 19 mg/dL (9-20); Calcium 9.3 mg/dL (8.4-10.2); Carbon Dioxide 22 mmol/L (22-30); Chloride 102 mmol/L (98-107); Glucose 110 mg/dL (74-99); Magnesium 2.3 mg/dL (1.6-2.3); Non-African American GFR(CKD) 63 (>60 ml/min/1.73 sqM); Potassium 4.6 mmol/L (3.5-5.1); Sodium 136 mmol/L (137-145); Total Bilirubin 0.8 mg/dL (0.2-1.3); Total Protein 7.2 g/dL (6.3-8.2)
[2024-06-13 11:15] VITALS: RESP 18
--- NOTE | 2024-06-13 11:35 | XR ---
EXAMINATION TYPE: XR chest 1V portable DATE OF EXAM: 06/13/2024 11:29 AM COMPARISON: Chest radiographs from 05/29/2024, CT chest 05/29/2024 TECHNIQUE: XR chest 1V portable Portable AP radiograph of the chest. CLINICAL INDICATION:Male, 79 years old with history of dysrhythmia; FINDINGS: Lungs/Pleura: There is no evidence of pleural effusion, focal consolidation, or pneumothorax. Chroni c senescent parenchymal change. Pulmonary vascularity: Unremarkable. Heart/mediastinum: Cardiomediastinal silhouette is prominent in size. Two lead cardiac conduction dev ice overlying the left hemithorax with lead tips projecting over the right ventricle and right atrium . Left atrial appendage occlusion device. Musculoskeletal: No acute osseous pathology. Midline sternotomy wires are noted and stable. IMPRESSION: Chronic changes without acute pulmonary process. No significant change from prior. [facility], , 06/13/2024 11:33 AM
[2024-06-13 13:08] VITALS: BP 128/83; PULSE 65; TEMP 97.2
--- NOTE | 2024-06-13 15:37 | P.EPPROC ---
- EP Procedure Note Electrophysiology Procedure Note: Patient came to the hospital complaining of shortness of breath His first twelve-lead EKG showed RV pacing likely tracking the atrial signal at 103 beats a minute The dual-chamber Patterson ICD was interrogated Atrial threshold 0.25 V at 0.5 ms, P waves 4.8 mV and pacing impedance 560 ohms RV pacing threshold 0.5 V at 0.5 ms, R waves 12 mV and pacing pins 480 ohms High-voltage impedance 69 ohms With ventricular pacing, we were able to reproduce PMT with a long VA conduction of greater than 370 ms The PVR was reprogrammed to avoid and minimize PMT No changes in the VT and VF detections and therapy Impression Intermittent RV pacing likely related to frequent episodes of PMT, symptomatic
== END 2024-06-13 13:16 | disposition home or self-care (01) ==
LOC: EC 09:59
DX: R42 Dizziness and giddiness (principal); R06.00 Dyspnea, unspecified; R00.0 Tachycardia, unspecified; Z95.0 Presence of cardiac pacemaker; Z87.891 Personal history of nicotine dependence; Z86.73 Personal history of transient ischemic attack (TIA), and cerebral infarction without residual deficits; Z86.16 Personal history of COVID-19
CPT/HCPCS: 36415; 71045; 80053; 83735; 84484; 85025; 85610; 85730; 93005; 99284

== ENCOUNTER → 2024-07-18 | Outpatient (CLI) | payer OTHER ==
[2024-07-18 15:16] LABS: HCT 44.9 % (39.6-50.0); HGB 14.6 g/dL (13.0-17.0); MCH 30.9 pg (27.0-32.0); MCHC 32.5 g/dL (32.0-37.0); MCV 95.1 FL (80.0-97.0); Mean Platelet Volume 9.8 FL (9.5-12.2); NRBC Per 100 WBC 0 X 10*3/uL (0.00-0.01); Platelet Count 146 X 10*3/uL (140-440); RBC 4.72 X 10*6/uL (4.40-5.60); RDW 13.8 % (11.5-14.5); WBC 5.57 X 10*3/uL (4.50-10.00)
[2024-07-18 15:37] LABS: Blood Urea Nitrogen 18.2 mg/dL (9.0-27.0); Carbon Dioxide 22.1 mmol/L (21.6-31.8); Chloride 105 mmol/L (96-109); Potassium 4.5 mmol/L (3.5-5.5); Sodium 142 mmol/L (135-145)
== END | disposition home or self-care (01) ==
LOC: LABPAT 11:25
PROVIDERS: ATTEND Internal Medicine Clinical Cardiac Electrophysiology
DX: Z01.812 Encounter for preprocedural laboratory examination (principal); Z95.810 Presence of automatic (implantable) cardiac defibrillator
CPT/HCPCS: 80051; 82565; 84520; 85027

== ENCOUNTER 2024-07-29 09:25 | Day surgery (SDC) | payer OTHER ==
[~2024-07-29 09:25] MED LIST changes: -ALPRAZolam 0.25 MG TAB PO PRN; -ALPRAZolam 0.5 MG TAB PO PRN; -ASPIRIN 325 MG TAB PO ONE; -ATORVASTATIN 80 MG TAB PO ONE; -HEPARIN SODIUM,PORCINE (1 ML) 2,500 UNIT in SODIUM CHLORIDE 0.9% 250 ML IRRIGATION PRN; -HEPARIN SODIUM,PORCINE 10,000 UNIT in SODIUM CHLORIDE 0.9% 1,000 ML IRRIGATION PRN; -NITROGLYCERIN SL TABS 0.4 MG TAB SUBLINGUAL PRN; +SODIUM CHLORIDE 0.9% 1,000 ML IV SCH; -SODIUM CHLORIDE 0.9% 1,000 ML in EMPTY BAG 1 BAG IV SCH
[2024-07-29 10:11] LABS: Glucose,Whole Blood 92 mg/dL (70-110)
[2024-07-29 10:13] VITALS: RESP 16; TEMP 98.6
[2024-07-29] MEDS ORDERED: PROPOFOL 10 MG/ML 20 ML VIAL IV ONE (11:06)
[2024-07-29] MEDS: IV FLUID CONTINUATION 500 ML IV ONE (11:13)
--- NOTE | 2024-07-29 11:57 | P.PRLE ---
RE: Manpreet Alexis Dear [facility] Patient was brought in today for defibrillation level testing. He has high defibrillation thresholds and a 10 J shock 15 J shock and a 20 J shock failed, both in the anode vector and cathodal vector. We adjusted the biphasic waveform pulse width to achieve successful defibrillation In summary, this patient has high defibrillation thresholds and maximization of heart failure therapy gradually, in small increments at a time is crucial. He was on several medications for heart failure but these had to be discontinued because the patient was complaining of being very dizzy. Today I have asked him to increase the dose of Toprol-XL to 25 mg twice daily Subsequently, this should be increased further Thereafter restart spironolactone 12.5 mg p.o. daily Hopefully later we can add low-dose CAROLIN inhibitor too. However, I have spoken to the patient and his and ask have explained the importance of maximizing heart failure drugs.
--- NOTE | 2024-07-29 12:07 | P.HPCAR ---
History of Present Illness This is Dr. Xie dictating an H/P on this patient The patient was interviewed and examined IMPRESSION / ASSESSMENT: Nonischemic cardiomyopathy, chronic in nature Status post mitral valve repair for mitral prolapse with mitral regurgitation Left ventricular ejection fraction 25% Congestive heart failure class II-III Frequent PVCs Mildly prolonged HI interval at baseline Normal TSH Dual-chamber ICD implanted in May for management of risk of sudden cardiac and bradycardia Patient has an Vpon dual-chamber device which is functioning normally History of PMT. No recurrence after the PVARP was changed to 400 ms PLAN: Defibrillation level testing Maximize heart failure medications gradually HPI Patient is doing well. He has not had any palpitations nausea or any dizzy spells since we reprogrammed his PVARP in June when he had episodes of PMT No chest pain He complained of dizziness on heart failure medications. Therefore spironolactone, losartan were stopped. He is on very low-dose beta-blockers at this time Denies any symptoms and says he is doing well ROS: No fever chills or rigors, no cough, phlegm or expectoration, no nausea, vomiting or diarrhea, no hematuria, dysuria, no musculoskeletal complaints, no strokes or seizures, no skin lesions. EXAMINATION: Blood pressure 117/77 mmHg pulse rate in the 60s afebrile Breath sounds are clear no rhonchi no crackles Heart sounds S1-S2 are normal Abdomen is soft nontender Extremities are warm no edema REVIEW OF LABS, ECG & MEDICAL DATA White count 14.6, hematocrit 45 Platelet count 146,000 Sodium 142, potassium 4.5 BUN 18 and creatinine 1.0 Physical Exam Vitals: Vital Signs Temp Pulse Resp BP Pulse Ox 07/29/24 10:10 98.6 F 68 16 117/77 96 Intake and Output 07/28/24 07/29/24 07/29/24 22:59 06:59 14:59 Other: Weight 87.5 kg 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,hx COVID 06/2022, BPH History of Any Multi-Drug Resistant Organisms: None Reported Past Surgical History: Appendectomy, Heart Catheterization, Hernia Repair, Orthopedic Surgery, Pacemaker Additional Past Surgical History / Comment(s): ORIF RT WRIST SX, COLONOSCOPY, BILAT CATARACTS REMOVED WITH LENS IMPLANTS, open heart surgery-mitral valve repair 04/2023 Past Anesthesia/Blood Transfusion Reactions: No Reported Reaction Additional Past Anesthesia/Blood Transfusion Reaction / Comment(s): no hx blood transfusion Type of Cardiac Device: Permanent Pacemaker Device Placement Date:: 05/16/24 Smoking Status: Former smoker - Past Family History Father Family Medical History: Cancer Additional Family Medical History / Comment(s): lung cancer Physical Examination Vital Signs Temp Pulse Resp BP Pulse Ox 07/29/24 10:10 98.6 F 68 16 117/77 96 Intake and Output 07/28/24 07/29/24 07/29/24 22:59 06:59 14:59 Other: Weight 87.5 kg Results Current Medications Generic Name Dose Route Start Last Admin Trade Name Freq PRN Reason Stop Dose Admin Sodium Chloride 1,000 mls @ 20 mls/hr 07/29/24 07:04 Saline 0.9% IV 08/28/24 07:03 .Q24H TARA Intake and Output 07/28/24 07/29/24 07/29/24 22:59 06:59 14:59 Other: Weight 87.5 kg Patient Weight 07/30/24 06:59 Weight 87.5 kg
--- NOTE | 2024-07-29 12:17 | P.EPPROC ---
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 External defibrillation was successful In the cathode vector, a 15 J shock and a 20 J shock failed to defibrillate the patient. External defibrillation was successful After fine-tuning the pulse width to 5 seconds / 3 seconds, a 700 V shock defibrillator the patient successfully, type II conversion Tachy therapies were then programmed to 1. first cardioversion at 850 V followed by max output of 896 V x 2 2. First defibrillation at 850 V and then maximum output at 896 V With the first phase at 5 seconds and the second reverse phase of the shock at 3 seconds Details of the procedure Patient was brought to the EP lab in a fasting state. Written informed consent was obtained prior to the procedure The device was interrogated Atrial threshold was 0.25 V at 0.5 ms, P waves greater than 5 mV and pacing impedance of 540 ohms RV threshold 0.75 V at 0.5 ms, R waves greater than 12 mV and pacing impedance of 490 ohms High-voltage impedance 71 ohms, RV-can VF was induced but unsuccessfully defibrillated at a 10 J shock followed by a 20 J shock. Successful external defibrillation This was in the anode configuration and Ashok sensitivity No dropouts noted After waiting for 3 minutes and ensuring stable blood pressure above 120 mmHg, this was repeated in the cathode vector. 15 J shock followed by 20 J shock for both unsuccessful VF was appropriately detected at least sensitivity Thereafter the pulse width was reprogrammed according to an impedance of 73 ohms, first phase : initial duration of 5 seconds followed by a second phase: 3- second duration Thereafter VF was induced, successfully defibrillated with a type II conversion using 700 V in this configuration equating to 22.9 J of delivered energy The device was then reprogrammed accordingly First cardioversion and defibrillation at 850 V with the same 1st and 2nd phase durations followed by maximum output Patient tolerated procedure well without any acute complications I discussed this with the patient and his and I recommended gradually maximize heart failure medications. Today he will start metoprolol at 25 mg twice daily and will follow-up with Dr. Cervantes in 1 month
--- NOTE | 2024-07-29 12:19 | P.EPPROC ---
- EP Procedure Note Electrophysiology Procedure Note: This was a long procedure. Defibrillation level was tested in multiple configurations to achieve success Patient tolerated the procedure well without any acute complications
[2024-07-29 15:59] VITALS: BP 112/66; PULSE 69
== END 2024-07-29 13:17 | disposition home or self-care (01) ==
LOC: CATHEP 09:25
PROVIDERS: ATTEND Internal Medicine Clinical Cardiac Electrophysiology
DX: I11.0 Hypertensive heart disease with heart failure (principal); I50.22 Chronic systolic (congestive) heart failure; I42.8 Other cardiomyopathies; I25.10 Atherosclerotic heart disease of native coronary artery without angina pectoris; Z95.1 Presence of aortocoronary bypass graft; E78.5 Hyperlipidemia, unspecified; I49.3 Ventricular premature depolarization; N40.0 Benign prostatic hyperplasia without lower urinary tract symptoms; Z79.82 Long term (current) use of aspirin; Z79.84 Long term (current) use of oral hypoglycemic drugs; Z79.899 Other long term (current) drug therapy; Z87.891 Personal history of nicotine dependence; Z86.79 Personal history of other diseases of the circulatory system; Z98.890 Other specified postprocedural states; Z86.73 Personal history of transient ischemic attack (TIA), and cerebral infarction without residual deficits; Z95.810 Presence of automatic (implantable) cardiac defibrillator
CPT/HCPCS: 93641; J2704